=== PATIENT | male | born 1955 | race Two or more races ===

== ENCOUNTER 2020-09-11 12:49 | Emergency (ER) | payer MEDICARE, MEDICAID, SELFPAY ==
[2020-09-11 13:00] VITALS: BP 159/89; PULSE 85; RESP 17; TEMP 36.1; O2SAT 96; BMI 33.3
--- NOTE | 2020-09-11 13:04 | ED_ITS ---
HPI - Ear Problem General Chief complaint: Ear Problems Stated complaint: EAR PAIN Time Seen by Provider: 09/11/20 13:00 Source: patient Mode of arrival: ambulatory Limitations: no limitations History of Present Illness HPI Narrative: 65-year-old male with a past medical history of hyperlipidemia, hypertension, diabetes and vitamin-D deficiency presenting to the ED with complaints of right ear pain for the past 2 days worse today. Denies any other symptoms complaints or concerns at this time. Related Data Previous Rx's Medication Instructions Recorded metoprolol succinate 50 mg 50 mg PO BID 30 Days #60 tab 08/29/20 tablet,extended release 24 hr amoxicillin-pot clavulanate 1 tab PO Q12H 10 Days #20 tab NS 09/11/20 [Augmentin] ciprofloxacin-hydrocortisone 3 drp OTIC (EARS) Q12H 7 Days ml 09/11/20 Allergies Allergy/AdvReac Type Severity Reaction Status Date / Time No Known Allergies Allergy Unverified 08/08/20 17:07 [No Known Allergies*] dulaglutide [Trulicity] AdvReac Unknown diarrhea Verified 04/04/20 00:00 Review of Systems Review of Systems: Constitutional : No Fever, No Chills, No fatigue, No Malaise ENT/Mouth : No sore throat, No runny nose Eyes: No Discharge Cardiovascular : No Chest Pain, No SOB Respiratory : No Cough, No Sputum, No Wheezing, No Smoke Exposure, No Dyspnea Gastrointestinal : No Nausea, No Vomiting, No Diarrhea Genitourinary : No irregular bleeding, No Dysuria, No Urinary Frequency, No Hematuria, No Urinary Incontinence, No Urgency, No Flank Pain, Musculoskeletal : No Myalgia Skin : No rash Neuro : No Headache Yes all other systems are reviewed and are negative [facility] Past Medical History Attestation statement: The following information was validated with the patient. 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 Blood pressure normal. Heart rate normal. Respiration rate normal. Temperature normal. Oxygen saturation normal. Appearance: Alert. Oriented X3. No acute distress. Head: Normal external exam. Normocephalic. Atraumatic. No Villegas signs noted. No raccoon eyes noted Eyes: PERRLA. EOMI. Conjunctiva and sclera normal. Eyelids normal. ENT: Right external ear canal erythematous with white diffuse discharge and tympanic membrane erythematous. Pain with palpation to the pinna and the tragus to right ear. Left external ear canal and tympanic membrane within normal limits. Pharynx normal. Uvula midline. Moist mucous membranes. No trismus noted. No drooling noted. No muffled voice noted. Neck: Normal inspection. Neck supple. FROM. No adenopathy. Thyroid Normal. No meningeal signs. No neck mass noted. CVS: Normal heart rate and rhythm. Heart sound normal. No murmurs noted. Pulses normal throughout. Respiratory: No respiratory distress. Painless inspiration. Breath sounds normal. No wheezes/rales/rhonchi noted. Chest nontender. No accessory muscle usage noted or decreased air movement noted. Abdomen: Soft and nontender. Bowel sounds normal in all 4 quadrants. No distention noted. No organomegaly noted. No visible injury noted. Back: No CVA tenderness. Full range of motion noted. Skin: Skin warm and dry. Normal skin color. Normal skin turgor. No rashes/lesions/lacerations noted. Extremities: No lower extremity edema. Extremities exhibit normal range of motion. Extremities nontender. Neuro: Oriented X 3. No motor deficit. No sensory deficit. Reflexes normal. HENMT: Ears: Abnormal EAC present Course Course Course Narrative: 65-year-old male with a past medical history of hyp erlipidemia, hypertension, diabetes and vitamin-D deficiency presenting to the ED with complaints of right ear pain for the past 2 days worse today. Denies any other symptoms complaints or concerns at this time. patient appears to have otitis externa and media will DC home antibiotics and symptomatic treatment along with instructions return if any new or worsening symptoms to follow-up with primary care provider. Patient understands agrees the plan. Discharge Plan Discharge Clinical Impression: Otitis externa Qualifiers: Otitis externa type: diffuse Chronicity: acute Laterality: right Qualified Cod e(s): H60.311 - Diffuse otitis externa, right ear Otitis media Qualifiers: Otitis media type: suppurative Chronicity: acute Laterality: right Recurrence: not specified as recurrent Spontaneous tympanic membrane rupture: without spontaneous rupture Qualified Code(s): H66.001 - Acute suppurative otitis media without spontaneous rupture of ear drum, right ear Patient Disposition: Home, Self-Care Instructions: Otitis Externa (ED), Ear Infection (ED) Prescriptions: New amoxicillin-pot clavulanate [Augmentin] 500-125 mg tablet 1 tab PO Q12H 10 Days Qty: 20 RF: 0 ciprofloxacin-hydrocortisone 0.2-1 % drops,suspension 3 drp otic (ears) Q12H 7 Days RF: 0 No Action metoprolol succinate 50 mg tablet extended release 24 hr 50 mg PO BID 30 Days Qty: 60 RF: 0 Referrals: Mikey Lai MD [Primary Care Provider] - 2 days Print Language: Urdu
== END 2020-09-11 13:24 | disposition home or self-care (01) ==
LOC: HO.ED 13:14
PROVIDERS: Emergency Provider Emergency Medicine; PCP Internal Medicine
DX: H60.311 Diffuse otitis externa, right ear (principal); H66.001 Acute suppurative otitis media without spontaneous rupture of ear drum, right ear; E11.9 Type 2 diabetes mellitus without complications; I10 Essential (primary) hypertension; Z79.4 Long term (current) use of insulin
CPT/HCPCS: 99283

== ENCOUNTER → 2020-10-29 12:38 | Outpatient (BNVA) | payer MEDICARE, MEDICAID, SELFPAY | PROVIDERS: PCP Internal Medicine; Referring Provider Internal Medicine; Visit Provider Internal Medicine Endocrinology, Diabetes & Metabolism | DX: E11.65 Type 2 diabetes mellitus with hyperglycemia (principal); E11.21 Type 2 diabetes mellitus with diabetic nephropathy; E11.3299 Type 2 diabetes mellitus with mild nonproliferative diabetic retinopathy without macular edema, unspecified eye; E11.22 Type 2 diabetes mellitus with diabetic chronic kidney disease; I12.9 Hypertensive chronic kidney disease with stage 1 through stage 4 chronic kidney disease, or unspecified chronic kidney disease; N18.30 Chronic kidney disease, stage 3 unspecified; Z79.4 Long term (current) use of insulin; E78.5 Hyperlipidemia, unspecified; E04.2 Nontoxic multinodular goiter; E55.9 Vitamin D deficiency, unspecified | CPT/HCPCS: 82947; 99212 ==

== ENCOUNTER 2020-10-31 09:34 | Outpatient (REF) | payer MEDICARE, MEDICAID, SELFPAY ==
--- NOTE | 2020-10-31 09:40 | US_ITS ---
EXAMINATION: US THYROID CLINICAL INFORMATION: Multinodular goiter. COMPARISON: Thyroid ultrasound 07/19/2017. TECHNIQUE: Linear transducer laureano-scale and color Doppler examination with attention to the region of the thyroid. FINDINGS: SIZE: Measurements of the thyroid lobes and nodules are given in sagittal, anteroposterior and transverse dimensions respectively. Right Thyroid Lobe: 5.8 x 1.8 x 2.1 cm, volume 11.5 mL. Previously 5.4 x 1.8 x 1.5 cm, volume 7.6 mL. Parenchyma: The gland echotexture is heterogeneous. Thyroid vascularity is normal. Left Thyroid Lobe: 5.5 x 1.5 x 2.0 cm, volume 8.6 mL. Previously 4.9 x 1.6 x 1.6 cm, volume 6.6 mL. Parenchyma: The gland echotexture is homogeneous. Thyroid vascularity is normal. Isthmus: 0.3 cm in maximum AP dimension. Previously 0.3 cm. RIGHT THYROID LOBE: There is 1 nodule seen. 1. Location: Mid pole. Size: 0.5 x 0.4 x 0.4 cm. Previous: 0.5 x 0.3 x 0.5 cm. Nodule characteristics: Isoechoic heterogeneous, margin, no calcification and no intranodular flow ISTHMUS: No nodules. LEFT THYROID LOBE: There is 1 nodule seen. 1. Location: Mid pole/lateral. Size: 0.6 x 0.5 x 0.5 cm. Previous: 0.6 x 0.3 x 0.5 cm. Nodule characteristics: Isoechoic, smooth margin, no calcification and positive peripheral flow The previously identified cystic nodule in the upper pole is not appreciated. NODES: There is a left cervical lymph node adjacent to the thyroid gland. This is normal in size and demonstrates normal ultrasound morphology and flow. US/US thyroid IMPRESSION: Slightly enlarged heterogeneous thyroid gland. Stable small bilateral thyroid nodules. Previously identified small cystic nodule in the upper pole of the left lobe is not appreciated on the current exam.
== END 2020-10-31 09:35 | disposition home or self-care (01) ==
LOC: HO.US 09:34
PROVIDERS: Visit Provider Internal Medicine Endocrinology, Diabetes & Metabolism
DX: E04.2 Nontoxic multinodular goiter (principal); E11.65 Type 2 diabetes mellitus with hyperglycemia
CPT/HCPCS: 76536

== ENCOUNTER 2021-02-04 14:32 | Outpatient (REF) | payer MEDICARE, MEDICAID, SELFPAY ==
[2021-02-04 15:51] LABS: Hematocrit 45.1 % (42-52); Hemoglobin 15.1 g/dl (14.0-18.0); Mean Corpuscular HGB Conc 33.5 g/dl (31.0-36.0); Mean Corpuscular Hemoglobin 28.2 pg (27.0-33.0); Mean Corpuscular Volume 84.1 fL (80-98); Mean Platelet Volume 10.8 fL (9.4-12.4); Platelet Count 198 X10*3/uL (160-400); Red Blood Count 5.36 X10*6/uL (4.60-5.80); Red Cell Distribution Width 12.4 % (11.0-16.0); White Blood Count 7.3 X10*3/uL (4.8-10.8)
[2021-02-04 16:23] LABS: Creatinine Urine 324.52 mg/dL; Microalbum/Creatinine Ratio Ur 40.3 ug/mg cr
[2021-02-04 16:29] LABS: Alanine Aminotransferase 17 U/L (0-40); Albumin Level 4.3 g/dL (3.5-5.0); Alkaline Phosphatase 97 U/L (39-117); Anion Gap 13 (12-20); Aspartate Amino Transferase 21 U/L (5-37); Bilirubin Total 0.7 mg/dL (0.0-1.0); Blood Urea Nitrogen 20 mg/dL (9-16); Calcium 9.3 mg/dL (8.4-10.2); Carbon Dioxide 32 mmol/L (22-29); Chloride 98 mmol/L (96-108); Cholesterol 203 mg/dL; Estimated Glomerular Filt Rate 40; Glucose Fasting 285 mg/dL (60-99); HDL Cholesterol 37 mg/dL; LDL Cholesterol Calculated 105 mg/dl; Potassium 4.6 mmol/L (3.3-5.1); Sodium 138 mmol/L (135-145); Total Protein 7.7 g/dL (6.5-8.0); Triglycerides 306 mg/dL
[2021-02-04 16:43] LABS: Free T4 (Free Thyroxine) 0.87 ng/dL (0.71-1.85); Thyroid Stimulating Hormone 1.49 uIU/mL (0.32-4.0)
[2021-02-04 16:49] LABS: Vitamin B12 536 pg/mL (200-900)
[2021-02-05 07:46] LABS: LDL Cholesterol Direct 127 mg/dL (<100)
== END 2021-02-04 14:33 | disposition home or self-care (01) ==
LOC: HO.LAB 14:32
PROVIDERS: PCP Internal Medicine; Visit Provider Internal Medicine Endocrinology, Diabetes & Metabolism
DX: E11.65 Type 2 diabetes mellitus with hyperglycemia (principal); E11.3299 Type 2 diabetes mellitus with mild nonproliferative diabetic retinopathy without macular edema, unspecified eye; E11.22 Type 2 diabetes mellitus with diabetic chronic kidney disease; I12.9 Hypertensive chronic kidney disease with stage 1 through stage 4 chronic kidney disease, or unspecified chronic kidney disease; N18.30 Chronic kidney disease, stage 3 unspecified; Z79.4 Long term (current) use of insulin; E78.5 Hyperlipidemia, unspecified; E04.2 Nontoxic multinodular goiter; E55.9 Vitamin D deficiency, unspecified
CPT/HCPCS: 36415; 80053; 80061; 82043; 82607; 82947; 83721; 84439; 84443; 85027; 99212

== ENCOUNTER → 2021-06-10 09:35 | Outpatient (BNVA) | payer MEDICARE, MEDICAID, SELFPAY | PROVIDERS: PCP Internal Medicine; Visit Provider Internal Medicine Endocrinology, Diabetes & Metabolism | DX: E11.65 Type 2 diabetes mellitus with hyperglycemia (principal); E11.21 Type 2 diabetes mellitus with diabetic nephropathy; E11.3299 Type 2 diabetes mellitus with mild nonproliferative diabetic retinopathy without macular edema, unspecified eye; E11.22 Type 2 diabetes mellitus with diabetic chronic kidney disease; I12.9 Hypertensive chronic kidney disease with stage 1 through stage 4 chronic kidney disease, or unspecified chronic kidney disease; N18.30 Chronic kidney disease, stage 3 unspecified; E78.5 Hyperlipidemia, unspecified; E04.2 Nontoxic multinodular goiter; E55.9 Vitamin D deficiency, unspecified; Z79.4 Long term (current) use of insulin | CPT/HCPCS: 82947; 99212 ==

== ENCOUNTER 2021-06-10 10:22 | Outpatient (REF) | payer MEDICARE, MEDICAID, SELFPAY ==
[2021-06-10 12:39] LABS: MANUAL DIFF FLAG NO
[2021-06-10 12:42] LABS: Basophils Absolute Auto 0.1 X10*3/uL (0.0-0.2); Basophils Percent Auto 1.2 % (0-2); Eosinophils Absolute Auto 0.3 X10*3/uL (0.0-0.4); Eosinophils Percent Auto 4.2 % (0-4); Hematocrit 42.7 % (42-52); Hemoglobin 14.2 g/dl (14.0-18.0); Imm Gran Abs Auto 0.02 X10*3/uL (0.00-0.03); Imm Gran Pct Auto 0.3 % (0.0-0.4); Lymphocytes Absolute Auto 2.4 X10*3/uL (1.2-4.9); Lymphocytes Percent Auto 36.3 % (20-40); Mean Corpuscular HGB Conc 33.3 g/dl (31.0-36.0); Mean Corpuscular Hemoglobin 27.8 pg (27.0-33.0); Mean Corpuscular Volume 83.7 fL (80-98); Mean Platelet Volume 11.4 fL (9.4-12.4); Monocytes Absolute Auto 0.7 X10*3/uL (0.1-1.2); Monocytes Percent Auto 9.9 % (2-11); Neutrophils Absolute Auto 3.2 X10*3/uL (2.0-8.3); Neutrophils Percent Auto 48.1 % (45-73); Platelet Count 221 X10*3/uL (160-400); Red Cell Distribution Width 12.9 % (11.0-16.0); White Blood Count 6.7 X10*3/uL (4.8-10.8)
[2021-06-10 12:43] LABS: Glucose Urine UA 100 MG/DL (NEG); Leukocyte Esterase Urine NEG (NEG); Nitrite Urine NEG (NEG); Urine Blood NEG (NEG); Urine Ketones NEG (NEG); Urine Protein NEG (NEG-TRACE)
[2021-06-10 12:44] LABS: Appearance Urine CLEAR; Color Urine YELLOW
[2021-06-10 12:52] LABS: Estimated Average Glucose 232 mg/dL; Hemoglobin A1c % 9.7 %
[2021-06-10 12:58] LABS: Alanine Aminotransferase 14 U/L (0-40); Albumin Level 4.3 g/dL (3.5-5.0); Alkaline Phosphatase 101 U/L (39-117); Anion Gap 15 (12-20); Aspartate Amino Transferase 14 U/L (5-37); Bilirubin Total 0.8 mg/dL (0.0-1.0); Blood Urea Nitrogen 18 mg/dL (9-16); Calcium 9.9 mg/dL (8.4-10.2); Carbon Dioxide 26 mmol/L (22-29); Chloride 99 mmol/L (96-108); Cholesterol 207 mg/dL; Estimated Glomerular Filt Rate 53; Glucose Fasting 215 mg/dL (60-99); HDL Cholesterol 40 mg/dL; LDL Cholesterol Calculated 105 mg/dl; Potassium 4.2 mmol/L (3.3-5.1); Sodium 136 mmol/L (135-145); Total Protein 7.8 g/dL (6.5-8.0); Triglycerides 311 mg/dL
[2021-06-10 13:17] LABS: Microalbum/Creatinine Ratio Ur 52.9 ug/mg cr
[2021-06-10 13:38] LABS: TSH reflex Free T4 1.29 uIU/mL (0.32-4.0); Vitamin D 25-OH Total 27.1 ng/mL (>30)
== END 2021-06-10 10:23 | disposition home or self-care (01) ==
LOC: HO.10HDL 10:22
PROVIDERS: Internal Medicine Endocrinology, Diabetes & Metabolism; Visit Provider Internal Medicine
DX: E11.22 Type 2 diabetes mellitus with diabetic chronic kidney disease (principal); E11.65 Type 2 diabetes mellitus with hyperglycemia; I12.9 Hypertensive chronic kidney disease with stage 1 through stage 4 chronic kidney disease, or unspecified chronic kidney disease; N18.30 Chronic kidney disease, stage 3 unspecified; E78.2 Mixed hyperlipidemia; E55.9 Vitamin D deficiency, unspecified; E66.9 Obesity, unspecified; E04.2 Nontoxic multinodular goiter; Z79.4 Long term (current) use of insulin
CPT/HCPCS: 36415; 80053; 80061; 81003; 82043; 82306; 82947; 83036; 84443; 85025; 99212

== ENCOUNTER 2021-11-04 09:19 | Emergency (ER) | payer MEDICARE, MEDICAID, SELFPAY ==
--- NOTE | ~2021-11-04 | CT_ITS ---
EXAMINATION: CT MASTOID. CLINICAL INFORMATION: Left ureter pain, ? mastoiditis. ? malignant otitis externa. COMPARISON: None TECHNIQUE: 0.6 mm thin axial and reformatted 0.6 mm thin coronal images of bilateral mastoid sinuses were obtained. FINDINGS: Left mastoid: There is mild scattered opacification of mastoid sinuses with no bony erosive changes. No periosteal thickening. There is soft tissue mass seen within the left external auditory canal.. The tympanic membrane, middle ear ossicles are intact. There is no soft tissue mass or fluid within the left middle ear. The left internal auditory canal is symmetrical and normal. Visualized cochlea and the semicircular canals appear intact. Right mastoid: The right mastoid sinuses are well aerated without any mucoperiosteal thickening, air for levels are periosteal elevation. Visualized right external ear, right middle ear and right internal auditory canal appear normal. Bilateral TM joints are symmetrical and normal. No bony erosive changes or loose body seen. There is mild mucoperiosteal thickening bilateral ethmoid, maxillary and right sphenoid sinus. The bony neal are intact. The parapharyngeal soft tissues are normal. No free fluid seen. CT/CT mastoid IMPRESSION: Moderate mucoperiosteal thickening left external auditory canal without any bony erosive changes consistent inflammatory changes. Scattered inflammatory changes involving left mastoid sinus. The left middle ear and the left internal auditory canal appears normal. The right external, internal and middle ear appears normal. Nasopharyngeal and parapharyngeal soft tissues are normal.
[2021-11-04 09:45] VITALS: BP 175/86; PULSE 63; RESP 18; TEMP 36.4; O2SAT 98; BMI 36.8
--- NOTE | 2021-11-04 10:13 | ED_ITS ---
HPI - Ear Problem General Chief complaint: Ear Problems Stated complaint: Ear pain Time Seen by Provider: 11/04/21 10:02 Source: patient Mode of arrival: ambulatory Limitations: no limitations History of Present Illness HPI Narrative: 66-year-old with past medical history of diabetes, hypertension, and CKD presents ED for worsening left ear infection. Patient states infection for the past 11 days. Patient states he went swimming in [place] soon after having started having ear pain and was placed on oral antibiotics which consisted of 6 pills and ear drops and did not improved. Patient denies any bleeding from the ear but admits to slight ear discharge. Patient denies any recent head trauma. Patient states history of recurring ear infections. Patient states last episode was this past August. Patient denies any headache, fever, chills, nausea, or vomiting. Related Data Home Medications Medication Instructions Recorded Confirmed metoprolol tartrate 50 mg tablet 50 mg PO BID 10/29/20 07/24/21 Previous Rx's Medication Instructions Recorded atorvastatin 80 mg tablet 80 mg PO DAILY 30 Days #30 tab 06/10/21 blood sugar diagnostic (FreeStyle #150 ea 06/10/21 Lite Strips) cholecalciferol (vitamin D3) 50 50 mcg PO DAILY 30 Days #30 cap 06/10/21 mcg (2,000 unit) capsule empagliflozin 25 mg tablet 25 mg PO DAILY 30 Days #30 tab 06/10/21 ezetimibe 10 mg tablet 10 mg PO DAILY 30 Days #30 tab 06/10/21 insulin glargine 100 unit/mL (3 32 unit (0.32 mL) SUBCUT QPM 30 06/10/21 mL) subcutaneous pen (Basaglar Days #15 ml KwikPen U-100 Insulin) insulin lispro 100 unit/mL See Rx Instructions SUBCUT TID 30 06/10/21 subcutaneous pen (Humalog KwikPen Days #15 ml (U-100) Insulin) lancets 28 gauge (FreeStyle 28 gauge TOPICAL QID 75 Days #300 06/10/21 Lancets) ea linagliptin 5 mg tablet (Tradjenta) 5 mg PO DAILY 30 Days #30 tab 06/10/21 losartan 100 mg tablet 100 mg PO DAILY #30 tab 06/10/21 pen needle, diabetic 32 gauge x #150 ea 06/10/21 amlodipine 5 mg tablet 5 mg PO DAILY 30 Days #30 tab 07/24/21 amoxicillin 875 mg-potassium 1 tab PO Q12H 10 Days #20 tab 11/04/21 clavulanate 125 mg tablet (Augmentin) ciprofloxacin 0.3 %-dexamethasone 4 drp OTIC (EARS) Q12H 7 Days #7.5 11/04/21 0.1 % ear drops,suspension ml (Ciprodex) Allergies Allergy/AdvReac Type Severity Reaction Status Date / Time dulaglutide [Trulicity] AdvReac Unknown diarrhea Verified 07/24/21 13:53 Review of Systems Review of Systems: Yes all other systems are reviewed and are negative Constitutional: Constitutional: Reports as per HPI and Reports no additional constitutional complaints Eyes: Eyes: Reports as per HPI and Reports no additional eye complaints ENT: Reports system reviewed and no additional complaints, except as documented, Reports as per HPI and Reports otalgia (Left ear pain) Cardiovascular: Cardiovascular: Reports as per HPI and Reports no additional cardiovascular complaints Respiratory: Respiratory: Reports as per HPI and Reports no additional respiratory complaints Gastrointestinal: Gastrointestinal: Reports as per HPI and Reports no additional gastrointestinal complaints Genitourinary: Genitourinary: Reports no additional male genitourinary complaints and Reports as per HPI Musculoskeletal: Musculoskeletal: Reports no additional musculoskeletal complaints and Reports as per HPI Integumentary/Breasts: Skin/Breast: Reports system reviewed and no additional complaints, except as docu and Reports as per HPI Neurologic: Reports system reviewed and no additional complaints, except as documented and Reports as per HPI Psychiatric: Psychiatric: Reports no additional psychiatric complaints and Reports as per HPI [facility] Past Medical History Medical History (Updated 11/04/21 @ 13:03 by JOSE Najera) Benign essential hypertension Chronic kidney disease (CKD), stage III (moderate) CKD (chronic kidney disease) stage 3, GFR 30-59 ml/min Diabetes type 2, uncontrolled Diabetic 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 with type 2 diabetes mellitus Dyslipidemia Hypertension 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 Mild non proliferative diabetic retinopathy Mixed hyperlipidemia Non-toxic multinodular goiter Obesity (BMI 30-39.9) Screening for colon cancer Screening for prostate cancer Type 2 diabetes mellitus with diabetic chronic kidney disease Vitamin D deficiency Surgical History Hx of cardiac cath Hx of tonsillectomy Family History Family History Father Hypertension Diabetes CVA (cerebral vascular accident) Dementia Mother CVA (cerebral vascular accident) Dementia Diabetes Hypertension Other Mental health disorder Social History Social History Housing: House Alcohol intake: never Patient Tobacco Use Status: Never used Tobacco Advance Directives: No Advance Directives Information Provided: No service: No Current occupational status: disabled Physical Exam Vital Signs: Vital Signs: Last Vital Signs Temp 97.6 F 11/04/21 12:21 Pulse 64 11/04/21 12:21 Resp 18 11/04/21 12:21 BP 156/78 H 11/04/21 12:21 Pulse Ox 99 11/04/21 12:21 BMI result Body Mass Index 36.8 Const: General: cooperative, healthy appearing, comfortable, no acute di stress, well developed, alert, awake and Physically active Orientation/consciousness: patient oriented x3 HENMT: Other: Head: Yes normal to inspection, Yes No palpable skull fracture present, Yes normocephalic, Yes atraumatic and No abrasion Ears: hearing grossly normal bilaterally, external ears normal, mastoids normal, no periauricular adenopathy, Abnormal EAC present (Positive for yellowish discharge) and external ear abnormal (Slight erythema of ear lobe) Eyes: General: appearance normal, both eyes and all related structures Neck: Neck: Yes normal visual inspection, Yes full ROM, Yes no lymphadenopathy, Yes no meningeal signs, Yes trachea midline, Yes supple, No anterior neck swelling and No tender Chest: Chest palpation & inspection: normal inspection of the chest and normal palpation of entire chest wall Resp: Effort & Inspection: normal respiratory effort and able to speak in complete sentences Auscultation: clear to auscultation bilaterally Cardio: Jugular venous distension: no JVD Heart sounds: S1 normal heart sound present and S2 normal heart sound present GI: Inspection: Yes normal to inspection and No abdominal wall ecchymosis Palpation (GI): Soft to palpation, not firm, nontender, no guarding and not rigi d : General: No CVA tenderness and Yes no CVA tenderness Back/Spine/Pelvis: Back: no CVA tenderness, No CVA tenderness and No back tenderness Skin: General skin exam: no rashes or lesions noted and elasticity normal Neuro: General: patient oriented x3, gait normal, no meningeal signs and CN's II-XI intact bilaterally Cranial nerves: Yes CN's II-XII intact bilaterally Extrem: General: Yes normal to inspection and Yes full ROM Psych: Appearance: grossly normal, well kempt and not disheveled Course Course Course Narrative: History physical exam indicate otitis externa but due to patient stating it is not improved after 11 days with medication and slight erythema on external ear with ear discharge and also patient with history of diabetes will send for CT of mastoid to make sure there is no mastoiditis although there is no mastoid tenderness and make sure there is no malignant otitis externa. Reevaluation(s) Reevaluation #1: CT scan negative for mastoiditis or malignant otitis externa. Patient will be discharged with ear drops and oral antibiotics. Time: 13:01 MDM - Ear MDM Narrative Medical decision making narrative: Otitis externa Discharge Plan Discharge Clinical Impression: Otitis externa Patient Disposition: Home, Self-Care Instructions: Otitis Externa (ED) Additional Instructions: Ding tomograf?a computarizada solo muestra otitis externa. Se le corrie? de hermann con antibi?ticos orales y gotas para los o?dos. Regrese al servicio de urgencias si empeora el dolor de o?do, dolor de richard, secreci?n abundante del o?do, jevon del o?do, fiebre, escalofr?os, hinchaz?n / enrojecimiento detr?s de la parte frontal de la oreja, mareos, hinchaz?n facial, hinchaz?n del cherrie o cualquier otro s?ntoma preocupante. Feliciano un seguimiento con el proveedor de atenci?n primaria. Prescriptions: New amoxicillin-pot clavulanate [Augmentin] 875-125 mg tablet 1 tab PO Q12H 10 Days Qty: 20 RF: 0 ciprofloxacin-dexamethasone [Ciprodex] 0.3-0.1 % drops,suspension 4 drp otic (ears) Q12H 7 Days Qty: 7.5 RF: 0 No Action amlodipine 5 mg tablet 5 mg PO DAILY 30 Days Qty: 30 RF: 6 atorvastatin 80 mg tablet 80 mg PO DAILY 30 Days Qty: 30 RF: 5 (DME) FreeStyle Lite Strips Strip See Rx Instructions .ROUTE .MEDSUPPLY Qty: 150 RF: 7 cholecalciferol (vitamin D3) 50 mcg (2,000 unit) capsule 50 mcg PO DAILY 30 Days Qty: 30 RF: 6 empagliflozin 25 mg tablet 25 mg PO DAILY 30 Days Qty: 30 RF: 6 ezetimibe 10 mg tablet 10 mg PO DAILY 30 Days Qty: 30 RF: 5 Basaglar KwikPen U-100 Insulin 100 unit/mL (3 mL) insulin pen 32 unit subcut QPM 30 Days Qty: 15 RF: 5 insulin lispro [Humalog KwikPen Insulin] 100 unit/mL insulin pen See Rx Instructions subcut TID 30 Days Qty: 15 RF: 5 lancets [FreeStyle Lancets] 28 gauge misc 28 gauge topical QID 75 Days Qty: 300 RF: 2 Tradjenta 5 mg tablet 5 mg PO DAILY 30 Days Qty: 30 RF: 5 losartan 100 mg tablet 100 mg PO DAILY Qty: 30 RF: 6 (DME) pen needle, diabetic 32 gauge x 5/32 needle See Rx Instructions ea subcut .MEDSUPPLY Qty: 150 RF: 6 metoprolol tartrate 50 mg tablet 50 mg PO BID RF: 0 Referrals: Cj Root [Physician] - 2 days (otitis externa) Interventions: ED Discharge Assessment Last Done: 11/04/21 13:52 Discharge Date/Time: 11/04/21 13:55 Print Language: Algerian
[2021-11-04] MEDS: Ibuprofen 800 MG TABLET PO (10:20)
[2021-11-04 12:21] VITALS: BP 156/78; PULSE 64; RESP 18; TEMP 36.4; O2SAT 99
== END 2021-11-04 13:55 | disposition home or self-care (01) ==
PROVIDERS: Emergency Provider Emergency Medicine; PCP Internal Medicine
DX: H60.92 Unspecified otitis externa, left ear (principal); E11.9 Type 2 diabetes mellitus without complications; I10 Essential (primary) hypertension; Z79.4 Long term (current) use of insulin; Z79.899 Other long term (current) drug therapy
CPT/HCPCS: 70481; 99284

== ENCOUNTER → 2022-01-26 09:05 | Outpatient (BNVA) | payer MEDICARE, MEDICAID, SELFPAY | PROVIDERS: PCP Internal Medicine; Visit Provider Nurse Practitioner Gerontology | DX: E11.65 Type 2 diabetes mellitus with hyperglycemia (principal); E11.21 Type 2 diabetes mellitus with diabetic nephropathy; E11.3299 Type 2 diabetes mellitus with mild nonproliferative diabetic retinopathy without macular edema, unspecified eye; E11.22 Type 2 diabetes mellitus with diabetic chronic kidney disease; I12.9 Hypertensive chronic kidney disease with stage 1 through stage 4 chronic kidney disease, or unspecified chronic kidney disease; N18.31 Chronic kidney disease, stage 3a; E55.9 Vitamin D deficiency, unspecified; E78.5 Hyperlipidemia, unspecified; Z79.4 Long term (current) use of insulin | CPT/HCPCS: 82947; 83036; 99212 ==

== ENCOUNTER 2022-03-27 10:38 | Outpatient (REF) | payer MEDICARE, MEDICAID, SELFPAY ==
[2022-03-27 10:55] LABS: MANUAL DIFF FLAG NO
[2022-03-27 11:29] LABS: Basophils Absolute Auto 0.1 X10*3/uL (0.0-0.2); Eosinophils Absolute Auto 0.3 X10*3/uL (0.0-0.4); Eosinophils Percent Auto 4.3 % (0-4); Hematocrit 44.6 % (42.0-52.0); Hemoglobin 15.3 g/dl (14.0-18.0); Imm Gran Abs Auto 0.02 X10*3/uL (0.00-0.03); Imm Gran Pct Auto 0.3 % (0.0-0.4); Lymphocytes Absolute Auto 2.2 X10*3/uL (1.2-4.9); Mean Corpuscular HGB Conc 34.3 g/dl (31.0-36.0); Mean Corpuscular Hemoglobin 28.9 pg (27.0-33.0); Mean Corpuscular Volume 84.2 fL (80.0-98.0); Mean Platelet Volume 10.9 fL (9.4-12.4); Monocytes Absolute Auto 0.7 X10*3/uL (0.1-1.2); Neutrophils Absolute Auto 3.4 x10*3/uL (2.0-8.3); Neutrophils Percent Auto 51.4 % (45-73); Platelet Count 181 X10*3/uL (160-400); Red Cell Distribution Width 12.7 % (11.0-16.0); White Blood Count 6.7 X10*3/uL (4.8-10.8)
[2022-03-27 11:41] LABS: Estimated Average Glucose 220 mg/dL; Hemoglobin A1c % 9.3 %
[2022-03-27 12:22] LABS: Alanine Aminotransferase 14 U/L (0-40); Albumin Level 4.2 g/dL (3.5-5.0); Alkaline Phosphatase 104 U/L (39-117); Anion Gap 13 (12-20); Aspartate Amino Transferase 12 U/L (5-37); Bilirubin Total 0.6 mg/dL (0.0-1.0); Blood Urea Nitrogen 20 mg/dL (9-16); Carbon Dioxide 28 mmol/L (22-29); Chloride 100 mmol/L (96-108); Cholesterol 187 mg/dL; Estimated Glomerular Filt Rate 48; HDL Cholesterol 37 mg/dL; LDL Cholesterol Calculated 96 mg/dl; Potassium 4.6 mmol/L (3.3-5.1); Sodium 136 mmol/L (135-145); Total Protein 7.9 g/dL (6.5-8.0); Triglycerides 274 mg/dL
[2022-03-27 12:27] LABS: TSH reflex Free T4 2.13 uIU/mL (0.32-4.0); Vitamin D 25-OH Total 30.4 ng/mL (>30)
[2022-03-27 13:05] LABS: Glucose Fasting 397 mg/dL (60-99)
[2022-03-27 13:34] LABS: Appearance Urine CLEAR; Color Urine YELLOW; Glucose Urine UA >=1000 MG/DL (NEG); Leukocyte Esterase Urine NEG (NEG); Nitrite Urine NEG (NEG); Specific Gravity - Urine 1.015 (1.005-1.025); Urine Blood NEG (NEG); Urine Ketones NEG (NEG); Urine Protein NEG (NEG-TRACE)
[2022-03-27 13:45] LABS: Mucus Urine 1+ /LPF; RBC Urine 0 /HPF (0); Squamous Epithelial Cell Urine 1+ /LPF; WBC Urine 0 /HPF (0-4)
== END 2022-03-27 10:39 | disposition home or self-care (01) ==
LOC: HO.LAB 10:38
PROVIDERS: PCP Internal Medicine; Visit Provider Internal Medicine
DX: I10 Essential (primary) hypertension (principal); E11.9 Type 2 diabetes mellitus without complications; E78.00 Pure hypercholesterolemia, unspecified; E55.9 Vitamin D deficiency, unspecified
CPT/HCPCS: 36415; 80053; 80061; 81001; 82306; 83036; 84443; 85025

== ENCOUNTER → 2022-04-21 10:38 | Outpatient (BNVA) | payer MEDICARE, MEDICAID, SELFPAY | PROVIDERS: PCP Internal Medicine; Visit Provider Registered Nurse Diabetes Educator | DX: E11.22 Type 2 diabetes mellitus with diabetic chronic kidney disease (principal); N18.30 Chronic kidney disease, stage 3 unspecified | CPT/HCPCS: 95250 ==

== ENCOUNTER → 2022-05-12 10:22 | Outpatient (BNVA) | payer MEDICARE, MEDICAID, SELFPAY | PROVIDERS: PCP Internal Medicine; Visit Provider Nurse Practitioner Gerontology | DX: E11.65 Type 2 diabetes mellitus with hyperglycemia (principal); E11.21 Type 2 diabetes mellitus with diabetic nephropathy; E11.3299 Type 2 diabetes mellitus with mild nonproliferative diabetic retinopathy without macular edema, unspecified eye; E11.22 Type 2 diabetes mellitus with diabetic chronic kidney disease; I12.9 Hypertensive chronic kidney disease with stage 1 through stage 4 chronic kidney disease, or unspecified chronic kidney disease; N18.31 Chronic kidney disease, stage 3a; E78.5 Hyperlipidemia, unspecified; E55.9 Vitamin D deficiency, unspecified; Z79.4 Long term (current) use of insulin | CPT/HCPCS: Q3014 ==

== ENCOUNTER → 2022-12-31 10:38 | Outpatient (BNVA) | payer MEDICARE, MEDICAID, SELFPAY | PROVIDERS: PCP Internal Medicine; Visit Provider Internal Medicine Endocrinology, Diabetes & Metabolism | DX: E11.65 Type 2 diabetes mellitus with hyperglycemia (principal); Z79.4 Long term (current) use of insulin | CPT/HCPCS: 82947; 83036; 99212 ==

== ENCOUNTER 2023-01-01 09:34 | Outpatient (REF) | payer MEDICARE, MEDICAID, SELFPAY ==
[2023-01-01 09:49] LABS: MANUAL DIFF FLAG NO
[2023-01-01 10:42] LABS: Basophils Absolute Auto 0.1 X10*3/uL (0.0-0.2); Eosinophils Absolute Auto 0.2 X10*3/uL (0.0-0.4); Eosinophils Percent Auto 2.9 % (0-4); Hematocrit 48.5 % (42.0-52.0); Hemoglobin 16.1 g/dl (14.0-18.0); Imm Gran Abs Auto 0.02 X10*3/uL (0.00-0.03); Imm Gran Pct Auto 0.3 % (0.0-0.4); Lymphocytes Absolute Auto 2.3 X10*3/uL (1.2-4.9); Lymphocytes Percent Auto 29.5 % (20-40); Mean Corpuscular HGB Conc 33.2 g/dl (31.0-36.0); Mean Corpuscular Volume 84.3 fL (80.0-98.0); Mean Platelet Volume 10.4 fL (9.4-12.4); Monocytes Absolute Auto 0.7 X10*3/uL (0.1-1.2); Monocytes Percent Auto 9.2 % (2-11); Neutrophils Absolute Auto 4.4 x10*3/uL (2.0-8.3); Neutrophils Percent Auto 57.1 % (45-73); Platelet Count 242 X10*3/uL (160-400); Red Blood Count 5.75 X10*6/uL (4.60-5.80); Red Cell Distribution Width 12.6 % (11.0-16.0); White Blood Count 7.7 X10*3/uL (4.8-10.8)
[2023-01-01 10:46] LABS: Appearance Urine Clear; Color Urine Yellow; Glucose Urine UA >=1000 mg/dL (Negative); Leukocyte Esterase Urine Negative (Negative); Nitrite Urine Negative (Negative); PH 5.5 (5.0-9.0); Specific Gravity - Urine >= 1.030 (1.005-1.025); UMIC TRIGGER UACC YES; Urine Blood Negative (Negative); Urine Ketones Negative (Negative); Urine Protein Negative (Neg-Trace)
[2023-01-01 10:55] LABS: Bacteria Urine None Seen (None Seen); Hyaline Casts Urine 0-2 /LPF (0-2); RBC Urine 0-2 /HPF (0-2); Squamous Epithelial Cell Urine 0-2 /HPF (0-2); WBC Urine 0-5 /HPF (0-5)
[2023-01-01 11:10] LABS: Creatinine Urine 66.49 mg/dL
[2023-01-01 11:21] LABS: Alanine Aminotransferase 13 U/L (0-40); Albumin Level 4.6 g/dL (3.5-5.0); Alkaline Phosphatase 70 U/L (39-117); Anion Gap 16 (12-20); Aspartate Amino Transferase 12 U/L (5-37); Bilirubin Total 0.6 mg/dL (0.0-1.0); Blood Urea Nitrogen 21 mg/dL (9-16); Calcium 10.6 mg/dL (8.4-10.2); Carbon Dioxide 29 mmol/L (22-29); Chloride 102 mmol/L (96-108); Cholesterol 213 mg/dL; Estimated Glomerular Filt Rate 45; Glucose Fasting 210 mg/dL (60-99); HDL Cholesterol 48 mg/dL; LDL Cholesterol Calculated 133 mg/dl; Potassium 4.6 mmol/L (3.3-5.1); Sodium 142 mmol/L (135-145); Total Protein 8.2 g/dL (6.5-8.0); Triglycerides 164 mg/dL
[2023-01-01 11:27] LABS: TSH reflex Free T4 2.33 uIU/mL (0.32-4.0); Vitamin D 25-OH Total 27.8 ng/mL (>30)
[2023-01-08 08:59] LABS: C Peptide 2.98 ng/mL (0.80-3.85); Glutamic acid decarboxylase Ab <5 IU/mL (<5)
== END 2023-01-01 09:35 | disposition home or self-care (01) ==
LOC: HO.LAB 09:34
PROVIDERS: PCP Internal Medicine; Visit Provider Internal Medicine
DX: E11.9 Type 2 diabetes mellitus without complications (principal); I10 Essential (primary) hypertension; E55.9 Vitamin D deficiency, unspecified; E78.00 Pure hypercholesterolemia, unspecified
CPT/HCPCS: 36415; 80053; 80061; 81001; 82043; 82306; 84443; 84681; 85025; 86341

== ENCOUNTER 2023-04-09 08:31 | Outpatient (REF) | payer MEDICARE, MEDICAID, SELFPAY ==
[2023-04-09 09:54] LABS: Estimated Average Glucose 223 mg/dL; Hemoglobin A1c % 9.4 %
[2023-04-09 10:32] LABS: Appearance Urine Clear; Color Urine Yellow; Glucose Urine UA >=1000 mg/dL (Negative); Leukocyte Esterase Urine Negative (Negative); Nitrite Urine Negative (Negative); Specific Gravity - Urine >= 1.030 (1.005-1.025); UMIC TRIGGER UACC YES; Urine Blood Negative (Negative); Urine Ketones Negative (Negative); Urine Protein Negative (Neg-Trace)
[2023-04-09 10:47] LABS: Alanine Aminotransferase 16 U/L (0-40); Albumin Level 4.2 g/dL (3.5-5.0); Anion Gap 14 (12-20); Aspartate Amino Transferase 13 U/L (5-37); Bilirubin Total 0.7 mg/dL (0.0-1.0); Blood Urea Nitrogen 22 mg/dL (9-16); Calcium 9.5 mg/dL (8.4-10.2); Carbon Dioxide 28 mmol/L (22-29); Chloride 103 mmol/L (96-108); Cholesterol 111 mg/dL; Estimated Glomerular Filt Rate 53; Glucose Fasting 179 mg/dL (60-99); HDL Cholesterol 31 mg/dL; LDL Cholesterol Calculated 56 mg/dl; Potassium 4.4 mmol/L (3.3-5.1); Sodium 141 mmol/L (135-145); Total Protein 7.4 g/dL (6.5-8.0); Triglycerides 122 mg/dL
[2023-04-09 10:56] LABS: Alkaline Phosphatase 77 U/L (39-117)
[2023-04-09 10:57] LABS: Bacteria Urine None Seen (None Seen); RBC Urine 0-2 /HPF (0-2); Squamous Epithelial Cell Urine 0-2 /HPF (0-2); WBC Urine 0-5 /HPF (0-5)
[2023-04-09 10:58] LABS: Hyaline Casts Urine 0-2 /LPF (0-2)
[2023-04-09 11:11] LABS: Microalbum/Creatinine Ratio Ur 14.6 ug/mg cr
== END 2023-04-09 08:32 | disposition home or self-care (01) ==
LOC: HO.LAB 08:31
PROVIDERS: PCP Internal Medicine; Visit Provider Internal Medicine
DX: E11.65 Type 2 diabetes mellitus with hyperglycemia (principal); E78.00 Pure hypercholesterolemia, unspecified
CPT/HCPCS: 36415; 80053; 80061; 81001; 81003; 82043; 82947; 83036; 99212

== ENCOUNTER 2023-07-27 14:22 | Outpatient (AMB) | payer MEDICARE, MEDICAID, SELFPAY ==
[2023-07-27 14:23] VITALS: BP 124/80; PULSE 64; O2SAT 98; BMI 36.3
--- NOTE | 2023-07-27 14:23 | MHC.PC.OV ---
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 Analyst Required: No Accompanied by: Self / Same As Patient Allergies dulaglutide [Trulicity] Adverse Reaction (Unknown, Verified 07/27/23 14:49) diarrhea Medication List - Last Reconciled 07/27/23 by Mikey Lai MD acetaminophen 650 mg (2 x 325 mg) PO Q6H PRN amlodipine 5 mg PO DAILY 90 days atorvastatin 80 mg PO DAILY 30 days blood sugar diagnostic (FreeStyle Lite Strips) 4 times a day blood-glucose meter (FreeStyle Lite Meter kit) As directed tests 4 X/day cholecalciferol (vitamin D3) 50 mcg PO DAILY 30 days empagliflozin 25 mg PO DAILY 30 days ezetimibe 10 mg PO DAILY 30 days flash glucose scanning reader ([employer].comStyle Tania 2 Bronson) As directed flash glucose sensor (FreeStyle Tania 2 Sensor kit) As directed change every 14 days hydrochlorothiazide 25 mg PO QAM 90 days insulin aspart U-100 (Novolog FlexPen U-100 Insulin aspart) 14 units (0.14 mL) subcut TID 30 days insulin glargine (Basaglar KwikPen U-100 Insulin) 44 units (0.44 mL) subcut QPM 30 days lancets (FreeStyle Lancets) 28 gauge topical QID 75 days linagliptin (Tradjenta) 5 mg PO DAILY 30 days losartan 100 mg PO DAILY 90 days metoprolol tartrate 50 mg PO BID 90 days pen needle, diabetic 5 times a day Tobacco use date assessed: 07/27/23 Fall risk assessment: No Falls in past year Last assessed Fall Risk: 07/27/23 Dental Screening Dental Screen Date: 07/27/23 Did you have a dental visit in the last 12 months?: Yes Did you have a dental problem in the last 6 months where you did not have access to dental care?: No Was dental information given to patient?: Patient has dentist HPI 3 month f/u HPI Details Patient comes in today for his follow up visit States that he feels okay He denies any headaches or dizziness Denies any chest pains, no SOB No nausea/vomiting, no abdominal pain No change in bowel habits noted Was seen by Dr. Cruz for endocrinology evaluation a few months ago and was started on a CGM to help him track his blood sugar better but they have not yet made any changes to his medications yet He is also now seeing a music educator and speech professor to help him get his diabetes controlled better Has no follow up labs done recently Adds that he has been out of his insulin Rx for the past 4 days and needs his Rx refilled [facility] Medical History Benign essential hypertension Chronic kidney disease (CKD), stage III (moderate) CKD (chronic kidney disease) stage 3, GFR 30-59 ml/min Diabetes type 2, uncontrolled Diabetic 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 with type 2 diabetes mellitus 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 Mild non proliferative diabetic retinopathy Mixed hyperlipidemia Non-toxic multinodular goiter Obesity (BMI 30-39.9) Type 2 diabetes mellitus with diabetic chronic kidney disease Vitamin D deficiency Surgical History Hx of cardiac cath (~2008) Hx of tonsillectomy Family History Father Hypertension Diabetes CVA (cerebral vascular accident) Dementia Mother CVA (cerebral vascular accident) Dementia Diabetes Hypertension Other Mental health disorder Social History Housing: House Alcohol intake: never Patient Tobacco Use Status: Never used Tobacco e-Cigarette/Vaping Use: Never Used service: No Current occupational status: disabled Cognitive needs: No Hearing needs: Yes (B/L hearing loss per Pt) Vision needs: No Questionnaire PHQ-9 Over the last 2 weeks, how often have you been bothered by any of the following problems? 1. Little interest or pleasure in doing things: not at all 2. Feeling down, depressed, or hopeless: not at all 3. Trouble falling or staying asleep, or sleeping too much: not at all 4. Feeling tired or having little energy: not at all 5. Poor appetite or overeating: not at all 6. Feeling bad about yourself - or that you are a failure or have let yourself or your family down: not at all 7. Trouble concentrating on things, such as reading the newspaper or watching television: not at all 8. Moving or speaking so slowly that other people could have noticed. Or the opposite - being so fidgety or restless that you have been moving around a lot more than usual: not at all 9. Thoughts that you would be better off or of hurting yourself in some way: not at all Total score: 0 Depression Screening Interpretation: Negative 34186 - PHQ-9 Billing: Yes Source: Developed by Drs. Jersey Gibson, Janeth Lopes, Jose Cesar and colleagues, with an educational renu from [employer]. Thrive Questionnaire Date Thrive assessed: 07/27/23 I am a: Patient What is your living situation today?: I have a steady place to live Within the past 12 months, did the food you bought not last and you didn't have the money to get more?: Never true Within the past 12 months, did you worry whether your food would run out before you got money to buy more?: Never true Do you have trouble paying for medicines?: No Do you have trouble getting transportation to medical appointments?: No Do you have trouble paying your heating and electricity bill?: No Do you have trouble taking care of your child, family member or friend?: No Do you have trouble with day-to-day activities such as bathing, preparing meals, shopping, managing finances, etc.?: No Are you currently unemployed and looking for a job?: No Are you interested in more education?: No Please select the resources that you would like help with: None Currently or been in a relationship where the following occur: no concerns reported AUDIT C Alcohol Use Questionnaire (AUDIT-C) 1. How often do you have a drink containing alcohol?: Monthly or less 2. How many drinks containing alcohol do you have on a typical day when you are drinking?: 3 or 4 3. How often do you have six or more drinks on one occasion?: Never Total Score: 2 Score Reviewed/Action Taken: Yes NIKKI-7 AMB Questionnaire NIKKI-7 Date NIKKI - 7 assessed: 07/27/23 Feeling nervous, anxious, or on edge: 0 = Not at all Not being able to stop or control worryin = Not at all Worrying too much about different things: 0 = Not at all Trouble relaxin = Not at all Being so restless that it is hard to sit still: 0 = Not at all Becoming easily annoyed or irritable: 0 = Not at all Feeling afraid as if something awful might happen: 0 = Not at all Total NIKKI-7 score (0-4 normal; 5-9 mild; 10-14 moderate; 15-21 severe): 0 Source: Developed by Drs. Jersey Gibson, Janeth Lopes, Jose Cesar and colleagues, with an educational renu from [employer]. Review of Systems Const Denies chills, Denies fatigue, Denies fever(s) and Denies headache(s) ENT Denies dysphagia, Denies dizziness, Denies otalgia, Denies headache(s), Denies odynophagia and Denies sore throat Card Denies chest pain, Denies palpitations and Denies dyspnea Resp Denies cough and Denies dyspnea GI Denies abdominal pain, Denies constipation, Denies dysphagia, Denies heartburn, Denies diarrhea, Denies nausea, Denies odynophagia and Denies vomiting Denies dysuria, Denies nocturia and Denies urinary frequency Neuro Denies dizziness and Denies headache(s) Endo Denies fatigue and Denies palpitations Physical exam (Primary Care) Vital Signs: Last Vital Signs Pulse 64 07/27/23 14:23 BP 124/80 07/27/23 14:23 Pulse Ox 98 07/27/23 14:23 Oxygen Delivery Method Room Air 07/27/23 14:23 BMI result Body Mass Index 36.3 Tobacco/Smoking Status: Tobacco use Status Tobacco use date assessed 07/27/23 07/27/23 14:28 Patient Tobacco Use Status Never used Tobacco 07/27/23 14:28 e-Cigarette/Vaping Use Never Used 07/27/23 14:28 PHQ-9: PHQ-9 Score PHQ-9: Total score 0 07/27/23 15:09 Depression Screening Interpretation: Negative Thrive Assessment: Date of Thrive Assessment Date Thrive assessed 07/27/23 07/27/23 14:28 Currently or been in a relationship where the following occur: no concerns reported Const General: no acute distress and alert HENMT Ears: TM's normal bilaterally and EAC's normal Throat: Yes posterior oropharynx normal and Yes tonsils normal (no TP congestion) Neck Neck: Yes no lymphadenopathy and Yes supple Resp Auscultation: clear to auscultation bilaterally, no rales and no wheezes Cardio Rate: regular rate Rhythm: regular rhythm Heart sounds: no murmurs GI Palpation (GI): Soft to palpation and nontender Auscultation: normal bowel sounds Skin General skin exam: no rashes or lesions noted Extrem General: Yes no clubbing, cyanosis or edema Results AMB Hemoglobin A1c AMB Hemoglobin A1c 9.5 % Last Edit by ACOSTA Rosales on 07/27/23 15:16 Assessment and Plan Assessment & Plan (1) Mixed hyperlipidemia: Code(s): E78.2 - Mixed hyperlipidemia Plan: Was again not able to get his follow up labs done recently Reinforced low cholesterol diet Continue Atorvastatin 80 mg QD and Ezetimibe 10 mg QD Will recheck his labs in 3 months for follow up (2) Type 2 diabetes mellitus with diabetic chronic kidney disease: Code(s): E11.22 - Type 2 diabetes mellitus with diabetic chronic kidney disease Qualifiers: Diabetes mellitus mcc insulin use: with mcc use Chronic kidney disease stage: stage 3 (moderate) Chronic kidney disease stage 3 subtype: stage 3b (GFR 30-44) Qualified Code(s): E11.22 - Type 2 diabetes mellitus with diabetic chronic kidney disease; N18.32 - Chronic kidney disease, stage 3b; Z79.4 - alf (current) use of insulin Plan: Advised that his diabetes is still not adequately controlled as his in-office HgbA1c today is at 9.5% (was at 9.4% a few months ago) - goal is < 7.0% Reinforced diabetic diet Continue Tradjenta 5 mg QD, Jardiance 25 mg QD, Basaglar 44 unit Q HS and Novolog 6 units with breakfast, 8 units with lunch and 6 units with dinner and increase by 2 units if blood sugar is over 200 mg/dl for now Patient is reminded to schedule a follow up appt with Dr. Anthony HOSKINS (as he has no follow up appt scheduled at this time) and to continue to follow up with the music educator and speech professor as scheduled (3) Benign essential hypertension: Code(s): I10 - Essential (primary) hypertension Plan: Reinforced low sodium diet - goal is systolic BP of at least 120 to 130 mm or less Continue Losartan 100 mg QD, Amlodipine 5 mg QD, Metoprolol 50 mg BID and HCTZ 25 mg Q AM (4) Chronic kidney disease (CKD), stage III (moderate): Code(s): N18.30 - Chronic kidney disease, stage 3 unspecified Qualifiers: Chronic kidney disease stage 3 subtype: stage 3b (GFR 30-44) Qualified Code(s): N18.32 - Chronic kidney disease, stage 3b Plan: Will continue to monitor his GFR and serum creatinine regularly (5) Vitamin D deficiency: Code(s): E55.9 - Vitamin D deficiency, unspecified Plan: Continue Vitamin D3 2000 units QD Will recheck his Vitamin D level in 3 months for follow up (6) Non-toxic multinodular goiter: Code(s): E04.2 - Nontoxic multinodular goiter Plan: Thyroid US done in 10/2020 showed stable findings Will recheck TFTs in 3 months for follow up Follow up with endocrinology as scheduled (7) Obesity (BMI 30-39.9): Code(s): E66.9 - Obesity, unspecified Plan: Reinforced diet/exercise as tolerated/lose weight Plan Follow up in 3 months Orders: Orders Comprehensive [place]. Panel Fast 3 Months E78.00 - Pure hypercholesterolemia, unspecified Hemoglobin A1c 3 Months E11.9 - Type 2 diabetes mellitus without complications Lipid Panel 3 Months E78.00 - Pure hypercholesterolemia, unspecified TSH reflex Free T4 3 Months E78.00 - Pure hypercholesterolemia, unspecified Vitamin D 25-OH Total 3 Months E55.9 - Vitamin D deficiency, unspecified Microalbumin, Random (w Creat) 3 Months E11.9 - Type 2 diabetes mellitus without complications Complete Blood Count Auto Diff 3 Months I10 - Essential (primary) hypertension UA CC w/rflx Micro + Cult 3 Months R30.0 - Dysuria AMB Hemoglobin A1c Today E11.65 - Type 2 diabetes mellitus with hyperglycemia Medications: Refilled insulin aspart U-100 (Novolog FlexPen U-100 Insulin aspart) 14 units (0.14 mL) subcut TID 30 days 15 mL 8RF Coding Level of Care Code Est Pt Level 3 (43137) Diagnoses Mixed hyperlipidemia E78.2 Type 2 diabetes mellitus with diabetic chronic kidney disease E11.22; N18.32; Z79.4 Diabetes mellitus mcc insulin use: with terminal make up operator use Chronic kidney disease stage: stage 3 (moderate) Chronic kidney disease stage 3 subtype: stage 3b (GFR 30-44) Benign essential hypertension I10 Chronic kidney disease (CKD), stage III (moderate) N18.32 Chronic kidney disease stage 3 subtype: stage 3b (GFR 30-44) Vitamin D deficiency E55.9 Non-toxic multinodular goiter E04.2 Obesity (BMI 30-39.9) E66.9
== END 2023-07-27 15:11 | disposition home or self-care (01) ==
PROVIDERS: PCP Internal Medicine; Visit Provider Internal Medicine
DX: E11.22 Type 2 diabetes mellitus with diabetic chronic kidney disease (principal); N18.32 Chronic kidney disease, stage 3b; I12.9 Hypertensive chronic kidney disease with stage 1 through stage 4 chronic kidney disease, or unspecified chronic kidney disease; Z79.4 Long term (current) use of insulin; E78.2 Mixed hyperlipidemia; E55.9 Vitamin D deficiency, unspecified; E04.2 Nontoxic multinodular goiter; E66.9 Obesity, unspecified; E11.65 Type 2 diabetes mellitus with hyperglycemia
CPT/HCPCS: 83036; 99213

== ENCOUNTER 2023-10-26 07:22 | Outpatient (REF) | payer MEDICARE, SELFPAY ==
[2023-10-26 07:43] LABS: MANUAL DIFF FLAG NO
[2023-10-26 08:08] LABS: Basophils Absolute Auto 0.1 X10*3/uL (0.0-0.2); Basophils Percent Auto 0.9 % (0-2); Eosinophils Absolute Auto 0.3 X10*3/uL (0.0-0.4); Eosinophils Percent Auto 4.6 % (0-4); Hematocrit 44.9 % (42.0-52.0); Hemoglobin 14.7 g/dl (14.0-18.0); Imm Gran Abs Auto 0.02 X10*3/uL (0.00-0.03); Imm Gran Pct Auto 0.3 % (0.0-0.4); Lymphocytes Absolute Auto 2.6 X10*3/uL (1.2-4.9); Lymphocytes Percent Auto 39.9 % (20-40); Mean Corpuscular HGB Conc 32.7 g/dl (31.0-36.0); Mean Corpuscular Hemoglobin 27.6 pg (27.0-33.0); Mean Corpuscular Volume 84.4 fL (80.0-98.0); Mean Platelet Volume 11.1 fL (9.4-12.4); Monocytes Absolute Auto 0.8 X10*3/uL (0.1-1.2); Monocytes Percent Auto 12.4 % (2-11); Neutrophils Absolute Auto 2.7 x10*3/uL (2.0-8.3); Neutrophils Percent Auto 41.9 % (45-73); Platelet Count 186 X10*3/uL (160-400); Red Blood Count 5.32 X10*6/uL (4.60-5.80); Red Cell Distribution Width 12.6 % (11.0-16.0); White Blood Count 6.5 X10*3/uL (4.8-10.8)
[2023-10-26 08:17] LABS: Estimated Average Glucose 272 mg/dL; Hemoglobin A1c % 11.1 % (<6.0)
[2023-10-26 08:37] LABS: Alanine Aminotransferase 15 U/L (0-40); Albumin Level 4.1 g/dL (3.5-5.0); Alkaline Phosphatase 88 U/L (39-117); Anion Gap 12 (12-20); Aspartate Amino Transferase 12 U/L (5-37); Bilirubin Total 0.6 mg/dL (0.0-1.0); Blood Urea Nitrogen 15 mg/dL (9-16); Calcium 9.7 mg/dL (8.4-10.2); Carbon Dioxide 27 mmol/L (22-29); Chloride 103 mmol/L (96-108); Cholesterol 189 mg/dL (<200); Estimated Glomerular Filt Rate 56; Glucose Fasting 223 mg/dL (60-99); HDL Cholesterol 39 mg/dL (>40); LDL Cholesterol Calculated 111 mg/dL (<100); Sodium 138 mmol/L (135-145); Total Protein 7.7 g/dL (6.5-8.0); Triglycerides 195 mg/dL (<150)
[2023-10-26 08:41] LABS: TSH reflex Free T4 2.77 uIU/mL (0.32-4.0); Vitamin D 25-OH Total 29.2 ng/mL (>30)
[2023-10-26 08:52] LABS: Appearance Urine Clear; Color Urine Yellow; Glucose Urine UA >=1000 mg/dL (Negative); Leukocyte Esterase Urine Negative (Negative); Nitrite Urine Negative (Negative); Specific Gravity - Urine 1.015 (1.005-1.025); UMIC TRIGGER UACC YES; Urine Blood Negative (Negative); Urine Ketones Negative (Negative); Urine Protein Negative (Neg-Trace)
[2023-10-26 09:01] LABS: Bacteria Urine None Seen (None Seen); Hyaline Casts Urine 0-2 /LPF (0-2); RBC Urine 0-2 /HPF (0-2); Squamous Epithelial Cell Urine 0-2 /HPF (0-2); WBC Urine 0-5 /HPF (0-5)
[2023-10-26 10:54] LABS: Creatinine Urine 66.23 mg/dL; Microalbum/Creatinine Ratio Ur 25.6 ug/mg cr (<30)
== END 2023-10-26 07:23 | disposition home or self-care (01) ==
LOC: HO.LAB 07:22
PROVIDERS: PCP Internal Medicine; Visit Provider Internal Medicine
DX: E78.00 Pure hypercholesterolemia, unspecified (principal); E11.9 Type 2 diabetes mellitus without complications; I10 Essential (primary) hypertension; E55.9 Vitamin D deficiency, unspecified
CPT/HCPCS: 36415; 80053; 80061; 81001; 82043; 82306; 82570; 83036; 84443; 85025

== ENCOUNTER 2023-10-26 15:22 | Outpatient (AMB) | payer MEDICARE, SELFPAY ==
[2023-10-26 15:23] VITALS: BP 128/82; PULSE 77; O2SAT 97; BMI 37.6
--- NOTE | 2023-10-26 15:23 | MHC.PC.OV ---
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 Accompanied by: Self / Same As Patient Allergies dulaglutide [Trulicity] Adverse Reaction (Unknown, Verified 11/11/23 14:24) diarrhea Medication List - Last Reconciled 10/26/23 by Mikey Lai MD acetaminophen 650 mg (2 x 325 mg) PO Q6H PRN amlodipine 5 mg PO DAILY 90 days atorvastatin 80 mg PO DAILY 30 days blood sugar diagnostic (FreeStyle Lite Strips) 4 times a day blood-glucose meter (FreeStyle Lite Meter kit) As directed tests 4 X/day cholecalciferol (vitamin D3) 50 mcg PO DAILY 30 days empagliflozin 25 mg PO DAILY 30 days ezetimibe 10 mg PO DAILY 30 days flash glucose scanning reader (GigwellStyle Tania 2 Basehor) As directed flash glucose sensor (FreeStyle Tania 2 Sensor kit) As directed change every 14 days hydrochlorothiazide 25 mg PO QAM 90 days insulin aspart U-100 (Novolog FlexPen U-100 Insulin aspart) 14 units (0.14 mL) subcut TID 30 days insulin glargine (Basaglar KwikPen U-100 Insulin) 44 units (0.44 mL) subcut QPM 30 days lancets (FreeStyle Lancets) 28 gauge topical QID 75 days linagliptin (Tradjenta) 5 mg PO DAILY 30 days losartan 100 mg PO DAILY 90 days metoprolol tartrate 50 mg PO BID 90 days pen needle, diabetic 5 times a day Tobacco use date assessed: 10/26/23 Fall risk assessment: No Falls in past year Last assessed Fall Risk: 10/26/23 Dental Screening Dental Screen Date: 10/26/23 Did you have a dental visit in the last 12 months?: No Did you have a dental problem in the last 6 months where you did not have access to dental care?: No Was dental information given to patient?: Patient has dentist HPI 3mon F/U HPI Details Patient comes in today for his follow up visit States that he feels okay He denies any headaches or dizziness Denies any chest pains, no SOB No nausea/vomiting, no abdominal pain No change in bowel habits noted States that he has been experiencing some recurrent pain over his left upper arm/left shoulder area for the past 1 week Does not recall any recent injury or trauma to his left shoulder or arm Needs several of his Rx refilled Had his follow up labs done earlier this morning - to discuss his results [facility] Medical History Benign essential hypertension Chronic kidney disease (CKD), stage III (moderate) CKD (chronic kidney disease) stage 3, GFR 30-59 ml/min Diabetes type 2, uncontrolled Diabetic 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 with type 2 diabetes mellitus Dyslipidemia skilled nursing (current) use of insulin Mild non proliferative diabetic retinopathy Mixed hyperlipidemia Non-toxic multinodular goiter Obesity (BMI 30-39.9) Type 2 diabetes mellitus with diabetic chronic kidney disease Vitamin D deficiency Surgical History Hx of cardiac cath (~2008) Hx of tonsillectomy Family History Father Hypertension Diabetes CVA (cerebral vascular accident) Dementia Mother CVA (cerebral vascular accident) Dementia Diabetes Hypertension Other Mental health disorder Social History Housing: House Alcohol intake: never Patient Tobacco Use Status: Never used Tobacco e-Cigarette/Vaping Use: Never Used service: No Current occupational status: disabled Cognitive needs: No Hearing needs: Yes (B/L hearing loss per Pt) Vision needs: No Questionnaire PHQ-9 Over the last 2 weeks, how often have you been bothered by any of the following problems? 1. Little interest or pleasure in doing things: not at all 2. Feeling down, depressed, or hopeless: not at all 3. Trouble falling or staying asleep, or sleeping too much: not at all 4. Feeling tired or having little energy: not at all 5. Poor appetite or overeating: not at all 6. Feeling bad about yourself - or that you are a failure or have let yourself or your family down: not at all 7. Trouble concentrating on things, such as reading the newspaper or watching television: not at all 8. Moving or speaking so slowly that other people could have noticed. Or the opposite - being so fidgety or restless that you have been moving around a lot more than usual: not at all 9. Thoughts that you would be better off or of hurting yourself in some way: not at all Total score: 0 Depression Screening Interpretation: Negative Depression Screening Done: Yes 49168 - PHQ-9 Billing: Yes Source: Developed by Drs. Jersey Gibson, Janeth Lopes, Jose Cesar and colleagues, with an educational renu from [employer] Thrive Questionnaire Date Thrive assessed: 10/26/23 I am a: Patient What is your living situation today?: I have a steady place to live Within the past 12 months, did the food you bought not last and you didn't have the money to get more?: Never true Within the past 12 months, did you worry whether your food would run out before you got money to buy more?: Never true Do you have trouble paying for medicines?: No Do you have trouble getting transportation to medical appointments?: No Do you have trouble paying your heating and electricity bill?: No Do you have trouble taking care of your child, family member or friend?: No Do you have trouble with day-to-day activities such as bathing, preparing meals, shopping, managing finances, etc.?: No Are you currently unemployed and looking for a job?: No Are you interested in more education?: No Please select the resources that you would like help with: None Currently or been in a relationship where the following occur: no concerns reported AUDIT C Alcohol Use Questionnaire (AUDIT-C) 1. How often do you have a drink containing alcohol?: Monthly or less 2. How many drinks containing alcohol do you have on a typical day when you are drinking?: 3 or 4 3. How often do you have six or more drinks on one occasion?: Never Total Score: 2 Score Reviewed/Action Taken: Yes NIKKI-7 AMB Questionnaire NIKKI-7 Date NIKKI - 7 assessed: 10/26/23 Feeling nervous, anxious, or on edge: 0 = Not at all Not being able to stop or control worryin = Not at all Worrying too much about different things: 0 = Not at all Trouble relaxin = Not at all Being so restless that it is hard to sit still: 0 = Not at all Becoming easily annoyed or irritable: 0 = Not at all Feeling afraid as if something awful might happen: 0 = Not at all Total NIKKI-7 score (0-4 normal; 5-9 mild; 10-14 moderate; 15-21 severe): 0 Source: Developed by Drs. Jersey Gibson, Janeth Lopes, Jose Cesar and colleagues, with an educational renu from [employer] Review of Systems Const Denies chills, Denies fatigue, Denies fever(s) and Denies headache(s) ENT Denies dysphagia, Denies dizziness, Denies otalgia, Denies headache(s), Denies odynophagia and Denies sore throat Card Denies chest pain, Denies palpitations and Denies dyspnea Resp Denies cough and Denies dyspnea GI Denies abdominal pain, Denies constipation, Denies dysphagia, Denies heartburn, Denies diarrhea, Denies nausea, Denies odynophagia and Denies vomiting Denies dysuria, Denies nocturia and Denies urinary frequency Musc Details: on and off pain over the left upper arm and around the left shoulder area lately Denies back pain Skin/Breast Denies rash Neuro Denies dizziness and Denies headache(s) Endo Denies fatigue and Denies palpitations Physical exam (Primary Care) Vital Signs: Last Vital Signs Pulse 77 10/26/23 15:23 BP 128/82 10/26/23 15:23 Pulse Ox 97 10/26/23 15:23 Oxygen Delivery Method Room Air 10/26/23 15:23 BMI result Body Mass Index 37.6 Tobacco/Smoking Status: Tobacco use Status Tobacco use date assessed 10/26/23 12 15:31 Patient Tobacco Use Status Never used Tobacco 10/26/23 15:31 e-Cigarette/Vaping Use Never Used 10/26/23 15:31 PHQ-9: PHQ-9 Score PHQ-9: Total score 0 10/26/23 16:06 Depression Screening Interpretation: Negative Thrive Assessment: Date of Thrive Assessment Date Thrive assessed 10/26/23 12 15:31 Currently or been in a relationship where the following occur: no concerns reported Const General: no acute distress and alert HENMT Ears: TM's normal bilaterally and EAC's normal Throat: Yes posterior oropharynx normal and Yes tonsils normal (no TP congestion) Neck Neck: Yes no lymphadenopathy and Yes supple Resp Auscultation: clear to auscultation bilaterally, no rales and no wheezes Cardio Rate: regular rate Rhythm: regular rhythm Heart sounds: no murmurs GI Palpation (GI): Soft to palpation and nontender Auscultation: normal bowel sounds Skin General skin exam: no rashes or lesions noted Extrem General: Yes no clubbing, cyanosis or edema Left upper extremity: shoulder/upper arm Details: tenderness Results Reviewed Results Reviewed: Laboratory Tests 10/26/23 07:41 WBC 6.5 Hgb 14.7 Hct 44.9 Plt Count 186 Sodium 138 Potassium 4.0 Creatinine 1.27 Estimated GFR 56 Fasting Glucose 223 H Hemoglobin A1c % 11.1 H Calcium 9.7 AST 12 ALT 15 Triglycerides 195 H Cholesterol 189 LDL Cholesterol, Calc 111 H HDL Cholesterol 39 L 25-OH Vitamin D Total 29.2 L TSH 2.77 Assessment and Plan Assessment & Plan (1) Mixed hyperlipidemia: Code(s): E78.2 - Mixed hyperlipidemia Plan: Results of his labs done earlier today reviewed and discussed with patient Reinforced low cholesterol diet Continue Atorvastatin 80 mg QD and Ezetimibe 10 mg QD Will recheck his labs and fasting lipids in 3 months for follow up (2) Type 2 diabetes mellitus with diabetic chronic kidney disease: Code(s): E11.22 - Type 2 diabetes mellitus with diabetic chronic kidney disease Qualifiers: Diabetes mellitus 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 insulin use: with correction use Chronic kidney disease stage: stage 3 (moderate) Chronic kidney disease stage 3 subtype: stage 3b (GFR 30-44) Qualified Code(s): E11.22 - Type 2 diabetes mellitus with diabetic chronic kidney disease; N18.32 - Chronic kidney disease, stage 3b; Z79.4 - skilled nursing (current) use of insulin Plan: HgbA1c was at 11.1% on his labs done earlier today (in-office HgbA1c was at 9.5% a few months ago) - goal is < 7.0% Reinforced diabetic diet Continue Tradjenta 5 mg QD and Jardiance 25 mg QD Patient is also supposed to be on Basaglar 44 unit Q HS and Novolog 6 units with breakfast, 8 units with lunch and 6 units with dinner and increase by 2 units if blood sugar is over 200 mg/dl BUT states that he has not been able to get his insulin refilled as his insurance is declining to cover his Rx presenty Will refer him back to endocrinology and to sales communications manager for teaching GATO (3) Benign essential hypertension: Code(s): I10 - Essential (primary) hypertension Plan: Reinforced low sodium diet - goal is systolic BP of at least 120 to 130 mm or less Continue Losartan 100 mg QD, Amlodipine 5 mg QD, Metoprolol 50 mg BID and HCTZ 25 mg Q AM (4) Chronic kidney disease (CKD), stage III (moderate): Code(s): N18.30 - Chronic kidney disease, stage 3 unspecified Qualifiers: Chronic kidney disease stage 3 subtype: stage 3b (GFR 30-44) Qualified Code(s): N18.32 - Chronic kidney disease, stage 3b Plan: Will continue to monitor his GFR and serum creatinine regularly (5) Vitamin D deficiency: Code(s): E55.9 - Vitamin D deficiency, unspecified Plan: Continue Vitamin D3 2000 units QD Will recheck his Vitamin D level in 3 months for follow up (6) Non-toxic multinodular goiter: Code(s): E04.2 - Nontoxic multinodular goiter Plan: Thyroid US done in 10/2020 showed stable findings Will recheck TFTs in 3 months for follow up Follow up with endocrinology as scheduled (7) Left shoulder pain: Code(s): M25.512 - Pain in left shoulder Qualifiers: Chronicity: unspecified Qualified Code(s): M25.512 - Pain in left shoulder Plan: Will send patient for x-rays of his left shoulder for further evaluation (8) Obesity (BMI 30-39.9): Code(s): E66.9 - Obesity, unspecified Plan: Reinforced diet/exercise as tolerated/lose weight Plan Follow up in 3 months Orders: Orders Complete Blood Count Auto Diff 3 Months I10 - Essential (primary) hypertension Lipid Panel 3 Months E78.00 - Pure hypercholesterolemia, unspecified Hemoglobin A1c 3 Months E11.9 - Type 2 diabetes mellitus without complications Microalbumin, Random (w Creat) 3 Months E11.9 - Type 2 diabetes mellitus without complications Vitamin D 25-OH Total 3 Months E55.9 - Vitamin D deficiency, unspecified XR humerus LT 10/26/23 M79.622 - Pain in left upper arm Comprehensive [place]. 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 Nutrition Referral E11.65 - Type 2 diabetes mellitus with hyperglycemia Medications: Changed From insulin glargine 44 units (0.44 mL) subcut QPM 30 days 15 mL 6RF E11.65 - Type 2 diabetes mellitus with hyperglycemia To insulin glargine (Basaglar KwikPen U-100 Insulin) 44 units (0.44 mL) subcut QPM 15 mL 6RF 30 days E11.65 - Type 2 diabetes mellitus with hyperglycemia From pen needle, diabetic 5 times a day 150 ea 12RF E11.65 - Type 2 diabetes mellitus with hyperglycemia To pen needle, diabetic 5 times a day 5 times a day 150 ea 12RF E11.65 - Type 2 diabetes mellitus with hyperglycemia Refilled linagliptin (Tradjenta) 5 mg PO DAILY 30 tabs 6RF 30 days E11.65 - Type 2 diabetes mellitus with hyperglycemia amlodipine 5 mg PO DAILY 90 tabs 3RF 90 days E11.65 - Type 2 diabetes mellitus with hyperglycemia empagliflozin 25 mg PO DAILY 30 tabs 6RF 30 days E11.65 - Type 2 diabetes mellitus with hyperglycemia losartan 100 mg PO DAILY 90 tabs 3RF 90 days E11.65 - Type 2 diabetes mellitus with hyperglycemia, I10 - Essential (primary) hypertension metoprolol tartrate 50 mg PO BID 180 tabs 3RF 90 days hydrochlorothiazide 25 mg PO QAM 90 tabs 3RF 90 days ezetimibe 10 mg PO DAILY 30 tabs 5RF 30 days E11.65 - Type 2 diabetes mellitus with hyperglycemia Coding Level of Care Code Est Pt Level 4 (27196) Diagnoses Mixed hyperlipidemia E78.2 Type 2 diabetes mellitus with stage 3b chronic kidney disease, with long-term current use of insulin E11.22; N18.32; Z79.4 Diabetes mellitus 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 insulin use: with 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 use Chronic kidney disease stage: stage 3 (moderate) Chronic kidney disease stage 3 subtype: stage 3b (GFR 30-44) Benign essential hypertension I10 Stage 3b chronic kidney disease N18.32 Chronic kidney disease stage 3 subtype: stage 3b (GFR 30-44) Vitamin D deficiency E55.9 Non-toxic multinodular goiter E04.2 Left shoulder pain, unspecified chronicity M25.512 Chronicity: unspecified Obesity (BMI 30-39.9) E66.9
== END 2023-10-26 16:14 | disposition home or self-care (01) ==
PROVIDERS: PCP Internal Medicine; Visit Provider Internal Medicine
DX: E78.2 Mixed hyperlipidemia (principal); E11.22 Type 2 diabetes mellitus with diabetic chronic kidney disease; I12.9 Hypertensive chronic kidney disease with stage 1 through stage 4 chronic kidney disease, or unspecified chronic kidney disease; N18.32 Chronic kidney disease, stage 3b; Z79.4 Long term (current) use of insulin; E55.9 Vitamin D deficiency, unspecified; E04.2 Nontoxic multinodular goiter; M25.512 Pain in left shoulder; E66.9 Obesity, unspecified
CPT/HCPCS: 99214

== ENCOUNTER 2023-10-28 14:37 | Outpatient (AMB) | payer MEDICARE, SELFPAY ==
[2023-10-28 14:45] VITALS: BMI 37.6
--- NOTE | 2023-10-28 14:45 | MHC.AMNUTRGE ---
Intake VS Expanded 10/28/23 14:45 11/10/23 09:39 Height 5 ft 3 in 5 ft 3 in Weight 212 lb 8.41 oz 213 lb BMI 37.6 37.7 Intake Visit Reasons: DM-CONFIRMED Allergies dulaglutide [Trulicity] Adverse Reaction (Unknown, Verified 10/26/23 16:05) diarrhea HPI Nutrition Presentation Details Pt presents for MNT for uncontrolled T2DM. Pt was referred by Dr. Lai Pt reports having no meal routine and often skipping meal time insulin dosages. B:coffee/sugar and 6 crackers with cheese or mangu/cheese/eggs or hot cereal with milk L:skip or rice/chicken, soda or root vegetables/meat/juice dinner: hot cereal or crackers /cofffee or rice/beans/chicken or root veg, water/glass of milk snacks: pastry and milk or fruit or crackers Physical activity: daily life activities ETOH: 1-2 serving , 3-4 x/wk smoking: denies DNT-Tkqjkts-Mk.Jeor Equation Height 5 ft 3 in Weight 213 lb Resting Metabolic Rate 1625.91 Calculated Activity Level Mild Activity Calories Needed to Maintain Weight 2235.63 Diagnosis Nutrition problem #1 altered nutrition labs As related to (etiology) #1 diagnosis As evidenced by (sign/symptom) #1 elevated HgbA1c (11.1% on 10/2023) Monitoring/Goals Nutrition problem monitoring total CHO intake (healthy plate method ) Most Recent Diabetes Results: Microalb/Creat Ratio 25.6 ug/mg cr (<30) 10/26/23 Cholesterol 189 mg/dL (<200) 10/26/23 HDL Cholesterol 39 mg/dL (>40) L 10/26/23 Triglycerides 195 mg/dL (<150) H 10/26/23 Creatinine 1.27 mg/dL (0.5-1.4) 10/26/23 Blood Urea Nitrogen 15 mg/dL (9-16) 10/26/23 Sodium 138 mmol/L (135-145) 10/26/23 Potassium 4.0 mmol/L (3.3-5.1) 10/26/23 Chloride 103 mmol/L (96-108) 10/26/23 Carbon Dioxide 27 mmol/L (22-29) 10/26/23 Calcium 9.7 mg/dL (8.4-10.2) 10/26/23 AST 12 U/L (5-37) 10/26/23 ALT 15 U/L (0-40) 10/26/23 Total Protein 7.7 g/dL (6.5-8.0) 10/26/23 Albumin 4.1 g/dL (3.5-5.0) 10/26/23 PFSH Medical History Benign essential hypertension Chronic kidney disease (CKD), stage III (moderate) CKD (chronic kidney disease) stage 3, GFR 30-59 ml/min Diabetes type 2, uncontrolled Diabetic 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 with type 2 diabetes mellitus Dyslipidemia penitentiary (current) use of insulin Mild non proliferative diabetic retinopathy Mixed hyperlipidemia Non-toxic multinodular goiter Obesity (BMI 30-39.9) Type 2 diabetes mellitus with diabetic chronic kidney disease Vitamin D deficiency Surgical History Hx of cardiac cath (~2008) Hx of tonsillectomy Family History Father Hypertension Diabetes CVA (cerebral vascular accident) Dementia Mother CVA (cerebral vascular accident) Dementia Diabetes Hypertension Other Mental health disorder Social History Housing: House Alcohol intake: never Patient Tobacco Use Status: Never used Tobacco e-Cigarette/Vaping Use: Never Used service: No Current occupational status: disabled Cognitive needs: No Hearing needs: Yes (B/L hearing loss per Pt) Vision needs: No Assessment & Plan Assessment & Plan (1) Type 2 diabetes mellitus with diabetic chronic kidney disease: Code(s): E11.22 - Type 2 diabetes mellitus with diabetic chronic kidney disease Qualifiers: Chronic kidney disease stage: stage 3 (moderate) Chronic kidney disease stage 3 subtype: stage 3b (GFR 30-44) Diabetes mellitus halfway insulin use: with halfway use Qualified Code(s): E11.22 - Type 2 diabetes mellitus with diabetic chronic kidney disease; N18.32 - Chronic kidney disease, stage 3b; Z79.4 - 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 Plan: wt: 97 kg Est kcal needs as per MSJ: 2200 (40% carb, 30% protein/fat) Est fluid needs as per 25-30 ml/d: 2400- 2900 Est prot per day as per 1 g/kg bw: 97g Recommend fiber intake : 8-10 g per day and gradually increase to 25-28 g per day for women and 35-38 g for men or as tolerated Recommend sodium intake per day : less than 2000 mg Educated patient on: ( R = reviewed V = verbalizes understanding N/R = needs review N/A = not applicable Food sources of carbohydrate, adequate serving sizes and its role in various health conditions: R Differences between complex carbohydrates a simple carbohydrates, role of fiber in diet: NR Differences between types of fats and role in diet (mono on saturated fat fatty acids, saturated fatty acids, trans fats): NR Food sources of sodium in salt and healthy modifications for heart health in kidney health: NR Vitamins and minerals: NR Healthy plate method concept: R Physical activity: Benefits a precaution: R Hypoglycemia protocol (rule of 15): NR Dietary prevention of Hyperglycemia: R Patient Instructions: Follow healthy plate method at dinner Drink water with meals Reduce on alcohol /abstain from alcohol consumption resume taking diabetes medications as prescribed by your doctor Coding Level of Care Code Nutr Indiv Intake (39570) Diagnoses Type 2 diabetes mellitus with stage 3b chronic kidney disease, with long-term current use of insulin E11.22; N18.32; Z79.4 Chronic kidney disease stage: stage 3 (moderate) Chronic kidney disease stage 3 subtype: stage 3b (GFR 30-44) Diabetes mellitus extermination supervisor insulin use: with extermination supervisor use Time Spent (min) 30
[2023-11-10 09:39] VITALS: BMI 37.7
== END 2023-10-28 15:01 | disposition home or self-care (01) ==
PROVIDERS: PCP Internal Medicine; Visit Provider Dietitian, Registered
DX: E11.22 Type 2 diabetes mellitus with diabetic chronic kidney disease (principal); N18.32 Chronic kidney disease, stage 3b; Z79.4 Long term (current) use of insulin

== ENCOUNTER → 2023-10-28 14:37 | Outpatient (BNVA) | payer MEDICARE, SELFPAY | PROVIDERS: PCP Internal Medicine; Visit Provider Dietitian, Registered | DX: E11.22 Type 2 diabetes mellitus with diabetic chronic kidney disease (principal); N18.32 Chronic kidney disease, stage 3b; Z79.4 Long term (current) use of insulin | CPT/HCPCS: 97802 ==

== ENCOUNTER 2023-11-11 14:17 | Outpatient (AMB) | payer MEDICARE, MEDICAID, SELFPAY ==
--- NOTE | 2023-11-11 14:19 | A.OFFVIS_ITS ---
Intake Vital Signs 11/11/23 14:20 Height 5 ft 3 in Weight 211 lb 3.245 oz BMI 37.4 BP 158/86 H Blood Pressure Location Lt brachial Position Sitting Pulse 71 Pulse Source Pulse Oximeter Intake Visit Reasons: DM/CONFIRMED Intake Note: Patient presents today to follow up on DMT2. Last Diabetic Eye exam: 10/2022 Last Podiatry Visit: None Random Glucose: 285 mg/dl HgA1C: 11.1% 10/26/23 Receiving Associate Store Required: Yes Receiving Associate Store Language: Film Printer Name: [facility] medical staff Information Interpreted: non-clinical & clinical Accompanied by: Self / Same As Patient Allergies dulaglutide [Trulicity] Adverse Reaction (Unknown, Verified 11/11/23 14:24) diarrhea HPI HPI Comments History of Present Illness Details Patient is 68 year male with DM type 2 diagnosed in 2003 who presents for management of diabetes. Past medical history: Diabetes type 2, hypertension, hyperlipidemia CKD3, NTMG ( with small subcentimeter nodules with no need for intervention Dr. Arizmendi visit 06/10/21) Micro and macrovascular complications: retinopathy, nephropathy, Diabetes medications: Basaglar 32 units, Novolog 6-8-6 + 2 for bg >200 uses mostly 10 units for breakfast and occassionally 5 units for lunch and rarely any for dinner as does not eat dinner. Usually 14 units Novolog premeals . Tradjenta 5 mg, Jardiance 25 mg Glucometer download shows he is checking his point cares once a day. Average glucose is 168 with range 103 to 246. 69% range with 31% hyperglycemia and no hypoglycemia Symptoms reported: denies numbness, tingling, cramping in lower extremities Hypoglycemia: no Emergency Department Clinician - CDE education: saw Medical Instructor: denies Dental exam: goes every 6-8 month Ophthalmology evaluation: 1 yr ago needs to make appt mild non-proliferative diabetic retinopathy Other specialists: sees community support specialist in [place] when there Laboratory Tests 06/10/21 01/26/22 03/27/22 Unknown 09:27 10:54 Creatinine 1.45 H Estimated GFR 48 Hgb A1c (Clinic) 11.6 H Hemoglobin A1c % Triglycerides 274 Cholesterol 187 LDL Cholesterol, C alc 96 HDL Cholesterol 37 25-OH Vitamin D To vida 30.4 Microalb/Creat Rat io 52.9 05/06/22 10:54 Creatinine Estimated GFR Hgb A1c (Clinic) Hemoglobin A1c % 9.3 Triglycerides Cholesterol LDL Cholesterol, C alc HDL Cholesterol 25-OH Vitamin D To vida Microalb/Creat Rat io Was not taking atorvastatin for 1 mo [facility] Medical History Benign essential hypertension Chronic kidney disease (CKD), stage III (moderate) CKD (chronic kidney disease) stage 3, GFR 30-59 ml/min Diabetes type 2, uncontrolled Diabetic 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 with type 2 diabetes mellitus 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 Mild non proliferative diabetic retinopathy Mixed hyperlipidemia Non-toxic multinodular goiter Obesity (BMI 30-39.9) Type 2 diabetes mellitus with diabetic chronic kidney disease Vitamin D deficiency Surgical History Hx of cardiac cath (~2008) Hx of tonsillectomy Family History Father Hypertension Diabetes CVA (cerebral vascular accident) Dementia Mother CVA (cerebral vascular accident) Dementia Diabetes Hypertension Other Mental health disorder Social History Housing: House Alcohol intake: never Patient Tobacco Use Status: Never used Tobacco e-Cigarette/Vaping Use: Never Used service: No Current occupational status: disabled Cognitive needs: No Hearing needs: Yes (B/L hearing loss per Pt) Vision needs: No Physical Exam Absence of Cushingoid features. Absence of acromegalic features. Neck exam reveals nl size thyroid about 15 gms. No thyroid nodules palpable. No carotid bruits present. Lungs CTA. Heart S1 S2, Reg R/R. No M/R/ G. Skin exam reveals absence of vitiligo or acanthosis nigricans. Abdominal exam reveals Soft NT/ND with NA BS. No organomegaly present. Neck Other: . Extrem Other: Visual exam of foot performed. No ulcerations or open lesions. No onchomycosis, no callouses.Pulses 2 + distally Sensation intact to monofilament exam. Vibratory sensation sensed is intact with 128 Hz tuning fork Assessment & Plan Assessment & Plan (1) Diabetes type 2, uncontrolled: Code(s): E11.65 - Type 2 diabetes mellitus with hyperglycemia Plan: This 68-year-old male with history of type 2 diabetes being treated with Tradjenta Jardiance and basal- bolus insulin with poor glycemic control and known microvascular complications namely nephropathy Plan is to have the patient.Check his point cares pre and post meals. I prescribed a Tania 2 personal sensor. Will have him follow up with life skills educator. Cannot make any other changes to regimen today because there is no data. Once sensor is in place could consider switching the Tradjenta to a GLP 1 agonist for Once again, 1 over the correlation of poor glycemic control to development and progression complications with the patient Orders: Orders Lipid Panel 6 Weeks E11.65 - Type 2 diabetes mellitus with hyperglycemia Coding Level of Care Code Est Pt Level 4 (71703) Diagnoses Diabetes type 2, uncontrolled E11.65
[2023-11-11 14:20] VITALS: BP 158/86; PULSE 71; BMI 37.4
[2023-11-11 14:31] LABS: Glucose, Whole Blood 285 mg/dL (60-115)
== END 2023-11-11 14:41 | disposition home or self-care (01) ==
PROVIDERS: PCP Internal Medicine; Visit Provider Internal Medicine Endocrinology, Diabetes & Metabolism
DX: E11.65 Type 2 diabetes mellitus with hyperglycemia (principal)
CPT/HCPCS: 99214

== ENCOUNTER → 2023-11-11 14:17 | Outpatient (BNVA) | payer MEDICARE, SELFPAY | PROVIDERS: PCP Internal Medicine; Visit Provider Internal Medicine Endocrinology, Diabetes & Metabolism | DX: E11.65 Type 2 diabetes mellitus with hyperglycemia (principal) | CPT/HCPCS: 82947; 99212 ==

== ENCOUNTER 2023-12-09 13:57 | Outpatient (AMB) | payer MEDICARE, SELFPAY ==
[2023-12-09 12:45] VITALS: BMI 37.2
--- NOTE | 2023-12-09 14:45 | A.OFFVIS_ITS ---
Intake VS Expanded 12/09/23 12:45 Height 5 ft 3 in Weight 210 lb 3.2 oz BMI 37.2 Intake Visit Reasons: T2DM/LVM Allergies dulaglutide [Trulicity] Adverse Reaction (Unknown, Verified 11/11/23 14:24) diarrhea HPI Nutrition Presentation Details Pt presents for MNT f/u for T2DM Pt presents with to this appt. Pt reports working on diet modifications Reports sometime omitting meal insulin due to forgetting or feeling well. Has pastries as bedtime snack Most Recent Diabetes Results: Microalb/Creat Ratio 25.6 ug/mg cr (<30) 10/26/23 Cholesterol 189 mg/dL (<200) 10/26/23 HDL Cholesterol 39 mg/dL (>40) L 10/26/23 Triglycerides 195 mg/dL (<150) H 10/26/23 Creatinine 1.27 mg/dL (0.5-1.4) 10/26/23 Blood Urea Nitrogen 15 mg/dL (9-16) 10/26/23 Sodium 138 mmol/L (135-145) 10/26/23 Potassium 4.0 mmol/L (3.3-5.1) 10/26/23 Chloride 103 mmol/L (96-108) 10/26/23 Carbon Dioxide 27 mmol/L (22-29) 10/26/23 Calcium 9.7 mg/dL (8.4-10.2) 10/26/23 AST 12 U/L (5-37) 10/26/23 ALT 15 U/L (0-40) 10/26/23 Total Protein 7.7 g/dL (6.5-8.0) 10/26/23 Albumin 4.1 g/dL (3.5-5.0) 10/26/23 [facility] Medical History Benign essential hypertension Chronic kidney disease (CKD), stage III (moderate) CKD (chronic kidney disease) stage 3, GFR 30-59 ml/min Diabetes type 2, uncontrolled Diabetic 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 with type 2 diabetes mellitus 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 Mild non proliferative diabetic retinopathy Mixed hyperlipidemia Non-toxic multinodular goiter Obesity (BMI 30-39.9) Type 2 diabetes mellitus with diabetic chronic kidney disease Vitamin D deficiency Surgical History Hx of cardiac cath (~2008) Hx of tonsillectomy Family History Father Hypertension Diabetes CVA (cerebral vascular accident) Dementia Mother CVA (cerebral vascular accident) Dementia Diabetes Hypertension Other Mental health disorder Social History Housing: House Alcohol intake: never Patient Tobacco Use Status: Never used Tobacco e-Cigarette/Vaping Use: Never Used service: No Current occupational status: disabled Cognitive needs: No Hearing needs: Yes (B/L hearing loss per Pt) Vision needs: No Assessment & Plan Assessment & Plan (1) Type 2 diabetes mellitus with diabetic chronic kidney disease: Code(s): E11.22 - Type 2 diabetes mellitus with diabetic chronic kidney disease Qualifiers: Diabetes mellitus fpc insulin use: with long term care phlebotomist use Chronic kidney disease stage: stage 3 (moderate) Chronic kidney disease stage 3 subtype: stage 3b (GFR 30-44) Qualified Code(s): E11.22 - Type 2 diabetes mellitus with diabetic chronic kidney disease; N18.32 - Chronic kidney disease, stage 3b; Z79.4 - 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 Plan: wt: 97 kg (11/13), 95 kg (11/2023) Est kcal needs as per MSJ: 2200 (40% carb, 30% protein/fat) Est fluid needs as per 25-30 ml/d: 2400- 2900 Est prot per day as per 1 g/kg bw: 97g Recommend fiber intake : 8-10 g per day and gradually increase to 25-28 g per day for women and 35-38 g for men or as tolerated Recommend sodium intake per day : less than 2000 mg Educated patient on: ( R = reviewed V = verbalizes understanding N/R = needs review N/A = not applicable * Food sources of carbohydrate, adequate serving sizes and its role in various health conditions: R * Differences between complex carbohydrates a simple carbohydrates, role of fiber in diet: NR * Differences between types of fats and role in diet (mono on saturated fat fatty acids, saturated fatty acids, trans fats): NR * Food sources of sodium in salt and healthy modifications for heart health in kidney health: NR * Vitamins and minerals: NR * Healthy plate method concept: R * Physical activity: Benefits a precaution: R * Hypoglycemia protocol (rule of 15): NR * Dietary prevention of Hyperglycemia: R Patient Instructions: Keep hydrated by having water with meals and snack Choose 1/2 sandwich as bedtime snack in place of pastry Take all your diabetes medications as prescribed by your doctor. Coding Level of Care Code Nutr Indiv Subseq (87038) Diagnoses Type 2 diabetes mellitus with stage 3b chronic kidney disease, with long-term current use of insulin E11.22; N18.32; Z79.4 Diabetes mellitus long term care phlebotomist insulin use: with fpc use Chronic kidney disease stage: stage 3 (moderate) Chronic kidney disease stage 3 subtype: stage 3b (GFR 30-44) Time Spent (min) 30
== END 2023-12-09 14:45 | disposition home or self-care (01) ==
PROVIDERS: PCP Internal Medicine; Visit Provider Dietitian, Registered
DX: E11.22 Type 2 diabetes mellitus with diabetic chronic kidney disease (principal); N18.32 Chronic kidney disease, stage 3b; Z79.4 Long term (current) use of insulin

== ENCOUNTER → 2023-12-09 13:57 | Outpatient (BNVA) | payer MEDICARE, SELFPAY | PROVIDERS: PCP Internal Medicine; Visit Provider Dietitian, Registered | DX: E11.22 Type 2 diabetes mellitus with diabetic chronic kidney disease (principal); N18.32 Chronic kidney disease, stage 3b; Z79.4 Long term (current) use of insulin | CPT/HCPCS: 97803 ==

== ENCOUNTER 2023-12-13 14:38 | Outpatient (AMB) | payer MEDICARE, SELFPAY ==
--- NOTE | 2023-12-13 15:29 | A.OFFVIS_ITS ---
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 Name: [facility] [place] [facility] Information Interpreted: non-clinical & clinical Accompanied by: Self / Same As Patient Allergies dulaglutide [Trulicity] Adverse Reaction (Unknown, Verified 11/11/23 14:24) diarrhea HPI Comprehensive Diabetes Asmnt Most Recent Diabetes Results: Microalb/Creat Ratio 25.6 ug/mg cr (<30) 10/26/23 Cholesterol 189 mg/dL (<200) 10/26/23 HDL Cholesterol 39 mg/dL (>40) L 10/26/23 Triglycerides 195 mg/dL (<150) H 10/26/23 Creatinine 1.27 mg/dL (0.5-1.4) 10/26/23 Blood Urea Nitrogen 15 mg/dL (9-16) 10/26/23 Sodium 138 mmol/L (135-145) 10/26/23 Potassium 4.0 mmol/L (3.3-5.1) 10/26/23 Chloride 103 mmol/L (96-108) 10/26/23 Carbon Dioxide 27 mmol/L (22-29) 10/26/23 Calcium 9.7 mg/dL (8.4-10.2) 10/26/23 AST 12 U/L (5-37) 10/26/23 ALT 15 U/L (0-40) 10/26/23 Total Protein 7.7 g/dL (6.5-8.0) 10/26/23 Albumin 4.1 g/dL (3.5-5.0) 10/26/23 [facility] Medical History Benign essential hypertension Chronic kidney disease (CKD), stage III (moderate) CKD (chronic kidney disease) stage 3, GFR 30-59 ml/min Diabetes type 2, uncontrolled Diabetic 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 with type 2 diabetes mellitus Dyslipidemia 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 Mild non proliferative diabetic retinopathy Mixed hyperlipidemia Non-toxic multinodular goiter Obesity (BMI 30-39.9) Type 2 diabetes mellitus with diabetic chronic kidney disease Vitamin D deficiency Surgical History Hx of cardiac cath (~2008) Hx of tonsillectomy Family History Father Hypertension Diabetes CVA (cerebral vascular accident) Dementia Mother CVA (cerebral vascular accident) Dementia Diabetes Hypertension Other Mental health disorder Social History Housing: House Alcohol intake: never Patient Tobacco Use Status: Never used Tobacco e-Cigarette/Vaping Use: Never Used service: No Current occupational status: disabled Cognitive needs: No Hearing needs: Yes (B/L hearing loss per Pt) Vision needs: No Assessment & Plan Assessment & Plan (1) Type 2 diabetes mellitus with diabetic chronic kidney disease: Code(s): E11.22 - Type 2 diabetes mellitus with diabetic chronic kidney disease Qualifiers: Diabetes mellitus terminal make up operator insulin use: with terminal make up operator use Chronic kidney disease stage: stage 3 (moderate) Chronic kidney disease stage 3 subtype: stage 3b (GFR 30-44) Qualified Code(s): E11.22 - Type 2 diabetes mellitus with diabetic chronic kidney disease; N18.32 - Chronic kidney disease, stage 3b; Z79.4 - 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 Plan: Learning objectives: The patient was provided with verbal and written education on the following topics as outlined below. Assess patient education level/literacy/barriers Patient questions/concerns, patient using Tania 2, however has not been scanning frequently. Patient also reports he was out of medications for several weeks. Has not been taking mealtime insulin, and only taking 35 units of Levemir. Instructed patient it is important that he scan sensor 4 to 6 times daily, take diabetes medications as prescribed. Asked patient to schedule appointment for 1 month to review glucose information The patient met all learning objectives and was able to verbalize understanding and provide teach back of education topics discussed . The patient was provided with the opportunity to ask questions and all questions were answered. Topics covered in today?s session included: Insulin/Injectables (If applicable) * Storage/care of insulin?? * Injection sites? * Site rotation? * Onset, peak, duration * Drawing up insulin? * Injecting insulin/other injectables? * Sharps disposal Continuous blood glucose monitoring (if applicable) Assess for concerns re: insurance coverage, cost, barriers to compliance Patient reports his insurance changed at the new year has been unable to get insulins until approximately 3 days ago Hypoglycemia and Hyperglycemia * Signs and symptoms? * Causes?? * Treatment? * Preventing hypoglycemia? * When to seek medical attention * Blood glucose targets and how you feel when your blood glucose is in and out of your target ranges. * Monitoring and knowing your A1C. * What can make blood glucose go up and down and preventing high and low blood glucose. * Review of blood sugar targets in expected goal range and outside of expected goal range. * Problem solving and preventing hyper/hypoglycemia. * Sick day management of diabetes. * Using blood sugar results in decision making process in managing diabetes. ?Patient was receptive to information provided and participated in the discussion. Asked?appropriate questions and demonstrated good understanding of the topics discussed.? ? Educational Materials: The patient was provided with the following written educational materials: Target Goal handout Patient Response to instructions: Comprehension of Instructions: Fair Readiness to make changes:? Contemplate How confident they feel about making changes: Fair Coding Level of Care Code Est Pt Level 1 (37609) Diagnoses Type 2 diabetes mellitus with stage 3b chronic kidney disease, with long-term current use of insulin E11.22; N18.32; Z79.4 Diabetes mellitus terminal make up operator insulin use: with residential use Chronic kidney disease stage: stage 3 (moderate) Chronic kidney disease stage 3 subtype: stage 3b (GFR 30-44)
== END 2023-12-13 15:33 | disposition home or self-care (01) ==
PROVIDERS: PCP Internal Medicine; Visit Provider Registered Nurse Diabetes Educator
DX: E11.22 Type 2 diabetes mellitus with diabetic chronic kidney disease (principal); N18.32 Chronic kidney disease, stage 3b; Z79.4 Long term (current) use of insulin

== ENCOUNTER → 2023-12-13 14:38 | Outpatient (BNVA) | payer MEDICARE, SELFPAY | PROVIDERS: PCP Internal Medicine; Visit Provider Registered Nurse Diabetes Educator | DX: E11.22 Type 2 diabetes mellitus with diabetic chronic kidney disease (principal); N18.32 Chronic kidney disease, stage 3b; Z79.4 Long term (current) use of insulin | CPT/HCPCS: 99211 ==

== ENCOUNTER 2023-12-29 09:38 | Outpatient (AMB) | payer MEDICARE, SELFPAY ==
[2023-12-29 09:40] VITALS: BP 126/88; PULSE 61; O2SAT 97; BMI 36.9
--- NOTE | 2023-12-29 09:40 | MHC.PC.OV ---
Vital Signs 12/29/23 09:40 Height 5 ft 3 in Weight 208 lb 2 oz BMI 36.9 BP 126/88 Blood Pressure Location Lt brachial Position Sitting Pulse 61 Pulse Source Pulse Oximeter Pulse Oximetry (%) 97 Oxygen Delivery Method Room Air Intake Visit Reasons: 3 month f/u hyperlipidemia, uncontrolled DM Dry Kiln Operator Required: Yes Accompanied by: Spouse Allergies dulaglutide [Trulicity] Adverse Reaction (Unknown, Verified 01/02/24 23:01) diarrhea Medication List - Last Reconciled 01/02/24 by Mikey Lai MD acetaminophen 650 mg (2 x 325 mg) PO Q6H PRN amlodipine 5 mg PO DAILY 90 days atorvastatin 80 mg PO DAILY 30 days blood sugar diagnostic (FreeStyle Lite Strips) 4 times a day blood-glucose meter (FreeStyle Lite Meter kit) As directed tests 4 X/day cholecalciferol (vitamin D3) 50 mcg PO DAILY 30 days empagliflozin 25 mg PO DAILY 30 days ezetimibe 10 mg PO DAILY 30 days flash glucose scanning reader (D.light DesignStyle Tania 2 [place]) As directed flash glucose sensor (FreeStyle Tania 2 Sensor kit) As directed change every 14 days hydrochlorothiazide 25 mg PO QAM 90 days insulin aspart U-100 (Novolog FlexPen U-100 Insulin aspart) 14 units (0.14 mL) subcut TID 30 days insulin detemir U-100 (Levemir FlexPen) 44 units (0.44 mL) subcut BEDTIME 30 days insulin glargine (Basaglar KwikPen U-100 Insulin) 44 units (0.44 mL) subcut QPM 30 days lancets (FreeStyle Lancets) 28 gauge topical QID 75 days linagliptin (Tradjenta) 5 mg PO DAILY 30 days losartan 100 mg PO DAILY 90 days metoprolol tartrate 50 mg PO BID 90 days pen needle, diabetic 5 times a day Tobacco use date assessed: 12/29/23 Fall risk assessment: No Falls in past year Last assessed Fall Risk: 12/29/23 Dental Screening Dental Screen Date: 12/29/23 Did you have a dental visit in the last 12 months?: Yes Did you have a dental problem in the last 6 months where you did not have access to dental care?: No Was dental information given to patient?: Patient has dentist HPI 3 month f/u hyperlipidemia, uncontrolled DM HPI Details Patient comes in today for his follow up visit States that he feels okay He denies any headaches or dizziness Denies any chest pains but reports that he has been experiencing some BOOTH lately He denies any recent cough/cold symptoms; denies any cough No nausea/vomiting, no abdominal pain No change in bowel habits noted He did not recall getting any follow up labs done recently [facility] Medical History Obesity (BMI 30-39.9) Mixed hyperlipidemia Benign essential hypertension Chronic kidney disease (CKD), stage III (moderate) 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 CKD (chronic kidney disease) stage 3, GFR 30-59 ml/min Vitamin D deficiency Non-toxic multinodular goiter Dyslipidemia Diabetic 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 with type 2 diabetes mellitus 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 (current) use of insulin Diabetes type 2, uncontrolled Surgical History Hx of cardiac cath (~2008) Hx of tonsillectomy Family History Father Hypertension Diabetes CVA (cerebral vascular accident) Dementia Mother CVA (cerebral vascular accident) Dementia Diabetes Hypertension Other Mental health disorder Social History Housing: House Alcohol intake: never Patient Tobacco Use Status: Never used Tobacco e-Cigarette/Vaping Use: Never Used service: No Current occupational status: disabled Cognitive needs: No Hearing needs: Yes (B/L hearing loss per Pt) Vision needs: No Questionnaire PHQ-9 Over the last 2 weeks, how often have you been bothered by any of the following problems? 1. Little interest or pleasure in doing things: not at all 2. Feeling down, depressed, or hopeless: not at all 3. Trouble falling or staying asleep, or sleeping too much: not at all 4. Feeling tired or having little energy: not at all 5. Poor appetite or overeating: not at all 6. Feeling bad about yourself - or that you are a failure or have let yourself or your family down: not at all 7. Trouble concentrating on things, such as reading the newspaper or watching television: not at all 8. Moving or speaking so slowly that other people could have noticed. Or the opposite - being so fidgety or restless that you have been moving around a lot more than usual: not at all 9. Thoughts that you would be better off or of hurting yourself in some way: not at all Total score: 0 Depression Screening Interpretation: Negative Depression Screening Done: Yes 52695 - PHQ-9 Billing: Yes Source: Developed by Drs. Jersey Gibson, Janeth Lopes, Jose Cesar and colleagues, with an educational renu from [employer]. Thrive Questionnaire Date Thrive assessed: 12/29/23 I am a: Patient What is your living situation today?: I have a steady place to live Within the past 12 months, did the food you bought not last and you didn't have the money to get more?: Never true Within the past 12 months, did you worry whether your food would run out before you got money to buy more?: Never true Do you have trouble paying for medicines?: No Do you have trouble getting transportation to medical appointments?: No Do you have trouble paying your heating and electricity bill?: No Do you have trouble taking care of your child, family member or friend?: No Do you have trouble with day-to-day activities such as bathing, preparing meals, shopping, managing finances, etc.?: No Are you currently unemployed and looking for a job?: No Are you interested in more education?: No Please select the resources that you would like help with: None Currently or been in a relationship where the following occur: no concerns reported THRIVE Score: 0 AUDIT C Alcohol Use Questionnaire (AUDIT-C) 1. How often do you have a drink containing alcohol?: Monthly or less 2. How many drinks containing alcohol do you have on a typical day when you are drinking?: 3 or 4 3. How often do you have six or more drinks on one occasion?: Never Total Score: 2 Score Reviewed/Action Taken: Yes NIKKI-7 AMB Questionnaire NIKKI-7 Date NIKKI - 7 assessed: 12/29/23 Feeling nervous, anxious, or on edge: 0 = Not at all Not being able to stop or control worryin = Not at all Worrying too much about different things: 0 = Not at all Trouble relaxin = Not at all Being so restless that it is hard to sit still: 0 = Not at all Becoming easily annoyed or irritable: 0 = Not at all Feeling afraid as if something awful might happen: 0 = Not at all Total NIKKI-7 score (0-4 normal; 5-9 mild; 10-14 moderate; 15-21 severe): 0 Source: Developed by Drs. Jersey Gibson, Janeth Lopes, Jose Cesar and colleagues, with an educational renu from [employer]. Review of Systems Const Denies chills, Denies fatigue, Denies fever(s) and Denies headache(s) ENT Denies dysphagia, Denies dizziness, Denies otalgia, Denies headache(s), Denies odynophagia and Denies sore throat Card Denies chest pain, Denies palpitations and Reports dyspnea on exertion (mild, on and off) Resp Denies chest congestion, Reports cough (on and off), Reports dyspnea on exertion (mild, on and off) and Denies wheezing GI Denies abdominal pain, Denies constipation, Denies dysphagia, Denies heartburn, Denies diarrhea, Denies nausea, Denies odynophagia and Denies vomiting Denies dysuria, Denies nocturia and Denies urinary frequency Musc Denies back pain Skin/Breast Denies rash Neuro Denies dizziness and Denies headache(s) Endo Denies fatigue and Denies palpitations Aller/Immun Denies wheezing Physical exam (Primary Care) Vital Signs: Last Vital Signs Pulse 61 12/29/23 09:40 BP 126/88 12/29/23 09:40 Pulse Ox 97 12/29/23 09:40 Oxygen Delivery Method Room Air 12/29/23 09:40 BMI result Body Mass Index 36.9 Tobacco/Smoking Status: Tobacco use Status Tobacco use date assessed 12/29/23 12/29/23 09:46 Patient Tobacco Use Status Never used Tobacco 12/29/23 09:46 e-Cigarette/Vaping Use Never Used 12/29/23 09:46 PHQ-9: PHQ-9 Score PHQ-9: Total score 0 12/29/23 10:40 Depression Screening Interpretation: Negative Thrive Assessment: Date of Thrive Assessment Date Thrive assessed 12/29/23 12/29/23 09:46 Currently or been in a relationship where the following occur: no concerns reported Const General: no acute distress and alert HENMT Ears: TM's normal bilaterally and EAC's normal Throat: Yes posterior oropharynx normal and Yes tonsils normal (no TP congestion) Neck Neck: Yes no lymphadenopathy and Yes supple Resp Auscultation: clear to auscultation bilaterally, no rales and no wheezes Cardio Rate: regular rate Rhythm: regular rhythm Heart sounds: no murmurs GI Palpation (GI): Soft to palpation and nontender Auscultation: normal bowel sounds General: Yes no CVA tenderness Back/Spine/Pelvis Back: no CVA tenderness Thoracic/Lumbar Spine: No lumbar spinal tenderness Skin Rashes: no rashes Extrem General: Yes no clubbing, cyanosis or edema Assessment and Plan Assessment & Plan (1) Dyspnea: Code(s): R06.00 - Dyspnea, unspecified Qualifiers: Dyspnea type: unspecified Qualified Code(s): R06.00 - Dyspnea, unspecified Plan: Will send patient for chest x-rays for further evaluation (2) Mixed hyperlipidemia: Code(s): E78.2 - Mixed hyperlipidemia Plan: Patient has no follow up labs done recently Reinforced low cholesterol diet Continue Atorvastatin 80 mg QD and Ezetimibe 10 mg QD Will recheck his labs and fasting lipids in 3 months for follow up (3) Type 2 diabetes mellitus with diabetic chronic kidney disease: Code(s): E11.22 - Type 2 diabetes mellitus with diabetic chronic kidney disease Qualifiers: Diabetes mellitus longterm insulin use: with technician terminal and repeater use Chronic kidney disease stage: stage 3 (moderate) Chronic kidney disease stage 3 subtype: stage 3b (GFR 30-44) Qualified Code(s): E11.22 - Type 2 diabetes mellitus with diabetic chronic kidney disease; N18.32 - Chronic kidney disease, stage 3b; Z79.4 - senior care (current) use of insulin Plan: HgbA1c was at 11.1% on his labs done a couple of months ago (in-office HgbA1c was at 9.5% previously) - goal is < 7.0% Reinforced diabetic diet Continue Tradjenta 5 mg QD and Jardiance 25 mg QD Patient is also supposed to be on Basaglar 44 unit Q HS and Novolog 6 units with breakfast, 8 units with lunch and 6 units with dinner and increase by 2 units if blood sugar is over 200 mg/dl BUT states that he has not been able to get his insulin refilled as his insurance is declining to cover his Rx presenty Follow up with endocrinology and with head girls golf coach for teaching as scheduled (4) Benign essential hypertension: Code(s): I10 - Essential (primary) hypertension Plan: Reinforced low sodium diet - goal is systolic BP of at least 120 to 130 mm or less Continue Losartan 100 mg QD, Amlodipine 5 mg QD, Metoprolol 50 mg BID and HCTZ 25 mg Q AM (5) Chronic kidney disease (CKD), stage III (moderate): Code(s): N18.30 - Chronic kidney disease, stage 3 unspecified Qualifiers: Chronic kidney disease stage 3 subtype: stage 3b (GFR 30-44) Qualified Code(s): N18.32 - Chronic kidney disease, stage 3b Plan: Will continue to monitor his GFR and serum creatinine regularly (6) Vitamin D deficiency: Code(s): E55.9 - Vitamin D deficiency, unspecified Plan: Continue Vitamin D3 2000 units QD Will recheck his Vitamin D level in 3 months for follow up (7) Non-toxic multinodular goiter: Code(s): E04.2 - Nontoxic multinodular goiter Plan: Thyroid US done in 10/2020 showed stable findings Will recheck TFTs in 3 months for follow up Follow up with endocrinology as scheduled (8) Obesity (BMI 30-39.9): Code(s): E66.9 - Obesity, unspecified Plan: Reinforced diet/exercise as tolerated/lose weight Plan Follow up in 3 months Orders: Orders XR chest 2V 12/29/23 R06.00 - Dyspnea, unspecified Hemoglobin A1c 3 Months E11.9 - Type 2 diabetes mellitus without complications Lipid Panel 3 Months E78.00 - Pure hypercholesterolemia, unspecified TSH reflex Free T4 3 Months E78.00 - Pure hypercholesterolemia, unspecified Microalbumin, Random (w Creat) 3 Months E11.9 - Type 2 diabetes mellitus without complications Complete Blood Count Auto Diff 3 Months D64.9 - Anemia, unspecified Comprehensive [place]. Panel Fast 3 Months E78.00 - Pure hypercholesterolemia, unspecified UA CC w/rflx Micro + Cult 3 Months R30.0 - Dysuria Vitamin D 25-OH Total 3 Months E55.9 - Vitamin D deficiency, unspecified Vitamin B12 and Folate 3 Months E53.8 - Deficiency of other specified B group vitamins Coding Level of Care Code Est Pt Level 4 (41297) Diagnoses Dyspnea, unspecified type R06.00 Dyspnea type: unspecified Mixed hyperlipidemia E78.2 Type 2 diabetes mellitus with stage 3b chronic kidney disease, with long-term current use of insulin E11.22; N18.32; Z79.4 Diabetes mellitus technician terminal and repeater insulin use: with longterm use Chronic kidney disease stage: stage 3 (moderate) Chronic kidney disease stage 3 subtype: stage 3b (GFR 30-44) Benign essential hypertension I10 Stage 3b chronic kidney disease N18.32 Chronic kidney disease stage 3 subtype: stage 3b (GFR 30-44) Vitamin D deficiency E55.9 Non-toxic multinodular goiter E04.2 Obesity (BMI 30-39.9) E66.9
== END 2023-12-29 10:44 | disposition home or self-care (01) ==
PROVIDERS: PCP Internal Medicine; Visit Provider Internal Medicine
DX: R06.00 Dyspnea, unspecified (principal); E11.22 Type 2 diabetes mellitus with diabetic chronic kidney disease; N18.32 Chronic kidney disease, stage 3b; Z79.4 Long term (current) use of insulin; I10 Essential (primary) hypertension; E55.9 Vitamin D deficiency, unspecified; E04.2 Nontoxic multinodular goiter; E66.9 Obesity, unspecified
CPT/HCPCS: 99214

== ENCOUNTER 2023-12-29 10:51 | Outpatient (REF) | payer MEDICARE, SELFPAY ==
--- NOTE | ~2023-12-29 | XR_ITS ---
EXAMINATION: XR CHEST CLINICAL INFORMATION: Dyspnea, unspecified COMPARISON: Chest 02/10/2016 TECHNIQUE: 2 views of the chest were obtained. FINDINGS: There is stable mild enlargement of the cardiac silhouette. Lungs are well expanded and clear. No focal consolidation, interstitial pulmonary edema or pneumothorax. No pleural effusion. No significant abnormality is noted involving mediastinum, bony thorax or soft tissues. XR/XR chest 2V IMPRESSION: No acute cardiopulmonary disease.
== END 2023-12-29 10:52 | disposition home or self-care (01) ==
LOC: HO.XRAY 10:51
PROVIDERS: PCP Internal Medicine; Visit Provider Internal Medicine
DX: R06.00 Dyspnea, unspecified (principal)
CPT/HCPCS: 71046

== ENCOUNTER 2024-01-17 13:20 | Outpatient (AMB) | payer MEDICARE, SELFPAY ==
--- NOTE | 2024-01-17 13:34 | A.OFFVIS_ITS ---
Intake Intake Visit Reasons: 60 min-confirmed Usability Engineer Required: Yes Usability Engineer Language: Aqueduct And Reservoir Keeper Name: Breanna [facility] Information Interpreted: non-clinical & clinical Accompanied by: Self / Same As Patient Allergies dulaglutide [Trulicity] Adverse Reaction (Unknown, Verified 01/02/24 23:01) diarrhea HPI Comprehensive Diabetes Asmnt Most Recent Diabetes Results: Microalb/Creat Ratio 25.6 ug/mg cr (<30) 10/26/23 Cholesterol 189 mg/dL (<200) 10/26/23 HDL Cholesterol 39 mg/dL (>40) L 10/26/23 Triglycerides 195 mg/dL (<150) H 10/26/23 Creatinine 1.27 mg/dL (0.5-1.4) 10/26/23 Blood Urea Nitrogen 15 mg/dL (9-16) 10/26/23 Sodium 138 mmol/L (135-145) 10/26/23 Potassium 4.0 mmol/L (3.3-5.1) 10/26/23 Chloride 103 mmol/L (96-108) 10/26/23 Carbon Dioxide 27 mmol/L (22-29) 10/26/23 Calcium 9.7 mg/dL (8.4-10.2) 10/26/23 AST 12 U/L (5-37) 10/26/23 ALT 15 U/L (0-40) 10/26/23 Total Protein 7.7 g/dL (6.5-8.0) 10/26/23 Albumin 4.1 g/dL (3.5-5.0) 10/26/23 PFSH Medical History Obesity (BMI 30-39.9) Mixed hyperlipidemia Benign essential hypertension Chronic kidney disease (CKD), stage III (moderate) 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 CKD (chronic kidney disease) stage 3, GFR 30-59 ml/min Vitamin D deficiency Non-toxic multinodular goiter Dyslipidemia Diabetic 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 with type 2 diabetes mellitus care home (current) use of insulin Diabetes type 2, uncontrolled Surgical History Hx of cardiac cath (~2008) Hx of tonsillectomy Family History Father Hypertension Diabetes CVA (cerebral vascular accident) Dementia Mother CVA (cerebral vascular accident) Dementia Diabetes Hypertension Other Mental health disorder Social History Housing: House Alcohol intake: never Patient Tobacco Use Status: Never used Tobacco e-Cigarette/Vaping Use: Never Used service: No Current occupational status: disabled Cognitive needs: No Hearing needs: Yes (B/L hearing loss per Pt) Vision needs: No Assessment & Plan Assessment & Plan (1) Type 2 diabetes mellitus with diabetic chronic kidney disease: Code(s): E11.22 - Type 2 diabetes mellitus with diabetic chronic kidney disease Qualifiers: Diabetes mellitus usp insulin use: with intermission coordinator use Chronic kidney disease stage: stage 3 (moderate) Chronic kidney disease stage 3 subtype: stage 3b (GFR 30-44) Qualified Code(s): E11.22 - Type 2 diabetes mellitus with diabetic chronic kidney disease; N18.32 - Chronic kidney disease, stage 3b; Z79.4 - terminal worker (current) use of insulin Plan: Patient at visit to set up an insert Tania 2 Instructed patient sensors water proof you can shower, or swim do not submerge sensor in water for over 30 minutes Is sensor falls off cannot put back in you need to replace sensor, customer service number given to patient for sensor replacement Sensor placed on the back of left arm Patient left visit with sensor in warmup Reviewed how to interpret trend arrows Reminded patient that to check finger sticks if symptoms do not match sensor reading. Discussed lag time between finger stick and sensor data.? Instructed patient she should always keep blood glucometer for backup testing if needed Reviewed delay of CGM from fingersticks Reminded pt that if symptoms do not match sensor still needs to check fingersticks. Patient Instructions: Instrucciones para el paciente: CGM proporciona informaci?n sobre el control de la glucosa en jevon a lo kenna del d?a, incluidas la hiperglucemia y la hipoglucemia. Contin?e controlando la glucosa en jevon seg?n las instrucciones. Siga las pautas de nutrici?n proporcionadas. Informe cualquier molestia de inmediato al proveedor de atenci?n m?dica. Mantente miriam hidratado. Puede ba?arse, ducharse, nadar y hacer ejercicio mientras usa el sensor de glucosa. No sumerja el sensor de glucosa en agua boo m?s de 30 minutos. Retire el sensor para rik resonancia magn?darcy o rik tomograf?a computarizada. Evite la m?quina de calvin X en los aeropuertos: retire el sensor o solicite la varita Coding Level of Care Code Est Pt Level 1 (98443) Diagnoses Type 2 diabetes mellitus with stage 3b chronic kidney disease, with long-term current use of insulin E11.22; N18.32; Z79.4 Diabetes mellitus intermission coordinator insulin use: with intermission coordinator use Chronic kidney disease stage: stage 3 (moderate) Chronic kidney disease stage 3 subtype: stage 3b (GFR 30-44)
== END 2024-01-17 13:37 | disposition home or self-care (01) ==
PROVIDERS: PCP Internal Medicine; Visit Provider Registered Nurse Diabetes Educator
DX: E11.22 Type 2 diabetes mellitus with diabetic chronic kidney disease (principal); N18.32 Chronic kidney disease, stage 3b; Z79.4 Long term (current) use of insulin

== ENCOUNTER → 2024-01-17 13:20 | Outpatient (BNVA) | payer MEDICARE, SELFPAY | PROVIDERS: PCP Internal Medicine; Visit Provider Registered Nurse Diabetes Educator | DX: E11.22 Type 2 diabetes mellitus with diabetic chronic kidney disease (principal); N18.32 Chronic kidney disease, stage 3b; Z79.4 Long term (current) use of insulin | CPT/HCPCS: 99211 ==

== ENCOUNTER 2024-01-31 12:45 | Outpatient (AMB) | payer MEDICARE, SELFPAY ==
--- NOTE | 2024-01-31 13:34 | MHC.AMDMED ---
Intake Intake Visit Reasons: DM2 Excel Developer Required: Yes Excel Developer Language: Director Of Online Education Name: Radha [id number] Information Interpreted: non-clinical & clinical Accompanied by: Self / Same As Patient Allergies dulaglutide [Trulicity] Adverse Reaction (Unknown, Verified 01/02/24 23:01) diarrhea HPI Comprehensive Diabetes Asmnt Most Recent Diabetes Results: Microalb/Creat Ratio 25.6 ug/mg cr (<30) 10/26/23 Cholesterol 189 mg/dL (<200) 10/26/23 HDL Cholesterol 39 mg/dL (>40) L 10/26/23 Triglycerides 195 mg/dL (<150) H 10/26/23 Creatinine 1.27 mg/dL (0.5-1.4) 10/26/23 Blood Urea Nitrogen 15 mg/dL (9-16) 10/26/23 Sodium 138 mmol/L (135-145) 10/26/23 Potassium 4.0 mmol/L (3.3-5.1) 10/26/23 Chloride 103 mmol/L (96-108) 10/26/23 Carbon Dioxide 27 mmol/L (22-29) 10/26/23 Calcium 9.7 mg/dL (8.4-10.2) 10/26/23 AST 12 U/L (5-37) 10/26/23 ALT 15 U/L (0-40) 10/26/23 Total Protein 7.7 g/dL (6.5-8.0) 10/26/23 Albumin 4.1 g/dL (3.5-5.0) 10/26/23 PFSH Medical History Obesity (BMI 30-39.9) Mixed hyperlipidemia Benign essential hypertension Chronic kidney disease (CKD), stage III (moderate) 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 CKD (chronic kidney disease) stage 3, GFR 30-59 ml/min Vitamin D deficiency Non-toxic multinodular goiter Dyslipidemia Diabetic 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 with 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 diabetes mellitus 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 Diabetes type 2, uncontrolled Surgical History Hx of cardiac cath (~2008) Hx of tonsillectomy Family History Father Hypertension Diabetes CVA (cerebral vascular accident) Dementia Mother CVA (cerebral vascular accident) Dementia Diabetes Hypertension Other Mental health disorder Social History Housing: House Alcohol intake: never Patient Tobacco Use Status: Never used Tobacco e-Cigarette/Vaping Use: Never Used service: No Current occupational status: disabled Cognitive needs: No Hearing needs: Yes (B/L hearing loss per Pt) Vision needs: No Assessment & Plan Assessment & Plan (1) Type 2 diabetes mellitus with diabetic chronic kidney disease: Code(s): E11.22 - Type 2 diabetes mellitus with diabetic chronic kidney disease Qualifiers: Diabetes mellitus [facility] insulin use: with m[facility]p use Chronic kidney disease stage: stage 3 (moderate) Chronic kidney disease stage 3 subtype: stage 3b (GFR 30-44) Qualified Code(s): E11.22 - Type 2 diabetes mellitus with diabetic chronic kidney disease; N18.32 - Chronic kidney disease, stage 3b; Z79.4 - 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 The patient met all learning objectives and was able to verbalize understanding and provide teach back of education topics discussed . The patient was provided with the opportunity to ask questions and all questions were answered. Patient Assessment Assess patient education level/literacy/barriers Patient questions/concerns, patient's last A1c in October 2024 11.1%. Patient denies missing diabetes medications Patient reports taking Levemir 44 units daily Patient reports taking NovoLog 15 units prior to meals Jardiance 25 mg daily Tradjenta 5 mg daily Patient reports his prepares his meals and does the shopping, recommended to patient he share carbohydrate list with his Patient reports he eats 3 meals a day, stating he does not eat bread, or drink soda patient does state that he eats fruit frequently Patient denies regular physical activity What is Diabetes? Pathophysiology How the body produces and uses insulin Identify type of DM Risk factors Signs of Diabetes Brief overview of Diabetes Management Monitoring blood sugar Following a meal plan Regular exercise Maintaining a healthy weight Taking medication as needed Members of the care team (PCP, RN, MA, RD, CDE, campground manager) Blood glucose monitoring When/how often to test Target blood sugar ranges Patient using freestyle Tania 2 Patient above target 87% Patient at target 13% Patient below target 0% Average glucose for the past 14 days 271 mg/dL Introduction to Nutrition Importance of healthy diet in managing DM Diet is personalized to individual preference Review patient?s regular diet/food preferences Who prepares meals/does food shopping/ Dining out?/ Barriers? How diet effects glucose Eating 3 balanced meals a day with small, healthy snacks between meals Review food groups Carbohydrates: What is a carbohydrate/Which food/food groups are considered carbohydrates Effect of carbohydrates on blood glucose Portion sizes Reading food labels Basic carb counting (if applicable per nursing assessment) Plate method Meal planning Recommendations: Follow plate method, consistent carbs and read nutritional labels. Smart Goal: Patient will reduce carbohydrate portions at mealtime Educational Materials: The patient was provided with the following written educational materials: Planning Healthy Meals Handout Patient Response to instructions: Comprehension of Instructions: Fair Readiness to make changes: Contemplation How confident they feel about making changes: Poor Patient Instructions: Incluir actividad diaria regular. ADA recomienda 30 minutos de ejercicio 5 d?as a la semana. P?rdida de peso, hable con el PCP o el cardi?logo antes de comenzar un nuevo plan. Mida el nivel de az?car en la jevon seg?n las indicaciones; Ayuno y comida m?s gianna de 2hpp. Observe las tendencias en los resultados. Utilice los resultados y eval?e c?mo los alimentos, la actividad f?carmelita y los medicamentos afectan los resultados de az?car en la jevon. Lleve el gluc?metro o CGM a la pr?xima visita. Conocer los medicamentos para la diabetes, posey acci?n, los efectos secundarios, la eficacia, la toxicidad, la dosis prescrita, el momento y la frecuencia de administraci?n apropiados, el efecto de las dosis olvidadas y retrasadas y las instrucciones de almacenamiento, viaje y seguridad. T?cnicas de resoluci?n de problemas para el seguimiento de episodios de hipo/hiperglucemia y tratamientos. Reducir los comportamientos de reducci?n de riesgos, dejar de fumar, ex?menes regulares de ojos, pies y dentales. Coding Level of Care Code Est Pt Level 1 (78216) Diagnoses Type 2 diabetes mellitus with stage 3b chronic kidney disease, with long-term current use of insulin E11.22; N18.32; Z79.4 Diabetes mellitus adjunct faculty for medical terminology insulin use: with adjunct faculty for medical terminology use Chronic kidney disease stage: stage 3 (moderate) Chronic kidney disease stage 3 subtype: stage 3b (GFR 30-44)
== END 2024-01-31 13:37 | disposition home or self-care (01) ==
PROVIDERS: PCP Internal Medicine; Visit Provider Registered Nurse Diabetes Educator
DX: E11.22 Type 2 diabetes mellitus with diabetic chronic kidney disease (principal); N18.32 Chronic kidney disease, stage 3b; Z79.4 Long term (current) use of insulin

== ENCOUNTER → 2024-01-31 12:45 | Outpatient (BNVA) | payer MEDICARE, SELFPAY | PROVIDERS: PCP Internal Medicine; Visit Provider Registered Nurse Diabetes Educator | DX: E11.22 Type 2 diabetes mellitus with diabetic chronic kidney disease (principal); N18.32 Chronic kidney disease, stage 3b; Z79.4 Long term (current) use of insulin | CPT/HCPCS: 99211 ==

== ENCOUNTER 2024-02-07 14:07 | Outpatient (AMB) | payer MEDICARE, SELFPAY ==
--- NOTE | 2024-02-07 14:32 | A.OFFVIS_ITS ---
Intake VS Expanded 02/07/24 14:32 Weight 209 lb 10.554 oz Intake Visit Reasons: T2DM/LVM Allergies dulaglutide [Trulicity] Adverse Reaction (Unknown, Verified 01/02/24 23:01) diarrhea HPI Nutrition Presentation Details Pt presents for MNT f/u for T2DM Pt reports drinking water with meals, reducing on sugary beverages Pt reports understanding relationship of food to blood sugar level and reports working on reducing portions. 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 CKD (chronic kidney disease) stage 3, GFR 30-59 ml/min Vitamin D deficiency Non-toxic multinodular goiter Dyslipidemia Diabetic 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 with type 2 diabetes mellitus [facility] (current) use of insulin Diabetes type 2, uncontrolled Surgical History Hx of cardiac cath (~2008) Hx of tonsillectomy Family History Father Hypertension Diabetes CVA (cerebral vascular accident) Dementia Mother CVA (cerebral vascular accident) Dementia Diabetes Hypertension Other Mental health disorder Social History Housing: House Alcohol intake: never Patient Tobacco Use Status: Never used Tobacco e-Cigarette/Vaping Use: Never Used service: No Current occupational status: disabled Cognitive needs: No Hearing needs: Yes (B/L hearing loss per Pt) Vision needs: No Assessment & Plan Assessment & Plan (1) Type 2 diabetes mellitus with diabetic chronic kidney disease: Code(s): E11.22 - Type 2 diabetes mellitus with diabetic chronic kidney disease Qualifiers: Diabetes mellitus senior living insulin use: with advanced manufacturing consultant use Chronic kidney disease stage: stage 3 (moderate) Chronic kidney disease stage 3 subtype: stage 3b (GFR 30-44) Qualified Code(s): E11.22 - Type 2 diabetes mellitus with diabetic chronic kidney disease; N18.32 - Chronic kidney disease, stage 3b; Z79.4 - [facility] (current) use of insulin Plan: wt: 97 kg (11/13), 95 kg (11/2023), 95 kg (01/2024) Est kcal needs as per MSJ: 2200 (40% carb, 30% protein/fat) Est fluid needs as per 25-30 ml/d: 2400- 2900 Est prot per day as per 1 g/kg bw: 97g Recommend fiber intake : 8-10 g per day and gradually increase to 25-28 g per day for women and 35-38 g for men or as tolerated Recommend sodium intake per day : less than 2000 mg Educated patient on: ( R = reviewed V = verbalizes understanding N/R = needs review N/A = not applicable * Food sources of carbohydrate, adequate serving sizes and its role in various health conditions: R * Differences between complex carbohydrates a simple carbohydrates, role of fiber in diet: R * Differences between types of fats and role in diet (mono on saturated fat fatty acids, saturated fatty acids, trans fats): R * Food sources of sodium in salt and healthy modifications for heart health in kidney health: R * Vitamins and minerals: R * Healthy plate method concept: R , V * Physical activity: Benefits a precaution: R * Hypoglycemia protocol (rule of 15): NR * Dietary prevention of Hyperglycemia: R , V Patient Instructions: do not skip your diabetes medicaitons, Carry with insulin to take prior to your meals as prescribed by your doctor Follow healthy plate method at dinner - reducing portion of starches to 1 1/2 cup serving Keep hydrated, have water with meals and or snacks call for questions Coding Level of Care Code Nutr Indiv Subseq (12849) Diagnoses Type 2 diabetes mellitus with stage 3b chronic kidney disease, with long-term current use of insulin E11.22; N18.32; Z79.4 Diabetes mellitus advanced manufacturing consultant insulin use: with advanced manufacturing consultant use Chronic kidney disease stage: stage 3 (moderate) Chronic kidney disease stage 3 subtype: stage 3b (GFR 30-44) Time Spent (min) 30
== END 2024-02-07 14:30 | disposition home or self-care (01) ==
PROVIDERS: PCP Internal Medicine; Visit Provider Dietitian, Registered
DX: E11.22 Type 2 diabetes mellitus with diabetic chronic kidney disease (principal); N18.32 Chronic kidney disease, stage 3b; Z79.4 Long term (current) use of insulin

== ENCOUNTER → 2024-02-07 14:07 | Outpatient (BNVA) | payer MEDICARE, SELFPAY | PROVIDERS: PCP Internal Medicine; Visit Provider Dietitian, Registered | DX: E11.22 Type 2 diabetes mellitus with diabetic chronic kidney disease (principal); N18.32 Chronic kidney disease, stage 3b; Z79.4 Long term (current) use of insulin; Z71.3 Dietary counseling and surveillance | CPT/HCPCS: 97803 ==

== ENCOUNTER 2024-03-13 06:55 | Outpatient (REF) | payer MEDICARE, SELFPAY ==
[2024-03-13 07:10] LABS: MANUAL DIFF FLAG NO
[2024-03-13 08:01] LABS: Appearance Urine Clear; Color Urine Yellow; Glucose Urine UA >=1000 mg/dL (Negative); Leukocyte Esterase Urine Negative (Negative); Nitrite Urine Negative (Negative); PH 5.5 (5.0-9.0); Specific Gravity - Urine >= 1.030 (1.005-1.025); UMIC TRIGGER UACC YES; Urine Blood Negative (Negative); Urine Ketones Negative (Negative); Urine Protein Negative (Neg-Trace)
[2024-03-13 08:02] LABS: Basophils Absolute Auto 0.1 X10*3/uL (0.0-0.2); Basophils Percent Auto 1.1 % (0-2); Eosinophils Absolute Auto 0.4 X10*3/uL (0.0-0.4); Eosinophils Percent Auto 5.8 % (0-4); Hematocrit 48.8 % (42.0-52.0); Hemoglobin 16.2 g/dl (14.0-18.0); Imm Gran Abs Auto 0.01 X10*3/uL (0.00-0.03); Imm Gran Pct Auto 0.2 % (0.0-0.4); Lymphocytes Absolute Auto 2.7 X10*3/uL (1.2-4.9); Lymphocytes Percent Auto 44.1 % (20-40); Mean Corpuscular HGB Conc 33.2 g/dl (31.0-36.0); Mean Corpuscular Hemoglobin 27.9 pg (27.0-33.0); Mean Corpuscular Volume 84.1 fL (80.0-98.0); Mean Platelet Volume 11.4 fL (9.4-12.4); Monocytes Absolute Auto 0.6 X10*3/uL (0.1-1.2); Monocytes Percent Auto 9.4 % (2-11); Neutrophils Absolute Auto 2.4 x10*3/uL (2.0-8.3); Neutrophils Percent Auto 39.4 % (45-73); Platelet Count 162 X10*3/uL (160-400); Red Cell Distribution Width 12.7 % (11.0-16.0); White Blood Count 6.2 X10*3/uL (4.8-10.8)
[2024-03-13 08:06] LABS: Bacteria Urine None Seen (None Seen); Hyaline Casts Urine 0-2 /LPF (0-2); RBC Urine 0-2 /HPF (0-2); Squamous Epithelial Cell Urine 0-2 /HPF (0-2); WBC Urine 0-5 /HPF (0-5)
[2024-03-13 08:12] LABS: Estimated Average Glucose 260 mg/dL; Hemoglobin A1c % 10.7 % (<6.0)
[2024-03-13 08:49] LABS: Alanine Aminotransferase 29 U/L (0-40); Albumin Level 4.3 g/dL (3.5-5.0); Alkaline Phosphatase 97 U/L (39-117); Anion Gap 12 (12-20); Aspartate Amino Transferase 14 U/L (5-37); Bilirubin Total 0.7 mg/dL (0.0-1.0); Blood Urea Nitrogen 18 mg/dL (9-16); Carbon Dioxide 31 mmol/L (22-29); Chloride 104 mmol/L (96-108); Cholesterol 174 mg/dL (<200); Estimated Glomerular Filt Rate > 60; Glucose Fasting 202 mg/dL (60-99); HDL Cholesterol 32 mg/dL (>40); Potassium 4.3 mmol/L (3.3-5.1); Sodium 143 mmol/L (135-145); Triglycerides 457 mg/dL (<150); Vitamin D 25-OH Total 23.3 ng/mL (>30)
[2024-03-13 08:51] LABS: Creatinine Urine 60.95 mg/dL; Microalbum/Creatinine Ratio Ur 62.3 ug/mg cr (<30)
[2024-03-13 09:01] LABS: Folate 8.3 ng/mL (> or = 4.0); Vitamin B12 707 pg/mL (200-900)
== END 2024-03-13 06:56 | disposition home or self-care (01) ==
LOC: HO.LAB 06:55
PROVIDERS: PCP Internal Medicine; Visit Provider Internal Medicine
DX: E78.00 Pure hypercholesterolemia, unspecified (principal); E11.9 Type 2 diabetes mellitus without complications; E55.9 Vitamin D deficiency, unspecified; D64.9 Anemia, unspecified; E53.8 Deficiency of other specified B group vitamins; I10 Essential (primary) hypertension; R30.0 Dysuria
CPT/HCPCS: 36415; 80053; 80061; 81001; 81003; 82043; 82306; 82570; 82607; 82746; 83036; 84443; 85025

== ENCOUNTER 2024-03-14 13:29 | Outpatient (AMB) | payer MEDICARE, SELFPAY ==
--- NOTE | 2024-03-14 13:39 | MHC.OFFVIS ---
Vital Signs 03/14/24 13:40 Height 5 ft 3 in Weight 211 lb 6.773 oz BMI 37.4 BP 160/82 H Blood Pressure Location Lt brachial Position Sitting Pulse 74 Pulse Source Pulse Oximeter Intake Visit Reasons: DM Intake Note: Patient presents today to follow up on D2MT. Last Diabetic Eye exam:2021 Last Podiatry Visit:Doesn't have one Random Glucose: 330 mg/dl HgA1c: 10.7% 03/13/24 Pharmacy Clerk Required: Yes Pharmacy Clerk Language: Burlap Bag Sewer Name: Yulia Information Interpreted: non-clinical & clinical Accompanied by: Self / Same As Patient Allergies dulaglutide [Trulicity] Adverse Reaction (Unknown, Verified 03/14/24 13:44) diarrhea HPI Comments Details: Patient is 68 year male with DM type 2 diagnosed in 2003 who presents for management of diabetes. Past medical history: Diabetes type 2, hypertension, hyperlipidemia CKD3, NTMG ( with small subcentimeter nodules with no need for intervention Dr. Arizmendi visit 06/10/21) Micro and macrovascular complications: retinopathy, nephropathy, Diabetes medications: Basaglar 32 units, Novolog 6-8-6 + 2 for bg >200 uses mostly 10 units for breakfast and occassionally 5 units for lunch and rarely any for dinner as does not eat dinner. Usually 14 units Novolog premeals . Tradjenta 5 mg, Jardiance 25 mg Tania download shows he is using the sensor 69% of the time. Average glucose is 323 with G mi of 11% and variability of 20%. 1% range with 99% hyperglycemia and no hypoglycemia Hypoglycemia: no Chief Merchandising Officer - CDE education: saw Soap Chipper: denies Dental exam: goes every 6-8 month Ophthalmology evaluation: 1 yr a go needs to make appt mild non-proliferative diabetic retinopathy Other specialists: sees clinical support specialist in [place] when there Laboratory Tests 06/10/21 01/26/22 03/27/22 Unknown 09:27 10:54 Creatinine 1.45 H Estimated GFR 48 Hgb A1c (Clinic) 11.6 H Hemoglobin A1c % Triglycerides 274 Cholesterol 187 LDL Cholesterol, Calc 96 HDL Cholesterol 37 25-OH Vitamin D Total 30.4 Microalb/Creat Ratio 52.9 03/27/22 10:54 Creatinine Estimated GFR Hgb A1c (Clinic) Hemoglobin A1c % 9.3 Triglycerides Cholesterol LDL Cholesterol, Calc HDL Cholesterol 25-OH Vitamin D Total Microalb/Creat Ratio Was not taking atorvastatin for 1 mo [facility] Medical History Obesity (BMI 30-39.9) Mixed hyperlipidemia Benign essential hypertension Chronic kidney disease (CKD), stage III (moderate) 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 CKD (chronic kidney disease) stage 3, GFR 30-59 ml/min Vitamin D deficiency Non-toxic multinodular goiter Dyslipidemia Diabetic 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 with type 2 diabetes mellitus 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 Diabetes type 2, uncontrolled Surgical History Hx of cardiac cath (~2008) Hx of tonsillectomy Family History Father Hypertension Diabetes CVA (cerebral vascular accident) Dementia Mother CVA (cerebral vascular accident) Dementia Diabetes Hypertension Other Mental health disorder Social History Housing: House Alcohol intake: never Patient Tobacco Use Status: Never used Tobacco e-Cigarette/Vaping Use: Never Used service: No Current occupational status: disabled Cognitive needs: No Hearing needs: Yes (B/L hearing loss per Pt) Vision needs: No Physical Exam Vital Signs: Last Vital Signs Pulse 74 03/14/24 13:40 BP 160/82 H 03/14/24 13:40 BMI result Body Mass Index 37.4 Absence of Cushingoid features. Absence of acromegalic features. Neck exam reveals nl size thyroid about 15 gms. No thyroid nodules palpable. No carotid bruits present. Lungs CTA. Heart S1 S2, Reg R/R. No M/R/ G. Skin exam reveals absence of vitiligo or acanthosis nigricans. Abdominal exam reveals Soft NT/ND with NA BS. No organomegaly present. Neck Other: . Extrem Other: Visual exam of foot performed. No ulcerations or open lesions. No onchomycosis, no callouses.Pulses 2 + distally Sensation intact to monofilament exam. Vibratory sensation sensed is intact with 128 Hz tuning fork Results Reviewed Results Reviewed: Laboratory Last Values Glucose (Clinic) 330 mg/dL (60-115) H 03/14/24 13:46 Assessment & Plan Assessment & Plan (1) Diabetes type 2, uncontrolled: Code(s): E11.65 - Type 2 diabetes mellitus with hyperglycemia Category: Medical Plan: This 68-year-old male with history of type 2 diabetes being treated with Tradjenta Jardiance and basal- bolus insulin with poor glycemic control and known microvascular complications namely nephropathy Plan is to have the patient. Use the sensor more frequently . We will change the Tradjenta to Mounjaro 2.5 mg Qwkly . Went over side effects of Mounjaro with the help of a court interpreter including nausea, vomiting rare risk of pancreatitis. Told patient to call if any hypoglycemia to adjust insulin Will have him follow up with cello teacher. Cannot make any other changes to regimen today because there is no data. Once again, 1 over the correlation of poor glycemic control to development and progression complications with the patient Medications: New tirzepatide (Mounjaro) 2.5 mg (0.5 mL) subcut QWEEK 4 weeks 2 mL 4RF Discontinued linagliptin (Tradjenta) Discontinued Reason: Doctor's Order 5 mg PO DAILY 90 days 90 tabs 3RF E11.65 - Type 2 diabetes mellitus with hyperglycemia Coding Level of Care Code Est Pt Level 4 (70441) Diagnoses Diabetes type 2, uncontrolled E11.65
[2024-03-14 13:40] VITALS: BP 160/82; PULSE 74; BMI 37.4
[2024-03-14 13:50] LABS: Glucose, Whole Blood 330 mg/dL (60-115)
== END 2024-03-14 14:10 | disposition home or self-care (01) ==
PROVIDERS: PCP Internal Medicine; Visit Provider Internal Medicine Endocrinology, Diabetes & Metabolism
DX: E11.65 Type 2 diabetes mellitus with hyperglycemia (principal)
CPT/HCPCS: 99214

== ENCOUNTER → 2024-03-14 13:29 | Outpatient (BNVA) | payer MEDICARE, SELFPAY | PROVIDERS: PCP Internal Medicine; Visit Provider Internal Medicine Endocrinology, Diabetes & Metabolism | DX: E11.65 Type 2 diabetes mellitus with hyperglycemia (principal) | CPT/HCPCS: 82947; 99212 ==

== ENCOUNTER 2024-08-01 08:57 | Outpatient (AMB) | payer MEDICARE, SELFPAY ==
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
[2024-08-01 09:04] VITALS: BP 122/84; PULSE 66; BMI 34.8
[2024-08-01 09:15] LABS: Glucose, Whole Blood 116 mg/dL (60-115)
== END 2024-08-01 09:35 | disposition home or self-care (01) ==
PROVIDERS: PCP Internal Medicine; Visit Provider Nurse Practitioner Adult Health
DX: E11.22 Type 2 diabetes mellitus with diabetic chronic kidney disease (principal); N18.32 Chronic kidney disease, stage 3b; Z79.4 Long term (current) use of insulin
CPT/HCPCS: 99215; G2211

== ENCOUNTER → 2024-08-01 08:57 | Outpatient (BNVA) | payer MEDICARE, SELFPAY | PROVIDERS: PCP Internal Medicine; Visit Provider Nurse Practitioner Adult Health | DX: E11.22 Type 2 diabetes mellitus with diabetic chronic kidney disease (principal); N18.32 Chronic kidney disease, stage 3b; Z79.4 Long term (current) use of insulin | CPT/HCPCS: 82947; 83036; 99212 ==

== ENCOUNTER 2024-08-15 10:10 | Outpatient (AMB) | payer MEDICARE, SELFPAY ==
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
[2024-08-15 10:18] VITALS: BP 138/74; PULSE 96; BMI 35.1
[2024-08-15 10:33] LABS: Glucose, Whole Blood 114 mg/dL (60-115)
== END 2024-08-15 10:43 | disposition home or self-care (01) ==
PROVIDERS: PCP Internal Medicine; Visit Provider Nurse Practitioner Adult Health
DX: E11.22 Type 2 diabetes mellitus with diabetic chronic kidney disease (principal); N18.32 Chronic kidney disease, stage 3b; Z79.4 Long term (current) use of insulin
CPT/HCPCS: 99214

== ENCOUNTER → 2024-08-15 10:10 | Outpatient (BNVA) | payer MEDICARE, SELFPAY | PROVIDERS: PCP Internal Medicine; Visit Provider Nurse Practitioner Adult Health | DX: E11.22 Type 2 diabetes mellitus with diabetic chronic kidney disease (principal); N18.32 Chronic kidney disease, stage 3b; Z79.4 Long term (current) use of insulin | CPT/HCPCS: 82947; 99212 ==

== ENCOUNTER 2024-08-29 12:27 | Outpatient (AMB) | payer MEDICARE, SELFPAY ==
[2024-08-29 12:33] VITALS: BP 110/68; PULSE 76; O2SAT 97; BMI 34.6
--- NOTE | 2024-08-29 12:33 | MHC.PC.OV ---
Vital Signs 08/29/24 12:33 Height 5 ft 3 in Weight 195 lb 2 oz BMI 34.6 BP 110/68 Blood Pressure Location Lt brachial Position Sitting Pulse 76 Pulse Source Pulse Oximeter Pulse Oximetry (%) 97 Oxygen Delivery Method Room Air Intake Visit Reasons: bilateral foot pain Medical Assistant Internal Medicine Required: No Accompanied by: Self / Same As Patient Allergies dulaglutide [Trulicity] Adverse Reaction (Unknown, Verified 08/29/24 13:16) diarrhea Medication List - Last Reconciled 08/29/24 by Mikey Lai MD acetaminophen 650 mg (2 x 325 mg) PO Q6H PRN amlodipine 5 mg PO DAILY 90 days atorvastatin 80 mg PO DAILY 30 days blood sugar diagnostic (FreeStyle Lite Strips) 4 times a day blood-glucose meter (FreeStyle Lite Meter kit) As directed tests 4 X/day CeQur Simplicity (bolus insulin pump, 200 unit) 7 clicks (14 units) three times per day before meals. NS CeQur Simplicity Surgical Resident (diabetic supplies, V Wave.) As directed NS cholecalciferol (vitamin D3) 50 mcg PO DAILY 30 days dulaglutide (Trulicity) 0.75 mg (0.5 mL) subcut QWEEK 28 days empagliflozin (Jardiance) 25 mg PO DAILY 90 days ezetimibe 10 mg PO DAILY 30 days flash glucose scanning reader (FreeStyle Tania 2 [place]) As directed flash glucose sensor (FreeStyle Tania 2 Sensor kit) As directed change every 14 days hydrochlorothiazide 25 mg PO QAM 90 days insulin aspart U-100 (Novolog FlexPen U-100 Insulin aspart) 14 units (0.14 mL) subcut TID 30 days insulin aspart U-100 (Novolog U-100 Insulin aspart) 14 units before meals (7 clicks) tid subcutaneously use as directed; 30 days insulin aspart U-100 (Novolog U-100 Insulin aspart) 14 units (7 clicks with CeQur insulin patch) before each meal three times daily subcutaneously insulin detemir U-100 (Levemir FlexPen) 44 units (0.44 mL) subcut BEDTIME 30 days lancets (FreeStyle Lancets) 28 gauge topical QID 75 days losartan 100 mg PO DAILY 90 days metoprolol tartrate 50 mg PO BID 90 days pen needle, diabetic 5 times a day Tobacco use date assessed: 08/29/24 Fall risk assessment: 1 Fall in past year Last assessed Fall Risk: 08/29/24 Dental Screening Dental Screen Date: 08/29/24 Did you have a dental visit in the last 12 months?: Yes Did you have a dental problem in the last 6 months where you did not have access to dental care?: No Was dental information given to patient?: Patient has dentist HPI bilateral foot pain HPI Details Patient comes in today for a few issues - is accompanied by his [id number] today, who acts as his light equipment operator I last saw this patient on 12/29/2023 - states that he missed his last appointment as he was on vacation back then Relates that he fell while he was on vacation in the [place] in June 2024 States that he went to the ER there to seek treatment after his fall and had x-rays done Recalls that he was told that he has some nerve problems and calcium deposits in knee based on his x-ray findings and to have these looked into further with his PCP at his next appointment States that he is currently still experiencing increased pain over the medial aspect of his right knee even though it has been almost 2 months now since his accident His [id number] adds that patient has 2 younger brothers who recently due to heart attack/stroke and that his family wants him to see cardiology to get checked out further Patient states that he has not had any chest pains but relates that he has been experiencing increased shortness of breath with exertion often lately He has also been reportedly noted to be snoring heavily when sleeping at night for a while now There have also been reports of family members hearing him coughing and gagging following a brief period of apneic spells when he sleeping at night He denies any headaches or dizziness No nausea/vomiting, no abdominal pain No change in bowel habits noted [facility] Medical History Obesity (BMI 30-39.9) Mixed hyperlipidemia Benign essential hypertension Chronic kidney disease (CKD), stage III (moderate) 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 CKD (chronic kidney disease) stage 3, GFR 30-59 ml/min Vitamin D deficiency Non-toxic multinodular goiter Dyslipidemia Diabetic 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 with type 2 diabetes mellitus alf (current) use of insulin Diabetes type 2, uncontrolled Surgical History Hx of cardiac cath (~2008) Hx of tonsillectomy Family History Father Hypertension Diabetes CVA (cerebral vascular accident) Dementia Mother CVA (cerebral vascular accident) Dementia Diabetes Hypertension Other Mental health disorder Social History Housing: House Alcohol intake: never Patient Tobacco Use Status: Never used Tobacco e-Cigarette/Vaping Use: Never Used service: No Current occupational status: disabled Cognitive needs: No Hearing needs: Yes (B/L hearing loss per Pt) Vision needs: No Questionnaire PHQ-9 Over the last 2 weeks, how often have you been bothered by any of the following problems? 1. Little interest or pleasure in doing things: not at all 2. Feeling down, depressed, or hopeless: not at all 3. Trouble falling or staying asleep, or sleeping too much: not at all 4. Feeling tired or having little energy: not at all 5. Poor appetite or overeating: not at all 6. Feeling bad about yourself - or that you are a failure or have let yourself or your family down: not at all 7. Trouble concentrating on things, such as reading the newspaper or watching television: not at all 8. Moving or speaking so slowly that other people could have noticed. Or the opposite - being so fidgety or restless that you have been moving around a lot more than usual: not at all 9. Thoughts that you would be better off or of hurting yourself in some way: not at all Total score: 0 Depression Screening Interpretation: Negative Depression Screening Done: Yes 06912 - PHQ-9 Billing: Yes Source: Developed by Drs. Jersey Gibson, Janeth Lopes, Jose Cesar and colleagues, with an educational renu from [employer]. Thrive Questionnaire Date Thrive assessed: 08/29/24 I am a: Patient What is your living situation today?: I have a steady place to live Within the past 12 months, did the food you bought not last and you didn't have the money to get more?: Never true Within the past 12 months, did you worry whether your food would run out before you got money to buy more?: Never true Do you have trouble paying for medicines?: No Do you have trouble getting transportation to medical appointments?: No Do you have trouble paying your heating and electricity bill?: No Do you have trouble taking care of your child, family member or friend?: No Do you have trouble with day-to-day activities such as bathing, preparing meals, shopping, managing finances, etc.?: No Are you currently unemployed and looking for a job?: I choose not to answer this question Are you interested in more education?: No Please select the resources that you would like help with: None Currently or been in a relationship where the following occur: No concerns reported THRIVE Score: 0 AUDIT C Alcohol Use Questionnaire (AUDIT-C) 1. How often do you have a drink containing alcohol?: Monthly or less 2. How many drinks containing alcohol do you have on a typical day when you are drinking?: 3 or 4 3. How often do you have six or more drinks on one occasion?: Never Total Score: 2 Score Reviewed/Action Taken: Yes NIKKI-7 AMB Questionnaire NIKKI-7 Date NIKKI - 7 assessed: 08/29/24 Feeling nervous, anxious, or on edge: 0 = Not at all Not being able to stop or control worryin = Not at all Worrying too much about different things: 0 = Not at all Trouble relaxin = Not at all Being so restless that it is hard to sit still: 0 = Not at all Becoming easily annoyed or irritable: 0 = Not at all Feeling afraid as if something awful might happen: 0 = Not at all Total NIKKI-7 score (0-4 normal; 5-9 mild; 10-14 moderate; 15-21 severe): 0 Source: Developed by Drs. Jersey Gibson, Janeth Lopes, Jose Cesar and colleagues, with an educational renu from [employer]. Review of Systems Const Denies chills, Reports daytime sleepiness, Reports fatigue, Denies fever(s), Denies headache(s), Reports snoring and Reports stops breathing during sleep ENT Denies dysphagia, Denies dizziness, Denies otalgia, Denies headache(s), Denies odynophagia and Denies sore throat Card Denies chest pain, Denies palpitations and Reports dyspnea on exertion (increased lately) Resp Denies chest congestion, Reports cough (on and off), Reports dyspnea on exertion (increased lately) and Reports snoring GI Denies abdominal pain, Denies constipation, Denies dysphagia, Denies heartburn, Denies diarrhea, Denies nausea, Denies odynophagia and Denies vomiting Denies dysuria, Denies nocturia and Denies urinary frequency Musc Denies back pain and Reports arthralgias (right knee - see HPI) Skin/Breast Denies rash Neuro Denies dizziness and Denies headache(s) Endo Reports fatigue and Denies palpitations Physical exam (Primary Care) Vital Signs: Last Vital Signs Pulse 76 08/29/24 12:33 BP 110/68 08/29/24 12:33 Pulse Ox 97 08/29/24 12:33 Oxygen Delivery Method Room Air 08/29/24 12:33 BMI result Body Mass Index 34.6 Tobacco/Smoking Status: Tobacco use Status Tobacco use date assessed 08/29/24 08/29/24 12:35 Patient Tobacco Use Status Never used Tobacco 08/29/24 12:35 e-Cigarette/Vaping Use Never Used 08/29/24 12:35 PHQ-9: PHQ-9 Score PHQ-9: Total score 0 09/04/24 05:14 Depression Screening Interpretation: Negative Thrive Assessment: Date of Thrive Assessment Date Thrive assessed 08/29/24 08/29/24 12:35 Currently or been in a relationship where the following occur: No concerns reported Const General: no acute distress and alert HENMT Ears: TM's normal bilaterally and EAC's normal Throat: Yes posterior oropharynx normal and Yes tonsils normal (no TP congestion) Neck Neck: Yes no lymphadenopathy and Yes supple Resp Auscultation: clear to auscultation bilaterally, no rales and no wheezes Cardio Rate: regular rate Rhythm: regular rhythm Heart sounds: no murmurs GI Palpation (GI): Soft to palpation and nontender Auscultation: normal bowel sounds General: Yes no CVA tenderness Back/Spine/Pelvis Back: no CVA tenderness Thoracic/Lumbar Spine: No lumbar spinal tenderness Skin Rashes: no rashes Extrem General: Yes no clubbing, cyanosis or edema Right lower extremity: knee Details: tenderness Location: of the medial joint line; no swelling Coding Level of Care Code Est Pt Level 4 (80435) Diagnoses Exertional dyspnea R06.09 Right medial knee pain M25.561 Witnessed apneic spells R06.81 Mixed hyperlipidemia E78.2 Type 2 diabetes mellitus with stage 3b chronic kidney disease, with long-term current use of insulin E11.22; N18.32; Z79.4 Diabetes mellitus oil heaterman insulin use: with prison use Chronic kidney disease stage: stage 3 (moderate) Chronic kidney disease stage 3 subtype: stage 3b (GFR 30-44) Benign essential hypertension I10 Stage 3b chronic kidney disease N18.32 Chronic kidney disease stage 3 subtype: stage 3b (GFR 30-44) Vitamin D deficiency E55.9 Non-toxic multinodular goiter E04.2 Obesity (BMI 30-39.9) E66.9 Screening for colon cancer Z12.11 Assessment & Plan Assessment & Plan (1) Exertional dyspnea: Code(s): R06.09 - Other forms of dyspnea Category: Medical Plan: Per request, will refer him to Cardiology for further evaluation and management and to assess for cardiovascular disease, as patient has 2 younger brothers who recently from heart attack/stroke Patient is also a diabetic so he is at high risk than average for coronary artery disease (2) Right medial knee pain: Code(s): M25.561 - Pain in right knee Category: Medical Plan: Will send patient for x-rays of the right knee for further evaluation (3) Witnessed apneic spells: Code(s): R06.81 - Apnea, not elsewhere classified Category: Medical Plan: Will refer him to sleep Medicine for further evaluation and management and to rule out MADELEINE (4) Mixed hyperlipidemia: Code(s): E78.2 - Mixed hyperlipidemia Category: Medical Plan: Reinforced low cholesterol diet Continue Atorvastatin 80 mg QD and Ezetimibe 10 mg QD Will recheck his labs and fasting lipids in a couple of months for follow up (5) Type 2 diabetes mellitus with diabetic chronic kidney disease: Code(s): E11.22 - Type 2 diabetes mellitus with diabetic chronic kidney disease Category: Medical Qualifiers: Diabetes mellitus prison insulin use: with oil heaterman use Chronic kidney disease stage: stage 3 (moderate) Chronic kidney disease stage 3 subtype: stage 3b (GFR 30-44) Qualified Code(s): E11.22 - Type 2 diabetes mellitus with diabetic chronic kidney disease; N18.32 - Chronic kidney disease, stage 3b; Z79.4 - marine oil 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 Plan: His in-office HgbA1c was at 11.0% when last checked at the endocrinology office last month on 08/01/2024 - goal is at least <7.0% Reinforced diabetic diet Continue Levemir 42 unit Q HS, Novolog 14 units TID before each meal, Jardiance 25 mg QD and Trulicity 0.75 mg SQ once a week Follow up with endocrinology and with refrigerating machine operator for teaching as scheduled (6) Benign essential hypertension: Code(s): I10 - Essential (primary) hypertension Category: Medical Plan: Reinforced low sodium diet - goal is systolic BP of at least 120 to 130 mm or less Continue Losartan 100 mg QD, Amlodipine 5 mg QD, Metoprolol 50 mg BID and HCTZ 25 mg Q AM (7) Chronic kidney disease (CKD), stage III (moderate): Code(s): N18.30 - Chronic kidney disease, stage 3 unspecified Category: Medical Qualifiers: Chronic kidney disease stage 3 subtype: stage 3b (GFR 30-44) Qualified Code(s): N18.32 - Chronic kidney disease, stage 3b Plan: Will continue to monitor his GFR and serum creatinine regularly Have advised patient again strict control of his blood sugar is the best way to keep his renal function stable (8) Vitamin D deficiency: Code(s): E55.9 - Vitamin D deficiency, unspecified Category: Medical Plan: Continue Vitamin D3 2000 units QD (9) Non-toxic multinodular goiter: Code(s): E04.2 - Nontoxic multinodular goiter Category: Medical Plan: Thyroid US done in 10/2020 showed stable findings Will continue to monitor his TFTs regularly Follow up with endocrinology as scheduled (10) Obesity (BMI 30-39.9): Code(s): E66.9 - Obesity, unspecified Category: Medical Plan: Reinforced diet/exercise as tolerated/lose weight (11) Screening for colon cancer: Code(s): Z12.11 - Encounter for screening for malignant neoplasm of colon Category: Medical Plan: Patient miss his previous GI appointments for screening colonoscopy As he is overdue for repeat colonoscopy, will refer him back to GI again to get this done Plan Follow up as scheduled in October 2024 He is reminded to get his follow-up labs done before he comes in for his appointment in October 2024 Orders: Orders Complete Blood Count Auto Diff 10/14/24 D64.9 - Anemia, unspecified Lipid Panel 10/14/24 E78.00 - Pure hypercholesterolemia, unspecified XR knee RT 4V 08/30/24 M25.561 - Pain in right knee Comprehensive [place]. Panel Fast 10/14/24 E78.00 - Pure hypercholesterolemia, unspecified Hemoglobin A1c 10/14/24 E11.9 - Type 2 diabetes mellitus without complications TSH reflex Free T4 10/14/24 E78.00 - Pure hypercholesterolemia, unspecified UA CC w/rflx Micro + Cult 10/14/24 R30.0 - Dysuria Microalbumin, Random (w Creat) 10/14/24 E11.9 - Type 2 diabetes mellitus without complications Vitamin D 25-OH Total 10/14/24 E55.9 - Vitamin D deficiency, unspecified Referrals Sleep Medicine Referral R40.0 - Somnolence, R53.83 - Other fatigue, R06.83 - Snoring Cardiology Referral R06.09 - Other forms of dyspnea, E11.22 - Type 2 diabetes mellitus with diabetic chronic kidney disease, N18.32 - Chronic kidney disease, stage 3b, Z79.4 - marine oil 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
== END 2024-08-29 13:36 | disposition home or self-care (01) ==
PROVIDERS: PCP Internal Medicine; Visit Provider Internal Medicine
DX: I12.9 Hypertensive chronic kidney disease with stage 1 through stage 4 chronic kidney disease, or unspecified chronic kidney disease (principal); E11.22 Type 2 diabetes mellitus with diabetic chronic kidney disease; N18.32 Chronic kidney disease, stage 3b; Z79.4 Long term (current) use of insulin; R06.09 Other forms of dyspnea; M25.561 Pain in right knee; E66.9 Obesity, unspecified; R06.81 Apnea, not elsewhere classified; E78.2 Mixed hyperlipidemia; E55.9 Vitamin D deficiency, unspecified; E04.2 Nontoxic multinodular goiter; Z12.11 Encounter for screening for malignant neoplasm of colon

== ENCOUNTER → 2024-08-29 12:27 | Outpatient (BNVA) | payer MEDICARE, SELFPAY | PROVIDERS: PCP Internal Medicine; Visit Provider Internal Medicine | DX: R06.09 Other forms of dyspnea (principal) | CPT/HCPCS: 96127; 99212 ==

== ENCOUNTER 2024-08-30 14:00 | Outpatient (REF) | payer MEDICARE, SELFPAY ==
--- NOTE | ~2024-08-30 | XR_ITS ---
EXAMINATION: XR KNEE, RIGHT CLINICAL INFORMATION: Right knee pain COMPARISON: Bilateral knees 05/06/2017 TECHNIQUE: Four views of the right knee. FINDINGS: There is prepatellar soft tissue swelling. No fracture. There is a trace Joint effusion. Alignment is anatomic. Joint spaces are maintained. No abnormal soft tissue calcification. No chondrocalcinosis. Vascular calcifications are seen. There is been no interval change when compared to 2017. XR/XR knee RT 4V IMPRESSION: Prepatellar soft tissue swelling. No acute fracture or dislocation. Electronically signed by: Didier Mackey MD 08/30/2024 07:26 PM EDT
== END 2024-08-30 14:01 | disposition home or self-care (01) ==
LOC: HO.XRAY 14:00
PROVIDERS: PCP Internal Medicine; Visit Provider Internal Medicine
DX: M25.561 Pain in right knee (principal)
CPT/HCPCS: 73564

== ENCOUNTER 2024-09-07 09:45 | Outpatient (AMB) | payer MEDICARE, SELFPAY ==
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
[2024-09-07 09:54] VITALS: BP 128/78; PULSE 74; BMI 35.5
[2024-09-07 10:05] LABS: Glucose, Whole Blood 169 mg/dL (60-115)
== END 2024-09-07 10:09 | disposition home or self-care (01) ==
PROVIDERS: PCP Internal Medicine; Visit Provider Nurse Practitioner Adult Health
DX: E11.22 Type 2 diabetes mellitus with diabetic chronic kidney disease (principal); N18.32 Chronic kidney disease, stage 3b; Z79.4 Long term (current) use of insulin; J32.9 Chronic sinusitis, unspecified
CPT/HCPCS: 99213; G2211

== ENCOUNTER → 2024-09-07 09:45 | Outpatient (BNVA) | payer MEDICARE, SELFPAY | PROVIDERS: PCP Internal Medicine; Visit Provider Nurse Practitioner Adult Health | DX: E11.22 Type 2 diabetes mellitus with diabetic chronic kidney disease (principal); N18.32 Chronic kidney disease, stage 3b; J32.9 Chronic sinusitis, unspecified; Z79.4 Long term (current) use of insulin | CPT/HCPCS: 82947; 99212 ==

== ENCOUNTER 2024-09-27 12:54 | Outpatient (AMB) | payer MEDICARE, SELFPAY ==
--- NOTE | 2024-09-27 13:33 | MHC.AMDMED ---
Intake Intake Visit Reasons: Tania and Cequr training-conf Foil Operator Required: Yes Foil Operator Language: Corrugator Operator Name: Jacque from [place] Accompanied by: Self / Same As Patient Allergies dulaglutide [Trulicity] Adverse Reaction (Unknown, Verified 08/29/24 13:16) diarrhea HPI Comprehensive Diabetes Asmnt Most Recent Diabetes Results: Microalb/Creat Ratio 62.3 ug/mg cr (<30) H 03/13/24 Cholesterol 174 mg/dL (<200) 03/13/24 HDL Cholesterol 32 mg/dL (>40) L 03/13/24 Triglycerides 457 mg/dL (<150) H 03/13/24 Creatinine 1.17 mg/dL (0.5-1.4) 03/13/24 Blood Urea Nitrogen 18 mg/dL (9-16) H 03/13/24 Sodium 143 mmol/L (135-145) 03/13/24 Potassium 4.3 mmol/L (3.3-5.1) 03/13/24 Chloride 104 mmol/L (96-108) 03/13/24 Carbon Dioxide 31 mmol/L (22-29) H 03/13/24 Calcium 10.0 mg/dL (8.4-10.2) 03/13/24 AST 14 U/L (5-37) 03/13/24 ALT 29 U/L (0-40) 03/13/24 Total Protein 8.0 g/dL (6.5-8.0) 03/13/24 Albumin 4.3 g/dL (3.5-5.0) 03/13/24 PFSH Medical History Obesity (BMI 30-39.9) Mixed hyperlipidemia Benign essential hypertension Chronic kidney disease (CKD), stage III (moderate) 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 CKD (chronic kidney disease) stage 3, GFR 30-59 ml/min Vitamin D deficiency Non-toxic multinodular goiter Dyslipidemia Diabetic 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 with type 2 diabetes mellitus director long term care (current) use of insulin Diabetes type 2, uncontrolled Surgical History Hx of cardiac cath (~2008) Hx of tonsillectomy Family History Father Hypertension Diabetes CVA (cerebral vascular accident) Dementia Mother CVA (cerebral vascular accident) Dementia Diabetes Hypertension Other Mental health disorder Social History Housing: House Alcohol intake: never Patient Tobacco Use Status: Never used Tobacco e-Cigarette/Vaping Use: Never Used service: No Current occupational status: disabled Cognitive needs: No Hearing needs: Yes (B/L hearing loss per Pt) Vision needs: No Assessment & Plan Assessment & Plan (1) Diabetes type 2, uncontrolled: Code(s): E11.65 - Type 2 diabetes mellitus with hyperglycemia Plan: Pt at visit Ruchi Simplicity Training Pt brought CeQue patch, pediatric nurse, vial of mealtime insulin and change by stickers Patient's prescription reads take Instructed patient to wash your hands Demonstrated for patient how to fill syringe from vial, and insert, needle to fill patch Then remove air bubbles from patch, by viewing through clear window below blue cap To prime patch after air bubble has been removed proceed with 4 clicks Apply placed sticker, to patch, count forward 4 days Prepare site where you will place patch with either alcohol or soap and water, avoid waist band and belt line Do not insert through scar tissue, piercings and tattoos be sure to place patch at least 2 in from belly button. If you have excess body hair adhesive will attach better to clean shaven skin Instructed patient to be sure to rotate patch regularly Place patch in pediatric nurse while holding pediatric nurse with both hands use thumbs to push down on blue cap in on patch Push until you hear a click Instructed patient not to unlock green button until pediatric nurse is against prepared site Squeeze at both ends a blue cap and carefully began to pull cap, this should also remove adhesive pad liner. Be cautious of exposed needle, check to make sure needle is not bent Please patch on your body, slide yellow safety and press green button down Press pediatric nurse firmly for 10 seconds, remove pediatric nurse by lifting it away To remove needle squeeze clear sides of critical care registered nurse at the base Discard needle in sharps container Press down firmly on patch with palm of your hand for 10 seconds Patient left visit with CeQue patch in place Instructed patient on how to administer mealtime insulin, instructed patient that each click is equal to 2 units of mealtime insulin Patient instructed to take NovoLog 14 units= 7 clicks before each meal Patient will follow-up with hospice educator as instructed Portions of this note were created using voice recognition software, please excuse any words or phrases that may have been misinterpreted. Patient Instructions: Patient will follow-up with hospice educator as instructed Coding Level of Care Code Est Pt Level 1 (20470) Diagnoses Diabetes type 2, uncontrolled E11.65
== END 2024-09-27 15:19 | disposition home or self-care (01) ==
LOC: HO.ENCR 12:55
PROVIDERS: PCP Internal Medicine; Visit Provider Registered Nurse Diabetes Educator
DX: E11.65 Type 2 diabetes mellitus with hyperglycemia (principal)

== ENCOUNTER → 2024-09-27 12:54 | Outpatient (BNVA) | payer MEDICARE, SELFPAY | PROVIDERS: PCP Internal Medicine; Visit Provider Registered Nurse Diabetes Educator | DX: E11.22 Type 2 diabetes mellitus with diabetic chronic kidney disease (principal); E11.65 Type 2 diabetes mellitus with hyperglycemia; E11.21 Type 2 diabetes mellitus with diabetic nephropathy; N18.30 Chronic kidney disease, stage 3 unspecified; Z79.4 Long term (current) use of insulin | CPT/HCPCS: 99211 ==

== ENCOUNTER 2024-10-10 10:13 | Outpatient (AMB) | payer MEDICARE, SELFPAY ==
[2024-10-10 10:16] VITALS: BP 134/86; PULSE 67; BMI 37.4
--- NOTE | 2024-10-10 10:16 | MHC.OFFVIS ---
Vital Signs 10/10/24 10:16 Height 5 ft 3 in Weight 211 lb 6.773 oz BMI 37.4 BP 134/86 Blood Pressure Location Lt brachial Position Sitting Pulse 67 Pulse Source Pulse Oximeter Intake Visit Reasons: DM/CONF Intake Note: Patient present today to follow up on Type 2 Diabetes Mellitus. Last Diabetic Eye exam: He had one done in [place] 3 months ago. Last Podiatry Visit: Does not see a Scholastic Aptitude Test Grader Random Glucose: 106 mg/dl HgA1C: 11.0% 08/01/24 Professor Of Latin American Studies Required: Yes Professor Of Latin American Studies Language: Gl Accountant Services: Professor Of Latin American Studies Present Information Interpreted: non-clinical & clinical Accompanied by: Self / Same As Patient Allergies dulaglutide [Trulicity] Adverse Reaction (Unknown, Verified 11/07/24 12:52) diarrhea metformin Adverse Reaction (Uncoded 11/07/24 13:45) Abdominal Pain HPI Comments Details: Patient is 69 year male with DM type 2 diagnosed in 2003 who presents for management of diabetes. HGB A1c 08/01/2024 11%, 07/27/2023 9.5% Past medical history: Diabetes type 2, hypertension, hyperlipidemia CKD3, NTMG (with small subcentimeter nodules with no need for intervention Dr. Arizmendi visit 06/10/21) Micro and macrovascular complications: retinopathy, nephropathy Reviewed CGM download September 26 through October 09 CGM active 67% Average glucose 266 GMI 9.7% Glucose variability 27.4% Glucose greater than 250 60% of the time Glucose 181-250 27% of the time Target range 70 to 180 13% 0% hypoglycemia. Patient has hyperglycemia throughout the 24 hour period. Glucose readings are slightly better mid day. Diabetes medications: Levemir 44 units units at bedtime Novolog 14 units (7 clicks) before 3 meals Jardiance 25 mg Trulicity 0.75 mg Compliance issues: Patient is not taking his NovoLog dose before dinner. He did not know he was supposed to take it since he takes Levemir at night. Patient says he is not taking Trulicity. He says it was stopped months ago because he had diarrhea. It is on his allergy list. ROS: Constitutional: No unexplained weight loss, fever, chills, fatigue or night sweats. Gastrointestinal: No anorexia, nausea, vomiting or diarrhea. No abdominal pain Neurologic: No headache, dizziness, syncope Skin: No open wounds or rashes Physical exam: Constitutional: Alert, in no distress. Head: Normocephalic. Eyes: Pupils are equal, round and reactive to light. Extraocular muscles intact. Neck: Supple, Full range of motion. No lymphadenopathy. No palpable thyroid masses. Respiratory: Clear to auscultation. Cardiovascular: S1 S2 regular. No murmurs. 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 CKD (chronic kidney disease) stage 3, GFR 30-59 ml/min Vitamin D deficiency Non-toxic multinodular goiter Dyslipidemia Diabetic 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 with type 2 diabetes mellitus nursing home (current) use of insulin Diabetes type 2, uncontrolled Surgical History Hx of cardiac cath (~2008) Hx of tonsillectomy Family History Father Hypertension Diabetes CVA (cerebral vascular accident) Dementia Mother CVA (cerebral vascular accident) Dementia Diabetes Hypertension Other Mental health disorder Social History Housing: House Alcohol intake: never Patient Tobacco Use Status: Never used Tobacco e-Cigarette/Vaping Use: Never Used service: No Current occupational status: disabled Cognitive needs: No Hearing needs: Yes (B/L hearing loss per Pt) Vision needs: No Physical Exam Vital Signs: Last Vital Signs Pulse 67 10/10/24 10:16 BP 134/86 10/10/24 10:16 BMI result Body Mass Index 37.4 Const Other: Absence of Cushingoid features. Absence of acromegalic features. Neck exam reveals nl size thyroid about 15 gms. No thyroid nodules palpable. Heart S1 S2, Reg R/R. No M/R G. Skin exam reveals absence of vitiligo or acanthosis nigricans. Results Reviewed Results Reviewed: Laboratory Last Values Glucose (Clinic) 106 mg/dL (60-115) 10/10/24 10:23 Laboratory Tests 03/13/24 03/13/24 08/01/24 07:05 07:08 09:33 Estimated GFR > 60 Hgb A1c (Clinic) 11.0 H Triglycerides 457 H Cholesterol 174 HDL Cholesterol 32 L Urine Creatinine 60.95 Urine Microalbumin 38.0 Microalb/Creat Ratio 62.3 H Assessment & Plan Assessment & Plan (1) Type 2 diabetes mellitus with diabetic chronic kidney disease: Code(s): E11.22 - Type 2 diabetes mellitus with diabetic chronic kidney disease Category: Medical Qualifiers: Chronic kidney disease stage: stage 3 (moderate) Chronic kidney disease stage 3 subtype: stage 3b (GFR 30-44) Diabetes mellitus extermination inspector insulin use: with extermination inspector use Qualified Code(s): E11.22 - Type 2 diabetes mellitus with diabetic chronic kidney disease; N18.32 - Chronic kidney disease, stage 3b; Z79.4 - nursing home (current) use of insulin Plan: 69-year-old type 2 diabetic with retinopathy and nephropathy with poorly controlled diabetes. Reviewed that he should be administering 3 times a day before all meals. Increase to 16 units or 8 clicks before meals. I explained the difference between NovoLog and Levemir. Increase Levemir to 48 units nightly. Start Ozempic 0.25 mg weekly. Side effects and administration reviewed with the patient. Continue Jardiance 25 mg daily. New sensor placed on patient today at visit and re-educated patient about usage. Reviewed proper treatment of hypoglycemia. Glucose tablets sent to pharmacy. Follow up in 4 weeks for type 2 diabetes. Medications: New glucose (Dex4 Glucose) until symptoms of low blood sugar are controlled 16 grams (4 x 4 gram) PO Q15M PRN 10 tabs 1RF hypoglycemia semaglutide (Ozempic) for 4 weeks 0.25 mg (0.368 mL) subcut QWEEK 3 mL 0RF Changed From insulin detemir U-100 44 units (0.44 mL) subcut BEDTIME 30 days 15 mL 3RF To insulin detemir U-100 (Levemir FlexPen) 48 units (0.48 mL) subcut BEDTIME 15 mL 5RF 30 days From insulin aspart U-100 14 units before meals (7 clicks) tid subcutaneously use as directed; 30 days 20 mL 11RF To insulin aspart U-100 (Novolog U-100 Insulin aspart) 16 units before meals (8 clicks) tid subcutaneously use as directed; 20 mL 11RF 30 days Discontinued dulaglutide Discontinued Reason: Doctor's Order 0.75 mg (0.5 mL) subcut QWEEK 28 days 2 mL 6RF E11.22 - Type 2 diabetes mellitus with diabetic chronic kidney disease, N18.32 - Chronic kidney disease, stage 3b, Z79.4 - long term care phlebotomist (current) use of insulin Patient Instructions: No est?s tomando Trulicity. Comience con Ozempic 0.25 mg rik vez a la semana. Aumente Levemir de 44 unidades a 48 unidades por noche. Aumente Novolog a 16 unidades silvia veces al d?a antes de las comidas. Contin?e con Jardiance 25 mg al d?a. Coding Level of Care Code Est Pt Level 5 (09343) Complex EM visit Add On G2211 Diagnoses Type 2 diabetes mellitus with stage 3b chronic kidney disease, with long-term current use of insulin E11.22; N18.32; Z79.4 Chronic kidney disease stage: stage 3 (moderate) Chronic kidney disease stage 3 subtype: stage 3b (GFR 30-44) Diabetes mellitus extermination inspector insulin use: with skilled nursing use Time Spent (min) 47 Comment Chart review, direct patient care, completing documentation
[2024-10-10 10:27] LABS: Glucose, Whole Blood 106 mg/dL (60-115)
== END 2024-10-10 11:07 | disposition home or self-care (01) ==
PROVIDERS: PCP Internal Medicine; Visit Provider Nurse Practitioner Adult Health
DX: E11.22 Type 2 diabetes mellitus with diabetic chronic kidney disease (principal); N18.32 Chronic kidney disease, stage 3b; Z79.4 Long term (current) use of insulin
CPT/HCPCS: 99215; G2211

== ENCOUNTER → 2024-10-10 10:13 | Outpatient (BNVA) | payer MEDICARE, SELFPAY | PROVIDERS: PCP Internal Medicine; Visit Provider Nurse Practitioner Adult Health | DX: E11.22 Type 2 diabetes mellitus with diabetic chronic kidney disease (principal); N18.32 Chronic kidney disease, stage 3b; Z79.4 Long term (current) use of insulin | CPT/HCPCS: 82947 ==

== ENCOUNTER 2024-10-23 14:23 | Outpatient (AMB) | payer MEDICARE, SELFPAY ==
[2024-10-23 14:24] VITALS: BP 132/86; PULSE 71; O2SAT 97; BMI 37.0
--- NOTE | 2024-10-23 14:24 | A.OFFPC_ITS ---
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 NS CeQur Simplicity Check Embosser (diabetic supplies, [employer].) As directed NS cholecalciferol (vitamin D3) 50 mcg PO DAILY 30 days empagliflozin (Jardiance) 25 mg PO DAILY 90 days ezetimibe 10 mg PO DAILY 30 days flash glucose scanning reader (FreeStyle Tania 2 [place]) As directed flash glucose sensor (FreeStyle Tania 2 Sensor kit) As directed change every 14 days fluticasone propionate 50 mcg/actuation (Flonase Allergy Relief) 1 spray intranasal DAILY PRN 30 days glucose (Dex4 Glucose) 16 grams (4 x 4 gram) PO Q15M PRN hydrochlorothiazide 25 mg PO QAM 90 days insulin aspart U-100 (Novolog FlexPen U-100 Insulin aspart) 14 units (0.14 mL) subcut TID 30 days insulin aspart U-100 (Novolog U-100 Insulin aspart) 14 units (7 clicks with CeQur insulin patch) before each meal three times daily subcutaneously insulin aspart U-100 (Novolog U-100 Insulin aspart) 16 units before meals (8 clicks) tid subcutaneously use as directed; 30 days insulin detemir U-100 (Levemir FlexPen) 48 units (0.48 mL) subcut BEDTIME 30 days lancets (FreeStyle Lancets) 28 gauge topical QID 75 days losartan 100 mg PO DAILY 90 days metoprolol tartrate 50 mg PO BID 90 days pen needle, diabetic 5 times a day semaglutide (Ozempic) 0.25 mg (0.368 mL) subcut QWEEK Tobacco use date assessed: 10/23/24 Fall risk assessment: 1 Fall in past year Last assessed Fall Risk: 10/23/24 Dental Screening Dental Screen Date: 10/23/24 Did you have a dental visit in the last 12 months?: Yes Did you have a dental problem in the last 6 months where you did not have access to dental care?: No Was dental information given to patient?: Patient has dentist HPI 3 Month F/U- needs repeat A1C HPI Details Patient comes in today for his follow up visit States that he feels okay except for frequent nasal drainage and/or congestion lately He denies any headaches or dizziness; denies any fever or sore throat Denies any chest pains, no increased shortness of breath; denies any cough No nausea/vomiting, no abdominal pain No change in bowel habits noted Needs his Fluticasone nasal spray Rx refilled He was not able to get his follow-up labs done prior to his appointment today - states that he will try to get them done tomorrow morning [facility] Medical History (Updated 10/30/24 @ 03:08 by Mikey Lai MD) Allergic rhinitis Obesity (BMI 30-39.9) Mixed hyperlipidemia Benign essential hypertension Chronic kidney disease (CKD), stage III (moderate) 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 CKD (chronic kidney disease) stage 3, GFR 30-59 ml/min Vitamin D deficiency Non-toxic multinodular goiter Dyslipidemia Diabetic 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 with type 2 diabetes mellitus 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 Diabetes type 2, uncontrolled Surgical History Hx of cardiac cath (~2008) Hx of tonsillectomy Family History Father Hypertension Diabetes CVA (cerebral vascular accident) Dementia Mother CVA (cerebral vascular accident) Dementia Diabetes Hypertension Other Mental health disorder Social History Housing: House Alcohol intake: never Patient Tobacco Use Status: Never used Tobacco e-Cigarette/Vaping Use: Never Used service: No Current occupational status: disabled Cognitive needs: No Hearing needs: Yes (B/L hearing loss per Pt) Vision needs: No Questionnaire PHQ-9 Over the last 2 weeks, how often have you been bothered by any of the following problems? 1. Little interest or pleasure in doing things: not at all 2. Feeling down, depressed, or hopeless: not at all 3. Trouble falling or staying asleep, or sleeping too much: not at all 4. Feeling tired or having little energy: not at all 5. Poor appetite or overeating: not at all 6. Feeling bad about yourself - or that you are a failure or have let yourself or your family down: not at all 7. Trouble concentrating on things, such as reading the newspaper or watching television: not at all 8. Moving or speaking so slowly that other people could have noticed. Or the opposite - being so fidgety or restless that you have been moving around a lot more than usual: not at all 9. Thoughts that you would be better off or of hurting yourself in some way: not at all Total score: 0 Depression Screening Interpretation: Negative Depression Screening Done: Yes 84583 - PHQ-9 Billing: Yes Source: Developed by Drs. Jersey Gibson, Janeth Lopes, Jose Cesar and colleagues, with an educational renu from [employer]. Thrive Questionnaire Date Thrive assessed: 10/23/24 I am a: Patient What is your living situation today?: I have a steady place to live Within the past 12 months, did the food you bought not last and you didn't have the money to get more?: Never true Within the past 12 months, did you worry whether your food would run out before you got money to buy more?: Never true Do you have trouble paying for medicines?: No Do you have trouble getting transportation to medical appointments?: No Do you have trouble paying your heating and electricity bill?: No Do you have trouble taking care of your child, family member or friend?: No Do you have trouble with day-to-day activities such as bathing, preparing meals, shopping, managing finances, etc.?: No Are you currently unemployed and looking for a job?: I choose not to answer this question Are you interested in more education?: No Please select the resources that you would like help with: None Currently or been in a relationship where the following occur: No concerns reported THRIVE Score: 0 AUDIT C Alcohol Use Questionnaire (AUDIT-C) 1. How often do you have a drink containing alcohol?: Monthly or less 2. How many drinks containing alcohol do you have on a typical day when you are drinking?: 3 or 4 3. How often do you have six or more drinks on one occasion?: Never Total Score: 2 Score Reviewed/Action Taken: Yes NIKKI-7 AMB Questionnaire NIKKI-7 Date NIKKI - 7 assessed: 10/23/24 Feeling nervous, anxious, or on edge: 0 = Not at all Not being able to stop or control worryin = Not at all Worrying too much about different things: 0 = Not at all Trouble relaxin = Not at all Being so restless that it is hard to sit still: 0 = Not at all Becoming easily annoyed or irritable: 0 = Not at all Feeling afraid as if something awful might happen: 0 = Not at all Total NIKKI-7 score (0-4 normal; 5-9 mild; 10-14 moderate; 15-21 severe): 0 Source: Developed by Drs. Jersey Gibson, Janeth Lopes, Jose Cesar and colleagues, with an educational renu from [employer]. Review of Systems Const Denies chills, Reports daytime sleepiness, Reports fatigue, Denies fever(s), Denies headache(s), Reports snoring and Reports stops breathing during sleep ENT Denies dysphagia, Denies dizziness, Denies otalgia, Denies headache(s), Reports nasal congestion (on and off), Reports nasal discharge (on and off), Denies neck pain, Denies odynophagia and Denies sore throat Card Denies chest pain, Denies palpitations and Reports dyspnea on exertion (mild) Resp Denies chest congestion, Denies cough, Reports dyspnea on exertion (mild) and Reports snoring GI Denies abdominal pain, Denies constipation, Denies dysphagia, Denies heartburn, Denies diarrhea, Denies nausea, Denies odynophagia and Denies vomiting Denies dysuria, Denies nocturia and Denies urinary frequency Musc Denies back pain, Reports arthralgias (right knee, on and off) and Denies neck pain Skin/Breast Denies rash Neuro Denies dizziness and Denies headache(s) Endo Reports fatigue and Denies palpitations Physical exam (Primary Care) Vital Signs: Last Vital Signs Pulse 71 10/23/24 14:24 BP 132/86 10/23/24 14:24 Pulse Ox 97 10/23/24 14:24 Oxygen Delivery Method Room Air 10/23/24 14:24 BMI result Body Mass Index 37.0 Tobacco/Smoking Status: Tobacco use Status Tobacco use date assessed 10/23/24 10/23/24 14:35 Patient Tobacco Use Status Never used Tobacco 10/23/24 14:35 e-Cigarette/Vaping Use Never Used 10/23/24 14:35 PHQ-9: PHQ-9 Score PHQ-9: Total score 0 10/23/24 14:47 Depression Screening Interpretation: Negative Thrive Assessment: Date of Thrive Assessment Date Thrive assessed 10/23/24 10/23/24 14:35 Currently or been in a relationship where the following occur: No concerns reported Const General: no acute distress and alert HENMT Ears: TM's normal bilaterally and EAC's normal Throat: Yes posterior oropharynx normal and Yes tonsils normal (no TP congestion) Neck Neck: Yes supple and No lymphadenopathy Thyroid: Thyroid normal Resp Auscultation: clear to auscultation bilaterally, no rales and no wheezes Cardio Rate: regular rate Rhythm: regular rhythm Heart sounds: no murmurs GI Palpation (GI): Soft to palpation and nontender Auscultation: normal bowel sounds General: Yes no CVA tenderness Back/Spine/Pelvis Back: no CVA tenderness Thoracic/Lumbar Spine: No lumbar spinal tenderness Skin Rashes: no rashes Extrem General: Yes no clubbing, cyanosis or edema Right lower extremity: knee Details: tenderness Location: of the medial joint line; no swelling Results AMB Hemoglobin A1c AMB Hemoglobin A1c 10.7 % Last Edit by ACOSTA Connor on 10/23/24 14:45 Results Reviewed Results Reviewed: Laboratory Last Values Hgb A1c (Clinic) 10.7 % (4.0-6.0) H 10/23/24 14:44 Coding Level of Care Code Est Pt Level 4 (80999) Complex EM visit Add On G2211 Diagnoses Exertional dyspnea R06.09 Right medial knee pain M25.561 Witnessed apneic spells R06.81 Type 2 diabetes mellitus with stage 3b chronic kidney disease, with long-term current use of insulin E11.22; N18.32; Z79.4 Diabetes mellitus superintendent container terminal insulin use: with superintendent container terminal use Chronic kidney disease stage: stage 3 (moderate) Chronic kidney disease stage 3 subtype: stage 3b (GFR 30-44) Stage 3b chronic kidney disease N18.32 Chronic kidney disease stage 3 subtype: stage 3b (GFR 30-44) Mixed hyperlipidemia E78.2 Benign essential hypertension I10 Vitamin D deficiency E55.9 Non-toxic multinodular goiter E04.2 Allergic rhinitis, unspecified seasonality, unspecified trigger J30.9 Allergic rhinitis trigger: unspecified Allergic rhinitis seasonality: unspecified Obesity (BMI 30-39.9) E66.9 Additional Codes PHQ-9 - 71089 - PHQ-9 Billing: Yes ([id number]) Assessment & Plan Assessment & Plan (1) Exertional dyspnea: Code(s): R06.09 - Other forms of dyspnea Category: Medical Plan: Per request, he was referred to Cardiology for further evaluation and management and to assess for cardiovascular disease, as patient has 2 younger brothers who recently from heart attack/stroke Patient is also a diabetic so he is at high risk than average for coronary artery disease He is currently scheduled to be seen by cardiology on 01/15/2025 for consultation (2) Right medial knee pain: Code(s): M25.561 - Pain in right knee Category: Medical Plan: Right knee x-rays done a couple of months ago revealed only (+) prepatellar soft tissue swelling with no acute fracture or dislocation The joint spaces are well-preserved Discussed that he likely has injury or strain to his MCL Will refer him to orthopedics for further evaluation and management (3) Witnessed apneic spells: Code(s): R06.81 - Apnea, not elsewhere classified Category: Medical Plan: He has been referred to Sleep Medicine for further evaluation and management and to rule out MADELEINE - he is currently still awaiting scheduling for appointment to be seen (4) Type 2 diabetes mellitus with diabetic chronic kidney disease: Code(s): E11.22 - Type 2 diabetes mellitus with diabetic chronic kidney disease Category: Medical Qualifiers: Diabetes mellitus superintendent container terminal insulin use: with skilled nursing use Chronic kidney disease stage: stage 3 (moderate) Chronic kidney disease stage 3 subtype: stage 3b (GFR 30-44) Qualified Code(s): E11.22 - Type 2 diabetes mellitus with diabetic chronic kidney disease; N18.32 - Chronic kidney disease, stage 3b; Z79.4 - 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 Plan: His in-office HgbA1c done today is at 10.7% (was at 11.0% when last checked at the endocrinology office previously on 08/01/2024) - goal is at least <7.0% Reinforced diabetic diet Continue Levemir 42 unit Q HS, Novolog 14 units TID before each meal, Jardiance 25 mg QD and Trulicity 0.75 mg SQ once a week Follow up with endocrinology and with market research lead for teaching as scheduled (5) Chronic kidney disease (CKD), stage III (moderate): Code(s): N18.30 - Chronic kidney disease, stage 3 unspecified Category: Medical Qualifiers: Chronic kidney disease stage 3 subtype: stage 3b (GFR 30-44) Qualified Code(s): N18.32 - Chronic kidney disease, stage 3b Plan: Will continue to monitor his GFR and serum creatinine regularly Have advised patient again strict control of his blood sugar is the best way to keep his renal function stable (6) Mixed hyperlipidemia: Code(s): E78.2 - Mixed hyperlipidemia Category: Medical Plan: Patient was not able to get his follow up labs done prior to his appointment today and states that he will try to get his labs done tomorrow morning Reinforced low cholesterol diet Continue Atorvastatin 80 mg QD and Ezetimibe 10 mg QD Will recheck his labs and fasting lipids again in 4 months for follow up (7) Benign essential hypertension: Code(s): I10 - Essential (primary) hypertension Category: Medical Plan: Reinforced low sodium diet - goal is systolic BP of at least 120 to 130 mm or less Continue Losartan 100 mg QD, Amlodipine 5 mg QD, Metoprolol 50 mg BID and HCTZ 25 mg Q AM (8) Vitamin D deficiency: Code(s): E55.9 - Vitamin D deficiency, unspecified Category: Medical Plan: Continue Vitamin D3 2000 units QD (9) Non-toxic multinodular goiter: Code(s): E04.2 - Nontoxic multinodular goiter Category: Medical Plan: Thyroid US done in 10/2020 showed stable findings Will continue to monitor his TFTs regularly Follow up with endocrinology as scheduled (10) Allergic rhinitis: Code(s): J30.9 - Allergic rhinitis, unspecified Category: Medical Qualifiers: Allergic rhinitis trigger: unspecified Allergic rhinitis seasonality: unspecified Qualified Code(s): J30.9 - Allergic rhinitis, unspecified Plan: Will start him back on Fluticasone 50 mcg nasal spray QD PRN (11) Obesity (BMI 30-39.9): Code(s): E66.9 - Obesity, unspecified Category: Medical Plan: Reinforced diet/exercise as tolerated/lose weight Plan Follow up in 4 months Orders: Orders Comprehensive [place]. Panel Fast 4 Months E78.00 - Pure hypercholesterolemia, unspecified Lipid Panel 4 Months E78.00 - Pure hypercholesterolemia, unspecified Hemoglobin A1c 4 Months E11.9 - Type 2 diabetes mellitus without complications UA CC w/rflx Micro + Cult 4 Months R30.0 - Dysuria Vitamin D 25-OH Total 4 Months E55.9 - Vitamin D deficiency, unspecified Erythrocyte Sedimentation Rate 4 Months M25.50 - Pain in unspecified joint AMB Hemoglobin A1c 12/02/24 Z13.9 - Encounter for screening, unspecified Complete Blood Count Auto Diff 4 Months D64.9 - Anemia, unspecified Microalbumin, Random (w Creat) 4 Months E11.9 - Type 2 diabetes mellitus without complications TSH reflex Free T4 4 Months E78.00 - Pure hypercholesterolemia, unspecified Vitamin B12 and Folate 4 Months E53.8 - Deficiency of other specified B group vitamins Referrals Orthopedics Referral M25.561 - Pain in right knee Medications: Refilled fluticasone propionate 50 mcg/actuation (Flonase Allergy Relief) administer into each nostril 1 spray intranasal DAILY 30 days PRN 16 grams 5RF allergy symptoms
== END 2024-10-23 14:58 | disposition home or self-care (01) ==
PROVIDERS: PCP Internal Medicine; Visit Provider Internal Medicine
DX: I12.9 Hypertensive chronic kidney disease with stage 1 through stage 4 chronic kidney disease, or unspecified chronic kidney disease (principal); E11.22 Type 2 diabetes mellitus with diabetic chronic kidney disease; N18.32 Chronic kidney disease, stage 3b; Z79.4 Long term (current) use of insulin; R06.09 Other forms of dyspnea; M25.561 Pain in right knee; R06.81 Apnea, not elsewhere classified; E78.2 Mixed hyperlipidemia; E55.9 Vitamin D deficiency, unspecified; E04.2 Nontoxic multinodular goiter; J30.9 Allergic rhinitis, unspecified; E66.9 Obesity, unspecified

== ENCOUNTER → 2024-10-23 14:23 | Outpatient (BNVA) | payer MEDICARE, SELFPAY | PROVIDERS: PCP Internal Medicine; Visit Provider Internal Medicine | DX: R06.09 Other forms of dyspnea (principal); M25.561 Pain in right knee; R06.81 Apnea, not elsewhere classified; I12.9 Hypertensive chronic kidney disease with stage 1 through stage 4 chronic kidney disease, or unspecified chronic kidney disease; E11.22 Type 2 diabetes mellitus with diabetic chronic kidney disease; N18.32 Chronic kidney disease, stage 3b; Z79.4 Long term (current) use of insulin; E78.2 Mixed hyperlipidemia; E55.9 Vitamin D deficiency, unspecified; E04.2 Nontoxic multinodular goiter; J30.9 Allergic rhinitis, unspecified; E66.9 Obesity, unspecified | CPT/HCPCS: 83036; 96127; 99212 ==

== ENCOUNTER 2024-10-24 08:56 | Outpatient (REF) | payer MEDICARE, SELFPAY ==
[2024-10-24 09:27] LABS: MANUAL DIFF FLAG NO
[2024-10-24 09:47] LABS: Basophils Absolute Auto 0.1 X10*3/uL (0.0-0.2); Basophils Percent Auto 1.3 % (0-2); Eosinophils Absolute Auto 0.3 X10*3/uL (0.0-0.4); Hematocrit 46.3 % (42.0-52.0); Hemoglobin 15.8 g/dl (14.0-18.0); Imm Gran Abs Auto 0.01 X10*3/uL (0.00-0.03); Imm Gran Pct Auto 0.2 % (0.0-0.4); Lymphocytes Absolute Auto 2.2 X10*3/uL (1.2-4.9); Lymphocytes Percent Auto 38.9 % (20-40); Mean Corpuscular HGB Conc 34.1 g/dl (31.0-36.0); Mean Corpuscular Hemoglobin 28.7 pg (27.0-33.0); Mean Corpuscular Volume 84.2 fL (80.0-98.0); Mean Platelet Volume 10.7 fL (9.4-12.4); Monocytes Absolute Auto 0.7 X10*3/uL (0.1-1.2); Monocytes Percent Auto 12.1 % (2-11); Neutrophils Absolute Auto 2.4 x10*3/uL (2.0-8.3); Neutrophils Percent Auto 42.5 % (45-73); Platelet Count 198 X10*3/uL (160-400); White Blood Count 5.6 X10*3/uL (4.8-10.8)
[2024-10-24 09:56] LABS: Estimated Average Glucose 226 mg/dL; Hemoglobin A1C 316.1737 umol/L; Hemoglobin A1c % 9.5 % (<6.0); Total Hemoglobin (HGBA1C) 3924.5958 umol/L
[2024-10-24 10:32] LABS: Alanine Aminotransferase 13 U/L (0-40); Albumin Level 4.4 g/dL (3.5-5.0); Alkaline Phosphatase 73 U/L (39-117); Anion Gap 11 (12-20); Aspartate Amino Transferase 17 U/L (5-37); Bilirubin Total 0.8 mg/dL (0.0-1.0); Blood Urea Nitrogen 18 mg/dL (9-16); Calcium 9.6 mg/dL (8.4-10.2); Carbon Dioxide 30 mmol/L (22-29); Chloride 102 mmol/L (96-108); Cholesterol 203 mg/dL (<200); Estimated Glomerular Filt Rate 54; Glucose Fasting 183 mg/dL (60-99); HDL Cholesterol 37 mg/dL (>40); LDL Cholesterol Calculated 129 mg/dL (<100); Potassium 4.1 mmol/L (3.3-5.1); Sodium 139 mmol/L (135-145); Total Protein 7.9 g/dL (6.5-8.0); Triglycerides 187 mg/dL (<150)
[2024-10-24 10:38] LABS: TSH reflex Free T4 1.72 uIU/mL (0.32-4.0); Vitamin D 25-OH Total 21.9 ng/mL (>30)
[2024-10-24 11:04] LABS: Appearance Urine Clear; Color Urine Yellow; Glucose Urine UA >=1000 mg/dL (Negative); Leukocyte Esterase Urine Negative (Negative); Nitrite Urine Negative (Negative); Specific Gravity - Urine >= 1.030 (1.005-1.025); UMIC TRIGGER UACC YES; Urine Blood Negative (Negative); Urine Ketones Negative (Negative); Urine Protein Negative (Neg-Trace)
[2024-10-24 11:10] LABS: Bacteria Urine None Seen (None Seen); Hyaline Casts Urine 0-2 /LPF (0-2); RBC Urine 0-2 /HPF (0-2); Squamous Epithelial Cell Urine 0-2 /HPF (0-2); WBC Urine 0-5 /HPF (0-5)
[2024-10-24 11:53] LABS: Creatinine Urine 99.24 mg/dL; Microalbum/Creatinine Ratio Ur 37.2 ug/mg cr (<30)
== END 2024-10-24 08:57 | disposition home or self-care (01) ==
LOC: HO.LAB 08:56
PROVIDERS: PCP Internal Medicine; Visit Provider Internal Medicine
DX: E78.00 Pure hypercholesterolemia, unspecified (principal); E55.9 Vitamin D deficiency, unspecified; D64.9 Anemia, unspecified; E11.9 Type 2 diabetes mellitus without complications; R30.0 Dysuria
CPT/HCPCS: 36415; 80053; 80061; 81001; 81003; 82043; 82306; 82570; 83036; 84443; 85025

== ENCOUNTER 2024-11-07 12:44 | Outpatient (AMB) | payer MEDICARE, SELFPAY ==
[2024-11-07 12:47] VITALS: BP 126/80; PULSE 86; BMI 37.0
--- NOTE | 2024-11-07 12:47 | A.OFFVIS_ITS ---
Vital Signs 11/07/24 12:47 Height 5 ft 3 in Weight 209 lb BMI 37.0 BP 126/80 Blood Pressure Location Rt brachial Position Sitting Pulse 86 Pulse Source Pulse Oximeter Intake Visit Reasons: DM/CONF Intake Note: Patient present today to follow up on Type 2 Diabetes Mellitus. Last Diabetic Eye exam: He had one done in 3 months ago. Last Podiatry Visit: Does not see a Manager Fire Most Recent HgA1C: 9.5% 10/24/2024 Random Glucose: 316 mg/dL, Today Director Of Rehabilitative Services Required: Yes Director Of Rehabilitative Services Language: Fish Cutter Services: Director Of Rehabilitative Services Present Director Of Rehabilitative Services Name: ACOSTA Chapa/ALISHA MCLEAN Information Interpreted: non-clinical & clinical Accompanied by: Self / Same As Patient Allergies dulaglutide [Trulicity] Adverse Reaction (Unknown, Verified 11/07/24 12:52) diarrhea metformin Adverse Reaction (Uncoded 11/07/24 13:45) Abdominal Pain HPI Comments Details: Patient is 69 year male with DM type 2 diagnosed in 2003 who presents for management of diabetes. HGB A1c 10/24/24 9.5%. Past medical history: Diabetes type 2, hypertension, hyperlipidemia CKD3, NTMG (with small subcentimeter nodules with no need for intervention Dr. 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 Current medications: Levemir 48 units units at bedtime. He administers Levemir daily, but sometimes the injection sites become hard and he notices more frequently now that due to the volume of injections some of the medication leaks out of the site. Novolog 16 units (8 clicks) before meals 3 times a day Jardiance 25 mg every morning Ozempic 0.25 mg weekly. He has taken 2 doses of this and denies side effects. Metformin was discontinued in the past due to GI upset. Trulicity discontinued in the past due to diarrhea. ROS: Constitutional: No unexplained weight loss, fever, chills, fatigue or night sweats. Gastrointestinal: No anorexia, nausea, vomiting or diarrhea. No abdominal pain Neurologic: No headache, dizziness, syncope Skin: No open wounds or rashes Physical exam: Constitutional: Alert, in no distress. Neck: Supple, Full range of motion. No lymphadenopathy. No palpable thyroid masses. Respiratory: Clear to auscultation. Cardiovascular: S1 S2 regular. No murmurs. 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 Diabetes type 2, uncontrolled Surgical History Hx of cardiac cath (~2008) Hx of tonsillectomy Family History Father Hypertension Diabetes CVA (cerebral vascular accident) Dementia Mother CVA (cerebral vascular accident) Dementia Diabetes Hypertension Other Mental health disorder Social History Housing: House Alcohol intake: never Patient Tobacco Use Status: Never used Tobacco e-Cigarette/Vaping Use: Never Used service: No Current occupational status: disabled Cognitive needs: No Hearing needs: Yes (B/L hearing loss per Pt) Vision needs: No Physical Exam Vital Signs: Last Vital Signs Pulse 86 11/07/24 12:47 BP 126/80 11/07/24 12:47 BMI result Body Mass Index 37.0 Results Reviewed Results Reviewed: Laboratory Last Values Glucose (Clinic) 316 mg/dL (60-115) H 11/07/24 12:59 Assessment & Plan Assessment & Plan (1) Type 2 diabetes mellitus with diabetic chronic kidney disease: Code(s): E11.22 - Type 2 diabetes mellitus with diabetic chronic kidney disease Category: Medical Qualifiers: Diabetes mellitus assisted insulin use: with assisted use Chronic kidney disease stage: stage 3 (moderate) Chronic kidney disease stage 3 subtype: stage 3b (GFR 30-44) Qualified Code(s): E11.22 - Type 2 diabetes mellitus with diabetic chronic kidney disease; N18.32 - Chronic kidney disease, stage 3b; Z79.4 - intermediate (current) use of insulin Plan In summary this is a 69-year-old male with uncontrolled type 2 diabetes with microvascular complications. Due to reported injection site reaction and suboptimal injection of Levemir insulin due to volume it is medically necessary to switch the patient to Toujeo U 300. He will continue Levemir until he receives it from the pharmacy. Continue NovoLog 16 units (8 clicks) via Cequr. His diabetic control has improved since his last visit per CGM. Continue Jardiance 25 mg daily. Finish additional 2 doses of Ozempic 0.25 mg then increase to Ozempic 0.5 mg weekly. Reviewed treatment of hypoglycemia. Follow up in 6 weeks for type 2 diabetes. Medications: New insulin glargine U-300 conc (Toujeo SoloStar U-300 Insulin) Replaces insulin detemir. 48 units (0.16 mL) subcut BEDTIME 4.5 mL 5RF semaglutide (Ozempic) 0.5 mg (0.736 mL) subcut QWEEK 3 mL 0RF Changed From CeQur Simplicity (bolus insulin pump, 200 unit) 7 clicks (14 units) three times per day before meals. 8 ea 11RF NS E11.22 - Type 2 diabetes mellitus with diabetic chronic kidney disease, N18.32 - Chronic kidney disease, stage 3b, Z79.4 - long term care phlebotomist (current) use of insulin To CeQur Simplicity (bolus insulin pump, 200 unit) 8 clicks (16 units) three times per day before meals. 8 ea 11RF NS E11.22 - Type 2 diabetes mellitus with diabetic chronic kidney disease, N18.32 - Chronic kidney disease, stage 3b, Z79.4 - long term care phlebotomist (current) use of insulin Refilled insulin aspart U-100 (Novolog U-100 Insulin aspart) 16 units before meals (8 clicks) tid subcutaneously use as directed; 30 days 20 mL 11RF Discontinued insulin aspart U-100 (Novolog FlexPen U-100 Insulin aspart) Discontinued Reason: Doctor's Order 14 units (0.14 mL) subcut TID 30 days 15 mL 8RF insulin aspart U-100 (Novolog U-100 Insulin aspart) Discontinued Reason: Doctor's Order 14 units (7 clicks with CeQur insulin patch) before each meal three times daily subcutaneously 20 mL 11RF semaglutide (Ozempic) for 4 weeks Discontinued Reason: Doctor's Order 0.25 mg (0.368 mL) subcut QWEEK 3 mL 0RF insulin detemir U-100 (Levemir FlexPen) Discontinued Reason: Doctor's Order 48 units (0.48 mL) subcut BEDTIME 30 days 15 mL 5RF Patient Instructions: [place] 2 dosis m?s de Ozempic de 0.25 mg por semana y luego aumente a 5 mg por semana. Haremos rik autorizaci?n previa para cambiar Levemir a Toujeo. Contin?a Levemir hasta llegar a Toujeo. Contin?e con Jardiance 25 mg al d?a. Continuar Novolog 16 unidades (8 clics) antes de las comidas. Coding Level of Care Code Est Pt Level 4 (06122) Complex EM visit Add On G2211 Diagnoses Type 2 diabetes mellitus with stage 3b chronic kidney disease, with long-term current use of insulin E11.22; N18.32; Z79.4 Diabetes mellitus rn long term care insulin use: with rn long term care use Chronic kidney disease stage: stage 3 (moderate) Chronic kidney disease stage 3 subtype: stage 3b (GFR 30-44)
[2024-11-07 13:05] LABS: Glucose, Whole Blood 316 mg/dL (60-115)
== END 2024-11-07 13:36 | disposition home or self-care (01) ==
PROVIDERS: PCP Internal Medicine; Visit Provider Physician Assistant Medical
DX: E11.22 Type 2 diabetes mellitus with diabetic chronic kidney disease (principal); N18.32 Chronic kidney disease, stage 3b; Z79.4 Long term (current) use of insulin

== ENCOUNTER → 2024-11-07 12:44 | Outpatient (BNVA) | payer MEDICARE, SELFPAY | PROVIDERS: PCP Internal Medicine; Visit Provider Physician Assistant Medical | DX: E11.22 Type 2 diabetes mellitus with diabetic chronic kidney disease (principal); E11.65 Type 2 diabetes mellitus with hyperglycemia; E11.21 Type 2 diabetes mellitus with diabetic nephropathy; E11.3299 Type 2 diabetes mellitus with mild nonproliferative diabetic retinopathy without macular edema, unspecified eye; N18.30 Chronic kidney disease, stage 3 unspecified; Z79.4 Long term (current) use of insulin; Z79.84 Long term (current) use of oral hypoglycemic drugs | CPT/HCPCS: 82947; 99212 ==

== ENCOUNTER 2024-11-28 13:46 | Outpatient (AMB) | payer MEDICARE, SELFPAY ==
--- NOTE | 2024-11-28 14:03 | A.OFFVIS_ITS ---
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 The patient states that several months ago he twisted his right knee. He had acute onset of pain along the medial aspect of his knee. He has tried Tylenol and anti-inflammatory medicines which gave him mild relief. He has not been to physical therapy. He has not had an injection. He states that his right knee will give out several times per day. 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 NS CeQur Simplicity Fence Installer Foreman (diabetic supplies, OY LX Therapies.) As directed NS cholecalciferol (vitamin D3) 50 mcg PO DAILY 30 days empagliflozin (Jardiance) 25 mg PO DAILY 90 days ezetimibe 10 mg PO DAILY 30 days flash glucose scanning reader (FreeStyle Tania 2 [place]) As directed flash glucose sensor (FreeStyle Tania 2 Sensor kit) As directed change every 14 days fluticasone propionate 50 mcg/actuation (Flonase Allergy Relief) 1 spray intranasal DAILY PRN 30 days glucose (Dex4 Glucose) 16 grams (4 x 4 gram) PO Q15M PRN hydrochlorothiazide 25 mg PO QAM 90 days insulin aspart U-100 (Novolog U-100 Insulin aspart) 16 units before meals (8 clicks) tid subcutaneously use as directed; 30 days insulin glargine U-300 conc (Toujeo SoloStar U-300 Insulin) 48 units (0.16 mL) subcut BEDTIME lancets (FreeStyle Lancets) 28 gauge topical QID 75 days losartan 100 mg PO DAILY 90 days metoprolol tartrate 50 mg PO BID 90 days pen needle, diabetic 5 times a day semaglutide (Ozempic) 0.5 mg (0.736 mL) subcut QWEEK 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 CKD (chronic kidney disease) stage 3, GFR 30-59 ml/min Vitamin D deficiency Non-toxic multinodular goiter Dyslipidemia Diabetic 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 with type 2 diabetes mellitus 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 Diabetes type 2, uncontrolled Surgical History Hx of cardiac cath (~2008) Hx of tonsillectomy Family History Father Hypertension Diabetes CVA (cerebral vascular accident) Dementia Mother CVA (cerebral vascular accident) Dementia Diabetes Hypertension Other Mental health disorder Social History Housing: House Alcohol intake: never Patient Tobacco Use Status: Never used Tobacco e-Cigarette/Vaping Use: Never Used service: No Current occupational status: disabled Cognitive needs: No Hearing needs: Yes (B/L hearing loss per Pt) Vision needs: No Physical Exam Const Other: Well-nourished well-developed very friendly male awake alert and oriented x3 in no acute distress Extrem Other: Bilateral lower extremity examination shows good capillary refill, no skin lesions noted, normal sensation light touch Right knee examination shows a minimal effusion, minimal crepitus with range of motion, tenderness along his medial joint line, positive Ortega's test, no instability Results Reviewed Results Reviewed: X-rays of the patient's right knee taken previously show mild diffuse joint space narrowing, no acute bony abnormalities Assessment & Plan Assessment & Plan (1) MCL sprain of right knee: Code(s): S83.411A - Sprain of medial collateral ligament of right knee, initial encounter Category: Medical Plan Mr. Hopkins presents with right knee pain and mechanical symptoms due to sprain of his medial collateral ligament and possible medial meniscus tearing. I had a lengthy discussion with the patient regarding the treatment options. The patient wishes to go to formal physical therapy. I did give him a prescription to do so. He will follow up with me on an as-needed basis should his symptoms not plateau at an unacceptable level. If his mechanical symptoms continue I will order an MRI of his right knee to further evaluate the status of his medial meniscus. Feel free to call me at any time should questions regarding his orthopedic management arise. Thank you very much for asking me to see this very friendly gentleman. I spent 21 minutes in reviewing the patient's records and imaging studies, seeing the patient and documenting in the medical record. Orders: Orders PT Evaluation and Treatment 11/28/24 S83.411A - Sprain of medial collateral ligament of right knee, initial encounter Coding Level of Care Code New Pt Level 3 (17508) Complex EM visit Add On G2211 Diagnoses MCL sprain of right knee S83.411A
== END 2024-11-28 14:22 | disposition home or self-care (01) ==
PROVIDERS: PCP Internal Medicine; Visit Provider Orthopaedic Surgery
DX: S83.411A Sprain of medial collateral ligament of right knee, initial encounter (principal)
CPT/HCPCS: 99203; G2211

== ENCOUNTER → 2024-11-28 13:46 | Outpatient (BNVA) | payer MEDICARE, SELFPAY | PROVIDERS: PCP Internal Medicine; Visit Provider Orthopaedic Surgery | DX: S83.411A Sprain of medial collateral ligament of right knee, initial encounter (principal) | CPT/HCPCS: 99202 ==

== ENCOUNTER 2024-12-06 10:18 | Outpatient (AMB) | payer MEDICARE, SELFPAY ==
--- NOTE | 2024-12-06 10:33 | MHC.PC.OV ---
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 Accompanied by: Self / Same As Patient Allergies dulaglutide [Trulicity] Adverse Reaction (Unknown, Verified 12/06/24 11:24) diarrhea metformin Adverse Reaction (Uncoded 12/06/24 11:24) Abdominal Pain Medication List - Last Reconciled 12/06/24 by Mikey Lai MD acetaminophen 650 mg (2 x 325 mg) PO Q6H PRN amlodipine 5 mg PO DAILY 90 days atorvastatin 80 mg PO DAILY 30 days blood sugar diagnostic (FreeStyle Lite Strips) 4 times a day blood-glucose meter (FreeStyle Lite Meter kit) As directed tests 4 X/day CeQur Simplicity (bolus insulin pump, 200 unit) 8 clicks (16 units) three times per day before meals. NS CeQur Simplicity Carpenter Helper (diabetic supplies, [employer].) As directed NS cholecalciferol (vitamin D3) 50 mcg PO DAILY 30 days empagliflozin (Jardiance) 25 mg PO DAILY 90 days ezetimibe 10 mg PO DAILY 30 days flash glucose scanning reader (FreeStyle Tania 2 [place]) As directed flash glucose sensor (FreeStyle Tania 2 Sensor kit) As directed change every 14 days fluticasone propionate 50 mcg/actuation (Flonase Allergy Relief) 1 spray intranasal DAILY PRN 30 days glucose (Dex4 Glucose) 16 grams (4 x 4 gram) PO Q15M PRN hydrochlorothiazide 25 mg PO QAM 90 days insulin aspart U-100 (Novolog U-100 Insulin aspart) 16 units before meals (8 clicks) tid subcutaneously use as directed; 30 days insulin glargine U-300 conc (Toujeo SoloStar U-300 Insulin) 48 units (0.16 mL) subcut BEDTIME lancets (FreeStyle Lancets) 28 gauge topical QID 75 days losartan 100 mg PO DAILY 90 days metoprolol tartrate 50 mg PO BID 90 days pen needle, diabetic 5 times a day semaglutide (Ozempic) 0.5 mg (0.736 mL) subcut QWEEK Tobacco use date assessed: 12/06/24 Fall risk assessment: No Falls in past year Last assessed Fall Risk: 12/06/24 Dental Screening Dental Screen Date: 12/06/24 Did you have a dental visit in the last 12 months?: Yes Did you have a dental problem in the last 6 months where you did not have access to dental care?: No Was dental information given to patient?: Patient has dentist HPI Growth inside nose HPI Details Patient comes in today complaining of something growing inside his nose lately States that he feels like something is blocking the inside of his nostrils and it feels hard for him to breathe in at times He denies any pain in his nose but has had a couple of nosebleeds lately He denies any recent cough or cold symptoms Denies any fever or sore throat Denies any headaches or dizziness Denies any chest pains, no increased SOB He is now seeing endocrinology for his diabetes [facility] Medical History Allergic rhinitis Obesity (BMI 30-39.9) Mixed hyperlipidemia Benign essential hypertension Chronic kidney disease (CKD), stage III (moderate) 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 CKD (chronic kidney disease) stage 3, GFR 30-59 ml/min Vitamin D deficiency Non-toxic multinodular goiter Dyslipidemia Diabetic 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 with type 2 diabetes mellitus 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 Diabetes type 2, uncontrolled Surgical History Hx of cardiac cath (~2008) Hx of tonsillectomy Family History Father Hypertension Diabetes CVA (cerebral vascular accident) Dementia Mother CVA (cerebral vascular accident) Dementia Diabetes Hypertension Other Mental health disorder Social History Housing: House Alcohol intake: never Patient Tobacco Use Status: Never used Tobacco e-Cigarette/Vaping Use: Never Used service: No Current occupational status: disabled Cognitive needs: No Hearing needs: Yes (B/L hearing loss per Pt) Vision needs: No Questionnaire PHQ-9 Over the last 2 weeks, how often have you been bothered by any of the following problems? 1. Little interest or pleasure in doing things: not at all 2. Feeling down, depressed, or hopeless: not at all 3. Trouble falling or staying asleep, or sleeping too much: not at all 4. Feeling tired or having little energy: not at all 5. Poor appetite or overeating: not at all 6. Feeling bad about yourself - or that you are a failure or have let yourself or your family down: not at all 7. Trouble concentrating on things, such as reading the newspaper or watching television: not at all 8. Moving or speaking so slowly that other people could have noticed. Or the opposite - being so fidgety or restless that you have been moving around a lot more than usual: not at all 9. Thoughts that you would be better off or of hurting yourself in some way: not at all Total score: 0 Depression Screening Interpretation: Negative Depression Screening Done: Yes 87625 - PHQ-9 Billing: Yes Source: Developed by Drs. Jersey Gibson, Janeth Lopes, Jose Cesar and colleagues, with an educational renu from [employer]. Thrive Questionnaire Date Thrive assessed: 12/06/24 I am a: Patient What is your living situation today?: I have a steady place to live Within the past 12 months, did the food you bought not last and you didn't have the money to get more?: Never true Within the past 12 months, did you worry whether your food would run out before you got money to buy more?: Never true Do you have trouble paying for medicines?: No Do you have trouble getting transportation to medical appointments?: No Do you have trouble paying your heating and electricity bill?: No Do you have trouble taking care of your child, family member or friend?: No Do you have trouble with day-to-day activities such as bathing, preparing meals, shopping, managing finances, etc.?: No Are you currently unemployed and looking for a job?: I choose not to answer this question Are you interested in more education?: No Please select the resources that you would like help with: None Currently or been in a relationship where the following occur: No concerns reported THRIVE Score: 0 AUDIT C Alcohol Use Questionnaire (AUDIT-C) 1. How often do you have a drink containing alcohol?: Monthly or less 2. How many drinks containing alcohol do you have on a typical day when you are drinking?: 3 or 4 3. How often do you have six or more drinks on one occasion?: Never Total Score: 2 Score Reviewed/Action Taken: Yes NIKKI-7 AMB Questionnaire NIKKI-7 Date NIKKI - 7 assessed: 12/06/24 Feeling nervous, anxious, or on edge: 0 = Not at all Not being able to stop or control worryin = Not at all Worrying too much about different things: 0 = Not at all Trouble relaxin = Not at all Being so restless that it is hard to sit still: 0 = Not at all Becoming easily annoyed or irritable: 0 = Not at all Feeling afraid as if something awful might happen: 0 = Not at all Total NIKKI-7 score (0-4 normal; 5-9 mild; 10-14 moderate; 15-21 severe): 0 Source: Developed by Drs. Jersey Gibson, Janeth Lopes, Jose Cesar and colleagues, with an educational renu from [employer]. Review of Systems Const Denies chills, Denies fatigue, Denies fever(s) and Denies headache(s) ENT Denies dysphagia, Denies dizziness, Denies otalgia, Denies headache(s), Reports epistaxis (a couple of times recently), Reports nasal congestion, Reports nasal obstruction, Denies neck pain, Denies odynophagia and Denies sore throat Card Denies chest pain, Denies palpitations and Reports dyspnea on exertion (mild) Resp Denies chest congestion, Denies cough and Reports dyspnea on exertion (mild) GI Denies abdominal pain, Denies constipation, Denies dysphagia, Denies heartburn, Denies diarrhea, Denies nausea, Denies odynophagia and Denies vomiting Denies dysuria, Denies nocturia and Denies urinary frequency Musc Denies back pain, Reports arthralgias (right knee, on and off) and Denies neck pain Skin/Breast Denies rash Neuro Denies dizziness and Denies headache(s) Endo Denies fatigue and Denies palpitations Physical exam (Primary Care) Vital Signs: Last Vital Signs Temp 97.5 F 01/15/25 10:34 Pulse 81 12/06/24 10:34 BP 126/90 H 12/06/24 10:34 Pulse Ox 96 12/06/24 10:34 Oxygen Delivery Method Room Air 12/06/24 10:34 BMI result Body Mass Index 36.4 Tobacco/Smoking Status: Tobacco use Status Tobacco use date assessed 12/06/24 12/06/24 10:35 Patient Tobacco Use Status Never used Tobacco 12/06/24 10:35 e-Cigarette/Vaping Use Never Used 12/06/24 10:35 PHQ-9: PHQ-9 Score PHQ-9: Total score 0 12/06/24 22:43 Depression Screening Interpretation: Negative Thrive Assessment: Date of Thrive Assessment Date Thrive assessed 12/06/24 12/06/24 10:35 Currently or been in a relationship where the following occur: No concerns reported Const General: no acute distress and alert HENMT Other: (+) large polypoid mass (likely polyps) in both nostrils on direct exam Ears: TM's normal bilaterally and EAC's normal Throat: Yes posterior oropharynx normal and Yes tonsils normal (no TP congestion) Neck Neck: Yes supple and No lymphadenopathy Thyroid: Thyroid normal Resp Auscultation: clear to auscultation bilaterally, no rales and no wheezes Cardio Rate: regular rate Rhythm: regular rhythm Heart sounds: no murmurs GI Palpation (GI): Soft to palpation and nontender Auscultation: normal bowel sounds General: Yes no CVA tenderness Back/Spine/Pelvis Back: no CVA tenderness Thoracic/Lumbar Spine: No lumbar spinal tenderness Skin Rashes: no rashes Extrem General: Yes no clubbing, cyanosis or edema Right lower extremity: knee Details: tenderness Location: of the medial joint line; no swelling Coding Level of Care Code Est Pt Level 3 (97870) Diagnoses Nasal cavity mass J34.89 Additional Codes PHQ-9 - 54697 - PHQ-9 Billing: Yes ([id number]) Assessment & Plan Assessment & Plan (1) Nasal cavity mass: Code(s): J34.89 - Other specified disorders of nose and nasal sinuses Category: Medical Plan: Have advised patient that he does have large polypoid lesions in both nostrils, which are consistent with his claims that he sees something inside his nostrils , and that these are likely large nasal polyps and may require ENT intervention if they persist - referral to ENT placed Will send him for CT of the sinuses in the meantime for further evaluation Will also start him for now on Nasonex 50 mcg nasal spray QD to see if this will help shrink his polyps; patient has been using his Fluticasone nasal spray lately with no significant relief of his symptoms Plan Follow up as scheduled in January 2025 Orders: Orders CT sinus wo IV con 12/06/24 J34.89 - Other specified disorders of nose and nasal sinuses Referrals Ear/Nose/Throat Referral J34.89 - Other specified disorders of nose and nasal sinuses Medications: New mometasone 50 mcg/actuation (Nasonex 24hr Allergy) administer into each nostril 2 sprays intranasal DAILY PRN 17 grams 3RF nasal congestion Discontinued fluticasone propionate 50 mcg/actuation (Flonase Allergy Relief) administer into each nostril Discontinued Reason: Doctor's Order 1 spray intranasal DAILY 30 days PRN 16 grams 5RF allergy symptoms
[2024-12-06 10:34] VITALS: BP 126/90; PULSE 81; TEMP 36.4; O2SAT 96; BMI 36.4
== END 2024-12-06 11:32 | disposition home or self-care (01) ==
PROVIDERS: PCP Internal Medicine; Visit Provider Internal Medicine
DX: J34.89 Other specified disorders of nose and nasal sinuses (principal)

== ENCOUNTER → 2024-12-06 10:18 | Outpatient (BNVA) | payer MEDICARE, SELFPAY | PROVIDERS: PCP Internal Medicine; Visit Provider Internal Medicine | DX: J34.89 Other specified disorders of nose and nasal sinuses (principal) | CPT/HCPCS: 96127; 99212 ==

== ENCOUNTER 2024-12-18 13:35 | Outpatient (RCR) | payer MEDICARE, SELFPAY ==
--- NOTE | 2024-12-18 14:58 | MHC.PT.EP ---
[facility] [place] Office [place] Office [place] Office [address] [phone] F: [phone] F: [phone] F: [phone] F: [phone] Physical Therapy Plan of Care Date of Evaluation: 12/18/24 Date of Surgery: Diagnosis: RIGHT knee MCL sprain Assessment: Walter is a pleasant 69 y.o. male who is referred to PT by Dr. Ronnie Jackson MD with Dx of RIGHT knee MCL sprain. He present with full RIGHT knee AROM, and minimal weakness in quadricep and gluteus muscles. There is no swelling and his gait appears normalized compared to contralateral side. Functionally he is able to perform ADLs independently and community ambulation does not increase his pain. Walter does not need skilled PT at this time. I showed him an independent HEP to continue at home for table exercises for quads and glutes and encourages continued use of bicycle at home for ROM. He agrees to plan. 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 Manual therapy to restore motion and function. Therapeutic exercise to improve strength and flexibility. Neuromuscular re-education for posture and balance. Therapeutic activities to return to functional activities of daily living. Electronically signed by: Stella Walker, PT, DPT Please sign and return to therapist. Thank you for your referral.
== END 2024-12-18 14:58 | disposition home or self-care (01) ==
LOC: HO.PT 13:35
PROVIDERS: PCP Internal Medicine; Visit Provider Orthopaedic Surgery
DX: S83.411D Sprain of medial collateral ligament of right knee, subsequent encounter (principal)
CPT/HCPCS: 97110; 97161

== ENCOUNTER 2024-12-26 14:04 | Outpatient (AMB) | payer MEDICARE, SELFPAY ==
--- NOTE | 2024-12-26 14:12 | MHC.OFFVIS ---
Vital Signs 12/26/24 14:16 12/26/24 15:04 Height 5 ft 3 in Weight 211 lb 13.828 oz BMI 37.5 BP 150/90 H 150/88 H Blood Pressure Location Lt brachial Position Sitting Pulse 77 Pulse Source Pulse Oximeter Pulse Oximetry (%) 96 Oxygen Delivery Method Room Air Intake Visit Reasons: Type II diabetes Intake Note: Patient present today to follow up on Type 2 Diabetes Mellitus. Last Diabetic Eye exam: approx 4-[address] Needs a referral for an eye doctor. Last Podiatry Visit: Does not see a Software Systems Architect Random Glucose: 174 mg/dl HgA1C: 9.5% 10/24/2024 Electric Wirer Required: Yes Electric Wirer Language: Feeder Operator Automatic Services: Electric Wirer Present Electric Wirer Name: Myron [id number] Information Interpreted: non-clinical & clinical Accompanied by: Self / Same As Patient Allergies dulaglutide [Trulicity] Adverse Reaction (Unknown, Verified 12/26/24 14:16) diarrhea metformin Adverse Reaction (Uncoded 12/26/24 14:16) Abdominal Pain Medication List - Last Reconciled 12/26/24 by JOSE Hanna acetaminophen 650 mg (2 x 325 mg) PO Q6H PRN amlodipine 5 mg PO DAILY 90 days atorvastatin 80 mg PO DAILY 30 days blood sugar diagnostic (FreeStyle Lite Strips) 4 times a day blood-glucose meter (FreeStyle Lite Meter kit) As directed tests 4 X/day CeQur Simplicity (bolus insulin pump, 200 unit) 8 clicks (16 units) three times per day before meals. NS CeQur Simplicity Accuracy Expert (diabetic supplies, [employer].) As directed NS cholecalciferol (vitamin D3) 50 mcg PO DAILY 30 days empagliflozin (Jardiance) 25 mg PO DAILY 90 days ezetimibe 10 mg PO DAILY 30 days flash glucose scanning reader (FreeStyle Tania 2 [place]) As directed flash glucose sensor (FreeStyle Tania 2 Sensor kit) As directed change every 14 days to monitor blood glucose glucose (Dex4 Glucose) 16 grams (4 x 4 gram) PO Q15M PRN hydrochlorothiazide 25 mg PO QAM 90 days insulin aspart U-100 (Novolog U-100 Insulin aspart) 16 units before meals (8 clicks) tid subcutaneously use as directed; 30 days insulin glargine U-300 conc (Toujeo SoloStar U-300 Insulin) 50 units subcut BEDTIME lancets (FreeStyle Lancets) 28 gauge topical QID 75 days losartan 100 mg PO DAILY 90 days metoprolol tartrate 50 mg PO BID 90 days mometasone 50 mcg/actuation (Nasonex 24hr Allergy) 2 sprays intranasal DAILY PRN pen needle, diabetic 5 times a day semaglutide (Ozempic) 1 mg (0.75 mL) subcut QWEEK HPI Comments Details: Patient is 69 year male with DM type 2 diagnosed in 2003 who presents for management of diabetes. HGB A1c 10/24/24 9.5%. Past medical history: Diabetes type 2, hypertension, hyperlipidemia CKD3, NTMG (with small subcentimeter nodules with no need for intervention Dr. Arizmendi visit 06/10/21) Diabetic complications: retinopathy, nephropathy Glucometer download reviewed: Average glucose 185 mg/dL In range 55% Highest to 74 mg/dL Lowest 136 mg/dL He has a Tania 2, but he does not have the sensors. Refills sent to pharmacy today. Current medications: Toujeo U300 48 units at bedtime, NovoLog 16 units (8 clicks) before meals 3 times a day, Jardiance 25 mg every morning, Ozempic 0.5 mg weekly. Metformin was discontinued in the past due to GI upset. Trulicity discontinued in the past due to diarrhea. Levemir discontinued due to injection site reaction/med leakage from injection site. The patient's blood pressure is elevated. Patient says he has been taking all of his blood pressure medications but he drank 3 cups of coffee leading up to this appointment today. He has a blood pressure monitor at home. He denies headaches, dizziness, blurry vision, chest pain or shortness of breath. ROS: Constitutional: No unexplained weight loss, fever, chills, fatigue or night sweats. Gastrointestinal: No anorexia, nausea, vomiting or diarrhea. No abdominal pain Neurologic: No headache, dizziness, syncope Skin: No open wounds or rashes Physical exam: Constitutional: Alert, in no distress. Neck: Supple, Full range of motion. No lymphadenopathy. No palpable thyroid masses. Respiratory: Clear to auscultation. Cardiovascular: S1 S2 regular. No murmurs. 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 CKD (chronic kidney disease) stage 3, GFR 30-59 ml/min Vitamin D deficiency Non-toxic multinodular goiter Dyslipidemia Diabetic 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 with type 2 diabetes mellitus intermediate accountant (current) use of insulin Diabetes type 2, uncontrolled Surgical History Hx of cardiac cath (~2008) Hx of tonsillectomy Family History Father Hypertension Diabetes CVA (cerebral vascular accident) Dementia Mother CVA (cerebral vascular accident) Dementia Diabetes Hypertension Other Mental health disorder Social History Housing: House Alcohol intake: never Patient Tobacco Use Status: Never used Tobacco e-Cigarette/Vaping Use: Never Used service: No Current occupational status: disabled Cognitive needs: No Hearing needs: Yes (B/L hearing loss per Pt) Vision needs: No Physical Exam Vital Signs: Last Vital Signs Pulse 77 12/26/24 14:16 BP 150/90 H 12/26/24 14:16 Pulse Ox 96 12/26/24 14:16 Oxygen Delivery Method Room Air 12/26/24 14:16 BMI result Body Mass Index 37.5 Results Reviewed Results Reviewed: Laboratory Last Values Glucose (Clinic) 174 mg/dL (60-115) H 12/26/24 14:25 Assessment & Plan Assessment & Plan (1) Type 2 diabetes mellitus with diabetic chronic kidney disease: Code(s): E11.22 - Type 2 diabetes mellitus with diabetic chronic kidney disease Category: Medical Qualifiers: Diabetes mellitus longwall machine operator helper insulin use: with longwall machine operator helper use Chronic kidney disease stage: stage 3 (moderate) Chronic kidney disease stage 3 subtype: stage 3b (GFR 30-44) Qualified Code(s): E11.22 - Type 2 diabetes mellitus with diabetic chronic kidney disease; N18.32 - Chronic kidney disease, stage 3b; Z79.4 - intermediate accountant (current) use of insulin (2) Hypertension: Code(s): I10 - Essential (primary) hypertension Category: Medical Qualifiers: Hypertension type: primary hypertension Qualified Code(s): I10 - Essential (primary) hypertension Plan In summary this is a 69-year-old male with uncontrolled type 2 diabetes with microvascular complications. Increase Toujeo to 50 units nightly. Continue NovoLog 16 units (8 clicks) via SocialF5. His diabetic control has improved since his last visit per CGM. Continue Jardiance 25 mg daily. Increase Ozempic to 1 mg weekly. Reviewed treatment of hypoglycemia. Written instructions given to patient in Chinese and Bulgarian. He has glucose tablets at home. Reviewed lifestyle modifications. Diabetic diet encouraged. The patient we will continue current regimen for hypertension. Recommended decreasing his caffeine consumption. He will recheck his blood pressure and call if readings are greater than 140/90 over the next few days. Follow up in 4 weeks for type 2 diabetes. Orders: Referrals Podiatry Referral E11.9 - Type 2 diabetes mellitus without complications, Z79.4 - USP (current) use of insulin Medications: New semaglutide (Ozempic) 1 mg (0.75 mL) subcut QWEEK 3 mL 3RF Changed From flash glucose sensor (FreeStyle Tania 2 Sensor kit) As directed change every 14 days 2 ea 6RF To flash glucose sensor (FreeStyle Tania 2 Sensor kit) As directed change every 14 days to monitor blood glucose 2 ea 6RF From insulin glargine U-300 conc (Toujeo SoloStar U-300 Insulin) 50 units subcut BEDTIME To insulin glargine U-300 conc (Toujeo SoloStar U-300 Insulin) Replaces insulin detemir. 48 units (0.16 mL) subcut BEDTIME 4.5 mL 5RF From insulin glargine U-300 conc (Toujeo SoloStar U-300 Insulin) Replaces insulin detemir. 48 units (0.16 mL) subcut BEDTIME 4.5 mL 5RF To insulin glargine U-300 conc (Toujeo SoloStar U-300 Insulin) Replaces insulin detemir. 50 units (0.1667 mL) subcut BEDTIME 4.5 mL 5RF From blood sugar diagnostic (FreeStyle Lite Strips) 4 times a day 150 ea 7RF E11.65 - Type 2 diabetes mellitus with hyperglycemia To blood sugar diagnostic (FreeStyle Lite Strips) As directed to check blood sugar three times daily. 100 ea 5RF E11.65 - Type 2 diabetes mellitus with hyperglycemia Discontinued semaglutide (Ozempic) Discontinued Reason: Doctor's Order 0.5 mg (0.736 mL) subcut QWEEK 3 mL 0RF Patient Instructions: Increase Ozempic to 1 mg once weekly. Increase Toujeo to 50 units at bedtime. Continue NovoLog 16 units (8 clicks) before meals 3 times a day Continue Jardiance 25 mg Aumente Ozempic a 1 mg rik vez por semana. Aumente Toujeo a 50 unidades antes de acostarse. Continuar NovoLog 16 unidades (8 clics) antes de las comidas 3 veces al d?a Continuar Jardiance 25 mg Coding Level of Care Code Est Pt Level 4 (33932) Complex EM visit Add On G2211 Diagnoses Type 2 diabetes mellitus with stage 3b chronic kidney disease, with long-term current use of insulin E11.22; N18.32; Z79.4 Diabetes mellitus fdc insulin use: with longwall machine operator helper use Chronic kidney disease stage: stage 3 (moderate) Chronic kidney disease stage 3 subtype: stage 3b (GFR 30-44) Primary hypertension I10 Hypertension type: primary hypertension
--- OUTSIDE RECORDS SUMMARY | 2024-12-26 14:13 | XMS_ITS | Encounter Summary ---
Author Organization [facility] Address [address] [place] [address] Care Team Providers Care Account General Manager Name Role Phone Unavailable Primary Care Provider Unavailabl e Encounter Details Date Type Department Care Team (Late st Contact Info) Description 01/22/2023 Abstract [facility] [address] [place] [address] Laith Márquez, DMD [address] [place] [address] Social History Tobacco Use Types Packs/Day Years Used Date Smoking Tobacco: Never Smokeless Tobacco: Never Alcohol Use Standard Drinks/Week Comments Not Currently 0 (1 standard drink = 0.6 oz pur e alcohol) Sex and Gender Information Value Date Recorded Sex Assigned at Male 09/21/2022 10:17 AM EDT Legal Sex Male 10:17 AM EDT Gender Identity Male 09/21/2022 10:17 AM EDT Sexual Orientation Don't know 09/21/2022 10 :17 AM EDT COVID-19 Exposure Response Date Recorded In the last 10 days, have yo u been in contact with someone who was confirmed or suspected to have Coronavirus/COVID-19? No / Unsure 01/19/2023 1:10 PM EST documented as of this encounter Plan of Treatment Not on file documented as of this encounter Visit Diagnoses Not on filedocumented in this encounter
--- OUTSIDE RECORDS SUMMARY | 2024-12-26 14:13 | XMS_ITS | Clinical Summary ---
Author Organization [facility] Address [address] [place] [address] Care Team Providers Care Etl Database Developer Name Role Phone Unavailable Primary Care Provider Unavailabl e Allergies No known active allergies Medications hydroCHLOROthia zide (HYDRODiuril) 25 MG tablet Take 25 mg by mouth in the morning. 3 Active metoprolol tartrate (Lopressor) 50 MG tablet Take 50 mg by mouth 2 times daily. 3 Active Tradjenta 5 MG tablet 3 Active Basaglar KwikPen 100 UNIT/ML pen ADMINISTER 44 UNITS UNDER THE SKIN EVERY EVENING 3 Active NovoLOG FLEXPEN 100 UNIT/ML pen INJECT 14 UNITS UNDER THE SKIN THREE TIMES DAILY 2 Active Jardiance 25 MG 3 Active losartan (Cozaar) 100 MG tablet Take 100 mg by mouth in the morning. 3 Active chlorhexidine (Peridex) 0.12 % solution Swish 15 mL morning and night for 1 minute. Spit, do not swallow. Do not eat or drink for 30 minutes following use. 473 mL 4 Active Active Problems Problem Noted Date Diagnosed Date Complete edentulism 03/02/2024 Chronic periodontitis 11/29/2023 Non-restorable tooth 11/29/2023 Encounters Date Type Department Care Team Description 10/02/2024 8:00 AM EST Office Visit [facility] [address] [place] [address] Yunior Springer DDS Complete edentulism, unspecified edentulism class (Primary Dx) from Last 3 Months Social History Tobacco Use Types Packs/Day Years Used Date Smoking Tobacco: Never Smokeless Tobacco: Never Tobacco Cessation:Counseling Given: Not Answered Alcohol Use Standard Drinks/Week Comments Not Currently 0 (1 standard drink = 0.6 oz pur e alcohol) Sex and Gender Information Value Date Recorded Sex Assigned at Male 09/21/2022 10:17 AM EDT Legal Sex Male 10:17 AM EDT Gender Identity Male 09/21/2022 10:17 AM EDT Sexual Orientation Don't know 09/21/2022 10 :17 AM EDT Last Filed Vital Signs Vital Sign Reading Time Taken Comments Blood Pressure 142/98 10/02/2024 8:04 AM EST Pulse 67 01/21/2024 10:14 AM EST Temperature - - Respiratory Rate - - Oxygen Saturation - - Inhaled Oxygen Concentration - - Weight - - Height - - Body Mass Index - - Plan of Treatment Health Maintenance Due Date Last Done Comments Anal Pap 1953 CT Colonography 1953 Colonoscopy 1953 Colorectal Cancer Screening 1953 Dental Prophylaxis 1953 Depression Screening 1953 FIT DNA/Cologuard 1953 FIT 1953 FOBT 1953 Lipid Panel 1953 SDOH Screening 1953 Sigmoidoscopy 1953 Alcohol/Substance Use Screening 1965 Hepatitis C Screening 1971 Hepatitis A Vaccines (1 of 2 - Risk 2-dose series) 1972 Zoster Vaccines (1 of 2) 2003 Hepatitis B Vaccines (1 of 3 - Risk 3-dose series) 2013 Pneumococcal Vaccine: 50+ Years (2 of 2 - PCV) 07/24/2022 07/24/2021, 05/25/2016 Dental X-Ray: Bitewings 02/07/2024 02/05/2023 COVID-19 Vaccine ( season) 2024 03/31/2021, 03/03/2021 Influenza Vaccine (#1) 2024 , 08/29/2018, 08/18/2017, Additional history exists Dental Oral Exam 04/02/2025 10/02/2024, 02/05/2023 Tobacco Screening 10/02/2025 10/02/2024 Dental X-Ray: Full Mouth 02/06/2026 02/05/2023 DTaP/Tdap/Td Vaccines (2 - Td or Tdap) 09/16/2026 09/16/2016 RSV Patients and Patients Aged 60 years or older (1 - 1-dose 75+ series) 2028 HIB Vaccines Aged Out No longer eligi ble based on patient's age to complete this topic HPV Vaccines Aged Out No longer eligi ble based on patient's age to complete this topic IPV Vaccines Aged Out No longer eligi ble based on patient's age to complete this topic Meningococcal Vaccine Aged Out No che maria del carmen eligible based on patient's age to complete this topic RSV under 20 months Aged Out No longe r eligible based on patient's age to complete this topic Rotavirus Vaccines Aged Out No longer eligible based on patient's age to complete this topic Procedures Procedure Name Priority Date/Time Associated Diagnosis Comments ADJUNCTIVE GENERAL SERVICES - PROFESSIONAL VISITS - CASE PRESENTATION, SUBSEQUENT TO DETAILED AND EXTENSIVE TREATMENT PLANNING Routine 10/02/2024 8:00 AM EST PERIODIC ORAL EVALUATION - ESTABLISHED PATIENT Routine 10/02/2024 8:00 AM EST ADJUST PARTIAL DENTURE - MANDIBULAR Routine 10/02/2024 8:00 AM EST DIAGNOSTIC - DIAGNOSTIC IMAGING - INTRAORAL - COMPREHENSIVE SERIES OF RADIOGRAPHIC IMAGES Routine 02/05/2023 8:00 AM EDT from Last 3 Months or Most Recently Relevant to Health Maintenance Insurance [facility] * Guarantor: aWlter Hopkins Account Type Relation to Patient Date of Phone Billing Address Personal/Family Self [address] [place] [address]
[2024-12-26 14:16] VITALS: BP 150/90; PULSE 77; O2SAT 96; BMI 37.5
[2024-12-26 14:29] LABS: Glucose, Whole Blood 174 mg/dL (60-115)
[2024-12-26 15:04] VITALS: BP 150/88
== END 2024-12-26 15:01 | disposition home or self-care (01) ==
PROVIDERS: PCP Internal Medicine; Visit Provider Physician Assistant Medical
DX: E11.22 Type 2 diabetes mellitus with diabetic chronic kidney disease (principal); N18.32 Chronic kidney disease, stage 3b; Z79.4 Long term (current) use of insulin; I10 Essential (primary) hypertension

== ENCOUNTER → 2024-12-26 14:04 | Outpatient (BNVA) | payer MEDICARE, SELFPAY | PROVIDERS: PCP Internal Medicine; Visit Provider Physician Assistant Medical | DX: E11.22 Type 2 diabetes mellitus with diabetic chronic kidney disease (principal); E11.65 Type 2 diabetes mellitus with hyperglycemia; I12.9 Hypertensive chronic kidney disease with stage 1 through stage 4 chronic kidney disease, or unspecified chronic kidney disease; N18.32 Chronic kidney disease, stage 3b; Z79.4 Long term (current) use of insulin | CPT/HCPCS: 82947; 99212 ==

== ENCOUNTER 2025-01-12 13:52 | Outpatient (AMB) | payer MEDICARE, SELFPAY ==
--- NOTE | 2025-01-12 14:02 | A.OFFVIS_ITS ---
Vital Signs 01/12/25 14:04 BP 150/70 H Blood Pressure Location Lt brachial Position Sitting Pulse 71 Pulse Source Pulse Oximeter Intake Visit Reasons: cook pie/dr braswell/dyspnea/htn Straightedge Worker Required: Yes Straightedge Worker Services: Straightedge Worker Offered & Declined Straightedge Worker Name: Denise-will interpret Accompanied by: Other Relationship Allergies dulaglutide [Trulicity] Adverse Reaction (Unknown, Verified 12/26/24 14:16) diarrhea metformin Adverse Reaction (Uncoded 12/26/24 14:16) Abdominal Pain Medication List - Last Reconciled 01/12/25 by Munir Courtney MD acetaminophen 650 mg (2 x 325 mg) PO Q6H PRN amlodipine 5 mg PO DAILY 90 days atorvastatin 80 mg PO DAILY 30 days blood sugar diagnostic (FreeStyle Lite Strips) As directed to check blood sugar three times daily. blood-glucose meter (FreeStyle Lite Meter kit) As directed tests 4 X/day CeQur Simplicity (bolus insulin pump, 200 unit) 8 clicks (16 units) three times per day before meals. NS CeQur Simplicity Facility Manager (diabetic supplies, [employer].) As directed NS cholecalciferol (vitamin D3) 50 mcg PO DAILY 30 days empagliflozin (Jardiance) 25 mg PO DAILY 90 days ezetimibe 10 mg PO DAILY 30 days flash glucose scanning reader ([employer] Services[employer] Tania 2 [place]) As directed flash glucose sensor (FreeStyle Tania 2 Sensor kit) As directed change every 14 days to monitor blood glucose glucose (Dex4 Glucose) 16 grams (4 x 4 gram) PO Q15M PRN hydrochlorothiazide 25 mg PO QAM 90 days insulin aspart U-100 (Novolog U-100 Insulin aspart) 16 units before meals (8 clicks) tid subcutaneously use as directed; 30 days insulin glargine U-300 conc (Toujeo SoloStar U-300 Insulin) 50 units (0.1667 mL) subcut BEDTIME lancets (FreeStyle Lancets) 28 gauge topical QID 75 days losartan 100 mg PO DAILY 90 days metoprolol tartrate 50 mg PO BID 90 days mometasone 50 mcg/actuation (Nasonex 24hr Allergy) 2 sprays intranasal DAILY PRN pen needle, diabetic 5 times a day semaglutide (Ozempic) 1 mg (0.75 mL) subcut QWEEK HPI Comments Details: Walter is here for cardiac evaluation. He has got multiple cardiovascular risk factors including type 2 diabetes, hypertension, dyslipidemia. He also states that 2 of his brothers in the 60s from heart attacks. Patient himself denies any clear-cut anginal-type symptoms. Some shortness of breath with activity. Otherwise, he states that he underwent a stress test in [facility] but we do not have that result. 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 Diabetes type 2, uncontrolled Surgical History Hx of cardiac cath (~2008) Hx of tonsillectomy Family History Father Hypertension Diabetes CVA (cerebral vascular accident) Dementia Mother CVA (cerebral vascular accident) Dementia Diabetes Hypertension Other Mental health disorder Social History (Updated 01/12/25 @ 14:09 by Ladonna Tomas CMA) Housing: House Alcohol intake: current Alcohol intake frequency: holidays/special occasions only Patient Tobacco Use Status: Never used Tobacco e-Cigarette/Vaping Use: Never Used service: No Current occupational status: disabled Cognitive needs: No Hearing needs: Yes (B/L hearing loss per Pt) Vision needs: No Review of Systems Const Denies chills, Denies daytime sleepiness, Denies fatigue, Denies fever(s), Denies poor appetite, Denies snoring, Denies stops breathing during sleep, Denies weakness, Denies weight gain and Denies weight loss Eyes Denies loss of vision ENT Denies dizziness and Denies hearing loss Card Denies chest pain, Denies irregular heart rhythm, Denies claudication, Denies leg edema, Denies lightheadedness, Denies palpitations, Reports dyspnea on exertion and Denies orthopnea Resp Denies cough, Denies excessive phlegm production, Reports dyspnea on exertion, Denies snoring and Denies wheezing GI Denies abdominal pain, Denies hematochezia, Denies change in bowel habits, Denies nausea and Denies vomiting Denies dysuria and Denies urinary frequency Musc Denies arthralgias, Denies muscle weakness, Denies numbness and Denies other Skin/Breast Denies nail changes and Denies rash Neuro Denies Abnormal speech present, Denies dizziness, Denies loss of vision, Denies memory loss, Denies numbness and Denies weakness Psych Denies depression and Denies memory loss Endo Denies fatigue and Denies palpitations César/Lymph Denies easy bruising Aller/Immun Denies wheezing Physical Exam Vital Signs: Last Vital Signs Pulse 71 01/12/25 14:04 BP 150/70 H 01/12/25 14:04 Const General: comfortable and no acute distress Orientation/consciousness: patient oriented x3 HEENT Other: Unremarkable Head: Yes normal to inspection Neck Neck: Yes normal visual inspection Chest Chest palpation & inspection: normal inspection of the chest Resp Auscultation: clear to auscultation bilaterally Cardio Palpation: normal PMI Heart sounds: S1 normal heart sound present, S2 normal heart sound present, no gallops, no murmurs and no rubs GI Palpation (GI): Soft to palpation Back/Spine/Pelvis Other: unremarkable Skin General skin exam: no rashes or lesions noted Neuro General: patient oriented x3 Speech: No Abnormal speech present Extrem General: Yes normal to inspection Psych Mental Status: mental status grossly normal Office Procedures EKG Details: EKG with underlying sinus rhythm at 71/Min; mild [place] prolongation; old inferior infarct and anterolateral ischemia. [id number], Complete Assessment & Plan Assessment & Plan (1) Atherosclerotic cardiovascular disease: Code(s): I25.10 - Atherosclerotic heart disease of [place] coronary artery without angina pectoris Category: Medical (2) Diabetes type 2, uncontrolled: Code(s): E11.65 - Type 2 diabetes mellitus with hyperglycemia Category: Medical (3) Hypertension: Code(s): I10 - Essential (primary) hypertension Category: Medical Qualifiers: Hypertension type: primary hypertension Qualified Code(s): I10 - Essential (primary) hypertension (4) Dyslipidemia: Code(s): E78.5 - Hyperlipidemia, unspecified Category: Medical Plan Multiple cardiovascular risk factors, positive family history, abnormal EKG suggestive of underlying coronary disease. In the last echocardiogram from 2019, LVEF 55-60%. Mild aortic/mitral regurgitation. Dilated sinus of Valsalva at 4.7 cm and ascending aortic size 4.2 cm. Recommend repeating the echocardiogram. If indeed any overt wall motion abnormalities +/- significant aortic dilatation, then we will need an angiogram. Discussed with patient and family who came for appointment. Follow-up after the echo. Orders: Orders CA echo transthoracic complete Today I25.10 - Atherosclerotic heart disease of [place]ipeww[place] coronary artery without angina pectoris Coding Level of Care Code New Pt Level 4 (31599) Complex EM visit Add On G2211 Diagnoses Atherosclerotic cardiovascular disease I25.10 Diabetes type 2, uncontrolled E11.65 Primary hypertension I10 Hypertension type: primary hypertension Dyslipidemia E78.5 CPT Codes EKG - CPT: [id number], Complete ([id number])
[2025-01-12 14:04] VITALS: BP 150/70; PULSE 71
--- OUTSIDE RECORDS SUMMARY | 2025-01-12 14:20 | XMS_ITS | Encounter Summary ---
Author Organization [facility] Address [address] [place] [address] Care Team Providers Care Galley Stripper Name Role Phone Unavailable Primary Care Provider Unavailabl e Encounter Details Date Type Department Care Team (Late st Contact Info) Description 01/22/2023 Abstract [facility] [address] [place] [address] Laith Márquez, DMD [address] [place] [address] Social History Tobacco Use Types Packs/Day Years [...]
--- OUTSIDE RECORDS SUMMARY | 2025-01-12 14:20 | XMS_ITS | Clinical Summary ---
Author Organization [employer] [facility] Address [address] [place] [address] Care Team Providers Care Tunneling Machine Operator Name Role Phone Unavailable Primary Care Provider [...] 03/02/2024 Chronic periodontitis 11/29/2023 Non-restorable tooth 11/29/2023 Social History Tobacco Use Types Packs/Day Years [...] Dental X-Ray: [facility] 02/07/2024 02/05/2023 COVID-19 Vaccine (3 - season) 2024 03/31/2021, 03/03/2021 Influenza Vaccine (#1) [...] Procedure Name Priority Date/Time Associated Diagnosis Comments PERIODIC ORAL EVALUATION - ESTABLISHED PATIENT Routine 10/02/2024 8:00 AM EST INTRAORAL - COMPLETE SERIES OF RADIOGRAPHIC IMAGES Routine 02/05/2023 8:00 AM EDT from Last 3 Months or Most Recently Relevant to Health Maintenance Insurance DENTAL [facility] * Guarantor: Walter Hopkins Account Type Relation to Patient Date of Phone Billing [place] [address] * Guarantor: Walter Hopkins Account Type Relation to Patient Date of Phone Billing Address [place] [address]
== END 2025-01-12 14:51 | disposition home or self-care (01) ==
PROVIDERS: PCP Internal Medicine; Visit Provider Internal Medicine
DX: I25.10 Atherosclerotic heart disease of native coronary artery without angina pectoris (principal); E11.65 Type 2 diabetes mellitus with hyperglycemia; I10 Essential (primary) hypertension; E78.5 Hyperlipidemia, unspecified
CPT/HCPCS: 93010; 99204; G2211

== ENCOUNTER → 2025-01-12 13:52 | Outpatient (BNVA) | payer MEDICARE, SELFPAY | PROVIDERS: PCP Internal Medicine; Visit Provider Internal Medicine | DX: I25.10 Atherosclerotic heart disease of native coronary artery without angina pectoris (principal); I10 Essential (primary) hypertension; E11.65 Type 2 diabetes mellitus with hyperglycemia; E78.5 Hyperlipidemia, unspecified; I44.0 Atrioventricular block, first degree; R94.31 Abnormal electrocardiogram [ECG] [EKG] | CPT/HCPCS: 93005; 99202 ==

== ENCOUNTER 2025-01-23 13:26 | Outpatient (AMB) | payer MEDICARE, SELFPAY ==
[2025-01-23 13:27] VITALS: BP 134/90; PULSE 90; O2SAT 97; BMI 37.1
--- NOTE | 2025-01-23 13:27 | MHC.PC.OV ---
Vital Signs 01/23/25 13:27 Height 5 ft 3 in Weight 209 lb 6 oz BMI 37.1 BP 134/90 H Blood Pressure Location Lt brachial Position Sitting Pulse 90 Pulse Source Pulse Oximeter Pulse Oximetry (%) 97 Oxygen Delivery Method Room Air Intake Visit Reasons: 3mth f/u Topographical Engineer Required: No Accompanied by: sistern in law Allergies dulaglutide [Trulicity] Adverse Reaction (Unknown, Verified 01/23/25 14:03) diarrhea metformin Adverse Reaction (Uncoded 01/23/25 14:03) Abdominal Pain Medication List - Last Reconciled 01/23/25 by Mikey Lai MD acetaminophen 650 mg (2 x 325 mg) PO Q6H PRN amlodipine 5 mg PO DAILY 90 days atorvastatin 80 mg PO DAILY 30 days blood sugar diagnostic (FreeStyle Lite Strips) As directed to check blood sugar three times daily. blood-glucose meter (FreeStyle Lite Meter kit) As directed tests 4 X/day CeQur Simplicity (bolus insulin pump, 200 unit) 8 clicks (16 units) three times per day before meals. NS CeQur Simplicity [employer] (diabetic supplies, [employer]) As directed NS cholecalciferol (vitamin D3) 50 mcg PO DAILY 30 days empagliflozin (Jardiance) 25 mg PO DAILY 90 days ezetimibe 10 mg PO DAILY 30 days flash glucose scanning reader (FreeStyle Tania 2 [place]) As directed flash glucose sensor (FreeStyle Tania 2 Sensor kit) As directed change every 14 days to monitor blood glucose glucose (Dex4 Glucose) 16 grams (4 x 4 gram) PO Q15M PRN hydrochlorothiazide 25 mg PO QAM 90 days insulin aspart U-100 (Novolog U-100 Insulin aspart) 16 units before meals (8 clicks) tid subcutaneously use as directed; 30 days insulin glargine U-300 conc (Toujeo SoloStar U-300 Insulin) 50 units (0.1667 mL) subcut BEDTIME lancets (FreeStyle Lancets) 28 gauge topical QID 75 days losartan 100 mg PO DAILY 90 days metoprolol tartrate 50 mg PO BID 90 days mometasone 50 mcg/actuation (Nasonex 24hr Allergy) 2 sprays intranasal DAILY PRN pen needle, diabetic 5 times a day semaglutide (Ozempic) 1 mg (0.75 mL) subcut QWEEK Tobacco use date assessed: 01/23/25 Fall risk assessment: No Falls in past year Last assessed Fall Risk: 01/23/25 Dental Screening Dental Screen Date: 01/23/25 Did you have a dental visit in the last 12 months?: Yes Did you have a dental problem in the last 6 months where you did not have access to dental care?: No Was dental information given to patient?: Patient has dentist HPI 3mth f/u HPI Details Patient comes in today for his follow up visit States that he feels okay He denies any headaches or dizziness Denies any chest pains, no increased SOB No nausea/vomiting, no abdominal pain No change in bowel habits noted He is currently on Toujeo 50 units Q HS, NovoLog 16 units (8 clicks) via Cequr, Jardiance 25 mg Q AM and Ozempic 1 mg SQ weekly for his diabetes and he is now following up with endocrinology for diabetes management He was not able to get his follow up labs done prior to his appointment today States that he is also currently awaiting insurance approval so cardiology can go ahead and order an echocardiogram on him [facility] Medical History Allergic rhinitis Obesity (BMI 30-39.9) Mixed hyperlipidemia Benign essential hypertension Chronic kidney disease (CKD), stage III (moderate) 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 CKD (chronic kidney disease) stage 3, GFR 30-59 ml/min Vitamin D deficiency Non-toxic multinodular goiter Dyslipidemia Diabetic 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 with type 2 diabetes mellitus intermediate (current) use of insulin Diabetes type 2, uncontrolled Surgical History Hx of cardiac cath (~2008) Hx of tonsillectomy Family History Father Hypertension Diabetes CVA (cerebral vascular accident) Dementia Mother CVA (cerebral vascular accident) Dementia Diabetes Hypertension Other Mental health disorder Social History Housing: House Alcohol intake: current Alcohol intake frequency: holidays/special occasions only Patient Tobacco Use Status: Never used Tobacco e-Cigarette/Vaping Use: Never Used service: No Current occupational status: disabled Cognitive needs: No Hearing needs: Yes (B/L hearing loss per Pt) Vision needs: No Questionnaire PHQ-9 Over the last 2 weeks, how often have you been bothered by any of the following problems? 1. Little interest or pleasure in doing things: not at all 2. Feeling down, depressed, or hopeless: not at all 3. Trouble falling or staying asleep, or sleeping too much: not at all 4. Feeling tired or having little energy: not at all 5. Poor appetite or overeating: not at all 6. Feeling bad about yourself - or that you are a failure or have let yourself or your family down: not at all 7. Trouble concentrating on things, such as reading the newspaper or watching television: not at all 8. Moving or speaking so slowly that other people could have noticed. Or the opposite - being so fidgety or restless that you have been moving around a lot more than usual: not at all 9. Thoughts that you would be better off or of hurting yourself in some way: not at all Total score: 0 Depression Screening Interpretation: Negative Depression Screening Done: Yes 95918 - PHQ-9 Billing: Yes Source: Developed by Drs. Jersey Gibson, Janeth Lopes, Jose Cesar and colleagues, with an educational renu from [employer]. Thrive Questionnaire Date Thrive assessed: 01/23/25 I am a: Patient What is your living situation today?: I have a steady place to live Within the past 12 months, did the food you bought not last and you didn't have the money to get more?: Never true Within the past 12 months, did you worry whether your food would run out before you got money to buy more?: Never true Do you have trouble paying for medicines?: No Do you have trouble getting transportation to medical appointments?: No Do you have trouble paying your heating and electricity bill?: No Do you have trouble taking care of your child, family member or friend?: No Do you have trouble with day-to-day activities such as bathing, preparing meals, shopping, managing finances, etc.?: No Are you currently unemployed and looking for a job?: I choose not to answer this question Are you interested in more education?: No Please select the resources that you would like help with: None Currently or been in a relationship where the following occur: No concerns reported THRIVE Score: 0 AUDIT C Alcohol Use Questionnaire (AUDIT-C) 1. How often do you have a drink containing alcohol?: Monthly or less 2. How many drinks containing alcohol do you have on a typical day when you are drinking?: 3 or 4 3. How often do you have six or more drinks on one occasion?: Never Total Score: 2 Score Reviewed/Action Taken: Yes NIKKI-7 AMB Questionnaire NIKKI-7 Date NIKKI - 7 assessed: 01/23/25 Feeling nervous, anxious, or on edge: 0 = Not at all Not being able to stop or control worryin = Not at all Worrying too much about different things: 0 = Not at all Trouble relaxin = Not at all Being so restless that it is hard to sit still: 0 = Not at all Becoming easily annoyed or irritable: 0 = Not at all Feeling afraid as if something awful might happen: 0 = Not at all Total NIKKI-7 score (0-4 normal; 5-9 mild; 10-14 moderate; 15-21 severe): 0 Source: Developed by Drs. Jersey Gibson, Janeth Lopes, Jose Cesar and colleagues, with an educational renu from [employer]. Review of Systems Const Denies chills, Denies fatigue, Denies fever(s) and Denies headache(s) ENT Denies dysphagia, Denies dizziness, Denies otalgia, Denies headache(s), Denies neck pain, Denies odynophagia and Denies sore throat Card Denies chest pain, Denies palpitations and Reports dyspnea on exertion (mild) Resp Denies chest congestion, Denies cough and Reports dyspnea on exertion (mild) GI Denies abdominal pain, Denies constipation, Denies dysphagia, Denies heartburn, Denies diarrhea, Denies nausea, Denies odynophagia and Denies vomiting Denies dysuria, Denies nocturia and Denies urinary frequency Musc Denies back pain, Reports arthralgias (right knee, on and off) and Denies neck pain Skin/Breast Denies rash Neuro Denies dizziness and Denies headache(s) Endo Denies fatigue and Denies palpitations Physical exam (Primary Care) Vital Signs: Last Vital Signs Pulse 90 01/23/25 13:27 BP 134/90 H 01/23/25 13:27 Pulse Ox 97 01/23/25 13:27 Oxygen Delivery Method Room Air 01/23/25 13:27 BMI result Body Mass Index 37.1 Tobacco/Smoking Status: Tobacco use Status Tobacco use date assessed 01/23/25 01/23/25 13:34 Patient Tobacco Use Status Never used Tobacco 01/23/25 13:34 e-Cigarette/Vaping Use Never Used 01/23/25 13:34 PHQ-9: PHQ-9 Score PHQ-9: Total score 0 01/23/25 14:04 Depression Screening Interpretation: Negative Thrive Assessment: Date of Thrive Assessment Date Thrive assessed 01/23/25 01/23/25 13:34 Currently or been in a relationship where the following occur: No concerns reported Const General: no acute distress and alert HENMT Ears: TM's normal bilaterally and EAC's normal Throat: Yes posterior oropharynx normal and Yes tonsils normal (no TP congestion) Neck Neck: Yes supple and No lymphadenopathy Thyroid: Thyroid normal Resp Auscultation: clear to auscultation bilaterally, no rales and no wheezes Cardio Rate: regular rate Rhythm: regular rhythm Heart sounds: no murmurs GI Palpation (GI): Soft to palpation and nontender Auscultation: normal bowel sounds General: Yes no CVA tenderness Back/Spine/Pelvis Back: no CVA tenderness Thoracic/Lumbar Spine: No lumbar spinal tenderness Skin Rashes: no rashes Extrem General: Yes no clubbing, cyanosis or edema Right lower extremity: knee Details: tenderness Location: of the medial joint line; no swelling Results AMB Hemoglobin A1c AMB Hemoglobin A1c 8.5 % Last Edit by ACOSTA Connor on 01/23/25 13:58 Results Reviewed Results Reviewed: Laboratory Last Values Hgb A1c (Clinic) 8.5 % (4.0-6.0) H 01/23/25 13:41 Laboratory Tests 10/26/23 10/26/23 10/24/24 07:38 07:41 09:25 WBC 6.5 Hgb 14.7 Hct 44.9 Plt Count 186 Sodium 138 Potassium 4.0 Creatinine 1.27 1.30 Estimated GFR 56 54 Fasting Glucose 223 H Hemoglobin A1c % 11.1 H Calcium 9.7 AST 12 ALT 15 Triglycerides 195 H 187 H Cholesterol 189 203 H LDL Cholesterol, Calc 111 H 129 H HDL Cholesterol 39 L 37 L 25-OH Vitamin D Total 29.2 L TSH 2.77 Ur Specific Vale 1.015 Urine Protein Negative Urine Glucose (UA) >=1000 H Urine Blood Negative Urine Nitrite Negative Ur Leukocyte Esterase Negative Microalb/Creat Ratio 25.6 Coding Level of Care Code Est Pt Level 4 (74029) Diagnoses Type 2 diabetes mellitus with stage 3b chronic kidney disease, with long-term current use of insulin E11.22; N18.32; Z79.4 Diabetes mellitus mcc insulin use: with termite inspector use Chronic kidney disease stage: stage 3 (moderate) Chronic kidney disease stage 3 subtype: stage 3b (GFR 30-44) Stage 3b chronic kidney disease N18.32 Chronic kidney disease stage 3 subtype: stage 3b (GFR 30-44) Mixed hyperlipidemia E78.2 Benign essential hypertension I10 Exertional dyspnea R06.09 Right medial knee pain M25.561 Vitamin D deficiency E55.9 Non-toxic multinodular goiter E04.2 Allergic rhinitis, unspecified seasonality, unspecified trigger J30.9 Allergic rhinitis trigger: unspecified Allergic rhinitis seasonality: unspecified Obesity (BMI 30-39.9) E66.9 Additional Codes PHQ-9 - 08420 - PHQ-9 Billing: Yes ([id number]) Assessment & Plan Assessment & Plan (1) Type 2 diabetes mellitus with diabetic chronic kidney disease: Code(s): E11.22 - Type 2 diabetes mellitus with diabetic chronic kidney disease Category: Medical Qualifiers: Diabetes mellitus mcc insulin use: with mcc use Chronic kidney disease stage: stage 3 (moderate) Chronic kidney disease stage 3 subtype: stage 3b (GFR 30-44) Qualified Code(s): E11.22 - Type 2 diabetes mellitus with diabetic chronic kidney disease; N18.32 - Chronic kidney disease, stage 3b; Z79.4 - intermediate (current) use of insulin Plan: His in-office HgbA1c done today is at 8.5% (was at 10.7% a few months ago) - goal is at least <7.0% Reinforced diabetic diet Continue Toujeo 50 units Q HS, NovoLog 16 units (8 clicks) via Myron Burkance 25 mg Q AM and Ozempic 1 mg SQ weekly Follow up with endocrinology and with design engineering specialist for diabetic teaching as scheduled (2) Chronic kidney disease (CKD), stage III (moderate): Code(s): N18.30 - Chronic kidney disease, stage 3 unspecified Category: Medical Qualifiers: Chronic kidney disease stage 3 subtype: stage 3b (GFR 30-44) Qualified Code(s): N18.32 - Chronic kidney disease, stage 3b Plan: Will continue to monitor his GFR and serum creatinine regularly Have advised patient again strict control of his blood sugar is the best way to keep his renal function stable (3) Mixed hyperlipidemia: Code(s): E78.2 - Mixed hyperlipidemia Category: Medical Plan: Patient was not able to get his follow up labs done prior to his appointment today although he did get his labs done as instructed back in October 2024 Reinforced low cholesterol diet Continue Atorvastatin 80 mg QD and Ezetimibe 10 mg QD Will recheck his labs and fasting lipids in 3 months for follow up - will just have patient use his current orders (updated) for his next lab draw (4) Benign essential hypertension: Code(s): I10 - Essential (primary) hypertension Category: Medical Plan: Reinforced low sodium diet - goal is systolic BP of at least 120 to 130 mm or less Continue Losartan 100 mg QD, Amlodipine 5 mg QD, Metoprolol 50 mg BID and HCTZ 25 mg Q AM (5) Exertional dyspnea: Code(s): R06.09 - Other forms of dyspnea Category: Medical Plan: He was previously referred to Cardiology for further evaluation and management and to assess for cardiovascular disease, as patient has 2 younger brothers who recently from heart attack/stroke He was seen initially and is now awaiting insurance approval so cardiology can order an echocardiogram on him for further evaluation (6) Right medial knee pain: Code(s): M25.561 - Pain in right knee Category: Medical Plan: Right knee x-rays done a few months ago revealed only (+) prepatellar soft tissue swelling with no acute fracture or dislocation The joint spaces are well-preserved Follow up with orthopedics as scheduled (7) Vitamin D deficiency: Code(s): E55.9 - Vitamin D deficiency, unspecified Category: Medical Plan: Continue Vitamin D3 2000 units QD (8) Non-toxic multinodular goiter: Code(s): E04.2 - Nontoxic multinodular goiter Category: Medical Plan: Thyroid US done in 10/2020 showed stable findings Will continue to monitor his TFTs regularly Follow up with endocrinology as scheduled (9) Allergic rhinitis: Code(s): J30.9 - Allergic rhinitis, unspecified Category: Medical Qualifiers: Allergic rhinitis trigger: unspecified Allergic rhinitis seasonality: unspecified Qualified Code(s): J30.9 - Allergic rhinitis, unspecified Plan: Continue Fluticasone 50 mcg nasal spray QD PRN (10) Obesity (BMI 30-39.9): Code(s): E66.9 - Obesity, unspecified Category: Medical Plan: Reinforced diet/exercise as tolerated/lose weight Plan Follow up in 3 months Orders: Orders AMB Hemoglobin A1c Today Z13.9 - Encounter for screening, unspecified
--- OUTSIDE RECORDS SUMMARY | 2025-01-23 16:53 | XMS_ITS | Clinical Summary ---
Author Organization [facility] Address [address] [place] [address] Care Team Providers Care Cargo Operations Agent Name Role Phone Unavailable Primary Care Provider [...] Encounters Date Type Department Care Team Description 01/16/2025 Telephone [facility] [address] [place] [address] Juan Francisco Hook MD from Last 3 Months Social History Tobacco [...] Most Recently Relevant to Health Maintenance Insurance [facility]
--- OUTSIDE RECORDS SUMMARY | 2025-01-23 16:53 | XMS_ITS | Encounter Summary ---
Author Organization [employer] [facility] Address [address] [place] [address] Care Team Providers Care Reconnaissance Crewmember Name Role Phone Unavailable Primary Care Provider Unavailabl e Encounter Details Date Type Department Care Team (Late st Contact Info) Description 01/22/2023 Abstract [facility] [address] [place] [address] Laith Márquez, DMD [address] [place] [address] Social History Tobacco Use Types Packs/Day Years [...]
--- OUTSIDE RECORDS SUMMARY | 2025-01-23 16:53 | XMS_ITS | Encounter Summary ---
Author Organization [employer] [facility] Address [address] [place] [address] Care Team Providers Care Etl Analyst Developer Name Role Phone Unavailable Primary Care Provider Unavailabl e Encounter Details Date Type Department Care Team (Late st Contact Info) Description 01/16/2025 Telephone [facility] [address] [place] [address] Juan Francisco Hook MD [address] [place], [place] [id number] Social History Tobacco Use Types Packs/Day Years [...] Don't know 09/21/2022 10 :17 AM EDT documented as of this encounter Miscellaneous Notes * Telephone Encounter - Tiny Brown - 01/16/2025 11:19 AM EST Outgoing call to pt to book New Patient appt. Patient stated currently established at a different facility. Pt removed from wait list. documented in this encounter Plan of Treatment Not on file documented as of this encounter Visit Diagnoses Not on filedocumented in this encounter
== END 2025-01-23 14:18 | disposition home or self-care (01) ==
PROVIDERS: PCP Internal Medicine; Visit Provider Internal Medicine
DX: I12.9 Hypertensive chronic kidney disease with stage 1 through stage 4 chronic kidney disease, or unspecified chronic kidney disease (principal); E11.22 Type 2 diabetes mellitus with diabetic chronic kidney disease; N18.32 Chronic kidney disease, stage 3b; Z79.4 Long term (current) use of insulin; E66.9 Obesity, unspecified; Z68.37 Body mass index [BMI] 37.0-37.9, adult; E78.2 Mixed hyperlipidemia; R06.09 Other forms of dyspnea; M25.561 Pain in right knee; E55.9 Vitamin D deficiency, unspecified; E04.2 Nontoxic multinodular goiter; J30.9 Allergic rhinitis, unspecified

== ENCOUNTER → 2025-01-23 13:26 | Outpatient (BNVA) | payer OTHER, SELFPAY | PROVIDERS: PCP Internal Medicine; Visit Provider Internal Medicine | DX: I12.9 Hypertensive chronic kidney disease with stage 1 through stage 4 chronic kidney disease, or unspecified chronic kidney disease (principal); E11.22 Type 2 diabetes mellitus with diabetic chronic kidney disease; N18.4 Chronic kidney disease, stage 4 (severe); Z79.4 Long term (current) use of insulin; E78.2 Mixed hyperlipidemia; R06.09 Other forms of dyspnea; M25.561 Pain in right knee; E55.9 Vitamin D deficiency, unspecified; E04.1 Nontoxic single thyroid nodule; J30.9 Allergic rhinitis, unspecified; E66.9 Obesity, unspecified; Z68.37 Body mass index [BMI] 37.0-37.9, adult; Z71.3 Dietary counseling and surveillance | CPT/HCPCS: 83036; 96127; 99212 ==

== ENCOUNTER 2025-01-24 11:54 | Outpatient (AMB) | payer MEDICARE, SELFPAY ==
[2025-01-24 11:58] VITALS: BP 144/86; PULSE 80; O2SAT 97; BMI 37.1
--- NOTE | 2025-01-24 11:58 | MHC.OFFVIS ---
Vital Signs 01/24/25 11:58 Height 5 ft 3 in Weight 209 lb 7.026 oz BMI 37.1 BP 144/86 H Blood Pressure Location Rt brachial Position Sitting Pulse 80 Pulse Source Pulse Oximeter Pulse Oximetry (%) 97 Oxygen Delivery Method Room Air Intake Visit Reasons: Colonoscopy Screening Intake Note: NEW PATIENT for recall colo screening. Unspecified quantity per PCP note. Chief Complaint; Pt denies any GI concerns at this time. Pt cannot recall his last colonoscopy. States for all he knows, it could have been 20 years ago . Polymer Specialist Required: Yes Polymer Specialist Services: Polymer Specialist Present Polymer Specialist Name: [facility] [id number] Information Interpreted: non-clinical & clinical Accompanied by: Spouse Allergies metformin Adverse Reaction (Intermediate, Verified 01/24/25 11:59) Abdominal Pain dulaglutide [Trulicity] Adverse Reaction (Unknown, Verified 01/24/25 11:59) diarrhea HPI HPI Colonoscopy Screening: Details: 69 year old? female here today for pre colonoscopy screening.? Patient was sent to us by his PCP.? Patient reports that he did have a colonoscopy before, however he does not remember when. Patient denies any gastrointestinal symptoms in the past or at present.? Denies any personal or family history of gastrointestinal disease, colon polyps, or CRC.? Denies history of difficulty with sedation or anesthesia in the past.? Not sufficient study to evaluate for sleep apnea. Patient woke up multiple times during the study. They will repeated the test again.? Denies any history of renal, pulmonary, or hepatic disease.? Patient seen classifier tender in December, echocardiogram was ordered.? No history of infectious? diseases like hepatitis A, B, C, HIV or tuberculosis.? 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 CKD (chronic kidney disease) stage 3, GFR 30-59 ml/min Vitamin D deficiency Non-toxic multinodular goiter Dyslipidemia Diabetic 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 with type 2 diabetes mellitus long term care social worker (current) use of insulin Diabetes type 2, uncontrolled Surgical History Hx of cardiac cath (~2008) Hx of tonsillectomy Family History Father Hypertension Diabetes CVA (cerebral vascular accident) Dementia Mother CVA (cerebral vascular accident) Dementia Diabetes Hypertension Other Mental health disorder Social History Housing: House Alcohol intake: current Alcohol intake frequency: holidays/special occasions only Patient Tobacco Use Status: Never used Tobacco e-Cigarette/Vaping Use: Never Used service: No Current occupational status: disabled Cognitive needs: No Hearing needs: Yes (B/L hearing loss per Pt) Vision needs: No Review of Systems Const Denies weight gain and Denies weight loss ENT Reports no additional complaints, Denies dysphagia and Denies odynophagia Card Reports no additional complaints Resp Reports no additional complaints GI Denies abdominal pain, Denies belching, Denies melena, Denies bloating, Denies change in bowel habits, Denies dysphagia, Denies excessive flatus, Denies dyspepsia, Denies heartburn, Denies diarrhea, Denies loose stools, Denies nausea, Denies odynophagia and Denies vomiting Reports no additional complaints Musc Reports no additional complaints Neuro Reports no additional complaints Psych Reports no additional complaints Endo Reports no additional complaints Physical Exam Const General: healthy appearing and no acute distress Nutritional Appearance: obese Orientation/consciousness: patient oriented x3 Resp Effort & Inspection: normal respiratory effort, able to speak in complete sentences, no tracheal deviation and symmetric chest movement Auscultation: clear to auscultation bilaterally Cardio Rate: regular rate GI Inspection: Yes normal to inspection, No distended and Yes obesity Palpation (GI): Soft to palpation, not firm, nontender and No hepatosplenomegaly present Auscultation: normal bowel sounds General: Yes no CVA tenderness Back/Spine/Pelvis Back: no CVA tenderness Skin General skin exam: elasticity normal, turgor normal and dry skin Neuro General: patient oriented x3 Psych Appearance: grossly normal Mental Status: mental status grossly normal Assessment & Plan Assessment & Plan (1) Screening for colon cancer: Code(s): Z12.11 - Encounter for screening for malignant neoplasm of colon Category: Medical Plan Patient denies any GI, cardiac or respiratory symptoms.? Denies any issues with anesthesia in the past.? Patient sees cardiology 1st appointment was in December. Patient is going for echocardiogram. Strong family history of CAD. Will call the office to clear patient before sending him for procedure. Patient will take half of the evening insulin to night and 1 night before procedure. He will hold his short-acting insulin day before procedure. Patient is on Ozempic as well..? No history infectious diseases in the past or present.? Not on any anticoagulation therapy.? No family or personal history of colon cancer or polyps.? Patient denies melena, hematochezia, unintentional weight loss or ribbon like stools.? Discussed at length the pre-procedure,? prep, diet & medications as well as what to expect prior, during and after the procedure.?? Stressed the importance of good bowel prep.? Recommended the use of Vaseline or Calmoseptine OTC & baby wipes with bowel movements to promote comfort.? ?Patient verbalizes understanding and agrees to plan of care.? He was given the opportunity to ask questions and all questions answered.? We will see him after the procedure.? Medications: New polyethylene glycol 3350 (Miralax) As directed by gastroenterology department at [facility] 238 grams PO ONCE 238 grams 0RF Z12.11 - Encounter for screening for malignant neoplasm of colon bisacodyl (Dulcolax (bisacodyl)) take 4 tabs at noon the day before your colonoscopy 20 mg (4 x 5 mg) PO ONCE 1 day 4 tabs 0RF constipation Z12.11 - Encounter for screening for malignant neoplasm of colon Coding Level of Care Code New Pt Level 3 (65234) Diagnoses Screening for colon cancer Z12.11 Time Spent (min) 40 Comment 30 minutes spent with patient and additional 10 minute spent reviewing his records
--- OUTSIDE RECORDS SUMMARY | 2025-01-24 14:24 | XMS_ITS | Encounter Summary ---
Author Organization [employer] [facility] Address [address] [place] [address] Care Team Providers Care Inspector Scales Name Role Phone Unavailable Primary Care Provider Unavailabl e Encounter Details Date Type Department Care Team (Late st Contact Info) Description 01/16/2025 Telephone [facility] [address] [place] [address] Juan Francisco Hook MD [address] [place], [place] [id number] Social History Tobacco Use Types Packs/Day Years [...]
--- OUTSIDE RECORDS SUMMARY | 2025-01-24 14:24 | XMS_ITS | Encounter Summary ---
Author Organization [employer] [facility] Address [address] [place] [address] Care Team Providers Care Application Security Engineer Name Role Phone Unavailable Primary Care Provider Unavailabl e Encounter Details Date Type Department Care Team (Late st Contact Info) Description 01/22/2023 Abstract [facility] [address] [place] [address] Laith Márquez, DMD [address] [place] [address] Social History Tobacco Use Types Packs/Day Years [...]
--- OUTSIDE RECORDS SUMMARY | 2025-01-24 14:24 | XMS_ITS | Clinical Summary ---
Author Organization [facility] Address [address] [place] [address] Care Team Providers Care Cotton Weigher Operator Name Role Phone Unavailable Primary Care [...] Type Department Care Team Description 01/16/2025 Telephone [facility] [address] [place] [address] Juan Francisco Hook MD from [...] Recently Relevant to Health Maintenance Insurance [facility]
== END 2025-01-24 12:43 | disposition home or self-care (01) ==
PROVIDERS: PCP Internal Medicine; Visit Provider Nurse Practitioner Family
DX: Z01.818 Encounter for other preprocedural examination (principal); Z12.11 Encounter for screening for malignant neoplasm of colon
CPT/HCPCS: 99024

== ENCOUNTER → 2025-01-24 11:54 | Outpatient (BNVA) | payer MEDICARE, SELFPAY | PROVIDERS: PCP Internal Medicine; Visit Provider Nurse Practitioner Family | DX: Z12.11 Encounter for screening for malignant neoplasm of colon (principal) | CPT/HCPCS: 99212 ==

== ENCOUNTER 2025-01-30 08:51 | Outpatient (AMB) | payer MEDICARE, SELFPAY ==
--- NOTE | 2025-01-30 08:54 | A.OFFVIS_ITS ---
Vital Signs 01/30/25 08:58 Height 5 ft 4 in Weight 208 lb 1.862 oz BMI 35.7 BP 130/88 Blood Pressure Location Lt brachial Position Sitting Pulse 83 Pulse Source Pulse Oximeter Pulse Oximetry (%) 95 Oxygen Delivery Method Room Air Intake Visit Reasons: Type II Diabetes Intake Note: Patient present today to follow up on Type 2 Diabetes Mellitus. Last Diabetic Eye exam: Fall 2023 seen in , patient needs another Referral. Last Podiatry Visit: Does not see a Greens Planter Random Glucose: 190 mg/dl HgA1C: 8.5% 01/23/2025 Talent Acquisition Sourcer Required: Yes Talent Acquisition Sourcer Language: Cnc Cutting Operator Services: Talent Acquisition Sourcer Present Talent Acquisition Sourcer Name: Shannan [id number] Information Interpreted: non-clinical & clinical Accompanied by: Spouse Allergies metformin Adverse Reaction (Intermediate, Verified 01/30/25 09:00) Abdominal Pain dulaglutide [Trulicity] Adverse Reaction (Unknown, Verified 01/30/25 09:00) diarrhea Medication List - Last Reconciled 01/30/25 by JOSE Hanna acetaminophen 650 mg (2 x 325 mg) PO Q6H PRN amlodipine 5 mg PO DAILY 90 days atorvastatin 80 mg PO DAILY 30 days bisacodyl (Dulcolax (bisacodyl)) 20 mg (4 x 5 mg) PO ONCE 1 day blood sugar diagnostic (FreeStyle Lite Strips) As directed to check blood sugar three times daily. blood-glucose meter (FreeStyle Lite Meter kit) As directed tests 4 X/day CeQur Simplicity (bolus insulin pump, 200 unit) 8 clicks (16 units) three times per day before meals. NS CeQur Simplicity Page Makeup System Operator (diabetic supplies, BumpTopcellan.) As directed NS cholecalciferol (vitamin D3) 50 mcg PO DAILY 30 days empagliflozin (Jardiance) 25 mg PO DAILY 90 days ezetimibe 10 mg PO DAILY 30 days flash glucose scanning reader (Attune SystemsStyle Tania 2 [place]) As directed flash glucose sensor (FreeStyle Tania 2 Sensor kit) As directed change every 14 days to monitor blood glucose glucose (Dex4 Glucose) 16 grams (4 x 4 gram) PO Q15M PRN hydrochlorothiazide 25 mg PO QAM 90 days insulin aspart U-100 (Novolog U-100 Insulin aspart) 16 units before meals (8 clicks) tid subcutaneously use as directed; 30 days insulin glargine U-300 conc (Toujeo SoloStar U-300 Insulin) 50 units (0.1667 mL) subcut BEDTIME lancets (FreeStyle Lancets) 28 gauge topical QID 75 days losartan 100 mg PO DAILY 90 days metoprolol tartrate 50 mg PO BID 90 days mometasone 50 mcg/actuation (Nasonex 24hr Allergy) 2 sprays intranasal DAILY PRN pen needle, diabetic 5 times a day polyethylene glycol 3350 (Miralax) 238 grams PO ONCE semaglutide (Ozempic) 1 mg (0.75 mL) subcut QWEEK HPI Comments Details: Patient is 69 year male with DM type 2 diagnosed in 2003 who presents for management of diabetes. Accompanied by his today. Hemoglobin A1c down to 8.5% 01/23/2025. Past medical history: Diabetes type 2, hypertension, hyperlipidemia CKD3, NTMG (with small subcentimeter nodules with no need for intervention Dr. Arizmendi visit 06/10/21) Diabetic complications: retinopathy, nephropathy Reviewed glucometer download In range 30% Average glucose 191 Highest to 59 Lowest 144 Patient is only checking sugars in the morning. Denies hypoglycemia. He has a Tania 2, but he is out of sensors and did not receive them from the pharmacy. Tania 2 is being discontinued. Current medications: Toujeo U300 50 units at bedtime, NovoLog 16 units (8 clicks) before meals 3 times a day, Jardiance 25 mg every morning, Ozempic 1 mg weekly. I increase the dose of Toujeo and Ozempic at his last visit, but he only started the new dosages this past weekend. His fasting blood sugars have improved. Past medications: Metformin was discontinued in the past due to GI upset. Trulicity discontinued in the past due to diarrhea. Levemir discontinued due to injection site reaction/med leakage from injection site. ROS: Constitutional: No unexplained weight loss, fever, chills, fatigue or night sweats. Gastrointestinal: No anorexia, nausea, vomiting or diarrhea. No abdominal pain Neurologic: No headache, dizziness, syncope Skin: No open wounds or rashes Physical exam: Constitutional: Alert, in no distress. Neck: Supple, Full range of motion. No lymphadenopathy. No palpable thyroid masses. Respiratory: Clear to auscultation. Cardiovascular: S1 S2 regular. No murmurs. 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 CKD (chronic kidney disease) stage 3, GFR 30-59 ml/min Vitamin D deficiency Non-toxic multinodular goiter Dyslipidemia Diabetic 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 with type 2 diabetes mellitus assistant terminal manager (current) use of insulin Diabetes type 2, uncontrolled Surgical History Hx of cardiac cath (~2008) Hx of tonsillectomy Family History Father Hypertension Diabetes CVA (cerebral vascular accident) Dementia Mother CVA (cerebral vascular accident) Dementia Diabetes Hypertension Other Mental health disorder Social History Housing: House Alcohol intake: current Alcohol intake frequency: holidays/special occasions only Patient Tobacco Use Status: Never used Tobacco e-Cigarette/Vaping Use: Never Used service: No Current occupational status: disabled Cognitive needs: No Hearing needs: Yes (B/L hearing loss per Pt) Vision needs: No Physical Exam Vital Signs: Last Vital Signs Pulse 83 01/30/25 08:58 BP 130/88 01/30/25 08:58 Pulse Ox 95 01/30/25 08:58 Oxygen Delivery Method Room Air 01/30/25 08:58 BMI result Body Mass Index 35.7 Results Reviewed Results Reviewed: Laboratory Tests 10/26/23 10/26/23 10/24/24 07:38 07:41 09:25 WBC 6.5 Hgb 14.7 Hct 44.9 Plt Count 186 Sodium 138 Potassium 4.0 Creatinine 1.27 1.30 Estimated GFR 56 54 Fasting Glucose 223 H Hemoglobin A1c % 11.1 H Calcium 9.7 AST 12 ALT 15 Triglycerides 195 H 187 H Cholesterol 189 203 H LDL Cholesterol, Calc 111 H 129 H HDL Cholesterol 39 L 37 L 25-OH Vitamin D Total 29.2 L TSH 2.77 Ur Specific [place] 1.015 Urine Protein Negative Urine Glucose (UA) >=1000 H Urine Blood Negative Urine Nitrite Negative Ur Leukocyte Esterase Negative Microalb/Creat Ratio 25.6 Assessment & Plan Assessment & Plan (1) Type 2 diabetes mellitus with diabetic chronic kidney disease: Code(s): E11.22 - Type 2 diabetes mellitus with diabetic chronic kidney disease Category: Medical Qualifiers: Diabetes mellitus parts counterman insulin use: with parts counterman use Chronic kidney disease stage: stage 3 (moderate) Chronic kidney disease stage 3 subtype: stage 3b (GFR 30-44) Qualified Code(s): E11.22 - Type 2 diabetes mellitus with diabetic chronic kidney disease; N18.32 - Chronic kidney disease, stage 3b; Z79.4 - assistant terminal manager (current) use of insulin Plan In summary this is a 69-year-old male with uncontrolled type 2 diabetes with microvascular complications. Continue Toujeo to 50 units nightly. Continue NovoLog 16 units (8 clicks) via Syncloguequr. His diabetic control has improved since his last visit per CGM. Continue Jardiance 25 mg daily. Continue Ozempic to 1 mg weekly. Patient only started this a few days ago so we will reassess at a follow up in a month. Letter of medical necessity and prior authorization will be done for Tania 3 sensors and meter. Reviewed treatment of hypoglycemia. Written instructions given to patient in American and Hungarian. He has glucose tablets at home. Reviewed lifestyle modifications. Diabetic diet encouraged. Follow up in 4 weeks for type 2 diabetes. Medications: New blood-glucose meter (FreeStyle Lite Meter kit) Use to test blood sugar four times daily. 1 ea 0RF E11.9 - Type 2 diabetes mellitus without complications blood-glucose sensor (FreeStyle Tania 3 Sensor device) apply new sensor every 14 days 2 ea 11RF E11.22 - Type 2 diabetes mellitus with diabetic chronic kidney disease, N18.32 - Chronic kidney disease, stage 3b, Z79.4 - assistant terminal manager (current) use of insulin blood-glucose sensor (FreeStyle Tania 3 Sensor device) apply new sensor every 14 days 2 ea 11RF E11.22 - Type 2 diabetes mellitus with diabetic chronic kidney disease, N18.32 - Chronic kidney disease, stage 3b, Z79.4 - assistant terminal manager (current) use of insulin blood-glucose meter,continuous (FreeStyle Tania 3 [place]) Use daily to monitor blood glucose levels continuously. 1 ea 0RF E11.22 - Type 2 diabetes mellitus with diabetic chronic kidney disease, N18.32 - Chronic kidney disease, stage 3b, Z79.4 - assistant terminal manager (current) use of insulin blood-glucose meter,continuous (FreeStyle Tania 3 [place]) Use daily to monitor blood glucose levels continuously. 1 ea 0RF E11.22 - Type 2 diabetes mellitus with diabetic chronic kidney disease, N18.32 - Chronic kidney disease, stage 3b, Z79.4 - assistant terminal manager (current) use of insulin Discontinued blood-glucose meter (FreeStyle Lite Meter kit) Discontinued Reason: Doctor's Order As directed tests 4 X/day 1 ea 0RF flash glucose scanning reader (FreeStyle Tania 2 [place]) Discontinued Reason: Doctor's Order As directed 1 ea 0RF flash glucose sensor (FreeStyle Tania 2 Sensor kit) Discontinued Reason: Doctor's Order As directed change every 14 days to monitor blood glucose 2 ea 6RF Coding Level of Care Code Est Pt Level 4 (22195) Complex EM visit Add On G2211 Diagnoses Type 2 diabetes mellitus with stage 3b chronic kidney disease, with long-term current use of insulin E11.22; N18.32; Z79.4 Diabetes mellitus alf insulin use: with alf use Chronic kidney disease stage: stage 3 (moderate) Chronic kidney disease stage 3 subtype: stage 3b (GFR 30-44)
[2025-01-30 08:58] VITALS: BP 130/88; PULSE 83; O2SAT 95; BMI 35.7
[2025-01-30 09:12] LABS: Glucose, Whole Blood 190 mg/dL (60-115)
--- OUTSIDE RECORDS SUMMARY | 2025-01-30 09:44 | XMS_ITS | Encounter Summary ---
Author Organization [facility] Address [address] [place] [address] Care Team Providers Care Rag Grader Name Role Phone Unavailable Primary Care Provider Unavailabl e Encounter Details Date Type Department Care Team (Late st Contact Info) Description 01/22/2023 Abstract [facility] [address] [place] [address] Laith Márquez, DMD [address] [place] [address] Social History Tobacco Use Types Packs/Day Years [...]
--- OUTSIDE RECORDS SUMMARY | 2025-01-30 09:44 | XMS_ITS | Clinical Summary ---
Author Organization [employer] [facility] Address [address] [place] [address] Care Team Providers Care National Coverage Specialist Name Role Phone Unavailable Primary Care Provider [...] Type Department Care Team Description 01/16/2025 Telephone [facility] [address] [place] [address] Juan Francisco Hook MD from [...] Relevant to Health Maintenance Insurance [facility]
--- OUTSIDE RECORDS SUMMARY | 2025-01-30 09:44 | XMS_ITS | Encounter Summary ---
Author Organization [employer] [facility] Address [address] [place] [address] Care Team Providers Care Campground Attendant Name Role Phone Unavailable Primary Care Provider Unavailabl e Encounter Details Date Type Department Care Team (Late st Contact Info) Description 01/16/2025 Telephone [facility] [address] [place] [address] Juan Francisco Hook MD [address] [place] [address] Social History Tobacco Use Types Packs/Day Years [...]
== END 2025-01-30 09:31 | disposition home or self-care (01) ==
LOC: HO.ENCR 08:52
PROVIDERS: PCP Internal Medicine; Visit Provider Physician Assistant Medical
DX: E11.22 Type 2 diabetes mellitus with diabetic chronic kidney disease (principal); N18.32 Chronic kidney disease, stage 3b; Z79.4 Long term (current) use of insulin

== ENCOUNTER → 2025-01-30 08:51 | Outpatient (BNVA) | payer MEDICARE, SELFPAY | PROVIDERS: PCP Internal Medicine; Visit Provider Physician Assistant Medical | DX: E11.22 Type 2 diabetes mellitus with diabetic chronic kidney disease (principal); E11.21 Type 2 diabetes mellitus with diabetic nephropathy; E11.3299 Type 2 diabetes mellitus with mild nonproliferative diabetic retinopathy without macular edema, unspecified eye; E11.65 Type 2 diabetes mellitus with hyperglycemia; N18.32 Chronic kidney disease, stage 3b; Z79.4 Long term (current) use of insulin | CPT/HCPCS: 82947; 99212 ==

== ENCOUNTER → 2025-01-31 10:37 | Outpatient (REF) | payer MEDICARE, SELFPAY ==
--- NOTE | 2025-01-31 10:40 | CA_ITS ---
Transthoracic Echocardiogram Patient (Last, First, Middle): Walter Hopkins E Gender: Male Date of : 1955 Age: 69 Procedure Date: 01/31/2025 Procedure Type: Transthoracic Echocardiogram Location: OP Height: 162.56 cm Weight: 94.35 kg BSA: 1.99 m2 Heart Rate: bpm BP: 130 / 88 mmHg Wick Tender: RANDALL Referring MD: Munir Courtney MD Symptoms: I25.10 - Atherosclerotic heart disease of [place] coronary artery without... Study Quality: Technically Difficult/Contrast Conclusions: - The left ventricular systolic function is mild to moderately decreased. The visually estimated ejection fraction is between 40-45%. - No obvious valvular pathology seen on this study. - There is moderate dilatation of the sinuses of Valsalva measuring 4.80 cm and mild dilatation of the ascending aorta measuring 4.10 cm. Findings Procedure Information Contrast agent, definity, is being given per protocol without apparent complications. Left Ventricle Normal left ventricular cavity size. There is mildly increased left ventricular wall thickness. The left ventricular systolic function is mild to moderately decreased. The visually estimated ejection fraction is between 40-45%. Diastolic function is indeterminate on the basis of available data. Septum has a 'jerky' motion, unclear etiology. Right Ventricle Normal right ventricular cavity size. There is mildly decreased right ventricular systolic function. Atria The left atrium is normal in size. The right atrium is normal in size. Aortic Valve There is a normal trileaflet aortic valve. There is no aortic valve stenosis. There is trace (trivial) aortic valve regurgitation. Mitral Valve The mitral valve appears normal. There is no mitral valve regurgitation. There is no mitral valve stenosis. Pulmonic Valve The pulmonic valve is likely normal. Tricuspid Valve There is trace tricuspid valve regurgitation. There is no evidence of pulmonary hypertension. Great Vessels There is moderate dilatation of the sinuses of Valsalva measuring 4.80 cm and mild dilatation of the ascending aorta measuring 4.10 cm. Venous The inferior vena cava is normal in size and collapses greater than 50% with inspiration. Pericardium/Pleural There is no evidence of pericardial effusion. Recommendations, Care & Conclusions No obvious valvular pathology seen on this study. Measurements 2D Linear Measurements IVSd: 1.30 0.6-0.9/0.6-1.0 cm LVIDd: 5.00 3.9-5.3/4.2-5.9 cm LVIDd Index: 2.51 2.4-3.2/2.2-3.1 cm/m2 LVIDs: 3.39 2.0-3.6 cm LVPWd: 1.26 0.7-1.1 cm Ao Root: 4.80 2.1-3.5 cm LA Diam: 3.30 2.7-3.8/3.0-4.0 cm LAIDs Index: 1.66 1.5-2.3 cm/m2 LV Mass: 319.36 67-162/88-224 g LV Mass Index: 160.48 43-95/49-115 g/m2 LVOT Diam: 2.30 3.0+(-)1.3 cm 2D Systolic Function EF 4C: 45.50 >55% EF 2C: 46.00 >55% EF BiP: 45.60 >55% Aortic Valve AoV Pk Emre: 1.10 AoV Mn Emre: 0.74 AoV VTI: 0.22 AoV Pk Grad: 5.00 Aov Mn Grad: 2.00 LEEANNE Cont.VTI: 2.77 LVOT LVOT Pk Emre: 0.69 LVOT Mn Emre: 0.51 LVOT VTI: 0.15 LVOT Pk Grad: 2.00 LVOT Mn Grad: 1.00 LVOT Diam: 2.30 LVOT Area: 4.15 Right Ventricle TAPSE (mm): 17.30 TVS' Emre: 9.14 Tricuspid Valve TR Pk Emre: 1.54 TR Pk Grad: 9.00 RA Press: 8.00 RVSP: 17.00 Great Vessels Aorta Ao Root-2D: 4.80 2.0-3.7 cm Sinus of Valsalva: 4.80 2.0-3.5 cm Ao Asc: 4.10 2.1-3.4 cm Ao Arch: 3.00 Updated in Other Vendor System with Status of Final Munir Courtney MD electronically signed on 02/01/2025 10:56:52 AM with status of Final
--- OUTSIDE RECORDS SUMMARY | 2025-01-31 12:16 | XMS_ITS | Encounter Summary ---
Author Organization [employer] [facility] Address [address] [place] [address] Care Team Providers Care Paper Cone Machine Operator Name Role Phone Unavailable Primary Care Provider Unavailabl e Encounter Details Date Type Department Care Team (Late st Contact Info) Description 01/22/[address] [facility] ADULT DENTAL [address] [place] [address] Laith Márquez, DMD [address] [place] [address] Social History Tobacco Use Types Packs/Day Years [...]
--- OUTSIDE RECORDS SUMMARY | 2025-01-31 12:16 | XMS_ITS | Clinical Summary ---
Author Organization [facility] Address [address] [facility] 7t [place] [address] Care Team Providers Care Bite Block Maker Name Role Phone Unavailable Primary Care Provider [...] Type Department Care Team Description 01/16/2025 Telephone [facility] [address] [place] [address] Juan Francisco Hook MD from [...] Most Recently Relevant to Health Maintenance Insurance [facility] - [facility]
--- OUTSIDE RECORDS SUMMARY | 2025-01-31 12:16 | XMS_ITS | Encounter Summary ---
Author Organization [employer] [facility] [facility] Address [address] [facility] 7t [place] [address] Care Team Providers Care Ranch Manager Name Role Phone Unavailable Primary Care Provider Unavailabl e Encounter Details Date Type Department Care Team (Late st Contact Info) Description 01/16/2025 Telephone [facility] [address] [place] [address] Juan Francisco Hook MD [address] [place], [place] [id number] Social History Tobacco Use Types Packs/Day Years [...]
== END ==
LOC: HO.CARD 10:37
PROVIDERS: PCP Internal Medicine; Visit Provider Internal Medicine
DX: I25.10 Atherosclerotic heart disease of native coronary artery without angina pectoris (principal)
CPT/HCPCS: 93306; Q9957

== ENCOUNTER → 2025-01-31 10:40 | Outpatient (BNV) | payer MEDICARE, SELFPAY | PROVIDERS: PCP Internal Medicine; Visit Provider Internal Medicine | DX: I71.21 Aneurysm of the ascending aorta, without rupture (principal); I25.10 Atherosclerotic heart disease of native coronary artery without angina pectoris; I51.89 Other ill-defined heart diseases | CPT/HCPCS: 93306 ==

== ENCOUNTER 2025-02-13 07:57 | Outpatient (REF) | payer OTHER, SELFPAY ==
[2025-02-13 08:57] LABS: Hemoglobin 16.8 g/dl (14.0-18.0); Mean Corpuscular HGB Conc 33.6 g/dl (31.0-36.0); Mean Corpuscular Hemoglobin 28.3 pg (27.0-33.0); Mean Corpuscular Volume 84.2 fL (80.0-98.0); Mean Platelet Volume 10.6 fL (9.4-12.4); Platelet Count 195 X10*3/uL (160-400); Red Blood Count 5.94 X10*6/uL (4.60-5.80); Red Cell Distribution Width 12.7 % (11.0-16.0)
[2025-02-13 08:59] LABS: INTERNATIONAL NORM RATIO 0.9 (0.9-1.1)
[2025-02-13 09:32] LABS: Anion Gap 10 (12-20); Blood Urea Nitrogen 18 mg/dL (9-16); Calcium 9.8 mg/dL (8.4-10.2); Carbon Dioxide 31 mmol/L (22-29); Chloride 103 mmol/L (96-108); Estimated Glomerular Filt Rate 53; Glucose Random 150 mg/dL (60-115); Potassium 4.3 mmol/L (3.3-5.1); Sodium 140 mmol/L (135-145)
== END 2025-02-13 07:58 | disposition home or self-care (01) ==
LOC: HO.LAB 07:57
PROVIDERS: PCP Internal Medicine
DX: I25.10 Atherosclerotic heart disease of native coronary artery without angina pectoris (principal)
CPT/HCPCS: 36415; 80048; 85027; 85610

== ENCOUNTER → 2025-02-22 23:59 | Outpatient (BNV) | payer OTHER, SELFPAY | PROVIDERS: PCP Internal Medicine; Visit Provider Internal Medicine Cardiovascular Disease | DX: I42.9 Cardiomyopathy, unspecified (principal); R06.02 Shortness of breath | CPT/HCPCS: 93458; 99152 ==

== ENCOUNTER 2025-02-27 10:33 | Outpatient (AMB) | payer OTHER, SELFPAY ==
--- NOTE | 2025-02-27 10:38 | MHC.OFFVIS ---
Vital Signs 02/27/25 10:39 Height 5 ft 4 in Weight 204 lb 9.423 oz BMI 35.1 BP 118/60 Blood Pressure Location Lt brachial Position Sitting Pulse 85 Pulse Source Pulse Oximeter Pulse Oximetry (%) 98 Oxygen Delivery Method Room Air Intake Visit Reasons: T2DM Intake Note: Patient present today to follow up on Type 2 Diabetes Mellitus. Last Diabetic Eye exam: Fall 2023 seen in , patient needs another Referral. Last Podiatry Visit: Does not see a Survey Methodologist Random Glucose: 215 mg/dl HgA1C: 8.5% 01/23/2025 Automatic Lathe Setter Required: Yes Automatic Lathe Setter Services: Automatic Lathe Setter Present Automatic Lathe Setter Name: Steven [id number] Information Interpreted: clinical only Allergies metformin Adverse Reaction (Intermediate, Verified 02/27/25 10:43) Abdominal Pain dulaglutide [Trulicity] Adverse Reaction (Unknown, Verified 02/27/25 10:43) diarrhea HPI Comments Details: Patient is 69 year male with DM type 2 diagnosed in 2003 who presents for management of diabetes. Accompanied by his today. Hemoglobin A1c down to 8.5% 01/23/2025. Past medical history: Diabetes type 2, hypertension, hyperlipidemia CKD3, NTMG (with small subcentimeter nodules with no need for intervention Dr. Arizmendi visit 06/10/21) Diabetic complications: retinopathy, nephropathy Reviewed glucometer download Average glucose 145 1.2 readings per day average In range 88% Highest to 50, lowest 80 The majority of readings are from the morning. Denies hypoglycemia. CGM approved, but he did not pick it up yet. Requessts new rx sent to pharmacy which is done today. Current medications: Toujeo U300 50 units at bedtime, NovoLog 16 units (8 clicks) before meals 3 times a day, Jardiance 25 mg every morning, Ozempic 1 mg weekly. Past medications: Metformin was discontinued in the past due to GI upset. Trulicity discontinued in the past due to diarrhea. Levemir discontinued due to injection site reaction/med leakage from injection site. ROS: Constitutional: No unexplained weight loss, fever, chills, fatigue or night sweats. Gastrointestinal: No anorexia, nausea, vomiting or diarrhea. No abdominal pain Neurologic: No headache, dizziness, syncope Skin: No open wounds or rashes Physical exam: Constitutional: Alert, in no distress. Neck: Supple, Full range of motion. No lymphadenopathy. No palpable thyroid masses. Respiratory: Clear to auscultation. Cardiovascular: S1 S2 regular. No murmurs. 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 CKD (chronic kidney disease) stage 3, GFR 30-59 ml/min Vitamin D deficiency Non-toxic multinodular goiter Dyslipidemia Diabetic 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 with type 2 diabetes mellitus [facility] (current) use of insulin Diabetes type 2, uncontrolled Surgical History Hx of cardiac cath (~2008) Hx of tonsillectomy Family History Father Hypertension Diabetes CVA (cerebral vascular accident) Dementia Mother CVA (cerebral vascular accident) Dementia Diabetes Hypertension Other Mental health disorder Social History Housing: House Alcohol intake: current Alcohol intake frequency: holidays/special occasions only Patient Tobacco Use Status: Never used Tobacco e-Cigarette/Vaping Use: Never Used service: No Current occupational status: disabled Cognitive needs: No Hearing needs: Yes (B/L hearing loss per Pt) Vision needs: No Physical Exam Vital Signs: Last Vital Signs Pulse 85 02/27/25 10:39 BP 118/60 02/27/25 10:39 Pulse Ox 98 02/27/25 10:39 Oxygen Delivery Method Room Air 02/27/25 10:39 BMI result Body Mass Index 35.1 Results Reviewed Results Reviewed: Laboratory Last Values Glucose (Clinic) 215 mg/dL (60-115) H 02/27/25 10:49 Laboratory Tests 10/26/23 10/26/23 10/24/24 07:38 07:41 09:25 WBC 6.5 Hgb 14.7 Hct 44.9 Plt Count 186 Sodium 138 Potassium 4.0 Creatinine 1.27 1.30 Estimated GFR 56 54 Fasting Glucose 223 H Hemoglobin A1c % 11.1 H Calcium 9.7 AST 12 ALT 15 Triglycerides 195 H 187 H Cholesterol 189 203 H LDL Cholesterol, Calc 111 H 129 H HDL Cholesterol 39 L 37 L 25-OH Vitamin D Total 29.2 L TSH 2.77 Ur Specific [place] 1.015 Urine Protein Negative Urine Glucose (UA) >=1000 H Urine Blood Negative Urine Nitrite Negative Ur Leukocyte Esterase Negative Microalb/Creat Ratio 25.6 Assessment & Plan Assessment & Plan (1) Type 2 diabetes mellitus with diabetic chronic kidney disease: Code(s): E11.22 - Type 2 diabetes mellitus with diabetic chronic kidney disease Category: Medical Qualifiers: Diabetes mellitus residential insulin use: with termination clerk use Chronic kidney disease stage: stage 3 (moderate) Chronic kidney disease stage 3 subtype: stage 3b (GFR 30-44) Qualified Code(s): E11.22 - Type 2 diabetes mellitus with diabetic chronic kidney disease; N18.32 - Chronic kidney disease, stage 3b; Z79.4 - [facility] (current) use of insulin Plan In summary this is a 69-year-old male with type 2 diabetes with microvascular complications. 88% of glucose readings are in range now. Advised to flower picker CGM. Continue Toujeo to 50 units nightly. Continue NovoLog 16 units (8 clicks) via [employer]. His diabetic control has improved since his last visit per CGM. Continue Jardiance 25 mg daily. Continue Ozempic to 1 mg weekly. Reviewed treatment of hypoglycemia. He has glucose tablets at home. Reviewed lifestyle modifications. Diabetic diet encouraged. Needs new referral to Ophthalmology. Completed today. Patient requests new freestyle glucometer as well. Apparently on 2 occasions his glucose monitor said that his blood sugar was 16 and 18, and it was normal when he rechecked a minute later both times. Prescription sent to pharmacy. Follow up in 3 months for type 2 diabetes. Orders: Referrals Ophthalmology Referral E11.22 - Type 2 diabetes mellitus with diabetic chronic kidney disease, N18.32 - Chronic kidney disease, stage 3b, Z79.4 - [facility] (current) use of insulin Medications: Refilled blood-glucose sensor (FreeStyle Tania 3 Sensor device) apply new sensor every 14 days 2 ea 11RF E11.22 - Type 2 diabetes mellitus with diabetic chronic kidney disease, N18.32 - Chronic kidney disease, stage 3b, Z79.4 - [facility] (current) use of insulin blood-glucose meter (FreeStyle Lite Meter kit) Use to test blood sugar four times daily. 1 ea 0RF E11.9 - Type 2 diabetes mellitus without complications blood-glucose,middle card tender,cont (FreeStyle Tania 3 [place]) Use daily to monitor blood glucose levels continuously. 1 ea 0RF E11.22 - Type 2 diabetes mellitus with diabetic chronic kidney disease, N18.32 - Chronic kidney disease, stage 3b, Z79.4 - assistant terminal manager (current) use of insulin Coding Level of Care Code Est Pt Level 4 (37772) Complex EM visit Add On G2211 Diagnoses Type 2 diabetes mellitus with stage 3b chronic kidney disease, with long-term current use of insulin E11.22; N18.32; Z79.4 Diabetes mellitus residential insulin use: with residential use Chronic kidney disease stage: stage 3 (moderate) Chronic kidney disease stage 3 subtype: stage 3b (GFR 30-44)
[2025-02-27 10:39] VITALS: BP 118/60; PULSE 85; O2SAT 98; BMI 35.1
[2025-02-27 10:54] LABS: Glucose, Whole Blood 215 mg/dL (60-115)
--- OUTSIDE RECORDS SUMMARY | 2025-02-27 12:36 | XMS_ITS | Clinical Summary ---
Author Organization [employer] [facility] Address [address] [facility] 7[address] [place] [address] Care Team Providers Care Principal Planner Name Role Phone Unavailable Primary Care Provider [...] Type Department Care Team Description 01/16/2025 Telephone [facility] [address] [place] [address] Juan Francisco Hook MD from [...] Most Recently Relevant to Health Maintenance Insurance [facility] [place] [facility] - [facility]
--- OUTSIDE RECORDS SUMMARY | 2025-02-27 12:36 | XMS_ITS | Encounter Summary ---
Author Organization [facility] [facility] Address [address] [facility] 7t [place] [address] Care Team Providers Care Water Purifier Operator Name Role Phone Unavailable Primary Care Provider Unavailabl e Encounter Details Date Type Department Care Team (Late st Contact Info) Description 01/22/2023 Abstract [facility] [address] [place] [address] Laith Márquez, DMD [address] [place] [address] Social History Tobacco Use Types Packs/Day Years [...]
== END 2025-02-27 11:19 | disposition home or self-care (01) ==
LOC: HO.ENCR 10:33
PROVIDERS: PCP Internal Medicine; Visit Provider Physician Assistant Medical
DX: E11.22 Type 2 diabetes mellitus with diabetic chronic kidney disease (principal); N18.32 Chronic kidney disease, stage 3b; Z79.4 Long term (current) use of insulin

== ENCOUNTER → 2025-02-27 10:33 | Outpatient (BNVA) | payer OTHER, SELFPAY | PROVIDERS: PCP Internal Medicine; Visit Provider Physician Assistant Medical | DX: E11.22 Type 2 diabetes mellitus with diabetic chronic kidney disease (principal); I12.9 Hypertensive chronic kidney disease with stage 1 through stage 4 chronic kidney disease, or unspecified chronic kidney disease; N18.32 Chronic kidney disease, stage 3b; E78.5 Hyperlipidemia, unspecified; Z79.4 Long term (current) use of insulin | CPT/HCPCS: 82947; 99212 ==

== ENCOUNTER 2025-03-15 14:30 | Outpatient (AMB) | payer MEDICARE, SELFPAY ==
--- NOTE | 2025-03-15 14:34 | MHC.OFFVIS ---
Vital Signs 03/15/25 14:35 Height 5 ft 4 in Weight 200 lb 9.93 oz BMI 34.4 BP 130/68 Blood Pressure Location Lt brachial Position Sitting Pulse 77 Pulse Source Pulse Oximeter Intake Visit Reasons: f/u post cath Special Tax Auditor Required: Yes Special Tax Auditor Services: Special Tax Auditor Offered & Declined Accompanied by: Daughter Allergies metformin Adverse Reaction (Intermediate, Verified 02/27/25 10:43) Abdominal Pain dulaglutide [Trulicity] Adverse Reaction (Unknown, Verified 02/27/25 10:43) diarrhea Medication List - Last Reconciled 03/15/25 by Yunior Smith NP amlodipine 5 mg PO DAILY 90 days atorvastatin 80 mg PO DAILY 30 days bisacodyl (Dulcolax (bisacodyl)) 20 mg (4 x 5 mg) PO ONCE 1 day blood sugar diagnostic (FreeStyle Lite Strips) As directed to check blood sugar three times daily. blood-glucose meter (FreeStyle Lite Meter kit) Use to test blood sugar four times daily. blood-glucose sensor (FreeStyle Tania 3 Sensor device) apply new sensor every 14 days blood-glucose,hvac service technician,cont (FreeStyle Tania 3 [place]) Use daily to monitor blood glucose levels continuously. CeQur Simplicity (bolus insulin pump, 200 unit) 8 clicks (16 units) three times per day before meals. NS CeQur Simplicity Accessioner (diabetic supplies, [employer] As directed NS cholecalciferol (vitamin D3) 50 mcg PO DAILY 30 days empagliflozin (Jardiance) 25 mg PO DAILY 90 days ezetimibe 10 mg PO DAILY 30 days glucose (Dex4 Glucose) 16 grams (4 x 4 gram) PO Q15M PRN insulin aspart U-100 (Novolog U-100 Insulin aspart) 16 units before meals (8 clicks) tid subcutaneously use as directed; 30 days insulin glargine U-300 conc (Toujeo SoloStar U-300 Insulin) 50 units (0.1667 mL) subcut BEDTIME lancets (FreeStyle Lancets) 28 gauge topical QID 75 days losartan 100 mg PO DAILY 90 days metoprolol tartrate 50 mg PO BID 90 days mometasone 50 mcg/actuation (Nasonex 24hr Allergy) 2 sprays intranasal DAILY PRN pen needle, diabetic 5 times a day polyethylene glycol 3350 (Miralax) 238 grams PO ONCE semaglutide (Ozempic) 1 mg (0.75 mL) subcut QWEEK HPI Comments Details: This is a 69-year-old male patient presenting for a follow-up visit, accompanied by his daughter who assisted with the interpretation throughout the visit and politely denied professional dicer machine operator. Patient with medical history of hypertension, hyperlipidemia, and diabetes. Patient was previously seen in the office for shortness of breath with exertion. Patient reports having undergone a stress test in the DR, but the report is not available. Patient subsequently underwent an echocardiogram which showed mild cardiomyopathy and was referred for cardiac catheterization. Today, patient reports feeling well overall and denies any cardiac symptoms including exertional chest pain, shortness of breath, palpitations, dizziness, fatigue, orthopnea, PND, leg edema, presyncope, or syncope. Patient informs compliance with all his prescribed medications. 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 CKD (chronic kidney disease) stage 3, GFR 30-59 ml/min Vitamin D deficiency Non-toxic multinodular goiter Dyslipidemia Diabetic 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 with type 2 diabetes mellitus assisted (current) use of insulin Diabetes type 2, uncontrolled Surgical History Hx of cardiac cath (~2008) Hx of tonsillectomy Family History Father Hypertension Diabetes CVA (cerebral vascular accident) Dementia Mother CVA (cerebral vascular accident) Dementia Diabetes Hypertension Other Mental health disorder Social History Housing: House Alcohol intake: current Alcohol intake frequency: holidays/special occasions only Patient Tobacco Use Status: Never used Tobacco e-Cigarette/Vaping Use: Never Used service: No Current occupational status: disabled Cognitive needs: No Hearing needs: Yes (B/L hearing loss per Pt) Vision needs: No Review of Systems Const Denies weakness ENT Denies dizziness Card Denies chest pain, Denies chest pain with activity, Denies syncope, Denies rapid heart rate, Denies pedal edema, Denies edema, Denies leg edema, Denies lightheadedness, Denies palpitations, Denies dyspnea, Denies dyspnea on exertion and Denies orthopnea Resp Denies cough, Denies dyspnea and Denies dyspnea on exertion GI Denies hematochezia and Denies change in stool character Musc Denies abnormal gait, Denies muscle cramps, Denies muscle weakness, Denies numbness, Denies radiating pain into limb and Denies tingling Neuro Denies abnormal gait, Denies dizziness, Denies syncope, Denies numbness, Denies tingling and Denies weakness Endo Denies palpitations Physical Exam Vital Signs: Last Vital Signs Pulse 77 03/15/25 14:35 BP 130/68 03/15/25 14:35 BMI result Body Mass Index 34.4 Const General: cooperative, healthy appearing, comfortable and no acute distress Orientation/consciousness: patient oriented x3 HEENT Head: Yes normal to inspection Neck Neck: Yes normal visual inspection, Yes trachea midline and Yes supple Chest Chest palpation & inspection: normal inspection of the chest Resp Effort & Inspection: normal respiratory effort Auscultation: clear to auscultation bilaterally, no crackles, no rales, no rhonchi and no wheezes Cardio Jugular venous distension: no JVD Palpation: normal PMI Rate: regular rate Rhythm: regular rhythm Heart sounds: S1 normal heart sound present, S2 normal heart sound present, no click, no gallops, no murmurs and no rubs Peripheral pulses: Peripheral pulses 2+ throughout GI Inspection: Yes normal to inspection Palpation (GI): Soft to palpation Auscultation: normal bowel sounds Skin General skin exam: no rashes or lesions noted Neuro General: patient oriented x3 Extrem General: Yes normal to inspection, No no pedal edema and No calf tenderness Psych Appearance: grossly normal Mental Status: mental status grossly normal Speech and movement: Normal speech and movement present Assessment & Plan Assessment & Plan (1) Cardiomyopathy: Code(s): I42.9 - Cardiomyopathy, unspecified Category: Medical Plan: 01/31/2025- echo study showed decreased LV systolic function between 40-45%, moderate dilation of sinuses of Valsalva measuring at 4.8 cm and mild dilation of the ascending aorta at 4.1 cm. Given reduced LV function, patient underwent cardiac catheterization with Dr. Pineda at [facility] on 02/22/2025. It showed moderate disease in the moderate size RPL branch otherwise normal left main, lad, left circumflex. Right wrist catheterization site is well healed. Continue lifelong aspirin therapy. Continue amlodipine, Jardiance, losartan, metoprolol, atorvastatin, and Zetia therapy. Clinically stable and euvolemic. Discussed in detail signs and symptoms to look for with heart failure. Advised low-salt diet, daily weight monitoring and 1.5-2 L fluid restriction. We will repeat echo in 5 months' time. (2) Status post cardiac catheterization: Code(s): Z98.890 - Other specified postprocedural states Category: Surgical Plan: As above. (3) Atherosclerotic cardiovascular disease: Code(s): I25.10 - Atherosclerotic heart disease of [place] coronary artery without angina pectoris Category: Medical Plan: As above. (4) Benign essential hypertension: Code(s): I10 - Essential (primary) hypertension Category: Medical Plan: Blood pressure today is well-controlled. Continue current regimen. Advised monitoring blood pressures at home and keeping a log of it. Ideally, blood pressure goal less than 130/80. (5) Mixed hyperlipidemia: Code(s): E78.2 - Mixed hyperlipidemia Category: Medical Plan: Most recent LDL 129. Continue high-dose statin and Zetia therapy. Patient has repeat labs with PCP, which he will get done. Ideally, LDL goal less than 70. (6) Diabetes type 2, uncontrolled: Code(s): E11.65 - Type 2 diabetes mellitus with hyperglycemia Category: Medical Plan: Most recent A1c at 8.5 %, not within goal. Continue aggressive diabetes management. A1c goal less than 7%. (7) Obstructive sleep apnea: Code(s): G47.33 - Obstructive sleep apnea (adult) (pediatric) Category: Medical Plan: Patient had a sleep study test done back in November at [facility] that showed severe sleep apnea. Daughter states that they never got another appointment for setting up CPAP therapy. Would like referral with an [place]. We will refer to pulmonology for CPAP arrangements. Discussed importance of CPAP therapy. Advised heart healthy diet, regular exercise, med compliance, low-salt diet, and aggressive management of vascular risk factors. We will follow up in the office in 6 months times, sooner if needed. In the interim, patient will call the office with any concerns or change in symptoms. This note was generated using voice recognition software. While every effort has been made to ensure accuracy and proper pigment and lacquer mixer, there may be occasional errors that could affect the content or meaning of the described symptoms. Orders: Orders CA echo transthoracic complete 5 Months I42.9 - Cardiomyopathy, unspecified Referrals Pulmonology Referral G47.33 - Obstructive sleep apnea (adult) (pediatric) Coding Level of Care Code Est Pt Level 4 (95937) Complex EM visit Add On G2211 Diagnoses Cardiomyopathy I42.9 Status post cardiac catheterization Z98.890 Atherosclerotic cardiovascular disease I25.10 Benign essential hypertension I10 Mixed hyperlipidemia E78.2 Diabetes type 2, uncontrolled E11.65 Obstructive sleep apnea G47.33 Time Spent (min) 35 Comment Time spent in reviewing the chart, test results, assessment, counseling and documentation.
[2025-03-15 14:35] VITALS: BP 130/68; PULSE 77; BMI 34.4
--- OUTSIDE RECORDS SUMMARY | 2025-03-15 17:07 | XMS_ITS | Clinical Summary ---
Author Organization [facility] Address [address] 7t [place] [address] Care Team Providers Care Director Business Name Role Phone Unavailable Primary Care Provider [...] Type Department Care Team Description 01/16/2025 Telephone [facility] [address] [place] [address] Juan Francisco Hook MD from [...] Most Recently Relevant to Health Maintenance Insurance [facility] [place] [facility] - [facility]
--- OUTSIDE RECORDS SUMMARY | 2025-03-15 17:07 | XMS_ITS | Encounter Summary ---
Author Organization [facility] Address [address] [facility] 7t [place] [address] Care Team Providers Care Front Desk Manager Name Role Phone Unavailable Primary Care Provider Unavailabl e Encounter Details Date Type Department Care Team (Late st Contact Info) Description 01/22/2023 Abstract [facility]ULT D[facility] [address] [place] [address] Laith Márquez, DMD [address] [place] [address] Social History Tobacco Use Types Packs/Day Years [...]
== END 2025-03-15 15:11 | disposition home or self-care (01) ==
LOC: HO.HCS 14:31
PROVIDERS: PCP Internal Medicine
DX: I42.9 Cardiomyopathy, unspecified (principal); Z98.890 Other specified postprocedural states; I25.10 Atherosclerotic heart disease of native coronary artery without angina pectoris; I10 Essential (primary) hypertension; E78.2 Mixed hyperlipidemia; E11.65 Type 2 diabetes mellitus with hyperglycemia; G47.33 Obstructive sleep apnea (adult) (pediatric)
CPT/HCPCS: 99214; G2211

== ENCOUNTER → 2025-03-15 14:30 | Outpatient (BNVA) | payer OTHER, SELFPAY | PROVIDERS: PCP Internal Medicine | DX: I42.9 Cardiomyopathy, unspecified (principal); I25.10 Atherosclerotic heart disease of native coronary artery without angina pectoris; I10 Essential (primary) hypertension; E78.2 Mixed hyperlipidemia; E11.65 Type 2 diabetes mellitus with hyperglycemia; G47.33 Obstructive sleep apnea (adult) (pediatric); Z98.890 Other specified postprocedural states | CPT/HCPCS: 99212 ==

== ENCOUNTER 2025-05-29 10:21 | Outpatient (AMB) | payer OTHER, SELFPAY ==
[2025-05-29 10:28] VITALS: BP 120/80; PULSE 77; O2SAT 97; BMI 33.3
--- NOTE | 2025-05-29 10:28 | A.OFFVIS_ITS ---
Vital Signs 05/29/25 10:28 Height 5 ft 4 in Weight 194 lb 0.108 oz BMI 33.3 BP 120/80 Blood Pressure Location Rt brachial Position Sitting Pulse 77 Pulse Source Pulse Oximeter Pulse Oximetry (%) 97 Oxygen Delivery Method Room Air Intake Visit Reasons: T2DM Intake Note: Patient present today to follow up on Type 2 Diabetes Mellitus. Last Diabetic Eye exam: Fall 2023 seen in , patient needs another Referral. Last Podiatry Visit: Does not see a Licensed Nursing Assistant HgA1C: 9.2%, 05/29/2025 Random Glucose: 108 mg/dl Call Center Operator Required: Yes Call Center Operator Language: Sales Broker Services: Call Center Operator Offered & Declined Call Center Operator Name: ACOSTA Chapa Accompanied by: Self / Same As Patient Allergies metformin Adverse Reaction (Intermediate, Verified 02/27/25 10:43) Abdominal Pain dulaglutide (Trulicity) Adverse Reaction (Unknown, Verified 02/27/25 10:43) diarrhea HPI Comments Details: Patient is 69 year male with DM type 2 diagnosed in 2003 who presents for management of diabetes. 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 Hemoglobin A1c 9.2% up from 8.5% 01/23/2025. Past medical history: Diabetes type 2, hypertension, hyperlipidemia CKD3, NTMG (with small subcentimeter nodules with no need for intervention Dr. Arizmendi visit 06/10/21) Diabetic complications: retinopathy, nephropathy He was in [place] for 2 months. Returned 2 weeks ago. He was not following a diabetic diet. He had some blood sugars over 300. He appreciates polyruia and some blurry vision. He does not have an eye appointment, but his referral was processed. I provided him with the contact information to schedule this.. His 14 day average on his glucometer is 204, but there are very few readings. He is not drinking soda. He is having some juice. CGM approved, but he says the pharmacy never dispensed the reader or sensors. Current medications: Toujeo U300 50 units at bedtime, NovoLog 16 units (8 clicks) before meals 3 times a day, Jardiance 25 mg every morning, Ozempic 1 mg weekly. Patient says he ran out of Ozempic 2 months ago. Past medications: Metformin was discontinued in the past due to GI upset. Trulicity discontinued in the past due to diarrhea. Levemir discontinued due to injection site reaction/med leakage from injection site. ROS: Constitutional: No unexplained weight loss, fever, chills, fatigue or night sweats. Gastrointestinal: No anorexia, nausea, vomiting or diarrhea. No abdominal pain Neurologic: No headache, dizziness, syncope Skin: No open wounds or rashes Physical exam: Constitutional: Alert, in no distress. Eyes: EOMI. PERRL. No erythema or discharge. Neck: Supple, Full range of motion. No lymphadenopathy. No palpable thyroid masses. Respiratory: Clear to auscultation. Cardiovascular: S1 S2 regular. No murmurs. 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 Diabetes type 2, uncontrolled Surgical History Hx of cardiac cath (~2008) Hx of tonsillectomy Family History Father Hypertension Diabetes CVA (cerebral vascular accident) Dementia Mother CVA (cerebral vascular accident) Dementia Diabetes Hypertension Other Mental health disorder Social History Housing: House Alcohol intake: current Alcohol intake frequency: holidays/special occasions only Patient Tobacco Use Status: Never used Tobacco e-Cigarette/Vaping Use: Never Used service: No Current occupational status: disabled Cognitive needs: No Hearing needs: Yes (B/L hearing loss per Pt) Vision needs: No Physical Exam Vital Signs: Last Vital Signs Pulse 77 05/29/25 10:28 BP 120/80 05/29/25 10:28 Pulse Ox 97 05/29/25 10:28 Oxygen Delivery Method Room Air 05/29/25 10:28 BMI result Body Mass Index 33.3 Results AMB Hemoglobin A1c AMB Hemoglobin A1c 9.2 % Last Edit by ACOSTA Chapa on 05/29/25 10:43 Results Reviewed Results Reviewed: Laboratory Last Values Glucose (Clinic) 108 mg/dL (60-115) 05/29/25 10:34 Hgb A1c (Clinic) 9.2 % (4.0-6.0) H 05/29/25 10:39 Laboratory Tests 09/28/19 02/04/21 03/13/24 08:43 15:30 07:08 Creatinine Estimated GFR Hgb A1c (Clinic) Hemoglobin A1c % AST ALT LDL Cholesterol Direct 127 H Triglycerides Cholesterol LDL Cholesterol, Calc HDL Cholesterol Vitamin B12 707 TSH Urine Creatinine Protein/Creatinin Ratio 0.19 Urine Microalbumin Microalb/Creat Ratio 10/24/24 10/24/24 01/23/25 09:24 09:25 13:41 Creatinine 1.30 Estimated GFR 54 Hgb A1c (Clinic) 8.5 H Hemoglobin A1c % 9.5 H AST 17 ALT 13 LDL Cholesterol Direct Triglycerides 187 H Cholesterol 203 H LDL Cholesterol, Calc 129 H HDL Cholesterol 37 L Vitamin B12 TSH 1.72 Urine Creatinine 99.24 Protein/Creatinin Ratio Urine Microalbumin 37.0 Microalb/Creat Ratio 37.2 H 02/13/25 08:32 Creatinine 1.34 Estimated GFR 53 Hgb A1c (Clinic) Hemoglobin A1c % AST ALT LDL Cholesterol Direct Triglycerides Cholesterol LDL Cholesterol, Calc HDL Cholesterol Vitamin B12 TSH Urine Creatinine Protein/Creatinin Ratio Urine Microalbumin Microalb/Creat Ratio Assessment & Plan Assessment & Plan (1) Type 2 diabetes mellitus with diabetic chronic kidney disease: Code(s): E11.22 - Type 2 diabetes mellitus with diabetic chronic kidney disease Category: Medical Qualifiers: Chronic kidney disease stage: stage 3 (moderate) Chronic kidney disease stage 3 subtype: stage 3b (GFR 30-44) Diabetes mellitus intermediate teacher insulin use: with mcc use Qualified Code(s): E11.22 - Type 2 diabetes mellitus with diabetic chronic kidney disease; N18.32 - Chronic kidney disease, stage 3b; Z79.4 - longterm (current) use of insulin Plan In summary this is a 69-year-old male with uncontrolled type 2 diabetes with microvascular complications. Worsening glycemic control due [place] indis[place] and not taking Ozempic for the last couple of months. Tania 3 has been discontinued and he never received it. Tania 3+ sensors and reader resubmitted to pharmacy. Patient instructed to call if he does not receive it. If he would like an appointment to help set it up he would also contact the office. Restart Ozempic at 0.5 mg weekly with plan to increase if tolerated again. Continue Toujeo to 50 units nightly. Continue NovoLog 16 units (8 clicks) via [employer]. His diabetic control has improved since his last visit per CGM. Continue Jardiance 25 mg daily. Reviewed treatment of hypoglycemia. He has glucose tablets at home. Reviewed lifestyle modifications. Diabetic diet encouraged. Declines consult with dietitian. He will schedule his eye exam. Follow up in 1 month to review CGM data and diabetic management. Orders: Orders AMB Hemoglobin A1c Today E11.65 - Type 2 diabetes mellitus with hyperglycemia Medications: New blood-glucose sensor (FreeStyle Tania 3 Plus Sensor device) Apply 1 new sensor every 15 days as directed to monitor blood glucose continuously. 2 ea 11RF blood-glucose sensor (FreeStyle Tania 3 Plus Sensor device) Apply 1 new sensor every 15 days as directed to monitor blood glucose continuously. 2 ea 11RF semaglutide (Ozempic) 0.5 mg (0.736 mL) subcut QWEEK 3 mL 1RF Refilled blood-glucose,aircraft instrument engineer,cont (FreeStyle Tania 3 [place]) Use daily to monitor blood glucose levels continuously. 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 Continue Toujeo to 50 units nightly. Continue NovoLog 16 units (8 clicks) before meals three times daily Continue Jardiance 25 mg daily. Please call if you do not receive the tania 3 plus sensors and tania 3 plus reader from the pharmacy. Call us when you receive it so we can schedule a time to set this up with you. If you experience low blood sugar, treat this by eating a chewable fruit candy like skittles or jelly beans (about 8 pieces), 4 ounces (1/2 cup) of fruit juice (not diet), 1 tablespoon of honey or 4 glucose tablets. If your blood sugar is under 55, take double the amount of one of the above. Recheck your blood sugar in 15 minutes. Reinicie Ozempic 0.5 mg semanalmente. Contin?e con Toujeo hasta 50 unidades por la noche. Contin?e con NovoLog 16 unidades (8 clics) antes de las comidas silvia veces al d?a. Contin?e con Jardiance 25 mg al d?a. Llame si no recibe los sensores y el lector Tania 3 Plus de la farmacia. Ll?menos cuando los reciba para programar rik regine. Si experimenta niveles bajos de az?car en la jevon, tr?telo comiendo un caramelo masticable de fruta vincent Skittles o Jelly Beans (aproximadamente 8 piezas), 113 ml (1/2 taza) de jugo de fruta (no diet?megan), 1 cucharada de miel o 4 tabletas de glucosa. Si posey nivel de az?car en la jevon es inferior a 55, tome el doble de la cantidad de mariana de los anteriores. Vuelva a medir posey nivel de az?car en la jevon en 15 minutos. Coding Level of Care Code Est Pt Level 4 (44536) Complex EM visit Add On G2211 Diagnoses Type 2 diabetes mellitus with stage 3b chronic kidney disease, with long-term current use of insulin E11.22; N18.32; Z79.4 Chronic kidney disease stage: stage 3 (moderate) Chronic kidney disease stage 3 subtype: stage 3b (GFR 30-44) Diabetes mellitus mcc insulin use: with mcc use
[2025-05-29 10:39] LABS: Glucose, Whole Blood 108 mg/dL (60-115)
--- OUTSIDE RECORDS SUMMARY | 2025-05-29 11:19 | XMS_ITS | Clinical Summary ---
Author Organization [employer] [facility] Address [address] [place] [address] Care Team Providers Care Paymaster Of Purses Name Role Phone Unavailable Primary Care Provider [...] Vaccine (3 - season) 2024 03/31/2021, 03/03/2021 Dental Oral Exam 04/02/2025 10/02/2024, 02/05/2023 Influenza Vaccine (#1) 2025 , 08/29/2018, 08/18/2017, Additional history exists Tobacco Screening 10/02/2025 10/02/2024 Dental X-Ray: Full [...] patient's age to complete this topic Meningococcal B Vaccine Aged Out No l onger eligible based on patient's age to complete [...] Most Recently Relevant to Health Maintenance Insurance [facility] [employer]F-WAY OPTIONS (O D-SNP) [place] [id number] [facility]
== END 2025-05-29 11:05 | disposition home or self-care (01) ==
LOC: HO.ENCR 10:27
PROVIDERS: PCP Internal Medicine; Visit Provider Physician Assistant Medical
DX: E11.22 Type 2 diabetes mellitus with diabetic chronic kidney disease (principal); N18.32 Chronic kidney disease, stage 3b; Z79.4 Long term (current) use of insulin; E11.65 Type 2 diabetes mellitus with hyperglycemia

== ENCOUNTER → 2025-05-29 10:21 | Outpatient (BNVA) | payer OTHER, SELFPAY | PROVIDERS: PCP Internal Medicine; Visit Provider Physician Assistant Medical | DX: E11.65 Type 2 diabetes mellitus with hyperglycemia (principal); E11.22 Type 2 diabetes mellitus with diabetic chronic kidney disease; E11.21 Type 2 diabetes mellitus with diabetic nephropathy; E11.3299 Type 2 diabetes mellitus with mild nonproliferative diabetic retinopathy without macular edema, unspecified eye; N18.32 Chronic kidney disease, stage 3b; Z79.4 Long term (current) use of insulin | CPT/HCPCS: 82947; 83036; 99212 ==

== ENCOUNTER 2025-06-01 14:23 | Outpatient (AMB) | payer MEDICARE, SELFPAY ==
[2025-06-01 14:26] VITALS: BP 128/86; PULSE 74; O2SAT 96; BMI 33.6
--- NOTE | 2025-06-01 14:26 | MHC.PC.OV ---
Vital Signs 06/01/25 14:26 Height 5 ft 4 in Weight 196 lb BMI 33.6 BP 128/86 Blood Pressure Location Lt brachial Position Sitting Pulse 74 Pulse Source Pulse Oximeter Pulse Oximetry (%) 96 Oxygen Delivery Method Room Air Intake Visit Reasons: DM, hyperlipidemia, HTN Filling Station Attendant Required: No Accompanied by: Self / Same As Patient Allergies metformin Adverse Reaction (Intermediate, Verified 06/01/25 14:45) Abdominal Pain dulaglutide (Trulicity) Adverse Reaction (Unknown, Verified 06/01/25 14:45) diarrhea Medication List - Last Reconciled 06/01/25 by Mikey Lai MD amlodipine 5 mg PO DAILY 90 days atorvastatin 80 mg PO DAILY 30 days bisacodyl (Dulcolax (bisacodyl)) 20 mg (4 x 5 mg) PO ONCE 1 day blood sugar diagnostic (FreeStyle Lite Strips) As directed to check blood sugar three times daily. blood-glucose meter (FreeStyle Lite Meter kit) Use to test blood sugar four times daily. blood-glucose sensor (FreeStyle Tania 3 Plus Sensor device) Apply 1 new sensor every 15 days as directed to monitor blood glucose continuously. 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 CeQur Simplicity (bolus insulin pump, 200 unit) 8 clicks (16 units) three times per day before meals. NS CeQur Simplicity Cinetechnician (diabetic supplies, Iotelligent.) As directed NS cholecalciferol (vitamin D3) 50 mcg PO DAILY 30 days empagliflozin (Jardiance) 25 mg PO DAILY ezetimibe 10 mg PO DAILY 30 days glucose (Dex4 Glucose) 16 grams (4 x 4 gram) PO Q15M PRN insulin aspart U-100 (Novolog U-100 Insulin aspart) 16 units before meals (8 clicks) tid subcutaneously use as directed; 30 days insulin glargine U-300 conc (Toujeo SoloStar U-300 Insulin) 50 units (0.1667 mL) subcut BEDTIME lancets (FreeStyle Lancets) 28 gauge topical QID 75 days losartan 100 mg PO DAILY 90 days metoprolol tartrate 50 mg PO BID 90 days mometasone 50 mcg/actuation (Nasonex 24hr Allergy) 2 sprays intranasal DAILY PRN pen needle, diabetic 5 times a day polyethylene glycol 3350 (Miralax) 238 grams PO ONCE semaglutide (Ozempic) 0.5 mg (0.736 mL) subcut QWEEK Tobacco use date assessed: 06/01/25 Fall risk assessment: No Falls in past year Last assessed Fall Risk: 06/01/25 Dental Screening Dental Screen Date: 06/01/25 Did you have a dental visit in the last 12 months?: Yes Did you have a dental problem in the last 6 months where you did not have access to dental care?: No Was dental information given to patient?: Patient has dentist HPI DM, hyperlipidemia, HTN HPI Details Patient comes in today for his follow-up visit States that he feels okay He denies any headaches or dizziness Denies any chest pains, no shortness of breath No nausea/vomiting, no abdominal pain No change in bowel habits noted He was not able to get his follow-up labs done prior to his appointment today FOR[facility]LY [facility], [facility] Medical History Allergic rhinitis Obesity (BMI 30-39.9) Mixed hyperlipidemia Benign essential hypertension Chronic kidney disease (CKD), stage III (moderate) 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 CKD (chronic kidney disease) stage 3, GFR 30-59 ml/min Vitamin D deficiency Non-toxic multinodular goiter Dyslipidemia Diabetic 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 with type 2 diabetes mellitus 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 Diabetes type 2, uncontrolled Surgical History Hx of cardiac cath (~2008) Hx of tonsillectomy Family History Father Hypertension Diabetes CVA (cerebral vascular accident) Dementia Mother CVA (cerebral vascular accident) Dementia Diabetes Hypertension Other Mental health disorder Social History Housing: House Alcohol intake: current Alcohol intake frequency: holidays/special occasions only Patient Tobacco Use Status: Never used Tobacco e-Cigarette/Vaping Use: Never Used service: No Current occupational status: disabled Cognitive needs: No Hearing needs: Yes (B/L hearing loss per Pt) Vision needs: No Questionnaire PHQ-9 Over the last 2 weeks, how often have you been bothered by any of the following problems? 1. Little interest or pleasure in doing things: not at all 2. Feeling down, depressed, or hopeless: not at all 3. Trouble falling or staying asleep, or sleeping too much: not at all 4. Feeling tired or having little energy: not at all 5. Poor appetite or overeating: not at all 6. Feeling bad about yourself - or that you are a failure or have let yourself or your family down: not at all 7. Trouble concentrating on things, such as reading the newspaper or watching television: not at all 8. Moving or speaking so slowly that other people could have noticed. Or the opposite - being so fidgety or restless that you have been moving around a lot more than usual: not at all 9. Thoughts that you would be better off or of hurting yourself in some way: not at all Total score: 0 Depression Screening Interpretation: Negative Depression Screening Done: Yes 35703 - PHQ-9 Billing: Yes Source: Developed by Drs. Jersey Gibson, Janeth Lopes, Jose Cesar and colleagues, with an educational renu from [employer]. Thrive Questionnaire Date Thrive assessed: 06/01/25 I am a: Patient What is your living situation today?: I have a steady place to live Within the past 12 months, did the food you bought not last and you didn't have the money to get more?: Never true Within the past 12 months, did you worry whether your food would run out before you got money to buy more?: Never true Do you have trouble paying for medicines?: No Do you have trouble getting transportation to medical appointments?: No Do you have trouble paying your heating and electricity bill?: No Do you have trouble taking care of your child, family member or friend?: No Do you have trouble with day-to-day activities such as bathing, preparing meals, shopping, managing finances, etc.?: No Are you currently unemployed and looking for a job?: I choose not to answer this question Are you interested in more education?: No Please select the resources that you would like help with: None Currently or been in a relationship where the following occur: No concerns reported THRIVE Score: 0 AUDIT C Alcohol Use Questionnaire (AUDIT-C) 1. How often do you have a drink containing alcohol?: Monthly or less 2. How many drinks containing alcohol do you have on a typical day when you are drinking?: 3 or 4 3. How often do you have six or more drinks on one occasion?: Never Total Score: 2 Score Reviewed/Action Taken: Yes NIKKI-7 AMB Questionnaire NIKKI-7 Date NIKKI - 7 assessed: 06/01/25 Feeling nervous, anxious, or on edge: 0 = Not at all Not being able to stop or control worryin = Not at all Worrying too much about different things: 0 = Not at all Trouble relaxin = Not at all Being so restless that it is hard to sit still: 0 = Not at all Becoming easily annoyed or irritable: 0 = Not at all Feeling afraid as if something awful might happen: 0 = Not at all Total NIKKI-7 score (0-4 normal; 5-9 mild; 10-14 moderate; 15-21 severe): 0 Source: Developed by Drs. Jersey Gibson, Janeth Lopes, Jose Cesar and colleagues, with an educational renu from [employer]. Review of Systems Const Denies chills, Denies fatigue, Denies fever(s) and Denies headache(s) ENT Denies dysphagia, Denies dizziness, Denies otalgia, Denies headache(s), Denies neck pain, Denies odynophagia and Denies sore throat Card Denies chest pain, Denies palpitations and Reports dyspnea on exertion (mild) Resp Denies chest congestion, Denies cough and Reports dyspnea on exertion (mild) GI Denies abdominal pain, Denies constipation, Denies dysphagia, Denies heartburn, Denies diarrhea, Denies nausea, Denies odynophagia and Denies vomiting Denies difficulty urinating, Denies dysuria, Denies nocturia and Denies urinary frequency Musc Denies back pain, Reports arthralgias (right knee, on and off) and Denies neck pain Skin/Breast Denies rash Neuro Denies dizziness and Denies headache(s) Endo Denies fatigue and Denies palpitations Physical exam (Primary Care) Vital Signs: Last Vital Signs Pulse 74 06/01/25 14:26 BP 128/86 06/01/25 14:26 Pulse Ox 96 06/01/25 14:26 Oxygen Delivery Method Room Air 06/01/25 14:26 BMI result Body Mass Index 33.6 Tobacco/Smoking Status: Tobacco use Status Tobacco use date assessed 06/01/25 06/01/25 14:27 Patient Tobacco Use Status Never used Tobacco 06/01/25 14:27 e-Cigarette/Vaping Use Never Used 06/01/25 14:27 PHQ-9: PHQ-9 Score PHQ-9: Total score 0 06/03/25 06:50 Depression Screening Interpretation: Negative Thrive Assessment: Date of Thrive Assessment Date Thrive assessed 06/01/25 06/01/25 14:27 Currently or been in a relationship where the following occur: No concerns reported Const General: no acute distress and alert HENMT Ears: TM's normal bilaterally and EAC's normal Throat: Yes posterior oropharynx normal and Yes tonsils normal (no TP congestion) Neck Neck: Yes supple and No lymphadenopathy Thyroid: Thyroid normal Resp Auscultation: clear to auscultation bilaterally, no rales and no wheezes Cardio Rate: regular rate Rhythm: regular rhythm Heart sounds: no murmurs GI Palpation (GI): Soft to palpation and nontender Auscultation: normal bowel sounds General: Yes no CVA tenderness Back/Spine/Pelvis Back: no CVA tenderness Thoracic/Lumbar Spine: No lumbar spinal tenderness Skin Rashes: no rashes Extrem General: Yes no clubbing, cyanosis or edema Right lower extremity: knee Details: tenderness Location: of the medial joint line; no swelling Coding Level of Care Code Est Pt Level 4 (32431) Diagnoses Type 2 diabetes mellitus with stage 3b chronic kidney disease, with long-term current use of insulin E11.22; N18.32; Z79.4 Chronic kidney disease stage: stage 3 (moderate) Chronic kidney disease stage 3 subtype: stage 3b (GFR 30-44) Diabetes mellitus technology methodology consultant insulin use: with custodial use Stage 3b chronic kidney disease N18.32 Chronic kidney disease stage 3 subtype: stage 3b (GFR 30-44) Mixed hyperlipidemia E78.2 Benign essential hypertension I10 Exertional dyspnea R06.09 Right medial knee pain M25.561 Vitamin D deficiency E55.9 Non-toxic multinodular goiter E04.2 Allergic rhinitis, unspecified seasonality, unspecified trigger J30.9 Allergic rhinitis seasonality: unspecified Allergic rhinitis trigger: unspecified Obesity (BMI 30-39.9) E66.9 Additional Codes PHQ-9 - 55694 - PHQ-9 Billing: Yes ([id number]) Assessment & Plan Assessment & Plan (1) Type 2 diabetes mellitus with diabetic chronic kidney disease: Code(s): E11.22 - Type 2 diabetes mellitus with diabetic chronic kidney disease Category: Medical Qualifiers: Chronic kidney disease stage: stage 3 (moderate) Chronic kidney disease stage 3 subtype: stage 3b (GFR 30-44) Diabetes mellitus custodial insulin use: with technology methodology consultant use Qualified Code(s): E11.22 - Type 2 diabetes mellitus with diabetic chronic kidney disease; N18.32 - Chronic kidney disease, stage 3b; Z79.4 - detention (current) use of insulin Plan: His in-office HgbA1c was at 9.2% when recently checked at the endocrinology office about 3 days ago on 05/29/2025 (was at 8.5% a few months ago in January 2025) - goal is at least <7.0% Reinforced diabetic diet - patient again admitted to poor dietary compliance while he was in [place] over the past few months He also admitted to not taking his Semaglutide for at least the past couple weeks Continue Toujeo 50 units Q HS, NovoLog 16 units (8 clicks) via Cequr and Jardiance 25 mg Q AM; he was also started back on Ozempic 0.5 mg SQ weekly Follow up with endocrinology and with html web developer for diabetic teaching as scheduled Will also refer him to ophthamology for his annual diabetic eye exam (2) Chronic kidney disease (CKD), stage III (moderate): Code(s): N18.30 - Chronic kidney disease, stage 3 unspecified Category: Medical Qualifiers: Chronic kidney disease stage 3 subtype: stage 3b (GFR 30-44) Qualified Code(s): N18.32 - Chronic kidney disease, stage 3b Plan: Will continue to monitor his GFR and serum creatinine regularly Have advised patient again strict control of his blood sugar is the best way to keep his renal function stable (3) Mixed hyperlipidemia: Code(s): E78.2 - Mixed hyperlipidemia Category: Medical Plan: Patient was again not able to get his follow up labs done prior to his appointment today - states that he will try to get these done GATO Reinforced low cholesterol diet Continue Atorvastatin 80 mg QD and Ezetimibe 10 mg QD Will recheck his labs and fasting lipids in 3 months for follow up (4) Benign essential hypertension: Code(s): I10 - Essential (primary) hypertension Category: Medical Plan: Reinforced low sodium diet - goal is systolic BP of at least 120 to 130 mm or less Continue Losartan 100 mg QD, Amlodipine 5 mg QD, Metoprolol 50 mg BID and HCTZ 25 mg Q AM (5) Exertional dyspnea: Code(s): R06.09 - Other forms of dyspnea Category: Medical Plan: He was (previously) referred to Cardiology for further evaluation and management and to assess for cardiovascular disease, as patient has 2 younger brothers who recently from heart attack/stroke Echocardiogram done a few months ago revealed (+) mild cardiomyopathy, with decreased LV systolic function at around 40-45%, moderate dilation of sinuses of Valsalva measuring at 4.8 cm and mild dilation of the ascending aorta at 4.1 cm He subsequently underwent further work up with cardiac catheterization on 02/22/2025, which revealed (+) moderate disease in a moderate-sized RPL branch; the left main coronary , LAD and left circumflex arteries were all normal He has been advised to continue lifelong low dose Aspirin therapy and will have repeat echo done in about 6 months Follow up with cardiology as scheduled (6) Right medial knee pain: Code(s): M25.561 - Pain in right knee Category: Medical Plan: Right knee x-rays done a few months ago revealed only (+) prepatellar soft tissue swelling with no acute fracture or dislocation The joint spaces are well-preserved Follow up with orthopedics as scheduled (7) Vitamin D deficiency: Code(s): E55.9 - Vitamin D deficiency, unspecified Category: Medical Plan: Continue Vitamin D3 2000 units QD (8) Non-toxic multinodular goiter: Code(s): E04.2 - Nontoxic multinodular goiter Category: Medical Plan: Thyroid US done in 10/2020 showed stable findings Will continue to monitor his TFTs regularly Follow up with endocrinology as scheduled (9) Allergic rhinitis: Code(s): J30.9 - Allergic rhinitis, unspecified Category: Medical Qualifiers: Allergic rhinitis seasonality: unspecified Allergic rhinitis trigger: unspecified Qualified Code(s): J30.9 - Allergic rhinitis, unspecified Plan: Continue Fluticasone 50 mcg nasal spray QD PRN (10) Obesity (BMI 30-39.9): Code(s): E66.9 - Obesity, unspecified Category: Medical Plan: Reinforced diet/exercise as tolerated/lose weight Plan Follow up in 3 months Orders: Orders Hemoglobin A1c 3 Months E11.9 - Type 2 diabetes mellitus without complications Microalbumin, Random (w Creat) 3 Months E11.9 - Type 2 diabetes mellitus without complications UA CC w/rflx Micro + Cult 3 Months R30.0 - Dysuria Lipid Panel 3 Months E78.00 - Pure hypercholesterolemia, unspecified Comprehensive [place]. Panel Fast 3 Months E78.00 - Pure hypercholesterolemia, unspecified Complete Blood Count Auto Diff 3 Months D64.9 - Anemia, unspecified TSH reflex Free T4 3 Months E78.00 - Pure hypercholesterolemia, unspecified Vitamin D 25-OH Total 3 Months E55.9 - Vitamin D deficiency, unspecified Referrals Ophthalmology Referral E11.22 - Type 2 diabetes mellitus with diabetic chronic kidney disease, E11.65 - Type 2 diabetes mellitus with hyperglycemia, N18.32 - Chronic kidney disease, stage 3b, Z79.4 - detention (current) use of insulin
--- OUTSIDE RECORDS SUMMARY | 2025-06-01 14:26 | XMS_ITS | Clinical Summary ---
Author Organization [employer] [facility] Address [address] [place] [address] [address] [place] [address] Care Team Providers Care Head Doffer Name Role Phone Unavailable Primary Care Provider [...] Most Recently Relevant to Health Maintenance Insurance [facility] [employer] OPTIONS (O D-SNP) [place] [id number] [facility]
== END 2025-06-01 14:52 | disposition home or self-care (01) ==
LOC: HO.HMCH 14:24
PROVIDERS: PCP Internal Medicine; Visit Provider Internal Medicine
DX: I12.9 Hypertensive chronic kidney disease with stage 1 through stage 4 chronic kidney disease, or unspecified chronic kidney disease (principal); E11.22 Type 2 diabetes mellitus with diabetic chronic kidney disease; N18.32 Chronic kidney disease, stage 3b; Z79.4 Long term (current) use of insulin; E78.2 Mixed hyperlipidemia; R06.09 Other forms of dyspnea; M25.561 Pain in right knee; E55.9 Vitamin D deficiency, unspecified; E04.2 Nontoxic multinodular goiter; J30.9 Allergic rhinitis, unspecified; E66.9 Obesity, unspecified

== ENCOUNTER → 2025-06-01 14:23 | Outpatient (BNVA) | payer OTHER, SELFPAY | PROVIDERS: PCP Internal Medicine; Visit Provider Internal Medicine | DX: E11.22 Type 2 diabetes mellitus with diabetic chronic kidney disease (principal); E11.65 Type 2 diabetes mellitus with hyperglycemia; I12.9 Hypertensive chronic kidney disease with stage 1 through stage 4 chronic kidney disease, or unspecified chronic kidney disease; N18.32 Chronic kidney disease, stage 3b; E78.2 Mixed hyperlipidemia; R06.09 Other forms of dyspnea; M25.561 Pain in right knee; E55.9 Vitamin D deficiency, unspecified; E04.2 Nontoxic multinodular goiter; J30.9 Allergic rhinitis, unspecified; E66.9 Obesity, unspecified; Z79.4 Long term (current) use of insulin; Z68.33 Body mass index [BMI] 33.0-33.9, adult | CPT/HCPCS: 96127; 99212 ==

== ENCOUNTER 2025-06-25 10:28 | Outpatient (AMB) | payer OTHER, SELFPAY ==
[2025-06-25 10:31] VITALS: BP 118/67; PULSE 66; O2SAT 96; BMI 34.3
--- NOTE | 2025-06-25 10:31 | MHC.OFFVIS ---
Vital Signs 06/25/25 10:31 Height 5 ft 4 in Weight 200 lb BMI 34.3 BP 118/67 Blood Pressure Location Lt brachial Position Sitting Pulse 66 Pulse Source Pulse Oximeter Pulse Oximetry (%) 96 Oxygen Delivery Method Room Air Intake Visit Reasons: lindsey Allergies metformin Adverse Reaction (Intermediate, Verified 06/25/25 10:35) Abdominal Pain dulaglutide (Trulicity) Adverse Reaction (Unknown, Verified 06/25/25 10:35) diarrhea HPI Comments Details: The patient is here for pulmonary evaluation. The patient is a 69-year-old gentleman with significant asthma and chronic rhinitis due to allergies along with the was found to have a cardiomyopathy with an EF of 40%. He had a full cardiac workup. No significant coronary disease. In the process of the evaluation the patient is having significant daytime drowsiness. His [place] is elevated 10/15 with significant cardiovascular risk factors. Therefore he was sent to sleep Medicine Services and underwent a in-lab sleep study. There he was found to have severe sleep apnea with an AHI of 30 and significant hypoxia down to 78% lowest pulse ox. He was recommended to start PAP therapy but the patient is reluctant. However now he understands the gravity of the situation the seriousness of the matter specially with his cardiac history and significant severe sleep apnea. The patient does want to start CPAP therapy. Will start at this time. Although, he does have significant chronic rhinitis nasal congestion that will affect his ability to tolerate CPAP. Therefore we need to treat him for that condition. 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 I did evaluate the nose I did appreciate the likelihood of polyps with the significant inflammation. Therefore likely has a component of nasal polyposis. May need additional imaging studies specially if the nasal sprays are not effective for him. 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 Diabetes type 2, uncontrolled Surgical History Hx of cardiac cath (~2008) Hx of tonsillectomy Family History Father Hypertension Diabetes CVA (cerebral vascular accident) Dementia Mother CVA (cerebral vascular accident) Dementia Diabetes Hypertension Other Mental health disorder Social History Housing: House Alcohol intake: current Alcohol intake frequency: holidays/special occasions only Patient Tobacco Use Status: Never used Tobacco e-Cigarette/Vaping Use: Never Used service: No Current occupational status: disabled Cognitive needs: No Hearing needs: Yes (B/L hearing loss per Pt) Vision needs: No Review of Systems Const Denies chills, Reports daytime sleepiness, Reports fatigue, Denies fever(s), Reports snoring and Reports stops breathing during sleep Eyes Reports no additional complaints ENT Reports nasal congestion, Reports nasal discharge, Reports nasal obstruction and Reports post nasal drip Card Denies chest pain, Denies palpitations and Reports dyspnea on exertion (mild) Resp Denies chest congestion, Reports cough, Reports dyspnea on exertion (mild), Reports snoring and Reports wheezing GI Denies abdominal pain, Denies constipation, Denies heartburn, Denies diarrhea, Denies nausea and Denies vomiting Musc Denies back pain and Reports arthralgias (right knee, on and off) Skin/Breast Denies rash Endo Reports fatigue and Denies palpitations Aller/Immun Reports wheezing Physical Exam Vital Signs: Last Vital Signs Pulse 66 06/25/25 10:31 BP 118/67 06/25/25 10:31 Pulse Ox 96 06/25/25 10:31 Oxygen Delivery Method Room Air 06/25/25 10:31 BMI result Body Mass Index 34.3 Const General: cooperative, healthy appearing, comfortable and no acute distress Orientation/consciousness: patient oriented x3 HEENT Head: Yes normal to inspection General nose exam: Abnormal mucous membranes and turbinates present erythematous Neck Neck: Yes normal visual inspection, Yes trachea midline and Yes supple Chest Chest palpation & inspection: normal inspection of the chest Resp Effort & Inspection: normal respiratory effort Auscultation: no crackles, no rales, no rhonchi, wheezes and diminished lung sounds Cardio Heart sounds: S1 normal heart sound present and S2 normal heart sound present GI Inspection: Yes normal to inspection Palpation (GI): Soft to palpation Auscultation: normal bowel sounds Skin General skin exam: no rashes or lesions noted Neuro General: patient oriented x3 Extrem General: Yes normal to inspection, No no pedal edema and No calf tenderness Psych Appearance: grossly normal Mental Status: mental status grossly normal Speech and movement: Normal speech and movement present Assessment & Plan Assessment & Plan (1) Allergies: Code(s): T78.40XA - Allergy, unspecified, initial encounter Category: Medical Qualifiers: Encounter type: initial encounter Qualified Code(s): T78.40XA - Allergy, unspecified, initial encounter (2) Nasal polyps: Code(s): J33.9 - Nasal polyp, unspecified Category: Medical (3) Asthma: Code(s): J45.909 - Unspecified asthma, uncomplicated Category: Medical Qualifiers: Asthma severity: moderate Asthma persistence: persistent Asthma complication type: uncomplicated Qualified Code(s): J45.40 - Moderate persistent asthma, uncomplicated (4) Obstructive sleep apnea: Comment: severe, EPWORTH 10/15 Code(s): G47.33 - Obstructive sleep apnea (adult) (pediatric) Category: Medical Plan Bloodwork and allergy testing start Symbicort ISAAC as needed continue nasonex start Astelin nasal spray consider Biologic therapy start APAP Orders: Orders Basic Metabolic Panel Today J33.9 - Nasal polyp, unspecified, J45.909 - Unspecified asthma, uncomplicated, T78.40XA - Allergy, unspecified, initial encounter Resp Allergy Profile Region I Today J33.9 - Nasal polyp, unspecified, J45.909 - Unspecified asthma, uncomplicated, R91.1 - Solitary pulmonary nodule, T78.40XA - Allergy, unspecified, initial encounter Immunoglobulin E Today J33.9 - Nasal polyp, unspecified, J45.909 - Unspecified asthma, uncomplicated, T78.40XA - Allergy, unspecified, initial encounter Erythrocyte Sedimentation Rate Today J33.9 - Nasal polyp, unspecified, J45.909 - Unspecified asthma, uncomplicated, T78.40XA - Allergy, unspecified, initial encounter Complete Blood Count Auto Diff Today J33.9 - Nasal polyp, unspecified, J45.909 - Unspecified asthma, uncomplicated, T78.40XA - Allergy, unspecified, initial encounter Immunoglobulins,IgG IgA IgM Today J33.9 - Nasal polyp, unspecified, J45.909 - Unspecified asthma, uncomplicated, T78.40XA - Allergy, unspecified, initial encounter Hypersensitive Pneumonitis Prf Today J33.9 - Nasal polyp, unspecified, J45.909 - Unspecified asthma, uncomplicated, R91.8 - Other nonspecific abnormal finding of lung field, T78.40XA - Allergy, unspecified, initial encounter Medications: New budesonide-formoterol 160-4.5 mcg/actuation (Symbicort) 2 puffs inhalation BID 10.2 grams 11RF 30 days J44.89 - Other specified chronic obstructive pulmonary disease azelastine administer into each nostril 2 sprays intranasal BID 30 mL 6RF 30 days Changed From mometasone 50 mcg/actuation (Nasonex 24hr Allergy) administer into each nostril 2 sprays intranasal DAILY PRN 17 grams 3RF nasal congestion To mometasone 50 mcg/actuation (Nasonex 24hr Allergy) administer into each nostril 2 sprays intranasal DAILY 17 grams 11RF nasal congestion Coding Level of Care Code New Pt Level 4 (03640) Diagnoses Allergy, initial encounter T78.40XA Encounter type: initial encounter Nasal polyps J33.9 Moderate persistent asthma without complication J45.40 Asthma severity: moderate Asthma persistence: persistent Asthma complication type: uncomplicated Obstructive sleep apnea G47.33 Time Spent (min) 45
--- OUTSIDE RECORDS SUMMARY | 2025-06-25 11:10 | XMS_ITS | Clinical Summary ---
Author Organization [employer] [facility] Address [address] [place] [address] Care Team Providers Care Housing Inspectors Name Role Phone Unavailable Primary Care Provider [...] Relevant to Health Maintenance Insurance [facility] INTERMEDIATE OPTIONS ([place] D-[place]) [place] [id number] [facility]
== END 2025-06-25 11:05 | disposition home or self-care (01) ==
LOC: HO.HPS 10:29
PROVIDERS: PCP Internal Medicine; Visit Provider Hospitalist
DX: T78.40XA Allergy, unspecified, initial encounter (principal); J33.9 Nasal polyp, unspecified; J45.40 Moderate persistent asthma, uncomplicated; G47.33 Obstructive sleep apnea (adult) (pediatric)
CPT/HCPCS: 99204

== ENCOUNTER 2025-06-25 10:28 | Outpatient (REF) | payer OTHER, SELFPAY ==
[2025-06-25 11:26] LABS: MANUAL DIFF FLAG NO
[2025-06-25 11:54] LABS: Hematocrit 46.7 % (42.0-52.0); Hemoglobin 15.6 g/dl (14.0-18.0); Imm Gran Abs Auto 0.02 X10*3/uL (0.00-0.03); Imm Gran Pct Auto 0.3 % (0.0-0.4); Lymphocytes Absolute Auto 2.0 X10*3/uL (1.2-4.9); Mean Corpuscular HGB Conc 33.4 g/dl (31.0-36.0); Mean Corpuscular Hemoglobin 28.4 pg (27.0-33.0); Mean Corpuscular Volume 84.9 fL (80.0-98.0); NRBC Abs Auto 0.000 X10*3/uL (0.0-0.012); NRBC Pct Auto 0.0 /100WBC (0.0-0.2); Platelet Count 208 X10*3/uL (160-400); Red Blood Count 5.50 X10*6/uL (4.60-5.80); White Blood Count 6.7 X10*3/uL (4.8-10.8)
[2025-06-25 12:24] LABS: Anion Gap 13 (12-20); Blood Urea Nitrogen 17 mg/dL (9-16); Calcium 9.4 mg/dL (8.4-10.2); Carbon Dioxide 30 mmol/L (22-29); Chloride 102 mmol/L (96-108); Estimated Glomerular Filt Rate > 60; Potassium 4.2 mmol/L (3.3-5.1); Sodium 141 mmol/L (135-145)
[2025-06-27 05:44] LABS: Class Alternaria alternata 0; Class Aspergillus fumigatus 0; Class Bermuda Grass 1; Class Birch 1; Class Cat Dander 3; Class Cladosporium herbarum 0; Class Cockroach 3; Class Common Ragweed 1; Class Cottonwood 1; Class Derm. pterony 3; Class Dermatophagoides farinae 4; Class Dog Dander 3; Class Elm 1; Class Maple Box Elder 1; Class Mountain Cedar 0/1; Class Mouse Urine Protein 0; Class Mugwort 0/1; Class Oak 1; Class Penicillium crysogenum 0; Class Rough Pigweed 0/1; Class Sheep Sorrel 1; Class Sycamore 1; Class Timothy Grass 1; Class Walnut Tree 1; Class White Ash 1; Class White Mulberry 0/1; D002 - IgE D farinae 35.20 kU/L; E001 - IgE Cat Dander 13.00 kU/L; E005 - IgE Dog Dander 5.09 kU/L; G006 - IgE Timothy Grass 0.47 kU/L; I006-IgE Cockroach, German 6.64 kU/L; M002 - IgE Cladosporium herbar <0.10 kU/L; M003 - IgE Aspergillus fumigat <0.10 kU/L; M006 - IgE Alternaria alternat <0.10 kU/L; T001 IgE Maple/Box Elder 0.41 kU/L; T006 - IgE Cedar, Mountain 0.28 kU/L; T007 - IgE Oak, White 0.40 kU/L; T008 IgE Elm, American 0.38 kU/L; T010 - IgE Walnut 0.40 kU/L; T011 - IgE Maple Leaf Sycamore 0.43 kU/L; T014 - IgE Cottonwood 0.42 kU/L; T015 - IgE Ash, White 0.43 kU/L; T070 - IgE White Mulberry 0.26 kU/L; W001 - IgE Ragweed, Short 0.65 kU/L; W006 - IgE Mugwort 0.23 kU/L; W014 IgE Pigweed, Common 0.32 kU/L; W018 IgE Sheep Sorrel 0.37 kU/L
[2025-07-02 08:19] LABS: Asperg fumigatus Precip Abs NEGATIVE; Micropoly faeni Abs NEGATIVE
[2025-07-02 08:20] LABS: Saccharo pora viridis Abs NEGATIVE; Thermo candidus Abs NEGATIVE
== END 2025-06-25 10:29 | disposition home or self-care (01) ==
LOC: HO.LAB 10:28
PROVIDERS: Absent Provider Internal Medicine; PCP Internal Medicine; Visit Provider Hospitalist
DX: J45.40 Moderate persistent asthma, uncomplicated (principal); J33.9 Nasal polyp, unspecified; T78.40XA Allergy, unspecified, initial encounter; G47.33 Obstructive sleep apnea (adult) (pediatric); J44.89 Other specified chronic obstructive pulmonary disease; R09.81 Nasal congestion; R91.8 Other nonspecific abnormal finding of lung field
CPT/HCPCS: 36415; 80048; 82784; 82785; 85025; 85652; 86003; 86331; 86606; 86609; 99202

== ENCOUNTER → 2025-06-28 15:57 | Outpatient (BNVA) | payer OTHER, SELFPAY | PROVIDERS: PCP Internal Medicine; Visit Provider Registered Nurse Diabetes Educator | DX: E11.65 Type 2 diabetes mellitus with hyperglycemia (principal) | CPT/HCPCS: 99211 ==

== ENCOUNTER → 2025-06-28 15:57 | Outpatient (AMB) | payer OTHER, SELFPAY ==
--- OUTSIDE RECORDS SUMMARY | 2025-06-28 15:59 | XMS_ITS | Clinical Summary ---
Author Organization [employer] Address [address] [place] [address] Care Team Providers Care Forms Designer Name Role Phone Unavailable Primary Care Provider [...] Recently Relevant to Health Maintenance Insurance [facility] PRISON OPTIONS (O D-SNP) [place] [id number] [facility]
--- NOTE | 2025-06-28 16:15 | A.OFFVIS_ITS ---
Intake Intake Visit Reasons: 30 min Asset Protection Specialist Required: Yes Asset Protection Specialist Language: [place] Accompanied by: Self / Same As Patient Allergies metformin Adverse Reaction (Intermediate, Verified 06/25/25 10:35) Abdominal Pain dulaglutide (Trulicity) Adverse Reaction (Unknown, Verified 06/25/25 10:35) diarrhea HPI Comprehensive Diabetes Asmnt Most Recent Diabetes Results: Microalb/Creat Ratio, (<30) 37.2 ug/mg cr H 10/24/24 Cholesterol, (<200) 203 mg/dL H 10/24/24 HDL Cholesterol, (>40) 37 mg/dL L 10/24/24 Triglycerides, (<150) 187 mg/dL H 10/24/24 Creatinine, (0.5-1.4) 1.19 mg/dL 06/25/25 BUN, (9-16) 17 mg/dL H 06/25/25 Sodium, (135-145) 141 mmol/L 06/25/25 Potassium, (3.3-5.1) 4.2 mmol/L 06/25/25 Chloride, (96-108) 102 mmol/L 06/25/25 Carbon Dioxide, (22-29) 30 mmol/L H 06/25/25 Calcium, (8.4-10.2) 9.4 mg/dL 06/25/25 AST, (5-37) 17 U/L 10/24/24 ALT, (0-40) 13 U/L 10/24/24 Total Protein, (6.5-8.0) 7.9 g/dL 10/24/24 Albumin, (3.5-5.0) 4.4 g/dL 10/24/24 [facility] Medical History (Updated 06/25/25 @ 20:36 by Maximiliano Baker MD) Asthma Nasal polyps Allergies Allergic rhinitis Obesity (BMI 30-39.9) Mixed hyperlipidemia Benign essential hypertension Chronic kidney disease (CKD), stage III (moderate) 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 CKD (chronic kidney disease) stage 3, GFR 30-59 ml/min Vitamin D deficiency Non-toxic multinodular goiter Dyslipidemia Diabetic 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 with type 2 diabetes mellitus FDC (current) use of insulin Diabetes type 2, uncontrolled Surgical History Hx of cardiac cath (~2008) Hx of tonsillectomy Family History Father Hypertension Diabetes CVA (cerebral vascular accident) Dementia Mother CVA (cerebral vascular accident) Dementia Diabetes Hypertension Other Mental health disorder Social History Housing: House Alcohol intake: current Alcohol intake frequency: holidays/special occasions only Patient Tobacco Use Status: Never used Tobacco e-Cigarette/Vaping Use: Never Used service: No Current occupational status: disabled Cognitive needs: No Hearing needs: Yes (B/L hearing loss per Pt) Vision needs: No Assessment & Plan Assessment & Plan (1) Diabetes type 2, uncontrolled: Code(s): E11.65 - Type 2 diabetes mellitus with hyperglycemia Plan: Patient at visit to set up an insert Tania 3+ with reader Patient is transitioning from Tania 2 with reader Instructed patient sensors water proof you can shower, or swim do not submerge sensor in water for over 30 minutes Is sensor falls off cannot put back in you need to replace sensor, customer service number given to patient for sensor replacement Sensor placed on the back of right arm Patient left visit with sensor in warmup Reviewed how to interpret trend arrows Discussed lag time between finger stick and sensor data.? Instructed patient the importance of having blood glucometer for backup testing if needed Reviewed delay of CGM from fingersticks Reminded Pt that if symptoms do not match sensor still needs to check fingersticks. Portions of this note were created using voice recognition software, please excuse any words or phrases that may have been misinterpreted. Patient Instructions: Instrucciones para el paciente: CGM proporciona informaci?n sobre el control de la glucosa en jevon a lo kenna del d?a, incluidas la hiperglucemia y la hipoglucemia. Contin?e controlando la glucosa en jevon seg?n las instrucciones. Siga las pautas de nutrici?n proporcionadas. Informe cualquier molestia de inmediato al proveedor de atenci?n m?dica. Mantente miriam hidratado. Puede ba?arse, ducharse, nadar y hacer ejercicio mientras usa el sensor de glucosa. No sumerja el sensor de glucosa en agua boo m?s de 30 minutos. Retire el sensor para rik resonancia magn?darcy o rik tomograf?a computarizada. Evite la m?quina de calvin X en los aeropuertos: retire el sensor o solicite la varita Coding Level of Care Code Est Pt Level 1 (63375) Diagnoses Diabetes type 2, uncontrolled E11.65
== END ==
LOC: HO.ENCR 15:58
PROVIDERS: PCP Internal Medicine; Visit Provider Registered Nurse Diabetes Educator
DX: E11.65 Type 2 diabetes mellitus with hyperglycemia (principal)

== ENCOUNTER 2025-07-03 14:36 | Outpatient (AMB) | payer OTHER, SELFPAY ==
[2025-07-03 14:38] VITALS: BP 120/80; PULSE 86; O2SAT 98; BMI 34.4
--- NOTE | 2025-07-03 14:38 | A.OFFVIS_ITS ---
Vital Signs 07/03/25 14:38 Height 5 ft 4 in Weight 200 lb 9.93 oz BMI 34.4 BP 120/80 Blood Pressure Location Lt brachial Position Sitting Pulse 86 Pulse Source Pulse Oximeter Pulse Oximetry (%) 98 Oxygen Delivery Method Room Air Intake Visit Reasons: Type II diabetes Intake Note: Patient present today to follow up on Type 2 Diabetes Mellitus. Last Diabetic Eye exam: Patient needs a new referral Last Podiatry Visit: Does not see a Switchboard Operator Receptionist Random Glucose: 278 mg/dL Most Recent HgA1C: 9.2% 05/29/2025 Records Management Specialist Required: Yes Records Management Specialist Language: Infusion Rn Name: ACOSTA Chapa Information Interpreted: non-clinical & clinical Accompanied by: Self / Same As Patient Allergies metformin Adverse Reaction (Intermediate, Verified 07/03/25 15:10) Abdominal Pain dulaglutide (Trulicity) Adverse Reaction (Unknown, Verified 07/03/25 15:10) diarrhea Medication List - Last Reconciled 07/03/25 by JOSE Hanna amlodipine 5 mg PO DAILY 90 days atorvastatin 80 mg PO DAILY 30 days azelastine 2 sprays intranasal BID 30 days bisacodyl (Dulcolax (bisacodyl)) 20 mg (4 x 5 mg) PO ONCE 1 day blood sugar diagnostic (FreeStyle Lite Strips) As directed to check blood sugar three times daily. blood-glucose meter (FreeStyle Lite Meter kit) Use to test blood sugar four times daily. blood-glucose sensor (FreeStyle Tania 3 Plus Sensor device) Apply 1 new sensor every 15 days as directed to monitor blood glucose continuously. blood-glucose,sock folder,cont (FreeStyle Tania 3 [place]) Use daily to monitor blood glucose levels continuously. budesonide-formoterol 160-4.5 mcg/actuation (Symbicort) 2 puffs inhalation BID 30 days cholecalciferol (vitamin D3) 50 mcg PO DAILY 30 days empagliflozin (Jardiance) 25 mg PO DAILY ezetimibe 10 mg PO DAILY 30 days glucose (Dex4 Glucose) 16 grams (4 x 4 gram) PO Q15M PRN hydrochlorothiazide 25 mg PO QAM insulin aspart U-100 (Novolog FlexPen U-100 Insulin aspart) 16 units (0.16 mL) subcut TID 30 days insulin glargine U-300 conc (Toujeo SoloStar U-300 Insulin) 48 units (0.16 mL) subcut BEDTIME 30 days lancets (FreeStyle Lancets) 28 gauge topical QID 75 days losartan 100 mg PO DAILY 90 days metoprolol tartrate 50 mg PO BID 90 days mometasone 50 mcg/actuation (Nasonex 24hr Allergy) 2 sprays intranasal DAILY pen needle, diabetic 5 times a day polyethylene glycol 3350 (Miralax) 238 grams PO ONCE semaglutide (Ozempic) 1 mg (0.75 mL) subcut QWEEK HPI Comments Details: Patient is 69 year male with DM type 2 diagnosed in 2003 who presents for management of diabetes. sales property manager present. Hemoglobin A1c 9.2% 05/29/2025. Past medical history: Diabetes type 2, hypertension, hyperlipidemia CKD3, NTMG (with small subcentimeter nodules with no need for intervention Dr. Arizmendi visit 06/10/21) Diabetic complications: retinopathy, nephropathy The patient says he improved his diet since returning from his trip. No soda. He drinks some juice. Reviewed CGM data the past 2 weeks CGM active 77% Average glucose 267 G ME 9.7% Glucose variability 27.5% Very high 57% High 30% Target range 13% 0% hypoglycemia He has hyperglycemia throughout 24 hours that worsens during the day. Current medications: Toujeo U300 50 units at bedtime (ran out 3 days ago and reports he was only taking 42 units), NovoLog 14 units twice daily (prescribed 16 three times daily), Jardiance 25 mg every morning, Ozempic 0.5 mg weekly. Restarted Ozempic after his last visit. Prior to that he ran out of it for 2 months. Endorses mild constipation. No other side effects. Recommended he start benefiber. Due for eye exam-contact information given to patient again today. Referral has already been proceeded. Past medications: Cequr-stopped using this. Prefers pens. Metformin was discontinued in the past due to GI upset. Trulicity discontinued in the past due to diarrhea. Levemir discontinued due to injection site reaction/med leakage from injection site. ROS: Constitutional: No unexplained weight loss, fever, chills, fatigue or night sweats. Gastrointestinal: No anorexia, nausea, vomiting or diarrhea. No abdominal pain Neurologic: No headache, dizziness, syncope Skin: No open wounds or rashes Physical exam: Constitutional: Alert, in no distress. Neck: Supple, Full range of motion. No lymphadenopathy. No palpable thyroid masses. Respiratory: Clear to auscultation. Cardiovascular: S1 S2 regular. No murmurs. 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 CKD (chronic kidney disease) stage 3, GFR 30-59 ml/min Vitamin D deficiency Non-toxic multinodular goiter Dyslipidemia Diabetic 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 with type 2 diabetes mellitus 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 Diabetes type 2, uncontrolled Surgical History Hx of cardiac cath (~2008) Hx of tonsillectomy Family History Father Hypertension Diabetes CVA (cerebral vascular accident) Dementia Mother CVA (cerebral vascular accident) Dementia Diabetes Hypertension Other Mental health disorder Social History Housing: House Alcohol intake: current Alcohol intake frequency: holidays/special occasions only Patient Tobacco Use Status: Never used Tobacco e-Cigarette/Vaping Use: Never Used service: No Current occupational status: disabled Cognitive needs: No Hearing needs: Yes (B/L hearing loss per Pt) Vision needs: No Physical Exam Vital Signs: Last Vital Signs Pulse 86 07/03/25 14:38 BP 120/80 07/03/25 14:38 Pulse Ox 98 07/03/25 14:38 Oxygen Delivery Method Room Air 07/03/25 14:38 BMI result Body Mass Index 34.4 Office Procedures Glucose Monitoring Details Details: see HPI 35257 - Glucose monitoring, continuous-physician I&R Procedure code (CPT) selection complete Results Reviewed Results Reviewed: Laboratory Last Values Glucose (Clinic) 278 mg/dL (60-115) H 07/03/25 14:42 Laboratory Tests 06/25/25 11:24 Creatinine 1.19 Estimated GFR > 60 02/13/25 08:32 Creatinine 1.34 Estimated GFR 53 Hgb A1c (Clinic) Hemoglobin A1c % AST ALT LDL Cholesterol Direct Triglycerides Cholesterol LDL Cholesterol, Calc HDL Cholesterol Vitamin B12 TSH Urine Creatinine Protein/Creatinin Ratio Urine Microalbumin Microalb/Creat Ratio 10/24/24 10/24/24 01/23/25 09:24 09:25 13:41 Creatinine 1.30 Estimated GFR 54 Hgb A1c (Clinic) 8.5 H Hemoglobin A1c % 9.5 H AST 17 ALT 13 LDL Cholesterol Direct Triglycerides 187 H Cholesterol 203 H LDL Cholesterol, Calc 129 H HDL Cholesterol 37 L Vitamin B12 TSH 1.72 Urine Creatinine 99.24 Protein/Creatinin Ratio Urine Microalbumin 37.0 Microalb/Creat Ratio 37.2 H Assessment & Plan Assessment & Plan (1) Type 2 diabetes mellitus with diabetic chronic kidney disease: Code(s): E11.22 - Type 2 diabetes mellitus with diabetic chronic kidney disease Category: Medical Qualifiers: Chronic kidney disease stage: stage 3 (moderate) Chronic kidney disease stage 3 subtype: stage 3b (GFR 30-44) Diabetes mellitus mcfp insulin use: with long term care social worker use Qualified Code(s): E11.22 - Type 2 diabetes mellitus with diabetic chronic kidney disease; N18.32 - Chronic kidney disease, stage 3b; Z79.4 - 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 Plan In summary this is a 69-year-old male with uncontrolled type 2 diabetes with microvascular complications. Increase Ozempic to 1 mg weekly Increase Toujeo to 48 units nightly Increase Novolog to 16 units three times daily before meals Continue Jardiance 25 mg every morning Reviewed treatment of hypoglycemia. Reviewed lifestyle modifications. Diabetic diet encouraged. Declines consult with dietitian. He will schedule his eye exam. Follow up in 1 month to review CGM data and diabetic management. Orders: Orders AMB Glucose Monitoring Today E11.9 - Type 2 diabetes mellitus without complications Medications: New semaglutide (Ozempic) 1 mg (0.75 mL) subcut QWEEK 3 mL 2RF insulin aspart U-100 (Novolog FlexPen U-100 Insulin aspart) 16 units (0.16 mL) subcut TID 14.4 mL 5RF 30 days Changed From insulin glargine U-300 conc (Toujeo SoloStar U-300 Insulin) Replaces insulin detemir. 50 units (0.1667 mL) subcut BEDTIME 4.5 mL 5RF To insulin glargine U-300 conc (Toujeo SoloStar U-300 Insulin) 48 units (0.16 mL) subcut BEDTIME 4.8 mL 5RF 30 days Discontinued semaglutide (Ozempic) Discontinued Reason: Doctor's Order 0.5 mg (0.736 mL) subcut QWEEK 3 mL 1RF insulin aspart U-100 (Novolog U-100 Insulin aspart) Discontinued Reason: Doctor's Order 16 units before meals (8 clicks) tid subcutaneously use as directed; 30 days 20 mL 11RF Patient Instructions: Increase Ozempic to 1 mg weekly Increase Toujeo to 48 units nightly Increase Novolog to 16 units three times daily before meals Continue Jardiance 25 mg every morning If you experience low blood sugar, treat this by eating a chewable fruit candy like skittles or jelly beans (about 8 pieces), 4 ounces (1/2 cup) of fruit juice (not diet), 1 tablespoon of honey or 4 glucose tablets. If your blood sugar is under 50, take double the amount of one of the above. Recheck your blood sugar in 15 minutes. Aumente la dosis de Ozempic a 1 mg semanalmente. Aumente la dosis de Toujeo a 48 unidades cada noche. Aumente la dosis de Novolog a 16 unidades silvia veces al d?a antes de las comidas. Contin?e con Jardiance 25 mg cada ma?zara. Si experimenta niveles bajos de az?car en la jevon, tr?telo con un caramelo masticable de fruta vincent Skittles o Jelly Beans (aproximadamente 8 piezas), 113 ml (1/2 taza) de jugo de fruta (no light), 1 cucharada de miel o 4 tabletas de glucosa. Si posey nivel de az?car en la jevon es inferior a 50, tome el doble de la dosis de mariana de los medicamentos mencionados anteriormente. Vuelva a medir posey nivel de az?car en la jevon en 15 minutos. ? [facility] Coding Level of Care Code Est Pt Level 4 (87486) Diagnoses Type 2 diabetes mellitus with stage 3b chronic kidney disease, with long-term current use of insulin E11.22; N18.32; Z79.4 Chronic kidney disease stage: stage 3 (moderate) Chronic kidney disease stage 3 subtype: stage 3b (GFR 30-44) Diabetes mellitus long term care social worker insulin use: with long term care social worker use CPT Codes Details - CPT: 81047 - Glucose monitoring, continuous-physician I&R ([id number])
[2025-07-03 14:47] LABS: Glucose, Whole Blood 278 mg/dL (60-115)
--- OUTSIDE RECORDS SUMMARY | 2025-07-03 15:30 | XMS_ITS | Clinical Summary ---
Author Organization [employer] [facility] Address [address] [place] [address] Care Team Providers Care Project Eng Name Role Phone Unavailable Primary Care Provider [...] Most Recently Relevant to Health Maintenance Insurance [facility] PR[facility] OPTIONS (O D-SNP) [place] [id number] [facility]
== END 2025-07-03 15:03 | disposition home or self-care (01) ==
LOC: HO.ENCR 14:37
PROVIDERS: PCP Internal Medicine; Visit Provider Physician Assistant Medical
DX: E11.22 Type 2 diabetes mellitus with diabetic chronic kidney disease (principal); N18.32 Chronic kidney disease, stage 3b; Z79.4 Long term (current) use of insulin

== ENCOUNTER → 2025-07-03 14:36 | Outpatient (BNVA) | payer OTHER, SELFPAY | PROVIDERS: PCP Internal Medicine; Visit Provider Physician Assistant Medical | DX: E11.65 Type 2 diabetes mellitus with hyperglycemia (principal); E11.22 Type 2 diabetes mellitus with diabetic chronic kidney disease; E11.3299 Type 2 diabetes mellitus with mild nonproliferative diabetic retinopathy without macular edema, unspecified eye; I12.9 Hypertensive chronic kidney disease with stage 1 through stage 4 chronic kidney disease, or unspecified chronic kidney disease; N18.32 Chronic kidney disease, stage 3b; Z79.4 Long term (current) use of insulin | CPT/HCPCS: 82947; 99212 ==

== ENCOUNTER 2025-08-07 15:11 | Outpatient (AMB) | payer OTHER, SELFPAY ==
[2025-08-07 15:12] VITALS: BP 144/84; PULSE 76; O2SAT 96; BMI 35.2
--- NOTE | 2025-08-07 15:12 | A.OFFVIS_ITS ---
Vital Signs 08/07/25 15:12 Height 5 ft 4 in Weight 205 lb 0.478 oz BMI 35.2 BP 144/84 H Blood Pressure Location Lt brachial Position Sitting Pulse 76 Pulse Source Pulse Oximeter Pulse Oximetry (%) 96 Oxygen Delivery Method Room Air Intake Visit Reasons: Type II diabetes Intake Note: Patient present today to follow up on Type 2 Diabetes Mellitus. Last Diabetic Eye exam: States [facility] will not scheduled another appointment because he had missed two already. Last Podiatry Visit: Does not see a Data Warehouse Administrator Random Glucose: 196 mg/dL Most Recent HgA1C: 9.2% 05/29/2025 Retirement Actuary Required: Yes Retirement Actuary Language: Tester Vibrator Equipment Services: Retirement Actuary Present Retirement Actuary Name: ACOSTA Chapa/ALISHA MCLEAN Information Interpreted: non-clinical & clinical Accompanied by: Self / Same As Patient Allergies metformin Adverse Reaction (Intermediate, Verified 08/07/25 15:13) Abdominal Pain dulaglutide (Trulicity) Adverse Reaction (Unknown, Verified 08/07/25 15:13) diarrhea Medication List - Last Reconciled 08/07/25 by JOSE Hanna amlodipine 5 mg PO DAILY 90 days atorvastatin 80 mg PO DAILY 30 days azelastine 2 sprays intranasal BID 30 days bisacodyl (Dulcolax (bisacodyl)) 20 mg (4 x 5 mg) PO ONCE 1 day blood sugar diagnostic (FreeStyle Lite Strips) As directed to check blood sugar three times daily. blood-glucose meter (FreeStyle Lite Meter kit) Use to test blood sugar four times daily. blood-glucose sensor (FreeStyle Tania 3 Plus Sensor device) Apply 1 new sensor every 15 days as directed to monitor blood glucose continuously. blood-glucose,diabetes specialist,cont (FreeStyle Tania 3 [place]) Use daily to monitor blood glucose levels continuously. budesonide-formoterol 160-4.5 mcg/actuation (Symbicort) 2 puffs inhalation BID 30 days cholecalciferol (vitamin D3) 50 mcg PO DAILY 30 days empagliflozin (Jardiance) 25 mg PO DAILY ezetimibe 10 mg PO DAILY 30 days glucose (Dex4 Glucose) 16 grams (4 x 4 gram) PO Q15M PRN hydrochlorothiazide 25 mg PO QAM 90 days insulin aspart U-100 (Novolog FlexPen U-100 Insulin aspart) 16 units (0.16 mL) subcut TID 30 days insulin glargine U-300 conc (Toujeo SoloStar U-300 Insulin) 48 units (0.16 mL) s ubcut BEDTIME 30 days lancets (FreeStyle Lancets) 28 gauge topical QID 75 days losartan 100 mg PO DAILY 90 days metoprolol tartrate 50 mg PO BID 90 days mometasone 50 mcg/actuation (Nasonex 24hr Allergy) 2 sprays intranasal DAILY pen needle, diabetic 5 times a day polyethylene glycol 3350 (Miralax) 238 grams PO ONCE semaglutide (Ozempic) 1 mg (0.75 mL) subcut QWEEK HPI Comments Details: Patient is 69 year male with DM type 2 diagnosed in 2003 who presents for management of diabetes. assurance engineer present. Hemoglobin A1c 9.2% 05/29/2025. Past medical history: Diabetes type 2, hypertension, hyperlipidemia CKD3, NTMG (with small subcentimeter nodules with no need for intervention Dr. Arizmendi visit 06/10/21) Diabetic complications: retinopathy, nephropathy The patient says he improved his diet since returning from his trip. No soda. He drinks some juice. Reviewed CGM data CGM active 20% Average glucose 180 Very high 12% High 30% Target range 58% 0% hypoglycemia Patient has not been able to get a new sensor from the pharmacy the refills were sent. We will contact the pharmacy about this. Reports fasting sugars in 140s in the morning. Current regimen: Ozempic to 1 mg weekly Toujeo to 48 units nightly Novolog to 16 units three times daily before meals Jardiance 25 mg every morning Due for eye exam-[facility] won't book appointment due to no shows. Patient was given the phone number to [facility]. Blood pressure is elevated. He has not taken his blood pressure medications today. Past medications: Cequr-stopped using this. Prefers pens. Metformin was discontinued in the past due to GI upset. Trulicity discontinued in the past due to diarrhea. Levemir discontinued due to injection site reaction/med leakage from injection site. ROS: Constitutional: No unexplained weight loss, fever, chills, fatigue or night sweats. Gastrointestinal: No anorexia, nausea, vomiting or diarrhea. No abdominal pain Neurologic: No headache, dizziness, syncope Skin: No open wounds or rashes Physical exam: Constitutional: Alert, in no distress. Neck: Supple, Full range of motion. No lymphadenopathy. No palpable thyroid masses. Respiratory: Clear to auscultation. Cardiovascular: S1 S2 regular. No murmurs. 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 CKD (chronic kidney disease) stage 3, GFR 30-59 ml/min Vitamin D deficiency Non-toxic multinodular goiter Dyslipidemia Diabetic 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 with type 2 diabetes mellitus nursing home (current) use of insulin Diabetes type 2, uncontrolled Surgical History Hx of cardiac cath (~2008) Hx of tonsillectomy Family History Father Hypertension Diabetes CVA (cerebral vascular accident) Dementia Mother CVA (cerebral vascular accident) Dementia Diabetes Hypertension Other Mental health disorder Social History Housing: House Alcohol intake: current Alcohol intake frequency: holidays/special occasions only Patient Tobacco Use Status: Never used Tobacco e-Cigarette/Vaping Use: Never Used service: No Current occupational status: disabled Cognitive needs: No Hearing needs: Yes (B/L hearing loss per Pt) Vision needs: No Physical Exam Vital Signs: Last Vital Signs Pulse 76 08/07/25 15:12 BP 144/84 H 08/07/25 15:12 Pulse Ox 96 08/07/25 15:12 Oxygen Delivery Method Room Air 08/07/25 15:12 BMI result Body Mass Index 35.2 Results Reviewed Results Reviewed: Laboratory Tests 06/25/25 11:24 Creatinine 1.19 Estimated GFR > 60 02/13/25 08:32 Creatinine 1.34 Estimated GFR 53 Hgb A1c (Clinic) Hemoglobin A1c % AST ALT LDL Cholesterol Direct Triglycerides Cholesterol LDL Cholesterol, Calc HDL Cholesterol Vitamin B12 TSH Urine Creatinine Protein/Creatinin Ratio Urine Microalbumin Microalb/Creat Ratio 10/24/24 10/24/24 01/23/25 09:24 09:25 13:41 Creatinine 1.30 Estimated GFR 54 Hgb A1c (Clinic) 8.5 H Hemoglobin A1c % 9.5 H AST 17 ALT 13 LDL Cholesterol Direct Triglycerides 187 H Cholesterol 203 H LDL Cholesterol, Calc 129 H HDL Cholesterol 37 L Vitamin B12 TSH 1.72 Urine Creatinine 99.24 Protein/Creatinin Ratio Urine Microalbumin 37.0 Microalb/Creat Ratio 37.2 H Assessment & Plan Assessment & Plan (1) Type 2 diabetes mellitus with diabetic chronic kidney disease: Code(s): E11.22 - Type 2 diabetes mellitus with diabetic chronic kidney disease Category: Medical Qualifiers: Diabetes mellitus intermediate insulin use: with intermediate use Chronic ki dney disease stage: stage 3 (moderate) Chronic kidney disease stage 3 subtype: stage 3b (GFR 30-44) Qualified Code(s): E11.22 - Type 2 diabetes mellitus with diabetic chronic kidney disease; N18.32 - Chronic kidney disease, stage 3b; Z79.4 - buttermaker helper (current) use of insulin Plan In summary this is a 69-year-old male with uncontrolled type 2 diabetes with microvascular complications. Patient declines medication changes at this visit. He would like to get a new sensor and returned to review the data before making medication adjustments. Continue Ozempic 1 mg weekly Continue Toujeo 48 units nightly Continue NovoLog 16 units 3 times daily before meals Continue Jardiance 25 mg every morning Reviewed lifestyle modifications. Diabetic diet encouraged. Declines consult with dietitian. He will schedule his eye exam. Follow up in 1 month to review CGM data and diabetic management. He will have lab work done before this appointment. Orders: Orders Lipid Panel Today E11.65 - Type 2 diabetes mellitus with hyperglycemia, E78.5 - Hyperlipidemia, unspecified, I10 - Essential (primary) hypertension Alanine Aminotransferase Today E11.65 - Type 2 diabetes mellitus with hyperglycemia, I10 - Essential (primary) hypertension, R79.89 - Other specified abnormal findings of blood chemistry Aspartate Amino Transferase Today E11.65 - Type 2 diabetes mellitus with hyperglycemia, I10 - Essential (primary) hypertension Microalbumin, Random (w Creat) Today E11.65 - Type 2 diabetes mellitus with hyperglycemia, E11.9 - Type 2 diabetes mellitus without complications, I10 - Essential (primary) hypertension Hemoglobin A1c Today E11.65 - Type 2 diabetes mellitus with hyperglycemia, I10 - Essential (primary) hypertension, R73.9 - Hyperglycemia, unspecified Creatinine Today E11.65 - Type 2 diabetes mellitus with hyperglycemia, E11.9 - Type 2 diabetes mellitus without complications, I10 - Essential (primary) hypertension Patient Instructions: Ozempic to 1 mg weekly Toujeo to 48 units nightly Novolog to 16 units three times daily before meals Jardiance 25 mg every morning If you experience low blood sugar, treat this by eating a chewable fruit candy like skittles or jelly beans (about 8 pieces), 4 ounces (1/2 cup) of fruit juice (not diet), 1 tablespoon of honey or 4 glucose tablets. If your blood sugar is under 50, take double the amount of one of the above. Recheck your blood sugar in 15 minutes. Coding Level of Care Code Est Pt Level 4 (50750) Complex EM visit Add On G2211 Diagnoses Type 2 diabetes mellitus with stage 3b chronic kidney disease, with long-term current use of insulin E11.22; N18.32; Z79.4 Diabetes mellitus business strategist insulin use: with business strategist use Chronic kidney disease stage: stage 3 (moderate) Chronic kidney disease stage 3 subtype: stage 3b (GFR 30-44)
[2025-08-07 15:26] LABS: Glucose, Whole Blood 196 mg/dL (60-115)
--- OUTSIDE RECORDS SUMMARY | 2025-08-07 18:42 | XMS_ITS | Clinical Summary ---
Author Organization [employer] [facility] Address [address] [place] [address] Care Team Providers Care Brush Cutter Name Role Phone Unavailable Primary Care Provider [...] 07/24/2021, 05/25/2016 Dental X-Ray: Bitewings 02/07/2024 02/05/2023 Dental Oral Exam 04/02/2025 10/02/2024, 02/05/2023 COVID-19 Vaccine (3 - season) 2025 03/31/2021, 03/03/2021 Influenza Vaccine (#1) 2025 , 08/29/2018, 08/18/2017, [...] Recently Relevant to Health Maintenance Insurance [facility] OPTIONS (O D-SNP) [place] [id number] [facility]
--- OUTSIDE RECORDS SUMMARY | 2025-08-07 18:42 | XMS_ITS | Encounter Summary ---
Author Organization [employer] Address [address] [place] [address] Care Team Providers Care Optic Fibre Drawer Name Role Phone Unavailable Primary Care Provider Unavailabl e Encounter Details Date Type Department Care Team (Late st Contact Info) Description 01/22/2023 Abstract [facility] ADULT D[facility]AL [address] [place] [address] Laith Márquez, [place] DEL[place] [address] [place] [address] Social History Tobacco Use Types Packs/Day Years [...]
== END 2025-08-07 15:44 | disposition home or self-care (01) ==
LOC: HO.ENCR 15:11
PROVIDERS: PCP Internal Medicine; Visit Provider Physician Assistant Medical
DX: E11.22 Type 2 diabetes mellitus with diabetic chronic kidney disease (principal); N18.32 Chronic kidney disease, stage 3b; Z79.4 Long term (current) use of insulin

== ENCOUNTER → 2025-08-07 15:11 | Outpatient (BNVA) | payer OTHER, SELFPAY | PROVIDERS: PCP Internal Medicine; Visit Provider Physician Assistant Medical | DX: E11.22 Type 2 diabetes mellitus with diabetic chronic kidney disease (principal); N18.32 Chronic kidney disease, stage 3b; I10 Essential (primary) hypertension; Z79.4 Long term (current) use of insulin | CPT/HCPCS: 82947; 99212 ==

== ENCOUNTER 2025-09-13 07:49 | Outpatient (REF) | payer OTHER, SELFPAY ==
--- OUTSIDE RECORDS SUMMARY | 2025-09-13 07:52 | XMS_ITS | Encounter Summary ---
Author Organization [employer] Address [address] [place] [address] Care Team Providers Care Battery Technician Name Role Phone Unavailable Primary Care Provider Unavailabl e Encounter Details Date Type Department Care Team (Late st Contact Info) Description 01/22/2023 Abstract [facility] AD[facility] [address] [place] [address] Laith Márquez, [place] DEL[place] [address] [place] [address] Social History Tobacco Use Types Packs/Day Years [...]
--- OUTSIDE RECORDS SUMMARY | 2025-09-13 07:52 | XMS_ITS | Clinical Summary ---
Author Organization [employer] Address [address] [place] [address] Care Team Providers Care Media Relations Specialist Name Role Phone Unavailable Primary Care [...] Most Recently Relevant to Health Maintenance Insurance [facility] OPTIONS (O D-SNP) [place] [id number] [facility]
[2025-09-13 08:06] LABS: MANUAL DIFF FLAG NO
[2025-09-13 08:47] LABS: Hematocrit 43.5 % (42.0-52.0); Hemoglobin 14.4 g/dl (14.0-18.0); Imm Gran Abs Auto 0.03 X10*3/uL (0.00-0.03); Imm Gran Pct Auto 0.4 % (0.0-0.4); Lymphocytes Absolute Auto 2.1 X10*3/uL (1.2-4.9); Mean Corpuscular HGB Conc 33.1 g/dl (31.0-36.0); Mean Corpuscular Hemoglobin 28.3 pg (27.0-33.0); Mean Corpuscular Volume 85.6 fL (80.0-98.0); NRBC Abs Auto 0.000 X10*3/uL (0.0-0.012); NRBC Pct Auto 0.0 /100WBC (0.0-0.2); Platelet Count 174 X10*3/uL (160-400); Red Blood Count 5.08 X10*6/uL (4.60-5.80); White Blood Count 6.8 X10*3/uL (4.8-10.8)
[2025-09-13 09:00] LABS: Appearance Urine Clear; Glucose Urine UA >=1000 mg/dL (Negative); PH 6.5 (5.0-9.0); Specific Gravity - Urine >= 1.030 (1.005-1.025); UMIC TRIGGER UACC YES
[2025-09-13 09:30] LABS: Alanine Aminotransferase 19 U/L (0-40); Albumin Level 4.0 g/dL (3.5-5.0); Alkaline Phosphatase 74 U/L (39-117); Anion Gap 13 (12-20); Aspartate Amino Transferase 16 U/L (5-37); Blood Urea Nitrogen 20 mg/dL (9-16); Calcium 9.5 mg/dL (8.4-10.2); Carbon Dioxide 31 mmol/L (22-29); Chloride 106 mmol/L (96-108); Cholesterol 216 mg/dL (<200); Estimated Glomerular Filt Rate 47; HDL Cholesterol 41 mg/dL (>40); Potassium 4.9 mmol/L (3.3-5.1); Sodium 145 mmol/L (135-145); Total Protein 6.7 g/dL (6.5-8.0); Triglycerides 198 mg/dL (<150)
[2025-09-13 09:39] LABS: Microalbum/Creatinine Ratio Ur 8.0 ug/mg cr (<30)
[2025-09-13 09:52] LABS: Folate 5.3 ng/mL (> or = 4.0); Vitamin B12 539 pg/mL (200-900)
== END 2025-09-13 07:50 | disposition home or self-care (01) ==
LOC: HO.LAB 07:49
PROVIDERS: Absent Provider Physician Assistant Medical; PCP Internal Medicine; Visit Provider Internal Medicine
DX: E11.9 Type 2 diabetes mellitus without complications (principal); E53.8 Deficiency of other specified B group vitamins; R30.0 Dysuria; E78.00 Pure hypercholesterolemia, unspecified; E55.9 Vitamin D deficiency, unspecified; M25.50 Pain in unspecified joint; D64.9 Anemia, unspecified
CPT/HCPCS: 36415; 80053; 80061; 81001; 81003; 82043; 82306; 82570; 82607; 82746; 83036; 84443; 85025; 85652

== ENCOUNTER 2025-09-25 12:44 | Outpatient (AMB) | payer OTHER, SELFPAY ==
[2025-09-25 12:45] VITALS: BP 112/62; PULSE 77; RESP 18; O2SAT 97; BMI 35.1
--- NOTE | 2025-09-25 12:45 | A.OFFPC_ITS ---
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 blood-glucose meter (FreeStyle Lite Meter kit) Use to test blood sugar four times daily. blood-glucose sensor (FreeStyle Tania 3 Plus Sensor device) Apply 1 new sensor every 15 days as directed to monitor blood glucose continuously. blood-glucose,retail asset protection specialist,cont (FreeStyle Tania 3 [place]) Use daily to monitor blood glucose levels continuously. budesonide-formoterol 160-4.5 mcg/actuation (Symbicort) 2 puffs inhalation BID 30 days cholecalciferol (vitamin D3) 50 mcg PO DAILY 30 days empagliflozin (Jardiance) 25 mg PO DAILY ezetimibe 10 mg PO DAILY 30 days glucose (Dex4 Glucose) 16 grams (4 x 4 gram) PO Q15M PRN hydrochlorothiazide 25 mg PO QAM 90 days insulin aspart U-100 (Novolog FlexPen U-100 Insulin aspart) 16 units (0.16 mL) subcut TID 30 days insulin glargine U-300 conc (Toujeo SoloStar U-300 Insulin) 48 units (0.16 mL) subcut BEDTIME 30 days lancets (FreeStyle Lancets) 28 gauge topical QID 75 days losartan 100 mg PO DAILY 90 days metoprolol tartrate 50 mg PO BID 90 days mometasone 50 mcg/actuation (Nasonex 24hr Allergy) 2 sprays intranasal DAILY pen needle, diabetic 5 times a day polyethylene glycol 3350 (Miralax) 238 grams PO ONCE semaglutide (Ozempic) 1 mg (0.75 mL) subcut QWEEK Tobacco use date assessed: 09/25/25 Fall risk assessment: No Falls in past year Last assessed Fall Risk: 09/25/25 Dental Screening Dental Screen Date: 09/25/25 Did you have a dental visit in the last 12 months?: Yes Did you have a dental problem in the last 6 months where you did not have access to dental care?: No Was dental information given to patient?: Patient has dentist HPI 3mth f/u HPI Details Patient is a 70 year old Libyan-speaking male presenting for diabetes, CKD, HTN, MADELEINE, HLD, vitamin-D deficiency follow up The patient reports that he has been having nasal congestion and right ear pain for about 8 days now Reports that he has a history of allergies for which he takes Nasonex nose spray or azelastine nose spray He denies any increasing shortness of breath. Reports that he has chronic mild shortness of breath but no change He denies any fevers or chills, denies chest pain, heart palpitation or dizziness. DM: A1c 8.9% from 9.5% the patient is currently on Jardiance 25 mg NovoLog FlexPen 16 units t.i.d. with meals, insulin glargine 48 units at bedtime, and was empiric 1 mg q.week. followed by endocrinology, upcoming appointment. 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 CKD (chronic kidney disease) stage 3, GFR 30-59 ml/min Vitamin D deficiency Non-toxic multinodular goiter Dyslipidemia Diabetic 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 with type 2 diabetes mellitus retirement (current) use of insulin Diabetes type 2, uncontrolled Surgical History Hx of cardiac cath (~2008) Hx of tonsillectomy Family History Father Hypertension Diabetes CVA (cerebral vascular accident) Dementia Mother CVA (cerebral vascular accident) Dementia Diabetes Hypertension Other Mental health disorder Social History Housing: House Alcohol intake: current Alcohol intake frequency: holidays/special occasions only Patient Tobacco Use Status: Never used Tobacco e-Cigarette/Vaping Use: Never Used service: No Current occupational status: disabled Cognitive needs: No Hearing needs: Yes (B/L hearing loss per Pt) Vision needs: No Questionnaire PHQ-9 Over the last 2 weeks, how often have you been bothered by any of the following problems? 1. Little interest or pleasure in doing things: not at all 2. Feeling down, depressed, or hopeless: not at all 3. Trouble falling or staying asleep, or sleeping too much: not at all 4. Feeling tired or having little energy: not at all 5. Poor appetite or overeating: not at all 6. Feeling bad about yourself - or that you are a failure or have let yourself or your family down: not at all 7. Trouble concentrating on things, such as reading the newspaper or watching television: not at all 8. Moving or speaking so slowly that other people could have noticed. Or the opposite - being so fidgety or restless that you have been moving around a lot more than usual: not at all 9. Thoughts that you would be better off or of hurting yourself in some way: not at all Total score: 0 Depression Screening Interpretation: Negative Depression Screening Done: Yes Source: Developed by Drs. Jersey Gibson, Janeth Lopes, Jose Cesar and colleagues, with an educational renu from [employer]. Thrive Questionnaire Date Thrive assessed: 06/01/25 I am a: Patient What is your living situation today?: I have a steady place to live Within the past 12 months, did the food you bought not last and you didn't have the money to get more?: Never true Within the past 12 months, did you worry whether your food would run out before you got money to buy more?: Never true Do you have trouble paying for medicines?: No Do you have trouble getting transportation to medical appointments?: No Do you have trouble paying your heating and electricity bill?: No Do you have trouble taking care of your child, family member or friend?: No Do you have trouble with day-to-day activities such as bathing, preparing meals, shopping, managing finances, etc.?: No Are you currently unemployed and looking for a job?: No Are you interested in more education?: No Please select the resources that you would like help with: None Currently or been in a relationship where the following occur: I choose not to answer THRIVE Score: 0 AUDIT C Alcohol Use Questionnaire (AUDIT-C) 1. How often do you have a drink containing alcohol?: Never Total Score: 0 NIKKI-7 AMB Questionnaire NIKKI-7 Date NIKKI - 7 assessed: 06/01/25 Feeling nervous, anxious, or on edge: 0 = Not at all Not being able to stop or control worryin = Not at all Worrying too much about different things: 0 = Not at all Trouble relaxin = Not at all Being so restless that it is hard to sit still: 0 = Not at all Becoming easily annoyed or irritable: 3 = Nearly every day Feeling afraid as if something awful might happen: 0 = Not at all Total NIKKI-7 score (0-4 normal; 5-9 mild; 10-14 moderate; 15-21 severe): 3 Source: Developed by Drs. Jersey Gibson, Janeth Lopes, Jose Cesar and colleagues, with an educational renu from [employer]. Review of Systems Const Denies chills, Denies fatigue, Denies fever(s) and Denies headache(s) Eyes Denies change in vision ENT Denies dysphagia, Denies dizziness, Reports otalgia (Right ear), Denies headache(s), Reports nasal congestion, Reports nasal discharge, Denies neck pain, Denies odynophagia and Denies sore throat Card Denies chest pain, Denies palpitations and Reports dyspnea on exertion (mild) Resp Denies chest congestion, Denies cough and Reports dyspnea on exertion (mild) GI Denies abdominal pain, Denies constipation, Denies dysphagia, Denies heartburn, Denies diarrhea, Denies nausea, Denies odynophagia and Denies vomiting Denies difficulty urinating, Denies dysuria, Denies nocturia and Denies urinary frequency Musc Denies back pain, Reports arthralgias (right knee, on and off) and Denies neck pain Skin/Breast Denies rash Neuro Denies dizziness and Denies headache(s) Endo Denies fatigue and Denies palpitations Physical exam (Primary Care) Vital Signs: Last Vital Signs Pulse 77 09/25/25 12:45 Resp 18 09/25/25 12:45 BP 112/62 09/25/25 12:45 Pulse Ox 97 09/25/25 12:45 Oxygen Delivery Method Room Air 09/25/25 12:45 BMI result Body Mass Index 35.1 Tobacco/Smoking Status: Tobacco use Status Tobacco use date assessed 09/25/25 09/25/25 12:58 Patient Tobacco Use Status Never used Tobacco 09/25/25 12:58 e-Cigarette/Vaping Use Never Used 09/25/25 12:58 PHQ-9: PHQ-9 Score PHQ-9: Total score 0 09/25/25 14:20 Depression Screening Interpretation: Negative Thrive Assessment: Date of Thrive Assessment Date Thrive assessed 06/01/25 09/25/25 12:58 Currently or been in a relationship where the following occur: I choose not to answer Const General: no acute distress and alert HENPA Head: Yes normal to inspection Ears: Abnormal EAC present (right ear block with yellowish drainage covering TM) General nose exam: Abnormal mucous membranes and turbinates present boggy and erythematous and Nasal discharge present purulent bilateral Mouth: Normal oral and palatal mucosa present Throat: Yes posterior oropharynx normal and Yes tonsils normal (no TP congestion) Neck Neck: Yes supple and No lymphadenopathy Thyroid: Thyroid normal Resp Auscultation: clear to auscultation bilaterally, no rales and no wheezes Cardio Rate: regular rate Rhythm: regular rhythm Heart sounds: no murmurs GI Palpation (GI): Soft to palpation and nontender Auscultation: normal bowel sounds General: Yes no CVA tenderness Back/Spine/Pelvis Back: no CVA tenderness Thoracic/Lumbar Spine: No lumbar spinal tenderness Skin Rashes: no rashes Extrem General: Yes no clubbing, cyanosis or edema Right lower extremity: knee Details: tenderness Location: of the medial joint line; no swelling Results Reviewed Results Reviewed: Laboratory Tests 09/13/25 09/13/25 08:00 08:03 WBC 6.8 RBC 5.08 Hgb 14.4 Hct 43.5 MCV 85.6 MCH 28.3 MCHC 33.1 RDW 12.6 Plt Count 174 Sodium 145 Potassium 4.9 Chloride 106 Carbon Dioxide 31 H Anion Gap 13 BUN 20 H Creatinine 1.46 H Estimated GFR 47 Fasting Glucose 214 H Hemoglobin A1c % 8.9 H Calcium 9.5 Total Bilirubin 0.5 AST 16 ALT 19 Alkaline Phosphatase 74 Total Protein 6.7 Albumin 4.0 Triglycerides 198 H Cholesterol 216 H LDL Cholesterol, Calc 136 H HDL Cholesterol 41 Vitamin B12 539 25-OH Vitamin D Total 23.3 L Folate 5.3 TSH 2.49 Urine Color Yellow Urine Appearance Clear Urine pH 6.5 Ur Specific [place] >= 1.030 H Urine Protein Negative Urine Glucose (UA) >=1000 H Urine Ketones Trace Urine Blood Negative Urine Nitrite Negative Ur Leukocyte Esterase Negative Urine RBC 0-2 Urine WBC 0-5 Ur Squamous Epith Cells 0-2 Hyaline Casts 0-2 Urine Creatinine 111.60 Urine Microalbumin 9.0 Microalb/Creat Ratio 8.0 Coding Level of Care Code Est Pt Level 4 (63294) Diagnoses Type 2 diabetes mellitus with stage 3b chronic kidney disease, with long-term current use of insulin E11.22; N18.32; Z79.4 Chronic kidney disease stage: stage 3 (moderate) Chronic kidney disease stage 3 subtype: stage 3b (GFR 30-44) Diabetes mellitus long term care administrator insulin use: with residential use Stage 3b chronic kidney disease N18.32 Chronic kidney disease stage 3 subtype: stage 3b (GFR 30-44) Mixed hyperlipidemia E78.2 Benign essential hypertension I10 Exertional dyspnea R06.09 Right medial knee pain M25.561 Vitamin D deficiency E55.9 Non-toxic multinodular goiter E04.2 Allergic rhinitis, unspecified seasonality, unspecified trigger J30.9 Allergic rhinitis seasonality: unspecified Allergic rhinitis trigger: unspecified Obesity (BMI 30-39.9) E66.9 Rhinosinusitis J31.0; J32.9 Otitis externa H60.311 Chronicity: acute Laterality: right Otitis externa type: diffuse Time Spent (min) 39 Assessment & Plan Assessment & Plan (1) Type 2 diabetes mellitus with diabetic chronic kidney disease: Code(s): E11.22 - Type 2 diabetes mellitus with diabetic chronic kidney disease Category: Medical Qualifiers: Chronic kidney disease stage: stage 3 (moderate) Chronic kidney disease stage 3 subtype: stage 3b (GFR 30-44) Diabetes mellitus residential insulin use: with long term care administrator use Qualified Code(s): E11.22 - Type 2 diabetes mellitus with diabetic chronic kidney disease; N18.32 - Chronic kidney disease, stage 3b; Z79.4 - retirement (current) use of insulin Plan: A1c 8.9% from 9.5% the patient is currently on Jardiance 25 mg NovoLog FlexPen 16 units t.i.d. with meals, insulin glargine 48 units at bedtime, and was empiric 1 mg q.week. followed by endocrinology, upcoming appointment soon. (2) Chronic kidney disease (CKD), stage III (moderate): Code(s): N18.30 - Chronic kidney disease, stage 3 unspecified Category: Medical Qualifiers: Chronic kidney disease stage 3 subtype: stage 3b (GFR 30-44) Qualified Code(s): N18.32 - Chronic kidney disease, stage 3b Plan: Will continue to monitor his GFR and serum creatinine regularly Have advised patient again strict control of his blood sugar is the best way to keep his renal function stable Avoid NSAIDs and encouraged adequate hydration (3) Mixed hyperlipidemia: Code(s): E78.2 - Mixed hyperlipidemia Category: Medical Plan: HLD: Triglycerides increased from 187 to 198 mg/dL total cholesterol increased from 203 to 216 mg/dL LDL increased from 129-136 mg/dL Discussed dietary modifications, the patient is already on atorvastatin 80 mg daily, and ezetimibe 10 mg daily We will repeat lipid panel in 3 months (4) Benign essential hypertension: Code(s): I10 - Essential (primary) hypertension Category: Medical Plan: Reinforced low sodium diet - goal is systolic BP of at least 120 to 130 mm or less Continue Losartan 100 mg QD, Amlodipine 5 mg QD, Metoprolol 50 mg BID and HCTZ 25 mg Q AM (5) Exertional dyspnea: Code(s): R06.09 - Other forms of dyspnea Category: Medical Plan: He was (previously) referred to Cardiology for further evaluation and management and to assess for cardiovascular disease, as patient has 2 younger brothers who recently from heart attack/stroke Echocardiogram done a few months ago revealed (+) mild cardiomyopathy, with decreased LV systolic function at around 40-45%, moderate dilation of sinuses of Valsalva measuring at 4.8 cm and mild dilation of the ascending aorta at 4.1 cm He subsequently underwent further work up with cardiac catheterization on 02/22/2025, which revealed (+) moderate disease in a moderate-sized RPL branch; the left main coronary , LAD and left circumflex arteries were all normal He has been advised to continue lifelong low dose Aspirin therapy and will have repeat echo done in about 6 months Follow up with cardiology as scheduled (6) Right medial knee pain: Code(s): M25.561 - Pain in right knee Category: Medical Plan: Right knee x-rays done a few months ago revealed only (+) prepatellar soft tissue swelling with no acute fracture or dislocation The joint spaces are well-preserved Follow up with orthopedics as scheduled (7) Vitamin D deficiency: Code(s): E55.9 - Vitamin D deficiency, unspecified Category: Medical Plan: Continue Vitamin D3 2000 units QD (8) Non-toxic multinodular goiter: Code(s): E04.2 - Nontoxic multinodular goiter Category: Medical Plan: Thyroid US done in 10/2020 showed stable findings Will continue to monitor his TFTs regularly Follow up with endocrinology as scheduled (9) Allergic rhinitis: Code(s): J30.9 - Allergic rhinitis, unspecified Category: Medical Qualifiers: Allergic rhinitis seasonality: unspecified Allergic rhinitis trigger: unspecified Qualified Code(s): J30.9 - Allergic rhinitis, unspecified Plan: Continue Fluticasone 50 mcg nasal spray QD PRN (10) Obesity (BMI 30-39.9): Code(s): E66.9 - Obesity, unspecified Category: Medical Plan: Reinforced diet/exercise as tolerated/lose weight (11) Rhinosinusitis: Code(s): J31.0 - Chronic rhinitis; J32.9 - Chronic sinusitis, unspecified Category: Medical Plan: Chronic nasal congestion, complaints of worsening nasal congestion over 8 days. On exam yellowish purulent drainage noted in bilateral nasal cavity. Erythematous and boggy turbinates. Augmentin 875-125 mg b.i.d. times 10 days ordered (12) Otitis externa: Code(s): H60.90 - Unspecified otitis externa, unspecified ear Category: Medical Qualifiers: Chronicity: acute Laterality: right Otitis externa type: diffuse Qualified Code(s): H60.311 - Diffuse otitis externa, right ear Plan: Patient right ear canal was blocked with yellow purulent drainage. Pain with manipulation of the ear. Augmentin 875-125 mg b.i.d. times 10 days ordered. Patient to follow up in 2 weeks for re-evaluation. Plan Follow up in 3 months Orders: Orders Comprehensive [place]. Panel Fast 3 Months E11.22 - Type 2 diabetes mellitus with diabetic chronic kidney disease, E11.65 - Type 2 diabetes mellitus with hyperglycemia, E55.9 - Vitamin D deficiency, unspecified, E66.9 - Obesity, unspecified, E78.2 - Mixed hyperlipidemia, I10 - Essential (primary) hypertension, I25.10 - Atherosclerotic heart disease of [place] coronary artery without angina pectoris, I42.9 - Cardiomyopathy, unspecified, N18.32 - Chronic kidney disease, stage 3b, T78.40XA - Allergy, unspecified, initial encounter, Z79.4 - retirement (current) use of insulin Lipid Panel 3 Months E11.22 - Type 2 diabetes mellitus with diabetic chronic kidney disease, E11.65 - Type 2 diabetes mellitus with hyperglycemia, E55.9 - Vitamin D deficiency, unspecified, E66.9 - Obesity, unspecified, E78.2 - Mixed hyperlipidemia, I10 - Essential (primary) hypertension, I25.10 - Atherosclerotic heart disease of [place] coronary artery without angina pectoris, I42.9 - Cardiomyopathy, unspecified, N18.32 - Chronic kidney disease, stage 3b, T78.40XA - Allergy, unspecified, initial encounter, Z79.4 - retirement (current) use of insulin Vitamin D 25-OH Total 3 Months E11.22 - Type 2 diabetes mellitus with diabetic chronic kidney disease, E11.65 - Type 2 diabetes mellitus with hyperglycemia, E55.9 - Vitamin D deficiency, unspecified, E66.9 - Obesity, unspecified, E78.2 - Mixed hyperlipidemia, I10 - Essential (primary) hypertension, I25.10 - Atherosclerotic heart disease of [place] coronary artery without angina pectoris, I42.9 - Cardiomyopathy, unspecified, N18.32 - Chronic kidney disease, stage 3b, T78.40XA - Allergy, unspecified, initial encounter, Z79.4 - long term care administrator (current) use of insulin Complete Blood Count Auto Diff 3 Months E11.22 - Type 2 diabetes mellitus with diabetic chronic kidney disease, E11.65 - Type 2 diabetes mellitus with hyperglycemia, E55.9 - Vitamin D deficiency, unspecified, E66.9 - Obesity, unspecified, E78.2 - Mixed hyperlipidemia, I10 - Essential (primary) hypertension, I25.10 - Atherosclerotic heart disease of [place] coronary artery without angina pectoris, I42.9 - Cardiomyopathy, unspecified, N18.32 - Chronic kidney disease, stage 3b, T78.40XA - Allergy, unspecified, initial encounter, Z79.4 - retirement (current) use of insulin TSH reflex Free T4 3 Months E11. - Type 2 diabetes mellitus with diabetic chronic kidney disease, E11.65 - Type 2 diabetes mellitus with hyperglycemia, E55.9 - Vitamin D deficiency, unspecified, E66.9 - Obesity, unspecified, E78.2 - Mixed hyperlipidemia, I10 - Essential (primary) hypertension, I25.10 - Atherosclerotic heart disease of [place] coronary artery without angina pectoris, I42.9 - Cardiomyopathy, unspecified, N18.32 - Chronic kidney disease, stage 3b, T78.40XA - Allergy, unspecified, initial encounter, Z79.4 - long term care administrator (current) use of insulin UA CC w/rflx Micro + Cult 3 Months E11.22 - Type 2 diabetes mellitus with diabetic chronic kidney disease, E11.65 - Type 2 diabetes mellitus with hyperglycemia, E55.9 - Vitamin D deficiency, unspecified, E66.9 - Obesity, unspecified, E78.2 - Mixed hyperlipidemia, I10 - Essential (primary) hypertension, I25.10 - Atherosclerotic heart disease of [place] coronary artery without angina pectoris, I42.9 - Cardiomyopathy, unspecified, N18.32 - Chronic kidney disease, stage 3b, T78.40XA - Allergy, unspecified, initial encounter, Z79.4 - retirement (current) use of insulin Medications: New amoxicillin-pot clavulanate 875-125 mg 1 tab PO BID 20 tabs 0RF 10 days Refilled cholecalciferol (vitamin D3) 50 mcg PO DAILY 30 caps 6RF 30 days E11.65 - Type 2 diabetes mellitus with hyperglycemia
--- OUTSIDE RECORDS SUMMARY | 2025-09-25 15:25 | XMS_ITS | Clinical Summary ---
Author Organization [employer] [facility] Address [address] [place] [address] [address] [place] [address] Care Team Providers Care Fullerette Name Role Phone Unavailable Primary Care Provider [...] Relevant to Health Maintenance Insurance [facility] [employer] (O D[place]) [place] [id number] [facility]
--- OUTSIDE RECORDS SUMMARY | 2025-09-25 15:25 | XMS_ITS | Encounter Summary ---
Author Organization [employer] Address [address] [place] [address] Care Team Providers Care Email Marketing Manager Name Role Phone Unavailable Primary Care Provider Unavailabl e Encounter Details Date Type Department Care Team (Late st Contact Info) Description 01/22/2023 Abstract [facility] [address] [place] [address] Laith Márquez, [place] DEL[place] [address] [place] [address] Social History Tobacco Use Types Packs/Day Years [...]
== END 2025-09-25 14:57 | disposition home or self-care (01) ==
PROVIDERS: PCP Internal Medicine
DX: E11.22 Type 2 diabetes mellitus with diabetic chronic kidney disease (principal); I12.9 Hypertensive chronic kidney disease with stage 1 through stage 4 chronic kidney disease, or unspecified chronic kidney disease; N18.32 Chronic kidney disease, stage 3b; Z79.4 Long term (current) use of insulin; E66.9 Obesity, unspecified; Z68.35 Body mass index [BMI] 35.0-35.9, adult; E78.2 Mixed hyperlipidemia; R06.09 Other forms of dyspnea; M25.561 Pain in right knee; E55.9 Vitamin D deficiency, unspecified; E04.2 Nontoxic multinodular goiter; J30.9 Allergic rhinitis, unspecified; J31.0 Chronic rhinitis; J32.9 Chronic sinusitis, unspecified; H60.311 Diffuse otitis externa, right ear

== ENCOUNTER → 2025-09-25 12:44 | Outpatient (BNVA) | payer OTHER, SELFPAY | PROVIDERS: PCP Internal Medicine | DX: E11.22 Type 2 diabetes mellitus with diabetic chronic kidney disease (principal); I12.9 Hypertensive chronic kidney disease with stage 1 through stage 4 chronic kidney disease, or unspecified chronic kidney disease; N18.32 Chronic kidney disease, stage 3b; E78.2 Mixed hyperlipidemia; M25.561 Pain in right knee; E55.9 Vitamin D deficiency, unspecified; E04.2 Nontoxic multinodular goiter; E66.9 Obesity, unspecified; J31.0 Chronic rhinitis; J32.9 Chronic sinusitis, unspecified; H60.311 Diffuse otitis externa, right ear; Z79.4 Long term (current) use of insulin; Z79.899 Other long term (current) drug therapy | CPT/HCPCS: 96127; 99212 ==

== ENCOUNTER → 2025-10-04 10:43 | Outpatient (REF) | payer OTHER, SELFPAY ==
--- NOTE | 2025-10-04 10:45 | CA_ITS ---
Transthoracic Echocardiogram Patient (Last, First, Middle): Walter Hopkins E Gender: Male Date of : 1955 Age: 70 Procedure Date: 10/04/2025 Procedure Type: Transthoracic Echocardiogram Location: OP Height: 162.56 cm Weight: 92.53 kg BSA: 1.97 m2 Heart Rate: bpm BP: 118 / 70 mmHg Causticiser: TO Referring MD: Yunior Smith VENDING MACHINE COLLECTOR Car And Yard Supervisor: Zenon Olivier MD Symptoms: I42.9 - Cardiomyopathy, unspecified Study Quality: Fair/Contrast ECG Rhythm: Sinus Conclusions: - 1. Mildly reduced LV ejection fraction 45-50% with mild LVH with moderate asymmetric septal hypertrophy with grade 1 diastolic dysfunction 2. Trivial aortic regurgitation noted 3. Mildly dilated ascending aorta and moderately dilated ascending aortic root 4. No gross pericardial effusion Findings Procedure Information Contrast agent, definity, is being given per protocol without apparent complications. Left Ventricle Normal left ventricular cavity size. There is mildly increased left ventricular wall thickness. The left ventricular systolic function is mildly decreased. The visually estimated ejection fraction is between 45-50%. Spectral Doppler is indicative of an impaired relaxation filling pattern. E/E prime ratio is <8, consistent with normal filling pressures. Evidence suggests grade I (mild) diastolic dysfunction. Right Ventricle Normal right ventricular cavity size and systolic function. Atria The left atrium is likely dilated. There is no evidence of interatrial shunt. The right atrium is normal in size. Aortic Valve Normal aortic valve structure and function. There is no aortic valve stenosis. There is no aortic valve regurgitation. Mitral Valve There is mild anterior and posterior mitral leaflet thickening. There is trace mitral valve regurgitation. There is no mitral valve stenosis. Pulmonic Valve The pulmonic valve was not well visualized. Tricuspid Valve Likely normal tricuspid valve structure and function. Tricuspid regurgitation envelope is inadequate for calculation of right ventricular systolic pressure. Normal right atrial pressure. Great Vessels There is moderate dilatation of the sinuses of Valsalva measuring 4.78 cm and mild dilatation of the ascending aorta. Venous The inferior vena cava is normal in size and collapses greater than 50% with inspiration. Pericardium/Pleural There is no evidence of pericardial effusion. Prior Study Comparison Changes noted compared to prior study dated: 01/31/2025. LV ejection fraction has marginally improved Measurements 2D Linear Measurements IVSd: 1.22 0.6-0.9/0.6-1.0 cm LVIDd: 4.84 3.9-5.3/4.2-5.9 cm LVIDd Index: 2.46 2.4-3.2/2.2-3.1 cm/m2 LVIDs: 3.81 2.0-3.6 cm LVPWd: 1.32 0.7-1.1 cm LA Diam: 3.80 2.7-3.8/3.0-4.0 cm LAIDs Index: 1.93 1.5-2.3 cm/m2 LV Mass: 306.94 67-162/88-224 g LV Mass Index: 155.81 43-95/49-115 g/m2 LVOT Diam: 2.30 3.0+(-)1.3 cm 2D Systolic Function EF 4C: 49.90 >55% EF 2C: 40.30 >55% EF BiP: 46.40 >55% Mitral Valve MV Pk E: 0.30 MV PK A: 0.59 MV Decel Time: 118.00 E/A: 0.50 E'Lateral: 5.77 E'Medial: 2.39 E/E' Med: 12.40 E/E' Lat: 5.10 PHT: 35.00 MVA PHT: 6.29 Decel [place]: 2.51 Aortic Valve AoV Pk Emre: 0.90 AoV Mn Emre: 0.65 AoV VTI: 0.15 AoV Pk Grad: 3.00 Aov Mn Grad: 2.00 LEEANNE Cont.VTI: 3.19 LVOT LVOT Pk Emre: 0.65 LVOT Mn Emre: 0.49 LVOT VTI: 0.12 LVOT Pk Grad: 2.00 LVOT Mn Grad: 1.00 LVOT Diam: 2.30 LVOT Area: 4.15 Diastolic Function MV Pk E: 0.30 MV Pk A: 0.59 E/A: 0.50 E'Medial: 2.39 E/E' Med: 12.40 E' Laterial: 5.77 E/E' Lat: 5.10 Right Ventricle TAPSE (mm): 19.80 TVS' Emre: 8.70 Tricuspid Valve RA Press: 3.00 Great Vessels Aorta Sinus of Valsalva: 4.78 2.0-3.5 cm Ao Asc: 3.90 2.1-3.4 cm Updated in Other Vendor System with Status of Final Zenon Olivier MD electronically signed on 10/05/2025 2:27:16 PM with status of Final
--- OUTSIDE RECORDS SUMMARY | 2025-10-04 13:10 | XMS_ITS | Clinical Summary ---
Author Organization [employer] [facility] Address [address] [place] [address] Care Team Providers Care Apartment Leasing Manager Name Role Phone Unavailable Primary Care [...] Recently Relevant to Health Maintenance Insurance [facility] [employer] OPTIONS (O D-[place] [id number] [facility]
--- OUTSIDE RECORDS SUMMARY | 2025-10-04 13:10 | XMS_ITS | Encounter Summary ---
Author Organization [employer] Address [address] [place] [address] Care Team Providers Care Employee Relations Specialist Name Role Phone Unavailable Primary Care Provider Unavailabl e Encounter Details Date Type Department Care Team (Late st Contact Info) Description 01/22/2023 Abstract [facility] [address] [place] [address] Laith Márquez, [place] DELIA [address] [place] [address] Social History Tobacco Use Types Packs/Day Years [...]
== END ==
LOC: HO.CARD 10:43
PROVIDERS: PCP Internal Medicine
DX: I42.9 Cardiomyopathy, unspecified (principal)
CPT/HCPCS: 93306; Q9957

== ENCOUNTER → 2025-10-04 10:45 | Outpatient (BNV) | payer OTHER, SELFPAY | PROVIDERS: PCP Internal Medicine; Visit Provider Internal Medicine Cardiovascular Disease | DX: I42.2 Other hypertrophic cardiomyopathy (principal); I35.1 Nonrheumatic aortic (valve) insufficiency; I51.7 Cardiomegaly; I77.810 Thoracic aortic ectasia | CPT/HCPCS: 93306 ==

== ENCOUNTER 2025-10-05 12:59 | Outpatient (AMB) | payer OTHER, SELFPAY ==
[2025-10-05 13:04] VITALS: BP 120/76; PULSE 77; O2SAT 96; BMI 35.2
--- NOTE | 2025-10-05 13:04 | A.OFFVIS_ITS ---
Vital Signs 10/05/25 13:04 Height 5 ft 4 in Weight 205 lb 4.006 oz BMI 35.2 BP 120/76 Blood Pressure Location Lt brachial Position Sitting Pulse 77 Pulse Source Pulse Oximeter Pulse Oximetry (%) 96 Oxygen Delivery Method Room Air Intake Visit Reasons: Type II diabetes Intake Note: Patient present today to follow up on Type 2 Diabetes Mellitus.? Last Diabetic Eye exam: Has an appointment in October Last Podiatry Visit: Does not see a Radiophone Operator Random Glucose:162 mg/dL Most Recent HgA1C: 8.9% 09/13/2025 Air Control Electronics Operator Required: Yes Air Control Electronics Operator Language: Institutional Cook Services: Air Control Electronics Operator Present Air Control Electronics Operator Name: Juan Francisco [id number] Information Interpreted: non-clinical & clinical Allergies metformin Adverse Reaction (Intermediate, Verified 10/05/25 13:07) Abdominal Pain dulaglutide (Trulicity) Adverse Reaction (Unknown, Verified 10/05/25 13:07) diarrhea HPI Comments Details: Patient is 69 year male with DM type 2 diagnosed in 2003 who presents for management of diabetes. 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 70% of glucose readings on his sensor are within target range though he only has glucose data for the last couple of days. He had to get a new reader. The date on the reader was also incorrect so this was set today. Past medical history: Diabetes type 2, hypertension, hyperlipidemia CKD3, NT MG (with small subcentimeter nodules with no need for intervention Dr. Arizmendi visit 06/10/21) Diabetic complications: retinopathy, nephropathy The patient says he improved his diet since returning from his trip. No soda. He drinks some juice. He had 1 low blood sugar yesterday. He treated this with juice. Current regimen: Ozempic to 1 mg weekly Toujeo to 48 units nightly Novolog to 16 units three times daily before meals Jardiance 25 mg every morning Due for eye exam-Eye exam scheduled Dcember. Past medications: Cequr-stopped using this. Prefers pens. Metformin was discontinued in the past due to GI upset. Trulicity discontinued in the past due to diarrhea. Levemir discontinued due to injection site reaction/med leakage from injection site. Hypertension is treated with amlodipine, hydrochlorothiazide, metoprolol, losartan Hyperlipidemia is treated with Zetia, atorvastatin. LDL and triglycerides are elevated. He endorses noncompliance with medications and dietary indiscretion while he was traveling for 1 month. He is taking medications again now. ROS: Constitutional: No unexplained weight loss, fever, chills, fatigue or night sweats. Gastrointestinal: No anorexia, nausea, vomiting or diarrhea. No abdominal pain Neurologic: No headache, dizziness, syncope Skin: No open wounds or rashes Physical exam: Constitutional: Alert, in no distress. Neck: Supple, Full range of motion. No lymphadenopathy. No palpable thyroid masses. Respiratory: Clear to auscultation. Cardiovascular: S1 S2 regular. No murmurs. Feet: Warm and well perfused, no clubbing, cyanosis or edema. No open wounds. 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 CKD (chronic kidney disease) stage 3, GFR 30-59 ml/min Vitamin D deficiency Non-toxic multinodular goiter Dyslipidemia Diabetic 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 with type 2 diabetes mellitus MCFP (current) use of insulin Diabetes type 2, uncontrolled Surgical History Hx of cardiac cath (~2008) Hx of tonsillectomy Family History Father Hypertension Diabetes CVA (cerebral vascular accident) Dementia Mother CVA (cerebral vascular accident) Dementia Diabetes Hypertension Other Mental health disorder Social History Housing: House Alcohol intake: current Alcohol intake frequency: holidays/special occasions only Patient Tobacco Use Status: Never used Tobacco e-Cigarette/Vaping Use: Never Used service: No Current occupational status: disabled Cognitive needs: No Hearing needs: Yes (B/L hearing loss per Pt) Vision needs: No Physical Exam Vital Signs: Last Vital Signs Pulse 77 10/05/25 13:04 BP 120/76 10/05/25 13:04 Pulse Ox 96 10/05/25 13:04 Oxygen Delivery Method Room Air 10/05/25 13:04 BMI result Body Mass Index 35.2 Results Reviewed Results Reviewed: Laboratory Last Values Glucose (Clinic) 162 mg/dL (60-115) H 10/05/25 13:17 Laboratory Tests 06/25/25 09/13/25 11:24 08:03 Creatinine 1.19 1.46 H Estimated GFR > 60 47 AST 16 ALT 19 Triglycerides 198 H Cholesterol 216 H LDL Cholesterol, Calc 136 H HDL Cholesterol 41 Vitamin B12 539 Assessment & Plan Assessment & Plan (1) Type 2 diabetes mellitus with diabetic chronic kidney disease: Code(s): E11.22 - Type 2 diabetes mellitus with diabetic chronic kidney disease Category: Medical Qualifiers: Chronic kidney disease stage: stage 3 (moderate) Chronic kidney disease stage 3 subtype: stage 3b (GFR 30-44) Diabetes mellitus nursing home insulin use: with nursing home use Qualified Code(s): E11.22 - Type 2 diabetes mellitus with diabetic chronic kidney disease; N18.32 - Chronic kidney disease, stage 3b; Z79.4 - 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 Continue Ozempic 1 mg weekly Continue Toujeo 48 units nightly Continue NovoLog 16 units 3 times daily before meals Continue Jardiance 25 mg every morning Stressed compliance with medications for cholesterol. Low-cholesterol diet, Mediterranean diet recommended. Check labs before next visit. Continue current regimen for hypertension. His blood pressure is normal today. Reviewed lifestyle modifications. Diabetic diet encouraged. He has declined the referral to the dietitian. Mallory exam is scheduled in October. Follow up in 2 months. Orders: Orders Lipid Panel 2 Months E78.5 - Hyperlipidemia, unspecified Creatinine 2 Months E11.9 - Type 2 diabetes mellitus without complications Hemoglobin A1c 2 Months R73.9 - Hyperglycemia, unspecified Vitamin B12 2 Months Z91.89 - Other specified personal risk factors, not elsewhere classified Coding Level of Care Code Est Pt Level 4 (04660) Complex EM visit Add On G2211 Diagnoses Type 2 diabetes mellitus with stage 3b chronic kidney disease, with long-term current use of insulin E11.22; N18.32; Z79.4 Chronic kidney disease stage: stage 3 (moderate) Chronic kidney disease stage 3 subtype: stage 3b (GFR 30-44) Diabetes mellitus nursing home insulin use: with nursing home use Benign essential hypertension I10 Mixed hyperlipidemia E78.2
[2025-10-05 13:23] LABS: Glucose, Whole Blood 162 mg/dL (60-115)
--- OUTSIDE RECORDS SUMMARY | 2025-10-05 19:01 | XMS_ITS | Encounter Summary ---
Author Organization [employer] Address [address] [place] [address] Care Team Providers Care Dental Technician Instructor Name Role Phone Unavailable Primary Care Provider Unavailabl e Encounter Details Date Type Department Care Team (Late st Contact Info) Description 01/22/2023 Abstract [facility] ADULT D[facility] [address] [place] [address] Laith Márquez, [place] DELIA [address] [place] [address] Social History Tobacco Use Types Packs/Day Years [...]
--- OUTSIDE RECORDS SUMMARY | 2025-10-05 19:01 | XMS_ITS | Clinical Summary ---
Author Organization [employer] [facility] Address [address] [place] [address] Care Team Providers Care Cooling Room Attendant Name Role Phone Unavailable Primary Care [...] Most Recently Relevant to Health Maintenance Insurance [facility] [employer] OPTIONS ([place] D-[place] [id number] [facility]
== END 2025-10-05 13:57 | disposition home or self-care (01) ==
LOC: HO.ENCR 13:00
PROVIDERS: PCP Internal Medicine; Visit Provider Physician Assistant Medical
DX: E11.22 Type 2 diabetes mellitus with diabetic chronic kidney disease (principal); N18.32 Chronic kidney disease, stage 3b; Z79.4 Long term (current) use of insulin; I10 Essential (primary) hypertension; E78.2 Mixed hyperlipidemia

== ENCOUNTER → 2025-10-05 12:59 | Outpatient (BNVA) | payer OTHER, SELFPAY | PROVIDERS: PCP Internal Medicine; Visit Provider Physician Assistant Medical | DX: I12.9 Hypertensive chronic kidney disease with stage 1 through stage 4 chronic kidney disease, or unspecified chronic kidney disease (principal); E11.22 Type 2 diabetes mellitus with diabetic chronic kidney disease; N18.32 Chronic kidney disease, stage 3b; E11.3299 Type 2 diabetes mellitus with mild nonproliferative diabetic retinopathy without macular edema, unspecified eye; Z79.4 Long term (current) use of insulin; Z83.3 Family history of diabetes mellitus; Z79.85 Long-term (current) use of injectable non-insulin antidiabetic drugs | CPT/HCPCS: 82947; 99212 ==

== ENCOUNTER 2025-10-08 15:50 | Outpatient (AMB) | payer OTHER, SELFPAY ==
--- NOTE | 2025-10-08 16:04 | MHC.PC.OV ---
Vital Signs 10/08/25 16:07 Height 5 ft 4 in Weight 208 lb 4 oz BMI 35.7 BP 136/74 Blood Pressure Location Lt brachial Position Sitting Respiration 18 Pulse 81 Pulse Source Pulse Oximeter Temp Source Temporal Artery Scan Pulse Oximetry (%) 95 Oxygen Delivery Method Room Air Intake Visit Reasons: 2 wee f/u Wheel Polisher Required: Yes Wheel Polisher Language: Merchandise Flow Team Leader Name: [id number] Accompanied by: Self / Same As Patient Allergies metformin Adverse Reaction (Intermediate, Verified 10/08/25 16:13) Abdominal Pain dulaglutide (Trulicity) Adverse Reaction (Unknown, Verified 10/08/25 16:13) diarrhea Medication List - Last Reconciled 10/08/25 by ELIZABETH Honeycutt amlodipine 5 mg PO DAILY 90 days amoxicillin-pot clavulanate 875-125 mg 1 tab PO BID 10 days atorvastatin 80 mg PO DAILY 30 days azelastine 2 sprays intranasal BID 30 days bisacodyl (Dulcolax (bisacodyl)) 20 mg (4 x 5 mg) PO ONCE 1 day blood sugar diagnostic (FreeStyle Lite Strips) As directed to check blood sugar three times daily. blood-glucose meter (FreeStyle Lite Meter kit) Use to test blood sugar four times daily. blood-glucose sensor (FreeStyle Tania 3 Plus Sensor device) Apply 1 new sensor every 15 days as directed to monitor blood glucose continuously. 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 budesonide-formoterol 160-4.5 mcg/actuation (Symbicort) 2 puffs inhalation BID 30 days cholecalciferol (vitamin D3) 50 mcg PO DAILY 30 days empagliflozin (Jardiance) 25 mg PO DAILY ezetimibe 10 mg PO DAILY 30 days glucose (Dex4 Glucose) 16 grams (4 x 4 gram) PO Q15M PRN hydrochlorothiazide 25 mg PO QAM 90 days insulin aspart U-100 (Novolog FlexPen U-100 Insulin aspart) 16 units (0.16 mL) subcut TID 30 days insulin glargine U-300 conc (Toujeo SoloStar U-300 Insulin) 48 units (0.16 mL) subcut BEDTIME 30 days lancets (FreeStyle Lancets) 28 gauge topical QID 75 days losartan 100 mg PO DAILY 90 days metoprolol tartrate 50 mg PO BID 90 days mometasone 50 mcg/actuation (Nasonex 24hr Allergy) 2 sprays intranasal DAILY pen needle, diabetic 5 times a day polyethylene glycol 3350 (Miralax) 238 grams PO ONCE semaglutide (Ozempic) 1 mg (0.75 mL) subcut QWEEK Tobacco use date assessed: 10/08/25 Fall risk assessment: No Falls in past year Last assessed Fall Risk: 10/08/25 Dental Screening Dental Screen Date: 10/08/25 Did you have a dental visit in the last 12 months?: No Did you have a dental problem in the last 6 months where you did not have access to dental care?: No Was dental information given to patient?: No HPI 2 wee f/u HPI Details The patient is a 70-year-old Divehi-speaking male presenting for follow-up FOR EAR INFECTION. The patient was treated with Augmentin [id number] mg b.i.d. times 10 days. The patient return for repeat evaluation the patient left ear is noted with thick yellow/ green secretions in the ear canal partially blocking TM. Bilateral nares were noted to be blocked as well, nasal congestion. Left nasal polyp was noted on exam. Upon chart review the patient was noted to be evaluated by ENT who found bilateral nasal polyps. CT of the head on mastoid was conducted. The results isn't available to review at this time. We will request a copy of this to further evaluate the patient condition. However the patient reports that ENT is planning on removing the polyps from his nostrils. On the patient prior visit he was not forthcoming with this information. Per ENT note that was scanned in the patient's chart, there was a recommendation for prednisone if safe for the patient and the patient was told to get clearance from his PCP. However, the patient A1c was 8.9% on his recent labs and has been uncontrolled, higher prior. The patient denies shortness of breath, reports that he is just unable to breathe out of his nose. on a nasal condition. The patient has a history of a perforated nasal issue and has undergone a CAT scan for review. He is currently using a nasal spray. 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 CKD (chronic kidney disease) stage 3, GFR 30-59 ml/min Vitamin D deficiency Non-toxic multinodular goiter Dyslipidemia Diabetic 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 with type 2 diabetes mellitus halfway (current) use of insulin Diabetes type 2, uncontrolled Surgical History Hx of cardiac cath (~2008) Hx of tonsillectomy Family History Father Hypertension Diabetes CVA (cerebral vascular accident) Dementia Mother CVA (cerebral vascular accident) Dementia Diabetes Hypertension Other Mental health disorder Social History Housing: House Alcohol intake: current Alcohol intake frequency: holidays/special occasions only Patient Tobacco Use Status: Never used Tobacco e-Cigarette/Vaping Use: Never Used service: No Current occupational status: disabled Cognitive needs: No Hearing needs: Yes (B/L hearing loss per Pt) Vision needs: No Questionnaire PHQ-9 Over the last 2 weeks, how often have you been bothered by any of the following problems? Depression Screening Interpretation: Negative Depression Screening Done: Yes Source: Developed by Drs. Jersey Gibson, Janeth Lopes, Jose Cesar and colleagues, with an educational renu from [employer]. Thrive Questionnaire Date Thrive assessed: 09/25/25 I am a: Patient What is your living situation today?: I have a steady place to live Within the past 12 months, did the food you bought not last and you didn't have the money to get more?: Never true Within the past 12 months, did you worry whether your food would run out before you got money to buy more?: Never true Do you have trouble paying for medicines?: No Do you have trouble getting transportation to medical appointments?: No Do you have trouble paying your heating and electricity bill?: No Do you have trouble taking care of your child, family member or friend?: No Do you have trouble with day-to-day activities such as bathing, preparing meals, shopping, managing finances, etc.?: No Are you currently unemployed and looking for a job?: No Are you interested in more education?: No Please select the resources that you would like help with: None Currently or been in a relationship where the following occur: I choose not to answer THRIVE Score: 0 NIKKI-7 AMB Questionnaire NIKKI-7 Date NIKKI - 7 assessed: 06/01/25 Source: Developed by Drs. Jersey Gibson, Janeth Lopes, Jose Cesar and colleagues, with an educational renu from [employer]. Review of Systems Const Denies chills, Denies fatigue, Denies fever(s) and Denies headache(s) Eyes Denies change in vision ENT Denies dysphagia, Denies dizziness, Reports otalgia (Right ear), Denies headache(s), Reports nasal congestion, Reports nasal discharge, Denies neck pain, Denies odynophagia and Denies sore throat Card Denies chest pain and Denies palpitations Resp Denies chest congestion and Denies cough GI Denies abdominal pain, Denies constipation, Denies dysphagia, Denies heartburn, Denies diarrhea, Denies nausea, Denies odynophagia and Denies vomiting Denies difficulty urinating, Denies dysuria, Denies nocturia and Denies urinary frequency Musc Denies back pain, Reports arthralgias (right knee, on and off) and Denies neck pain Skin/Breast Denies rash Neuro Denies dizziness and Denies headache(s) Endo Denies fatigue and Denies palpitations Physical exam (Primary Care) Vital Signs: Last Vital Signs Pulse 81 10/08/25 16:07 Resp 18 10/08/25 16:07 BP 136/74 10/08/25 16:07 Pulse Ox 95 10/08/25 16:07 Oxygen Delivery Method Room Air 10/08/25 16:07 BMI result Body Mass Index 35.7 Tobacco/Smoking Status: Tobacco use Status Tobacco use date assessed 10/08/25 10/08/25 16:11 Patient Tobacco Use Status Never used Tobacco 10/08/25 16:06 e-Cigarette/Vaping Use Never Used 10/08/25 16:06 Depression Screening Interpretation: Negative Thrive Assessment: Date of Thrive Assessment Date Thrive assessed 09/25/25 10/08/25 16:06 Currently or been in a relationship where the following occur: I choose not to answer Const General: no acute distress and alert HENMT Head: Yes normal to inspection Ears: Abnormal EAC present (right ear block with yellowish drainage partially covering TM) General nose exam: Abnormal mucous membranes and turbinates present boggy and erythematous, Nasal discharge present purulent bilateral and Nasal polyp present bilateral Mouth: Normal oral and palatal mucosa present Throat: Yes posterior oropharynx normal and Yes tonsils normal (no TP congestion) Neck Neck: Yes supple and No lymphadenopathy Thyroid: Thyroid normal Resp Auscultation: clear to auscultation bilaterally, no rales and no wheezes Cardio Rate: regular rate Rhythm: regular rhythm Heart sounds: no murmurs GI Palpation (GI): Soft to palpation and nontender Auscultation: normal bowel sounds General: Yes no CVA tenderness Back/Spine/Pelvis Back: no CVA tenderness Thoracic/Lumbar Spine: No lumbar spinal tenderness Skin Rashes: no rashes Extrem General: Yes no clubbing, cyanosis or edema Right lower extremity: knee Details: tenderness Location: of the medial joint line; no swelling Coding Level of Care Code Est Pt Level 4 (11255) Diagnoses Type 2 diabetes mellitus with stage 3b chronic kidney disease, with long-term current use of insulin E11.22; N18.32; Z79.4 Diabetes mellitus detention insulin use: with detention use Chronic kidney disease stage: stage 3 (moderate) Chronic kidney disease stage 3 subtype: stage 3b (GFR 30-44) Allergic rhinitis, unspecified seasonality, unspecified trigger J30.9 Allergic rhinitis trigger: unspecified Allergic rhinitis seasonality: unspecified Rhinosinusitis J31.0; J32.9 Otitis externa H60.311 Chronicity: acute Laterality: right Otitis externa type: diffuse Time Spent (min) 37 Assessment & Plan Assessment & Plan (1) Type 2 diabetes mellitus with diabetic chronic kidney disease: Code(s): E11.22 - Type 2 diabetes mellitus with diabetic chronic kidney disease Category: Medical Qualifiers: Diabetes mellitus detention insulin use: with rat exterminator use Chronic kidney disease stage: stage 3 (moderate) Chronic kidney disease stage 3 subtype: stage 3b (GFR 30-44) Qualified Code(s): E11.22 - Type 2 diabetes mellitus with diabetic chronic kidney disease; N18.32 - Chronic kidney disease, stage 3b; Z79.4 - halfway (current) use of insulin Plan: A1c 8.9% from 9.5% the patient is currently on Jardiance 25 mg NovoLog FlexPen 16 units t.i.d. with meals, insulin glargine 48 units at bedtime, and was empiric 1 mg q.week. followed by endocrinology, upcoming appointment soon. (2) Allergic rhinitis: Code(s): J30.9 - Allergic rhinitis, unspecified Category: Medical Qualifiers: Allergic rhinitis trigger: unspecified Allergic rhinitis seasonality: unspecified Qualified Code(s): J30.9 - Allergic rhinitis, unspecified Plan: Continue Fluticasone 50 mcg nasal spray QD PRN (3) Rhinosinusitis: Code(s): J31.0 - Chronic rhinitis; J32.9 - Chronic sinusitis, unspecified Category: Medical Plan: Chronic nasal congestion, complaints of worsening nasal congestion. On exam yellowish purulent drainage noted in bilateral nasal cavity. Erythematous and boggy turbinates, bilateral nasal polyps. Apparently, the patient was already seen by [facility] ENT and a CT of the head and mastoid was done and there is plans for surgery. He was treated previously with Augmentin 875-125 mg b.i.d. times 10 days ordered. We will start doxycycline 100 mg b.i.d. times 10 days. Per note review, ENT recommended prednisone if this was safe with the patient. We will hold off due to the patient uncontrolled blood sugar. (4) Otitis externa: Code(s): H60.90 - Unspecified otitis externa, unspecified ear Category: Medical Qualifiers: Chronicity: acute Laterality: right Otitis externa type: diffuse Qualified Code(s): H60.311 - Diffuse otitis externa, right ear Plan: Patient right ear canal was partially blocked with yellow/green purulent drainage. Pain with manipulation of the ear. Augmentin 875-125 mg b.i.d. times 10 days was ordered on previous visit. Doxycycline 100 mg b.i.d. times 10 days was ordered for atypical microbes. Encouraged the patient to follow up with ENT to see when his procedure we will be scheduled. Plan Patient already has a scheduled follow up appointment. Encouraged him to keep this appointment or follow up earlier for any concerns. Medications: New doxycycline monohydrate 100 mg PO BID 20 tabs 0RF 10 days
[2025-10-08 16:07] VITALS: BP 136/74; PULSE 81; RESP 18; O2SAT 95; BMI 35.7
--- OUTSIDE RECORDS SUMMARY | 2025-10-09 06:28 | XMS_ITS | Clinical Summary ---
Author Organization [employer] Address [address] [place] [address] [address] [place] [address] Care Team Providers Care Senior Solutions Consultant Name Role Phone Unavailable Primary Care Provider [...] Most Recently Relevant to Health Maintenance Insurance [facility] [employer] (O D-SNP) [place] [id number] [facility]
--- OUTSIDE RECORDS SUMMARY | 2025-10-09 06:28 | XMS_ITS | Encounter Summary ---
Author Organization [employer] Address [address] [place] [address] Care Team Providers Care Pneumatic Deicer Inspector Name Role Phone Unavailable Primary Care Provider Unavailabl e Encounter Details Date Type Department Care Team (Late st Contact Info) Description 01/22/2023 Abstract [facility] [address] [place] [address] Laith Márquez, [place] DELIA [address] [place] [address] Social History Tobacco Use Types Packs/Day Years [...]
== END 2025-10-08 16:45 | disposition home or self-care (01) ==
LOC: HO.HMCH 15:51
PROVIDERS: PCP Internal Medicine
DX: E11.22 Type 2 diabetes mellitus with diabetic chronic kidney disease (principal); N18.32 Chronic kidney disease, stage 3b; Z79.4 Long term (current) use of insulin; J30.9 Allergic rhinitis, unspecified; J31.0 Chronic rhinitis; J32.9 Chronic sinusitis, unspecified; H60.311 Diffuse otitis externa, right ear

== ENCOUNTER → 2025-10-08 15:50 | Outpatient (BNVA) | payer OTHER, SELFPAY | PROVIDERS: PCP Internal Medicine | DX: E11.22 Type 2 diabetes mellitus with diabetic chronic kidney disease (principal); N18.32 Chronic kidney disease, stage 3b; J31.0 Chronic rhinitis; J32.9 Chronic sinusitis, unspecified; H60.311 Diffuse otitis externa, right ear; Z79.4 Long term (current) use of insulin | CPT/HCPCS: 99212 ==